=== PATIENT | female | born 1945 | race Caucasian/White ===

== ENCOUNTER 2017-08-27 13:59 | Emergency (ER) | payer MEDICARE, BC, SELFPAY ==
[2017-08-27 14:00] VITALS: BP 142/85; PULSE 9; RESP 16; TEMP 36.7; O2SAT 95; BMI 26.5
--- NOTE | 2017-08-27 15:29 | CT_ITS ---
STUDY: CT ABDOMEN AND PELVIS WITHOUT CONTRAST REASON FOR EXAM: Female, 71 years old. Abdominal pain. Blood in the stool x3 days RADIATION DOSAGE (If Supplied By Facility): CTDIvol = ( 8.9 ) mGy, DLP = ( 417.88 ) mGycm TECHNIQUE: Transaxial images were obtained from the dome of the diaphragm to the symphysis pubis without oral contrast, and without intravenous contrast. Sagittal and coronal images were reconstructed. Individualized dose optimization techniques were used for this CT. COMPARISON: 03/02/2016 FINDINGS: The visualized lung bases are unremarkable. The visualized portions of the heart are within normal limits. There is decreased attenuation of the liver consistent with steatosis. There is a solitary gallstone. Normal spleen. Normal pancreas. Normal bilateral adrenal glands. Punctate nonobstructing mid pole stone measuring 3 mm. Otherwise, unremarkable right kidney. Normal left kidney. There is a small hiatal hernia. Adjacent to the first and second portions of the duodenum, there are stable duodenal diverticula versus 1 measures 4.9 x 4 cm and the second measures 5.3 x 4.5 cm. Otherwise, remaining small bowel is within normal limits. There are multiple colonic diverticula consistent with diverticulosis. The appendix is visualized and appears normal. There is diffuse atherosclerotic calcification of the abdominal aorta, without a demonstrated aneurysm. Normal inferior vena cava. Normal retroperitoneum. Normal urinary bladder. There is atrophy of the uterus. Normal abdominal wall. There are diffuse degenerative changes of the visualized lumbar spine. CT/Abdomen/Pelvis without Cont IMPRESSION: 1. No acute findings. Chronic diverticulosis without acute diverticulitis. 2. Grossly stable duodenal diverticula. 3. Stable small gallstone without evidence of acute cholecystitis. Electronically Signed: Garrett Teresa DO at 16:17 EDT Tel , Service support ,
[2017-08-27 15:38] VITALS: BP 151/81; PULSE 77; RESP 16; O2SAT 97
--- NOTE | 2017-08-27 15:53 | ED.DCSUM_ITS ---
- ER Visit Summary Date of Service: 08/27/17 Chief Complaint: GI bleed History of Present Illness: The patient is a 71 F who states that for the past 3 days she wakes up she has a bowel movement that is formed and light brown and has bright red blood on the paper. There is no pain in the rectum. Her bowel movements throughout the day are normal without bleeding. Is any straining. She notes an intermittent pain in the left lower quadrant of her abdomen which she states is from her diverticulosis. Is not on any blood thinners. She has had no fevers. Physical Examination: Febrile vital signs are stable Gen: Well-nourished well-developed Head: Normocephalic atraumatic Eyes: Perrl EOMI ENT: TMs clear no rhinorrhea moist mucous membranes Neck: Supple no lymphadenopathy no JVD nontender CVS: Regular rate rhythm no murmurs normal S1-S2 Respiratory: No distress clear to auscultation bilaterally chest nontender Abdomen: Soft nontender nondistended normal bowel sounds no masses RECTAL: External hemorrhoid. Stool is light brown and heme-negative. There is no gross blood on digital exam. Back: Nontender Extremity: Nontender no edema Skin: Normal color no rash Neuro: alert orientated ?3 CN II-XII intact normal strength sensation reflexes gait cerebellar Psych: Normal affect normal mood Test Results: The globin 11.7 which is at about baseline for her. CT demonstrated no active diverticulitis. Noted duodenal diverticulum. Emergency Department Course and Treatment: Has a stable lower GI bleed most likely due to internal hemorrhoids. She will follow-up with her family doctor. He was given return instructions and noted understanding. Impression: 1. Stable lower GI bleed (most likely internal hemorrhoidal) This note was generated with [employer] dictation software. It may contain incorrect words, spelling, and punctuation that were not noted in review of the chart prior to signing ED Disposition - Plan for ED Patient: Disposition: Home or Assisted Living Chief Complaint: GI Bleed Instructions: ED Hemorrhoids Referrals: Woody Monzon MD [Primary Care Provider] - 3-5 Days if not improving
[2017-08-27 15:57] LABS: Anion Gap 9 (5-15); BUN 12 mg/dL (7-18); BUN/Creat Ratio 16.7 RATIO (10-20); Calcium,Total 9.3 mg/dL (8.5-10.1); Chloride 105 mmol/L (98-107); Creatinine, Serum 0.72 mg/dL (0.55-1.02); EST Glomerular Filtration Rate 85 mL/min (>60); Est Glom Filt Rate - Afr Amer 103 mL/min (>60); Glucose 121 mg/dL (74-106); Potassium 3.9 mmol/L (3.5-5.1); Sodium Level 139 mmol/L (136-145)
[2017-08-27 16:03] LABS: Absolute Lymphocyte Count 1.76 X10^3/ul (0.83-4.51); Absolute Neutrophil Count 3.6 X10^3/uL (2.0-7.7); Basophil# 0.02 X10^3/uL; Basophil% 0.3 % (0-1); Eosinophil# 0.17 X10^3/uL; Eosinophils% 2.7 % (0-5); Hematocrit 36.3 % (37-47); Hemoglobin 11.7 g/dl (12.0-15.0); Lymphocyte # 1.76 X10^3/ul (4.0); Lymphocyte % 28.1 % (19-41); Mean Corp Hgb Conc 32.2 g/gl (32-36); Mean Corpuscular Hgb 31.2 pg (27.0-32.0); Mean Corpuscular Volume 96.8 fL (81-99); Mean Platelet Vol. 9.5 fl (6.2-12.0); Monocyte# 0.74 X10^3/uL; Monocyte% 11.8 % (0-10); Neutrophil # 3.56 X10^3/uL (2.7-7.7); Neutrophil % 56.8 % (47-70); Platelet Count 264 K/mm3 (150-450); RBC Distribution Width CV 13.5 % (11.6-14.6); RBC Distribution Width SD 47.8 fl (35.1-43.9); Red Blood Count 3.75 M/mm3 (4.2-5.4); White Blood Count 6.3 K/mm3 (4.4-11.0)
[2017-08-27 16:06] LABS: POSITIVE COUNT NO; POSITIVE DIFFERENTIAL NO; POSITIVE MORPHOLOGY NO
[2017-08-27 17:12] VITALS: BP 172/86; PULSE 84; RESP 18; O2SAT 98
== END 2017-08-27 17:13 | disposition home or self-care (01) ==
PROVIDERS: Emergency Provider Emergency Medicine; Family Provider Family Medicine; PCP Family Medicine
DX: K92.2 Gastrointestinal hemorrhage, unspecified (principal); K64.4 Residual hemorrhoidal skin tags; I10 Essential (primary) hypertension; E78.00 Pure hypercholesterolemia, unspecified
CPT/HCPCS: 74176; 80048; 85025; 99283

== ENCOUNTER 2018-02-11 13:00 | Inpatient (IN) | payer MEDICARE, BC, SELFPAY ==
[2018-02-11] VITALS (13 sets, daily range): BP systolic 96–176; BP diastolic 54–95; PULSE 57–118; RESP 16–22; TEMP 36.2–36.7; O2SAT 92–100; BMI 24.0; BMI 29.7; BMI 29.8
[2018-02-11 13:19] LABS: Absolute Lymphocyte Count 1.95 X10^3/ul (0.83-4.51); Absolute Neutrophil Count 6.6 X10^3/uL (2.0-7.7); Basophil# 0.02 X10^3/uL; Basophil% 0.2 % (0-1); Eosinophil# 0.11 X10^3/uL; Eosinophils% 1.2 % (0-5); Hematocrit 39.9 % (37-47); Hemoglobin 12.8 g/dl (12.0-15.0); Lymphocyte # 1.95 X10^3/ul (4.0); Lymphocyte % 21.6 % (19-41); Mean Corp Hgb Conc 32.1 g/gl (32-36); Mean Corpuscular Hgb 31.1 pg (27.0-32.0); Mean Corpuscular Volume 96.8 fL (81-99); Mean Platelet Vol. 9.5 fl (6.2-12.0); Monocyte# 0.32 X10^3/uL; Monocyte% 3.5 % (0-10); Neutrophil # 6.61 X10^3/uL (2.7-7.7); Neutrophil % 73.4 % (47-70); Platelet Count 278 K/mm3 (150-450); RBC Distribution Width CV 13.8 % (11.6-14.6); Red Blood Count 4.12 M/mm3 (4.2-5.4)
[2018-02-11 13:21] LABS: POSITIVE COUNT NO; POSITIVE DIFFERENTIAL NO; POSITIVE MORPHOLOGY NO
[2018-02-11 13:34] LABS: ALB/GLOB Ratio 0.9 RATIO (0.9-2.4); AST(SGOT) 29 U/L (15-37); Alanine Aminotransfer ALT/SGPT 39 U/L (13-56); Albumin, Serum 3.6 g/dL (3.2-5.0); Alkaline Phosphatase 78 U/L (45-117); Anion Gap 14 (5-15); BUN 13 mg/dL (7-18); BUN/Creat Ratio 14.3 RATIO (10-20); Calcium,Total 9.5 mg/dL (8.5-10.1); Chloride 103 mmol/L (98-107); Creatinine, Serum 0.91 mg/dL (0.55-1.02); EST Glomerular Filtration Rate 65 mL/min (>60); Est Glom Filt Rate - Afr Amer 79 mL/min (>60); Estimated Creatinine Clearance 48.96 ml/min; Globulin 3.8 g/dL (2.2-4.2); Glucose 229 mg/dL (74-106); Lipase 150 U/L (73-393); Potassium 3.9 mmol/L (3.5-5.1); Protein, Total 7.4 g/dL (6.4-8.2); Sodium Level 139 mmol/L (136-145)
[2018-02-11] MEDS: Ondansetron 4 MG/2 ML Vial IV ×3 (13:41→19:16)
[2018-02-11] MEDS: Morphine 4 MG/ML Syringe IV ×2 (13:41→19:15)
--- NOTE | 2018-02-11 13:42 | EKG12_ITS ---
Test Reason : ABD PAIN Blood Pressure : / mmHG Vent. Rate : 048 BPM Atrial Rate : 048 BPM P-R Int : 170 ms QRS Dur : 070 ms QT Int : 508 ms P-R-T Axes : 014 010 075 degrees QTc Int : 453 ms Sinus bradycardia Otherwise normal ECG Confirmed by CHRISTINE JUAN ([id number]), book or script editor BONNIE SHARPE ([id number]) on 02/18/2018 2:10:50 PM Referred By: UNGUR/PALPS Confirmed By:CHRISTINE JUAN
--- NOTE | 2018-02-11 15:49 | ED.DCSUM_ITS ---
- ER Visit Summary Date of Service: 02/11/18 Chief Complaint: Head injury History of Present Illness: The patient is a 72 F who woke up with abdominal pain nausea vomiting she was walking and had a syncopal episode and hit her head. She arrives via EMS, I am told to head to the room right away since the patient was somewhat bradycardic and minimally responsive. By the time I got to the room she was responding more and her heart rate was in the upper 40s. She had a normal blood pressure and she is able to tell me that she had abdominal pain, and she was more responsive of and the nurses initially told me. Her main complaint is nausea vomiting and abdominal pain. She has no diarrhea. Physical Examination: Patient appears in some distress, she is lucid and coherent now, she is able to tell me that she has a headache, she has a scalp laceration which is 1 cm over the left frontal region. Heart is regular lungs are clear abdomen is soft, there is quite a bit of abdominal tenderness, it slightly distended there is guarding I cannot assess for rebound due to her tenderness. She does have bowel sounds. She has no edema. She moves her extremities. Emergency Department Course and Treatment: Patient received morphine and Zofran she has quite a bit of abdominal pain still , I sent her for a CT of the head and C-spine due to her syncope and head injury , these were unremarkable at the same time I did a flank CT which was grossly unremarkable patient has a normal white count, no anion gap and normal bicarb. Her pain is quite intense, I am worried about a surgical abdomen, I discussed this with surgery, they want a with p.o. and IV contrast. Initially talk to Dr. Martinez, he deferred to another hospital because of the duodenal diverticulum. I did discuss with Dr. Ibrahim who once a p.o. and IV contrast before she would accept the patient regardless the patient will need a medical admission. He is getting a p.o. and IV contrast, this will be checked prior to admission, the oncoming ED physician will check for this. Disposition: Per oncoming ED physician Impression: Concussion with loss of consciousness Scalp laceration Abdominal pain This note was generated with [employer] dictation software. It may contain incorrect words, spelling, and punctuation that were not noted in review of the chart prior to signing ED Disposition - Plan for ED Patient: Chief Complaint: Abd Pain Referrals: Woody Monzon MD [Primary Care Provider] -
[2018-02-11] MEDS: HYDROmorphone 1 MG/ML Syringe IV (15:51)
--- NOTE | 2018-02-11 17:14 | ED.RN ---
lactic acid 4.[address] sandhu aware
[2018-02-11 17:15] LABS: Lactic Acid 4.6 mmol/L (0.4-2.0)
[2018-02-11] MEDS: 0.9% Normal Saline 1,000 ML 999 ML IV ×2 (17:41→20:16)
[2018-02-11 17:42] LABS: Bacteria 0 SEEN /hpf (None Seen); Mucous, Urine 0 SEEN /hpf (<or=2+)
[2018-02-11 17:57] LABS: Color, Urine Yellow (Yellow); Glucose, Dipstick Normal (Normal); Ketone-Dipstick 50 mg/dl (Negative); Leukocyte Esterase-Dipstick 25 /ul (Negative); Nitrite-Dipstick Negative (Negative); Occult Blood-Urine Negative /ul (Negative); Protein-Dipstick 100 mg/dl (Negative); Specific Gravity, Urine 1.025 (1.002-1.030); Urine Bilirubin Dipstick Negative (Negative); Urine Clarity Clear (Clear); Urine Urobilinogen Normal (Normal)
[2018-02-11 18:04] LABS: Red Blood Cells-Urine 0 SEEN /hpf (0-5); Squamous Epithelial Cells - UA 0-5 SEEN /hpf (5-10); Transitional Epithelial - Ur 0 SEEN /hpf (0-5); White Blood Cells 0-5 SEEN /hpf (0-5)
--- NOTE | 2018-02-11 19:27 | PCM.CONS.GEN ---
Reason for Consult Date of Consultation: 02/11/18 History of Present Illness: The patient is a 72 year old F resent to the ER after a syncopal episode this morning. Patient states that about 9 AM when she woke up she had abdominal pain and she was walking to the restroom and she fell from standing and blacked out in the shower but did wake up on her own. She is also able to walk downstairs and then she did start to become really weak in front of her who had a help her into the car to come to ER. When patient was brought to the ER she was bradycardic however that did resolve and patient did regain normal mental status per ER physician as well as patient's . Patient did have a CT head, spine and chest x-ray which were all normal. Patient also initially had a CT of the abdomen without contrast which did not show any acute findings except for small amount of fluid in the cul-de-sac. Patient still complained of abdominal pain and complained of some nausea and vomiting since noon. Patient have a repeat CT abdomen pelvis with contrast which showed some mildly dilated small bowel as well as although mesenteric stranding. Patient's lactate was initially 4.6 however did improve to 2.8 after getting fluids. Patient's white blood cell count was within normal limits. Patient's urine was not remarkable. She denies having any previous abdominal pain until this morning denies any history of pain after eating. States she has had a good appetite was able to eat normally yesterday. Denies any abdominal surgeries. She did have a colonoscopy at 304 years ago which she states was negative. Patient denies ever having pain like this previously. Currently she rates the pain 5/10 after getting morphine as well as Dilaudid in the ER. Prior she states her pain was at 10/10. She states she does not remember last time she passed gas; however she did have a bowel movement this morning denies any blood. Past Medical History Past Medical History (Chronic Problems): Chronic Problems Alcohol dependence (Chronic) Diabetes (Chronic) Allergies aspirin [From Percodan] Allergy (Verified 03/02/16 10:17) Unknown oxycodone HCl [From Percodan] Allergy (Verified 03/02/16 10:17) Unknown oxycodone terephthalate [From Percodan] Allergy (Verified 03/02/16 10:17) Unknown Home Medications: Ambulatory Orders Medication Instructions Recorded Lisinopril [Zestril] 20 mg PO DAILY 03/02/16 Pravastatin [Pravachol] 40 mg PO QHS 03/02/16 Surgical History: - - Right ear surgery and right wrist surgery, liposuction to abdomen Psychiatric History: No pertinent psych hx Lives: Spouse/ Significant Other Smoking Status: Former smoker Alcohol: Heavy - Patient has about 3 glasses of orange juice and vodka a night and about half the cup of a 16 ounce glass is vodka, patient states she is unsure how much it is but she counts to 5 - *Family History Maternal History Items: No pertinent history Review of Systems Constitutional: Reports: Anorexia. Denies: Fever HEENT: Denies: Difficulty Swallowing Respiratory: Denies: Shortness of breath at rest Gastrointestinal: Reports: Abdominal Pain, Nausea, Vomiting Genitourinary: Denies: Dysuria Skin: Denies: Rash Hematologic/ Lymphatic: Denies: Easy Bruising, Easy Bleeding Patient Problems: Active and Suspected Problems Syncope and collapse (Acute) Abdominal pain (Acute) - Physical Exam General: Alert, Oriented x3, Cooperative HEENT: - - staple to right scalp lac Neck: - - no cspine ttp Lungs: Normal air movement Cardiovascular: Regular rate Abdomen: Distended, Tender - diffusely, unable to adequately assess rebound due to tenderness, patient is very hesitant to relax her abdomen Extremities: No clubbing, No cyanosis, No edema Neurological: Cranial nerves II-XII grossly intact, Neuro grossly intact Psych/Mental Status: Normal Affect Vital Signs Temp Pulse Resp BP Pulse Ox 97.2 F L 90 22 H 176/81 H 94 02/11/18 13:01 02/11/18 18:30 02/11/18 18:30 02/11/18 18:30 02/11/18 18:30 Oxygen Flow Rate (L/min) 2 Oxygen Delivery Method Nasal Cannula Weight: 140 lb Body Mass Index (BMI) 24.0 Laboratory Tests Past 24 Hrs 02/11/18 02/11/18 02/11/18 13:00 13:00 13:00 WBC 9.0 RBC 4.12 L Hgb 12.8 Hct 39.9 MCV 96.8 MCH 31.1 MCHC 32.1 RDW 13.8 RDW Differential 49.0 H Plt Count 278 MPV 9.5 Immature Gran % (Auto) 0.100 Neut % (Auto) 73.4 H Lymph % (Auto) 21.6 [place] % (Auto) 3.5 Eos % (Auto) 1.2 Baso % (Auto) 0.2 Absolute Neuts (auto) 6.6 Absolute Lymphs (auto) 1.95 Total Counted Not Reportable Sodium 139 Potassium 3.9 Chloride 103 Carbon Dioxide 22.0 Anion Gap 14 BUN 13 Creatinine 0.91 Estim Creat Clear Calc 48.96 Est GFR (MDRD) Af Amer 79 Est GFR (MDRD) Non-Af 65 BUN/Creatinine Ratio 14.3 Glucose 229 H Lactic Acid 4.6 H* Calcium 9.5 Total Bilirubin 0.50 AST 29 ALT 39 Alkaline Phosphatase 78 Troponin I < 0.015 Total Protein 7.4 Albumin 3.6 Globulin 3.8 Albumin/Globulin Ratio 0.9 Lipase 150 Urine Color Urine Clarity Urine pH Ur Specific [place] Urine Protein Urine Glucose (UA) Urine Ketones Urine Occult Blood Urine Nitrite Urine Bilirubin Urine Urobilinogen Ur Leukocyte Esterase Urine RBC Urine WBC Ur Squamous Epith Cells Ur Transition Epith Cell Urine Bacteria Urine Mucus 02/11/18 02/11/18 17:35 17:35 WBC RBC Hgb Hct MCV MCH MCHC RDW RDW Differential Plt Count MPV Immature Gran % (Auto) Neut % (Auto) Lymph % (Auto) [place] % (Auto) Eos % (Auto) Baso % (Auto) Absolute Neuts (auto) Absolute Lymphs (auto) Total Counted Sodium Potassium Chloride Carbon Dioxide Anion Gap BUN Creatinine Estim Creat Clear Calc Est GFR (MDRD) Af Amer Est GFR (MDRD) Non-Af BUN/Creatinine Ratio Glucose Lactic Acid Pending Calcium Total Bilirubin AST ALT Alkaline Phosphatase Troponin I Total Protein Albumin Globulin Albumin/Globulin Ratio Lipase Urine Color Yellow Urine Clarity Clear Urine pH 5.0 Ur Specific [place] 1.025 Urine Protein 100 H Urine Glucose (UA) Normal Urine Ketones 50 H Urine Occult Blood Negative Urine Nitrite Negative Urine Bilirubin Negative Urine Urobilinogen Normal Ur Leukocyte Esterase 25 H Urine RBC 0 SEEN Urine WBC 0-5 SEEN Ur Squamous Epith Cells 0-5 SEEN Ur Transition Epith Cell 0 SEEN Urine Bacteria 0 SEEN Urine Mucus 0 SEEN Assessment/Plan All Active Problems Syncope and collapse (Acute) Abdominal pain (Acute) 72 y/o F s/p fall from standing (CT head/spine neg), abd pain (CT shows some ?mesenteric stranding and mildly dilated SB loops), elevated lactic acid 1. Mildly dilated small bowel loops questionable mesenteric stranding. Will continue to follow the lactic acid has improved from 4.6-2.8 with fluids. Will continue IV fluids n.p.o. Patient's abdomen is softer after NG has been placed and patient put out [address] a [place] for strict I's and O's. Check an acute abdominal series in the morning. As well as repeat labs in the morning. Unsure the exact cause of patient's abdominal pain as it did start prior to her syncopal episode but patient also never had any abdominal surgeries. Patient be admitted to medicine with telemetry. We will do serial abdominal exams and monitor labs. The patient does have increased pain, increased white blood cell count, nonresolution of her lactic acid she may need diagnostic laparoscopy, possible laparotomy. Ginette Domingo M.D. Pager: [phone] [facility] [address] [place] [address], [facility], [address] [place] [address] Office: [phone]
[2018-02-11 19:30] LABS: Lactic Acid 2.8 mmol/L (0.4-2.0)
--- NOTE | 2018-02-11 19:32 | ED.RN ---
lab called with critical lab results. lactic acid 2.8. dr. schwartz made aware. Dr. Domingo made to be paged
--- NOTE | 2018-02-11 19:57 | ED.RN ---
Dr. Domingo at the bedside and made aware of lactic results. Verbal orders given at this time
--- NOTE | 2018-02-11 20:21 | PCM.HP.STD ---
Problem List (1) Syncope and collapse Status: Acute (2) Abdominal pain Status: Acute (3) Alcohol dependence Status: Chronic (4) Diabetes Status: Chronic Qualifiers: Diabetes mellitus type: type 2 History of Present Illness Date of Admission: 02/11/18 Chief Complaint: Syncope and abdominal pain ?1 day. The patient is a 72 year old F with a significant history of hypertension, type 2 diabetes, alcoholism, and a history of liposuction who presents with 1 day history of persistent severe sharp abdominal pain. Associated with her symptoms is nausea and vomiting She reports weakness; syncope and fall in her bathroom on the same day of admission. She sustained an injury on her left frontoparietal scalp area. After her fall in the bathroom she got up, walked to her and passed out again. However for the second time she passed out her broke her fall. At emergency department; EKG showed sinus bradycardia. However on telemonitor, she was sinus rhythm with heart rate of about 100 on the monitor. Her lactic acid initially was 4.6 but it went down to 2.8. Brain CT done at emergency department did not show any acute changes. Abdominal CT without contrast showed stable large duodenal diverticula Abdominal CT with contrast showed mild mesenteric stranding with the possibility of mild enteritis. Past Medical History Past Medical History (Chronic Problems): Chronic Problems Alcohol dependence (Chronic) Diabetes (Chronic) Allergies aspirin [From Percodan] Allergy (Verified 03/02/16 10:17) Unknown oxycodone HCl [From Percodan] Allergy (Verified 03/02/16 10:17) Unknown oxycodone terephthalate [From Percodan] Allergy (Verified 03/02/16 10:17) Unknown Home Medications: Ambulatory Orders Medication Instructions Recorded Lisinopril [Zestril] 20 mg PO DAILY 03/02/16 Pravastatin [Pravachol] 40 mg PO QHS 03/02/16 Surgical History: - - Right ear surgery and right wrist surgery. Liposuction Psychiatric History: No pertinent psych hx Lives: Spouse/ Significant Other Smoking Status: Former smoker Tobacco Use: Cigarettes Alcohol: Heavy - Patient has about 3 glasses of orange juice and vodka a night and about half the cup of a 16 ounce glass is vodka, patient states she is unsure how much it is but she counts to 5 - *Family History Maternal History Items: No pertinent history Review of Systems Constitutional: Reports: Weakness. Denies: Chills, Fever, Weight Change Eyes: Denies: Blurred vision, Pain HEENT: Denies: Head Aches, Sinus Congestion, Sinus Drainage Cardiovascular: Reports: Syncope. Denies: Chest Pain Respiratory: Denies: Cough, Shortness of breath at rest, Sputum production Gastrointestinal: Reports: Abdominal Pain, Nausea, Vomiting Genitourinary: Denies: Dysuria Musculoskeletal: Denies: Joint Pain, Joint Tenderness Skin: Denies: Rash, Wounds Neurological: Denies: Numbness, Tingling, Focal weakness Psychiatric: Denies: Anxiety, Depression, Homicidal Ideations, Suicidal Ideations Hematologic/ Lymphatic: Denies: Easy Bruising, Easy Bleeding VTE Information - Inpt Only VTE Present on Admission: No VTE Mechan Device Prophylaxis: None VTE Pharm Prophylaxis ordered?: Yes Patient Problems: Active and Suspected Problems Syncope and collapse (Acute) Abdominal pain (Acute) - Physical Exam General: Alert, Oriented x3, Cooperative HEENT: Atraumatic, PERRLA, EOMI, Normocephalic Neck: Supple, No JVD, Negative Carotid Bruits Lungs: Clear to auscultation, Normal air movement Cardiovascular: Regular rate, Normal S1, Normal S2 Abdomen: Bowel Sounds Not Present, Rigid - mildly rigid, Tender, - Extremities: No edema, Capillary Refill Less than 3 Seconds Skin: No rashes, No breakdown Musculoskeletal: No Tenderness to Palpation of Joints or Extremities Lymphatic: No Cervical, Supraclavicular, or Inguinal Adenopathy Neurological: Cranial nerves II-XII grossly intact Psych/Mental Status: Normal Affect Vital Signs Temp Pulse Resp BP Pulse Ox 97.2 F L 95 20 H 151/85 H 92 02/11/18 13:01 02/11/18 20:08 02/11/18 20:08 02/11/18 20:08 02/11/18 20:08 Oxygen Flow Rate (L/min) 2 Oxygen Delivery Method Room Air Weight: 63.503 kg Body Mass Index (BMI) 24.0 Laboratory Tests Past 24 Hrs 02/11/18 02/11/18 02/11/18 13:00 13:00 13:00 WBC 9.0 RBC 4.12 L Hgb 12.8 Hct 39.9 MCV 96.8 MCH 31.1 MCHC 32.1 RDW 13.8 RDW Differential 49.0 H Plt Count 278 MPV 9.5 Immature Gran % (Auto) 0.100 Neut % (Auto) 73.4 H Lymph % (Auto) 21.6 [place] % (Auto) 3.5 Eos % (Auto) 1.2 Baso % (Auto) 0.2 Absolute Neuts (auto) 6.6 Absolute Lymphs (auto) 1.95 Total Counted Not Reportable Sodium 139 Potassium 3.9 Chloride 103 Carbon Dioxide 22.0 Anion Gap 14 BUN 13 Creatinine 0.91 Estim Creat Clear Calc 48.96 Est GFR (MDRD) Af Amer 79 Est GFR (MDRD) Non-Af 65 BUN/Creatinine Ratio 14.3 Glucose 229 H Lactic Acid 4.6 H* Calcium 9.5 Total Bilirubin 0.50 AST 29 ALT 39 Alkaline Phosphatase 78 Troponin I < 0.015 Total Protein 7.4 Albumin 3.6 Globulin 3.8 Albumin/Globulin Ratio 0.9 Lipase 150 Urine Color Urine Clarity Urine pH Ur Specific [place] Urine Protein Urine Glucose (UA) Urine Ketones Urine Occult Blood Urine Nitrite Urine Bilirubin Urine Urobilinogen Ur Leukocyte Esterase Urine RBC Urine WBC Ur Squamous Epith Cells Ur Transition Epith Cell Urine Bacteria Urine Mucus 02/11/18 02/11/18 17:35 17:35 WBC RBC Hgb Hct MCV MCH MCHC RDW RDW Differential Plt Count MPV Immature Gran % (Auto) Neut % (Auto) Lymph % (Auto) [place] % (Auto) Eos % (Auto) Baso % (Auto) Absolute Neuts (auto) Absolute Lymphs (auto) Total Counted Sodium Potassium Chloride Carbon Dioxide Anion Gap BUN Creatinine Estim Creat Clear Calc Est GFR (MDRD) Af Amer Est GFR (MDRD) Non-Af BUN/Creatinine Ratio Glucose Lactic Acid 2.8 H Calcium Total Bilirubin AST ALT Alkaline Phosphatase Troponin I Total Protein Albumin Globulin Albumin/Globulin Ratio Lipase Urine Color Yellow Urine Clarity Clear Urine pH 5.0 Ur Specific [place] 1.025 Urine Protein 100 H Urine Glucose (UA) Normal Urine Ketones 50 H Urine Occult Blood Negative Urine Nitrite Negative Urine Bilirubin Negative Urine Urobilinogen Normal Ur Leukocyte Esterase 25 H Urine RBC 0 SEEN Urine WBC 0-5 SEEN Ur Squamous Epith Cells 0-5 SEEN Ur Transition Epith Cell 0 SEEN Urine Bacteria 0 SEEN Urine Mucus 0 SEEN Assessment/Plan All Active Problems Syncope and collapse (Acute) Abdominal pain (Acute) The patient is a 72 year old F with a significant history of hypertension, type 2 diabetes, alcoholism, and a history of liposuction who presents with 1 day history of persistent severe sharp abdominal pain; and syncope with collapse. Syncope and collapse Likely due to depressed parasympathetic tone from severe pain However we will will rule out cardiac cause. Placed on telemetry monitoring Echocardiogram ordered. Brain CT independently reviewed - Showed no acute process. Laceration on scalp which was stapled- Wound care consult. Mildly dilated small bowel loops questionable mesenteric stranding Abdominal CT without contrast showed stable large duodenal diverticula Abdominal CT with contrast showed mild mesenteric stranding with the possibility of mild enteritis. Etiology of abdominal pain is unclear at this time. Elevated lactic acid; trending down IV hydration (lactated Ringer's) Trend lactic acid General surgeon Dr. Domingo from is following patient; appreciate her assistance. NG tube to wall suction and urinary catheter per general surgeon orders. Morphine and Zofran as needed. Chronic hypertension Blood pressure above goal at admission Lisinopril continued Diabetes mellitus Blood glucose not at goal at time of admission Patient n.p.o. at this time. Fingerstick blood glucose every 6 hours with correction scale protocol. Hyperlipidemia pravastatin continued. Alcohol dependence Patient drinks about 1/2 glass of vodka every day. Ethanol level at admission was 10. CIWA protocol with lorazepam, thiamine and folic acid. DVT prophylaxis Lovenox. Code Visit Inpatient E&M: 24733 Init Hosp L3
[2018-02-11 20:54] LABS: Reflex Lactate? Y
--- NOTE | 2018-02-11 20:58 | NURSING ---
Called ED credit negotiator phone at this time. Confirmed with Roseanne that Pt is okay to come to PCU.
[2018-02-11 21:56] LABS: Lactic Acid 2.7 mmol/L (0.4-2.0)
[2018-02-11] MEDS: Lactated Ringers 1,000 ML 125 ML IV (21:59)
[2018-02-11 22:39] LABS: Reflex Lactate? Y
[2018-02-11 23:20] LABS: Bedside Glucose 160 mg/dL (70-110)
[2018-02-12] VITALS (19 sets, daily range): BP systolic 131–187; BP diastolic 76–105; PULSE 85–118; RESP 16–18; TEMP 36.6–37.5; O2SAT 75–99; BMI 29.7
[2018-02-12] MEDS: 0.9% Normal Saline 1,000 ML 500 ML IV (02:00)
[2018-02-12] MEDS: Morphine 2 MG/ML Syringe IV (02:57)
[2018-02-12 03:54] LABS: Absolute Lymphocyte Count 0.58 X10^3/ul (0.83-4.51); Absolute Neutrophil Count 10.5 X10^3/uL (2.0-7.7); Basophil# 0.01 X10^3/uL; Basophil% 0.1 % (0-1); Hematocrit 34.2 % (37-47); Lymphocyte # 0.58 X10^3/ul (4.0); Lymphocyte % 4.9 % (19-41); Mean Corp Hgb Conc 32.2 g/gl (32-36); Mean Corpuscular Hgb 31.7 pg (27.0-32.0); Mean Corpuscular Volume 98.6 fL (81-99); Mean Platelet Vol. 9.1 fl (6.2-12.0); Monocyte# 0.66 X10^3/uL; Monocyte% 5.6 % (0-10); Neutrophil # 10.49 X10^3/uL (2.7-7.7); Neutrophil % 89.2 % (47-70); Platelet Count 229 K/mm3 (150-450); RBC Distribution Width SD 48.6 fl (35.1-43.9); Red Blood Count 3.47 M/mm3 (4.2-5.4); White Blood Count 11.8 K/mm3 (4.4-11.0)
[2018-02-12 03:55] LABS: Differential Indicated SCAN CRITERIA MET; POSITIVE COUNT NO; POSITIVE DIFFERENTIAL YES; POSITIVE MORPHOLOGY YES
[2018-02-12 03:58] LABS: Prothrombin Time (Protime)PT. 13.6 SECONDS (11.7-14.9)
[2018-02-12 04:22] LABS: Anion Gap 11 (5-15); BUN 11 mg/dL (7-18); Chloride 109 mmol/L (98-107); Creatinine, Serum 0.69 mg/dL (0.55-1.02); EST Glomerular Filtration Rate 89 mL/min (>60); Est Glom Filt Rate - Afr Amer 108 mL/min (>60); Estimated Creatinine Clearance 40.81 ml/min; Glucose 156 mg/dL (74-106); Lactic Acid 2.3 mmol/L (0.4-2.0); Potassium 3.9 mmol/L (3.5-5.1); Sodium Level 143 mmol/L (136-145)
[2018-02-12 04:39] LABS: Differential Comment SCANNED
[2018-02-12] MEDS: Lactated Ringers 1,000 ML 150 ML IV ×2 (05:09→21:37)
--- NOTE | 2018-02-12 05:09 | PCM.PN.SRG ---
Patient Problems: Active and Suspected Problems Syncope and collapse (Acute) Abdominal pain (Acute) Subjective: Patient's lactic acid did slowly come down from 2.8-2.7-2.3 after some IV fluids however this morning's lab did show white blood count of 11.8 with shift, patient denies any flatus or bowel movements, NG put out additional 400 cc on the floor - Physical Exam General: Alert, Oriented x3, Cooperative HEENT: - - Staple in the left side of her head due to scalp lack, NG in place Lungs: Normal air movement Cardiovascular: Regular rate Abdomen: Distended, Tender - Diffusely tender with voluntary guarding, mild rebound Extremities: No clubbing, No cyanosis, No edema Psych/Mental Status: Normal Affect Vital Signs Temp Pulse Resp BP Pulse Ox 97.9 F 98 18 147/77 H 94 02/12/18 02:50 02/12/18 03:51 02/12/18 02:50 02/12/18 02:50 02/12/18 02:50 Oxygen Flow Rate (L/min) 2 Oxygen Delivery Method Nasal Cannula Weight: 162 lb 14.746 oz Body Mass Index (BMI) 29.7 Orthostatic Vital Signs Start: 02/11/18 21:46 Freq: q24h Status: Active Protocol: Activity Type Activity Date Activity User E-Sign Co-Sign Detail Recorded Client Recorded Date Recorded By Document 02/11/18 21:46 [facility] [id number] 02/11/18 21:53 [facility] 02/11/18 21:46 Orthostatic Vitals Standing -Blood Pressure (90/60-120/80) 157/87 H -Extremity Use Left Arm -Pulse Rate (60-100) 110 H Sitting -Blood Pressure (90/60-120/80) 162/95 H -Extremity Use Left Arm -Pulse Rate (60-100) 99 Lying -Blood Pressure (90/60-120/80) 149/80 H -Extremity Use Left Arm -Pulse Rate (60-100) 90 Intake and Output for Last 24 Hours 02/10/18 02/11/18 02/12/18 23:59 23:59 23:59 Intake Total 247 / 247 1945 / 1945 Output Total 350 / 350 625 / 625 Balance -103 / -103 1320 / 1320 Laboratory Tests Past 24 Hrs 02/11/18 02/11/18 02/11/18 21:02 22:00 22:00 WBC RBC Hgb Hct MCV MCH MCHC RDW RDW Differential Plt Count MPV Immature Gran % (Auto) Neut % (Auto) Lymph % (Auto) Charlotte % (Auto) Eos % (Auto) Baso % (Auto) Absolute Neuts (auto) Absolute Lymphs (auto) Total Counted Differential Comment PT INR Sodium Potassium Chloride Carbon Dioxide Anion Gap BUN Creatinine Estim Creat Clear Calc Est GFR (MDRD) Af Amer Est GFR (MDRD) Non-Af BUN/Creatinine Ratio Glucose Lactic Acid 2.7 H Calcium Troponin I < 0.015 Ethyl Alcohol 10.0 02/12/18 02/12/18 02/12/18 00:40 03:36 03:36 WBC 11.8 H RBC 3.47 L Hgb 11.0 L Hct 34.2 L MCV 98.6 MCH 31.7 MCHC 32.2 RDW 14.0 RDW Differential 48.6 H Plt Count 229 MPV 9.1 Immature Gran % (Auto) 0.200 Neut % (Auto) 89.2 H Lymph % (Auto) 4.9 L Charlotte % (Auto) 5.6 Eos % (Auto) 0.0 Baso % (Auto) 0.1 Absolute Neuts (auto) 10.5 H Absolute Lymphs (auto) 0.58 L Total Counted Not Reportable Differential Comment SCANNED PT INR Sodium 143 Potassium 3.9 Chloride 109 H Carbon Dioxide 23.0 Anion Gap 11 BUN 11 Creatinine 0.69 Estim Creat Clear Calc 40.81 Est GFR (MDRD) Af Amer 108 Est GFR (MDRD) Non-Af 89 BUN/Creatinine Ratio 16.0 Glucose 156 H Lactic Acid Calcium 8.0 L Troponin I < 0.015 Ethyl Alcohol 02/12/18 02/12/18 02/12/18 03:36 03:36 03:36 WBC RBC Hgb Hct MCV MCH MCHC RDW RDW Differential Plt Count MPV Immature Gran % (Auto) Neut % (Auto) Lymph % (Auto) Charlotte % (Auto) Eos % (Auto) Baso % (Auto) Absolute Neuts (auto) Absolute Lymphs (auto) Total Counted Differential Comment PT 13.6 INR 1.0 Sodium Potassium Chloride Carbon Dioxide Anion Gap BUN Creatinine Estim Creat Clear Calc Est GFR (MDRD) Af Amer Est GFR (MDRD) Non-Af BUN/Creatinine Ratio Glucose Lactic Acid 2.3 H Calcium Troponin I < 0.015 Ethyl Alcohol POC Glucose 02/11/18 22:32 POC Glucose 160 H Medical Necessity - Tobacco Use Smoking Status: Former smoker Tobacco Use: Cigarettes Assessment/Plan All Active Problems Syncope and collapse (Acute) Abdominal pain (Acute) 72 y/o F s/p fall from standing (CT head/spine neg), abd pain (CT shows some ?mesenteric stranding and mildly dilated SB loops), elevated lactic acid-improved to 2.3 1. Discussed with patient due to the still elevated lactate after fluids as well as then elevated white blood count with shift and her exam she is still pretty tender diffusely. Discussed with patient (and her via phone) I think should benefit from a diagnostic laparoscopy, possible laparotomy, possible bowel resection. Did discuss risks including but not limited to bleeding, infection, injury to another organ (small bowel, colon, etc.), and anesthesia. Patient and her had no further questions at this time. Ginette Domingo M.D. Pager: [phone] [facility] [address] [place] [address], [address] [place] [address] Office: [phone]
[2018-02-12 05:31] LABS: Bedside Glucose 155 mg/dL (70-110)
--- NOTE | 2018-02-12 05:55 | NURSING ---
Report given to surgery at this time. aware that antibiotic cefotetan was ordered by dr barrera and was dc'd by her as well, cefotetan antibiotic was sent with pt to surgery. prosecuting attorney to transport pt to ac.
[2018-02-12] MEDS: Bupiv/Epi 0.5% Mpf 30 ML Vial (08:40)
--- NOTE | 2018-02-12 09:02 | PCM.OPRPT ---
Report of Operation Date of Procedure: 02/12/18 Pre-Operative Diagnosis: Mildly dilated small bowel, leukocytosis, lactic acidosis Post-Operative Diagnosis: Purulent peritonitis Surgery/Procedure Performed:: Exploratory laparoscopy converted to exploratory laparotomy, abdominal washout monitoring coordinator: Florian Booth Type of Anesthesia:: General/Supplemental Anesthesiologist: James Webb Special Medications: Cefotetan 2 g IV ?1 Drains: UOP -100cc Estimated Blood Loss (mL): <20 cc Fluids Replaced: 2400cc Description of Procedure: Indications this is a 72 year-old female who developed abdominal pain/nausea/vomiting and had some mildly dilated small bowel on CT as well as elevated lactic acid. Diagnostic laparoscopy, possible laparotomy, possible bowel resection was discussed with patient and she and her agreed to proceed. Description procedure: The patient was placed on operating table in supine position. General Anesthesia was induced. A timeout was completed verifying correct patient, procedure, site, position, and special equipment prior to beginning procedure. A nasogastric tube was already in placed, as well as a Camejo. The abdomen was prepped and draped in usual sterile fashion. An incision was made in the natural skin line above the umbilicus. The fascia was elevated and incised. The peritoneum was elevated and incised. Entry into the peritoneum was confirmed visually and no bowel was noted in the vicinity of the incision. Helms trocar was placed. The abdomen was insufflated with carbon dioxide to a pressure of 12-15 mmHg. Patient tolerated insufflation well. The laparoscope was then inserted and abdomen inspected. No injuries from initial trocar placement were noted. Additional trochars were then inserted in the following locations 5 mm trochars in the left lateral abdomen, right lateral abdomen and suprapubic. The abdomen was inspected there is noted to be dilated small bowel which all appeared viable and there is noted to be herrera purulent fluid in the pelvis. The fluid was suctioned and sent for culture. The table is placed in Trendelenburg position. There is noted to be some inflammation on the small bowel there was an area that appeared to have possible mass which could be causing partial obstruction. Converted to laparotomy with the 10 blade scalpel midline incision was made and deepened with electrocautery. The wound protector was placed. The entirety of the small bowel was run from ligament of Treitz to the cecum. The area that was a possible mass noted to just be stool was able to be broken up and moved along small bowel the other areas did have some thickening and inflammation associated in a couple of area middle small bowel; however the bowel was all viable and there is no evidence of any obvious perforation within those areas of small bowel with manipulation, the contents moved freely through and no obvious diverticuli in inflammed areas. The inflammation was mostly in the left lower quadrant so that sigmoid is also explored and no obvious thickening or perforation was seen. For better visualization the Gel handPort was placed and the abdomen was insufflated with air. Entirety of the colon was also ran with no findings of inflammation or perforation. The stomach appeared to be normal with no areas of thickening or perforation as well. The 2 large duodenal diverticuli and a couple of proximal smaller jejunal diverticuli were seen and no obvious inflammation or perforation in those areas as well. No obvious perforation was seen the midline incision was enlarged and a large protector was placed, as the abdomen was reinspected. The abdomen was washed out with 3 L of warm saline. Continue to look for possible perforated viscus; however again with running the small bowel there is no noted area of perforation and again a additional look at the sigmoid did not reveal any areas perforation as well. After the irrigation of abdomen, there was no more purulent fluid seen. It was all clear/serosanguineous fluid. 15 Romanian ROSE round was left in the pelvis from the lateral left trocar site-secured with 3-0 nylon to the skin. The midline incision was closed with running suture of 0 Prolene. The wound was irrigated. The skin was loosely closed with 4-0 Monocryl interrupted sutures. The trochars were also closed with 4-0 Monocryl interrupted sutures. Steri-Strips were placed over the wound. The patient was extubated and tolerated procedure well and was taken to the postanesthesia care unit in stable condition. - Complications none
--- NOTE | 2018-02-12 10:20 | PCM.PN.HOSP ---
Patient Problems: Active and Suspected Problems Syncope and collapse (Acute) Abdominal pain (Acute) Subjective: Patient returned from surgery after she had exploratory laparoscopic converted laparotomy. Lactic acid was elevated. Patient has ROSE drain and NG tube. NG tube aspirate bilious fluid. Abdominal discomfort as expected after surgery. Discussed with Dr. Domingo. Vitals/I&O's: Vital Signs Temp Pulse Resp BP Pulse Ox 99.0 F 91 18 144/82 H 97 02/12/18 10:19 02/12/18 10:19 02/12/18 10:19 02/12/18 10:19 02/12/18 10:19 Oxygen Flow Rate (L/min) 3 Oxygen Delivery Method Nasal Cannula Weight: 162 lb 14.746 oz Body Mass Index (BMI) 29.7 Orthostatic Vital Signs Start: 02/11/18 21:46 Freq: q24h Status: Active Protocol: Activity Type Activity Date Activity User E-Sign Co-Sign Detail Recorded Client Recorded Date Recorded By Document 02/11/18 21:46 [facility] [id number] 02/11/18 21:53 [facility] 02/11/18 21:46 Orthostatic Vitals Standing -Blood Pressure (90/60-120/80) 157/87 H -Extremity Use Left Arm -Pulse Rate (60-100) 110 H Sitting -Blood Pressure (90/60-120/80) 162/95 H -Extremity Use Left Arm -Pulse Rate (60-100) 99 Lying -Blood Pressure (90/60-120/80) 149/80 H -Extremity Use Left Arm -Pulse Rate (60-100) 90 Intake and Output for Last 24 Hours 02/10/18 02/11/18 02/12/18 23:59 23:59 23:59 Intake Total 247 / 247 4945 / 4945 Output Total 350 / 350 995 / 995 Balance -103 / -103 3950 / 3950 General: Alert, Oriented x3, Cooperative HEENT: Atraumatic, PERRLA, EOMI, Normocephalic Oral: - - NG tube Neck: Supple, No JVD, Negative Carotid Bruits Lungs: Clear to auscultation, No rhonchi, No wheeze, Diminished Cardiovascular: Regular rate, Normal S1, Normal S2, No murmurs Abdomen: Soft, Distended, Tender, - - ROSE drain in pelvis with abdominal binder Extremities: No edema, Capillary Refill Less than 3 Seconds Skin: No rashes, No breakdown Musculoskeletal: No Tenderness to Palpation of Joints or Extremities, Arthritic Changes Neurological: Cranial nerves II-XII grossly intact Psych/Mental Status: Normal Affect, Appropriate Laboratory Results 02/11/18 21:02: Lactic Acid 2.7 H 02/11/18 22:00: Ethyl Alcohol 10.0 02/11/18 22:00: Troponin I < 0.015 02/11/18 22:32: POC Glucose 160 H 02/12/18 00:40: Troponin I < 0.015 02/12/18 03:36: Sodium 143, Potassium 3.9, Chloride 109 H, Carbon Dioxide 23.0, Anion Gap 11, BUN 11, Creatinine 0.69, Estim Creat Clear Calc 40.81, Est GFR (MDRD) Af Amer 108, Est GFR (MDRD) Non-Af 89, BUN/Creatinine Ratio 16.0, Glucose 156 H, Calcium 8.0 L 02/12/18 03:36: WBC 11.8 H, RBC 3.47 L, Hgb 11.0 L, Hct 34.2 L, MCV 98.6, MCH 31.7, MCHC 32.2, RDW 14.0, RDW Differential 48.6 H, Plt Count 229, MPV 9.1, Immature Gran % (Auto) 0.200, Neut % (Auto) 89.2 H, Lymph % (Auto) 4.9 L, Clay % (Auto) 5.6, Eos % (Auto) 0.0, Baso % (Auto) 0.1, Absolute Neuts (auto) 10.5 H, Absolute Lymphs (auto) 0.58 L, Total Counted Not Reportable, Differential Comment SCANNED 02/12/18 03:36: PT 13.6, INR 1.0 02/12/18 03:36: Troponin I < 0.015 02/12/18 03:36: Lactic Acid 2.3 H 02/12/18 05:27: POC Glucose 155 H Current Medications Dextrose (D50w Syringe) 0 gm IV X1 PRN; Protocol PRN Reason: Hypoglycemia Enoxaparin Sodium (Lovenox) 40 mg SC DAILY@1000 CHRISTAL Folic Acid (Folic Acid) 1 mg PO DAILY@0800 CHRISTAL Stop: 02/14/18 08:01 Glucagon () 1 mg IM .X1 PRN PRN Reason: Hypoglycemia Pantoprazole Sodium 40 mg/ (Sodium Chloride) 110 mls @ 330 mls/hr IV Q24 [facility] Last Admin: 02/11/18 23:28 Dose: 330 mls/hr Lactated Ringer's () 1,000 mls @ 150 mls/hr IV .Q6H40M [facility] Last Admin: 02/12/18 05:09 Dose: 150 mls/hr Fluconazole (Diflucan) 400 mg in 200 mls @ 100 mls/hr IV Q24 [facility] Piperacillin Sod/Tazobactam Sod (Zosyn) 3.375 gm in 50 mls @ 12.5 mls/hr IV Q8 [facility] Insulin Human Lispro (Humalog Kwikpen (Bkc)) 0 unit SQ Q6 [facility] PRN Reason: Protocol Lisinopril (Zestril) 20 mg PO DAILY CHRISTAL Lorazepam (Ativan) 2 mg PO Q2H PRN PRN; Protocol PRN Reason: CIWA score > 8 but <15 Lorazepam (Ativan) 2 mg PO UD PRN; Protocol PRN Reason: CIWA score >/=15. Lorazepam (Ativan) 2 mg IV Q2H PRN PRN; Protocol PRN Reason: CIWA score > 8 but <15 Lorazepam (Ativan) 2 mg IV UD PRN; Protocol PRN Reason: CIWA score >/=15. Magnesium Hydroxide (Milk Of Magnesia) 30 ml PO DAILY PRN PRN Reason: Constipation Morphine Sulfate () 2 - 4 mg IV Q3H PRN PRN PRN Reason: Severe Pain (pain scale 6-10) Last Admin: 02/12/18 02:57 Dose: 2 mg Morphine Sulfate () 2 - 4 mg IV Q3H PRN PRN PRN Reason: Severe Pain (pain scale 6-10) Ondansetron HCl (Zofran) 4 mg IV Q8H PRN PRN PRN Reason: Nausea Pravastatin Sodium (Pravachol) 40 mg PO QHS [facility] Last Admin: 02/11/18 22:47 Dose: Not Given Thiamine HCl (Vitamin B1) 100 mg PO BIDCM [facility] Stop: 02/14/18 17:01 Medical Necessity - Tobacco Use Smoking Status: Former smoker Tobacco Use: Cigarettes Assessment/Plan All Active Problems Syncope and collapse (Acute) Abdominal pain (Acute) he patient is a 72 year old F with a significant history of hypertension, type 2 diabetes, alcoholism, and a history of liposuction who presents with 1 day history of persistent severe sharp abdominal pain ; and syncope with collapse. She had 2 times syncope secondary to weakness most probably vasovagal from pain as patient was bradycardic probably hypotensive at that time too. In ED, blood pressure was 103/58, heart rate 62/min. Orthostatic vitals were negative. She had liposuction about 8 years ago. Associated with nausea and vomiting Syncope and collapse; most probably vasovagal syncope Likely due to depressed parasympathetic tone from severe pain Troponins are negative. Placed on telemetry monitoring Echocardiogram ordered. Brain CT independently reviewed - Showed no acute process. Laceration on scalp which was stapled- Wound care consult. Abdominal pain, most probably secondary to inflammation of small bowel loops questionable mesenteric stranding Abdominal CT without contrast showed stable large duodenal diverticula and mild mesenteric stranding with the possibility of mild enteritis. Patient had exploratory laparoscopic converted laparotomy. Discussed with Dr. Domingo. Operative note reviewed. Small bowel and colon was viable but noted to be inflamed in some segments. There is also thickened small bowel found due to stool which was broken and moved along small bowel. Abdomen was washed and ROSE drain was placed. Elevated lactic acid. IV hydration (lactated Ringer's) Continue NG tube suction. Morphine and Zofran as needed. hypertension Blood pressure above goal at admission Lisinopril continued Diabetes mellitus type II Blood glucose not at goal at time of admission Patient n.p.o. at this time. Fingerstick blood glucose every 6 hours with correction scale protocol. Hyperlipidemia pravastatin continued. Alcohol dependence Patient drinks about 1/2 glass of vodka every day. Ethanol level at admission was 10. CIWA protocol with lorazepam, thiamine and folic acid. DVT prophylaxis Lovenox. Laboratory Results 02/12/18 03:36: Sodium 143, Potassium 3.9, Chloride 109 H, Carbon Dioxide 23.0, Anion Gap 11, BUN 11, Creatinine 0.69, Estim Creat Clear Calc 40.81, Est GFR (MDRD) Af Amer 108, Est GFR (MDRD) Non-Af 89, BUN/Creatinine Ratio 16.0, Glucose 156 H, Calcium 8.0 L 02/12/18 03:36: WBC 11.8 H, RBC 3.47 L, Hgb 11.0 L, Hct 34.2 L, MCV 98.6, MCH 31.7, MCHC 32.2, RDW 14.0, RDW Differential 48.6 H, Plt Count 229, MPV 9.1, Immature Gran % (Auto) 0.200, Neut % (Auto) 89.2 H, Lymph % (Auto) 4.9 L, Clay % (Auto) 5.6, Eos % (Auto) 0.0, Baso % (Auto) 0.1, Absolute Neuts (auto) 10.5 H, Absolute Lymphs (auto) 0.58 L, Total Counted Not Reportable, Differential Comment SCANNED 02/12/18 03:36: PT 13.6, INR 1.0 02/12/18 03:36: Troponin I < 0.015 02/12/18 03:36: Lactic Acid 2.3 H 02/12/18 05:27: POC Glucose 155 H Clinical Impression(s) from Imaging Studies Brain CT 02/11/18 13:08 IMPRESSION: Chronic involutional changes of the brain. Electronically Signed: Mike Matta MD at 13:44 EDT Tel [phone], Service support , Abdomen/Pelvis CT 02/11/18 13:09 IMPRESSION: Findings suggest mild degree of bibasilar atelectasis. Small amount of free fluid is seen in the cul-de-sac. Stable large duodenal diverticula as described. Electronically Signed: Mike Matta MD at 13:43 EDT Tel [phone], Service support , Cervical Spine CT 02/11/18 13:10 IMPRESSION: Multilevel degenerative changes, as described above. Electronically Signed: Mike Matta MD at 13:47 EDT Tel [phone], Service support , Chest X-Ray 02/11/18 13:55 IMPRESSION: Mild degree of increased markings at the lung bases suggesting bibasilar atelectasis. Electronically Signed: Mike Matta MD at 14:17 EDT Tel [phone], Service support , Abdomen/Pelvis CT 02/11/18 16:35 IMPRESSION: 1. Mildly distended fluid-filled loops of small bowel without wall thickening. There is mild mesenteric stranding the possibility of mild enteritis is suggested. 2. Large duodenal diverticulum. 3. Fatty infiltration of the liver. 4. Colonic diverticulosis without acute inflammatory change. 5. Mild ascites. 6. Bibasilar atelectasis. Electronically Signed: Sean Fung DO at 18:34 EDT Tel [phone], Service support , KUB X-Ray 02/11/18 19:40 IMPRESSION: NG tube as described Electronically Signed: Sean Fung DO at 20:21 EDT Tel [phone], Service support , Code Visit Inpatient E&M: 75232 Subs Hosp L3
[2018-02-12] MEDS: Lactated Ringers 1,000 ML 200 ML IV ×2 (10:40→16:28)
[2018-02-12 10:41] LABS: Bedside Glucose 164 mg/dL (70-110)
[2018-02-12 11:37] LABS: Lactic Acid 4.2 mmol/L (0.4-2.0)
[2018-02-12] MEDS: Piperacil/Tazobactam 3.375 GM/50 ML ML IV ×2 (12:04→21:37)
--- NOTE | 2018-02-12 12:04 | CASEMGMT ---
This RN CM to room to complete CM assessment and per Katie HURLEY, pt just returned from OR about 30minutes ago. Pt is sleeping without distress at this time and there is no family at bedside. This RN CM will attempt again later. SStrowena RN CM
[2018-02-12] MEDS: 0.9% Normal Saline 1,000 ML 999 ML IV ×2 (12:06→13:11)
[2018-02-12 13:11] LABS: Bedside Glucose 149 mg/dL (70-110)
[2018-02-12] MEDS: Enoxaparin 40 MG/0.4 ML Syringe SC (13:54)
--- NOTE | 2018-02-12 14:46 | PCM.PN.SRG ---
Patient Problems: Active and Suspected Problems Syncope and collapse (Acute) Abdominal pain (Acute) Subjective: Patient still sleepy from surgery but does arouse easily, does complain of abdominal pain with movement but does state that is different from before surgery denies any nausea, and she put out about 50cc from NG since surgery, she did have an elevated lactate at 4.2 is given 2 L bolus awaiting recheck, urine output has been adequate - Physical Exam General: Alert, Oriented x3, Cooperative HEENT: - - Staple to right scalp, +NG Lungs: Normal air movement Cardiovascular: Regular rate Abdomen: Soft, Distended - mod, Tender - diffused incisions dressed, +ROSE ss Vital Signs Temp Pulse Resp BP Pulse Ox 98.4 F 94 16 158/76 H 93 02/12/18 12:50 02/12/18 12:50 02/12/18 12:50 02/12/18 12:50 02/12/18 12:50 Oxygen Flow Rate (L/min) 2 Oxygen Delivery Method Nasal Cannula Weight: 162 lb 14.746 oz Body Mass Index (BMI) 29.7 Finger Stick Blood Glucose 164 Orthostatic Vital Signs Start: 02/11/18 21:46 Freq: q24h Status: Active Protocol: Activity Type Activity Date Activity User E-Sign Co-Sign Detail Recorded Client Recorded Date Recorded By Document 02/11/18 21:46 [facility] [id number] 02/11/18 21:53 [facility] 02/11/18 21:46 Orthostatic Vitals Standing -Blood Pressure (90/60-120/80) 157/87 H -Extremity Use Left Arm -Pulse Rate (60-100) 110 H Sitting -Blood Pressure (90/60-120/80) 162/95 H -Extremity Use Left Arm -Pulse Rate (60-100) 99 Lying -Blood Pressure (90/60-120/80) 149/80 H -Extremity Use Left Arm -Pulse Rate (60-100) 90 Intake and Output for Last 24 Hours 02/10/18 02/11/18 02/12/18 23:59 23:59 23:59 Intake Total 247 / 247 5745 / 5745 Output Total 350 / 350 1320 / 1320 Balance -103 / -103 4425 / 4425 Microbiology Past 72 Hours 02/12/18 08:00 Gram Stain - Final Incision/Surgical Site Laboratory Tests Past 24 Hrs 02/11/18 02/11/18 02/11/18 21:02 22:00 22:00 WBC RBC Hgb Hct MCV MCH MCHC RDW RDW Differential Plt Count MPV Immature Gran % (Auto) Neut % (Auto) Lymph % (Auto) [place] % (Auto) Eos % (Auto) Baso % (Auto) Absolute Neuts (auto) Absolute Lymphs (auto) Total Counted Differential Comment PT INR Sodium Potassium Chloride Carbon Dioxide Anion Gap BUN Creatinine Estim Creat Clear Calc Est GFR (MDRD) Af Amer Est GFR (MDRD) Non-Af BUN/Creatinine Ratio Glucose Lactic Acid 2.7 H Calcium Troponin I < 0.015 Ethyl Alcohol 10.0 02/12/18 02/12/18 02/12/18 00:40 03:36 03:36 WBC 11.8 H RBC 3.47 L Hgb 11.0 L Hct 34.2 L MCV 98.6 MCH 31.7 MCHC 32.2 RDW 14.0 RDW Differential 48.6 H Plt Count 229 MPV 9.1 Immature Gran % (Auto) 0.200 Neut % (Auto) 89.2 H Lymph % (Auto) 4.9 L [place] % (Auto) 5.6 Eos % (Auto) 0.0 Baso % (Auto) 0.1 Absolute Neuts (auto) 10.5 H Absolute Lymphs (auto) 0.58 L Total Counted Not Reportable Differential Comment SCANNED PT INR Sodium 143 Potassium 3.9 Chloride 109 H Carbon Dioxide 23.0 Anion Gap 11 BUN 11 Creatinine 0.69 Estim Creat Clear Calc 40.81 Est GFR (MDRD) Af Amer 108 Est GFR (MDRD) Non-Af 89 BUN/Creatinine Ratio 16.0 Glucose 156 H Lactic Acid Calcium 8.0 L Troponin I < 0.015 Ethyl Alcohol 02/12/18 02/12/18 02/12/18 03:36 03:36 03:36 WBC RBC Hgb Hct MCV MCH MCHC RDW RDW Differential Plt Count MPV Immature Gran % (Auto) Neut % (Auto) Lymph % (Auto) [place] % (Auto) Eos % (Auto) Baso % (Auto) Absolute Neuts (auto) Absolute Lymphs (auto) Total Counted Differential Comment PT 13.6 INR 1.0 Sodium Potassium Chloride Carbon Dioxide Anion Gap BUN Creatinine Estim Creat Clear Calc Est GFR (MDRD) Af Amer Est GFR (MDRD) Non-Af BUN/Creatinine Ratio Glucose Lactic Acid 2.3 H Calcium Troponin I < 0.015 Ethyl Alcohol 02/12/18 11:05 WBC RBC Hgb Hct MCV MCH MCHC RDW RDW Differential Plt Count MPV Immature Gran % (Auto) Neut % (Auto) Lymph % (Auto) [place] % (Auto) Eos % (Auto) Baso % (Auto) Absolute Neuts (auto) Absolute Lymphs (auto) Total Counted Differential Comment PT INR Sodium Potassium Chloride Carbon Dioxide Anion Gap BUN Creatinine Estim Creat Clear Calc Est GFR (MDRD) Af Amer Est GFR (MDRD) Non-Af BUN/Creatinine Ratio Glucose Lactic Acid 4.2 H* Calcium Troponin I Ethyl Alcohol POC Glucose 02/12/18 02/12/18 02/12/18 13:07 10:31 05:27 POC Glucose 149 H 164 H 155 H 02/11/18 22:32 POC Glucose 160 H Medical Necessity - Tobacco Use Smoking Status: Former smoker Tobacco Use: Cigarettes Assessment/Plan All Active Problems Syncope and collapse (Acute) Abdominal pain (Acute) 72 y/o F s/p fall from standing (CT head/spine neg), abd pain (CT shows some ?mesenteric stranding and mildly dilated SB loops), s/p ex lap and abd washout POD #0, elevated lactic acid 1. Unable to find an obvious leak at the time of surgery, this may have sealed off. ROSE continues to be serosanguineous, continue Zosyn IV and Diflucan IV. There is any change in the drain will plan to get a contrast study prior to going back to the OR see if were able to identify the location of the leak. Continue NG/n.p.o./IV fluids 2. Elevated lactic-patient received 2 L normal saline after the OR await recheck of lactic acid, patient's urine output has been adequate. Ginette Domingo M.D. Pager: [phone] [facility] [address] [place] [address], [facility], [address] [place] [address] Office: [phone]
--- NOTE | 2018-02-12 14:51 | PN.SURG_ITS ---
Patient Problems: Active and Suspected Problems Syncope and collapse (Acute) Abdominal pain (Acute) Subjective: Patient still sleepy from surgery but does arouse easily, does complain of abdominal pain with movement but does state that is different from before surgery denies any nausea, and she put out about 50cc from NG since surgery, she did have an elevated lactate at 4.2 is given 2 L bolus awaiting recheck, urine output has been adequate - Physical Exam General: Alert, Oriented x3, Cooperative HEENT: - - Staple to right scalp, +NG Lungs: Normal air movement Cardiovascular: Regular rate Abdomen: Soft, Distended - mod, Tender - diffused incisions dressed, +ROSE ss Vital Signs Temp Pulse Resp BP Pulse Ox 98.4 F 94 16 158/76 H 93 02/12/18 12:50 02/12/18 12:50 02/12/18 12:50 02/12/18 12:50 02/12/18 12:50 Oxygen Flow Rate (L/min) 2 Oxygen Delivery Method Nasal Cannula Weight: 162 lb 14.746 oz Body Mass Index (BMI) 29.7 Finger Stick Blood Glucose 164 Orthostatic Vital Signs Start: 02/11/18 21:46 Freq: q24h Status: Active Protocol: Activity Type Activity Date Activity User E-Sign Co-Sign Detail Recorded Client Recorded Date Recorded By Document 02/11/18 21:46 [facility] [id number] 02/11/18 21:53 [facility] 02/11/18 21:46 Orthostatic Vitals Standing -Blood Pressure (90/60-120/80) 157/87 H -Extremity Use Left Arm -Pulse Rate (60-100) 110 H Sitting -Blood Pressure (90/60-120/80) 162/95 H -Extremity Use Left Arm -Pulse Rate (60-100) 99 Lying -Blood Pressure (90/60-120/80) 149/80 H -Extremity Use Left Arm -Pulse Rate (60-100) 90 Intake and Output for Last 24 Hours 02/10/18 02/11/18 02/12/18 23:59 23:59 23:59 Intake Total 247 / 247 5745 / 5745 Output Total 350 / 350 1320 / 1320 Balance -103 / -103 4425 / 4425 Microbiology Past 72 Hours 02/12/18 08:00 Gram Stain - Final Incision/Surgical Site Laboratory Tests Past 24 Hrs 02/11/18 02/11/18 02/11/18 21:02 22:00 22:00 WBC RBC Hgb Hct MCV MCH MCHC RDW RDW Differential Plt Count MPV Immature Gran % (Auto) Neut % (Auto) Lymph % (Auto) [place] % (Auto) Eos % (Auto) Baso % (Auto) Absolute Neuts (auto) Absolute Lymphs (auto) Total Counted Differential Comment PT INR Sodium Potassium Chloride Carbon Dioxide Anion Gap BUN Creatinine Estim Creat Clear Calc Est GFR (MDRD) Af Amer Est GFR (MDRD) Non-Af BUN/Creatinine Ratio Glucose Lactic Acid 2.7 H Calcium Troponin I < 0.015 Ethyl Alcohol 10.0 02/12/18 02/12/18 02/12/18 00:40 03:36 03:36 WBC 11.8 H RBC 3.47 L Hgb 11.0 L Hct 34.2 L MCV 98.6 MCH 31.7 MCHC 32.2 RDW 14.0 RDW Differential 48.6 H Plt Count 229 MPV 9.1 Immature Gran % (Auto) 0.200 Neut % (Auto) 89.2 H Lymph % (Auto) 4.9 L [place] % (Auto) 5.6 Eos % (Auto) 0.0 Baso % (Auto) 0.1 Absolute Neuts (auto) 10.5 H Absolute Lymphs (auto) 0.58 L Total Counted Not Reportable Differential Comment SCANNED PT INR Sodium 143 Potassium 3.9 Chloride 109 H Carbon Dioxide 23.0 Anion Gap 11 BUN 11 Creatinine 0.69 Estim Creat Clear Calc 40.81 Est GFR (MDRD) Af Amer 108 Est GFR (MDRD) Non-Af 89 BUN/Creatinine Ratio 16.0 Glucose 156 H Lactic Acid Calcium 8.0 L Troponin I < 0.015 Ethyl Alcohol 02/12/18 02/12/18 02/12/18 03:36 03:36 03:36 WBC RBC Hgb Hct MCV MCH MCHC RDW RDW Differential Plt Count MPV Immature Gran % (Auto) Neut % (Auto) Lymph % (Auto) [place] % (Auto) Eos % (Auto) Baso % (Auto) Absolute Neuts (auto) Absolute Lymphs (auto) Total Counted Differential Comment PT 13.6 INR 1.0 Sodium Potassium Chloride Carbon Dioxide Anion Gap BUN Creatinine Estim Creat Clear Calc Est GFR (MDRD) Af Amer Est GFR (MDRD) Non-Af BUN/Creatinine Ratio Glucose Lactic Acid 2.3 H Calcium Troponin I < 0.015 Ethyl Alcohol 02/12/18 11:05 WBC RBC Hgb Hct MCV MCH MCHC RDW RDW Differential Plt Count MPV Immature Gran % (Auto) Neut % (Auto) Lymph % (Auto) [place] % (Auto) Eos % (Auto) Baso % (Auto) Absolute Neuts (auto) Absolute Lymphs (auto) Total Counted Differential Comment PT INR Sodium Potassium Chloride Carbon Dioxide Anion Gap BUN Creatinine Estim Creat Clear Calc Est GFR (MDRD) Af Amer Est GFR (MDRD) Non-Af BUN/Creatinine Ratio Glucose Lactic Acid 4.2 H* Calcium Troponin I Ethyl Alcohol POC Glucose 02/12/18 02/12/18 02/12/18 13:07 10:31 05:27 POC Glucose 149 H 164 H 155 H 02/11/18 22:32 POC Glucose 160 H Medical Necessity - Tobacco Use Smoking Status: Former smoker Tobacco Use: Cigarettes Assessment/Plan All Active Problems Syncope and collapse (Acute) Abdominal pain (Acute) 72 y/o F s/p fall from standing (CT head/spine neg), abd pain (CT shows some ? mesenteric stranding and mildly dilated SB loops), s/p ex lap and abd washout POD #0, elevated lactic acid 1. Unable to find an obvious leak at the time of surgery, this may have sealed off. ROSE continues to be serosanguineous, continue Zosyn IV and Diflucan IV. There is any change in the drain will plan to get a contrast study prior to going back to the OR see if were able to identify the location of the leak. Continue NG/n.p.o./IV fluids 2. Elevated lactic-patient received 2 L normal saline after the OR await recheck of lactic acid, patient's urine output has been adequate. Ginette Domingo M.D. Pager: [phone] [facility] [address] [place] [address], [facility], [address] [place] [address] Office: [phone]
[2018-02-12] MEDS: Thiamine Hydrochloride 100 MG Tablet PO (15:00)
[2018-02-12] MEDS: Folic Acid 1 MG Tablet PO (15:02)
[2018-02-12 15:09] LABS: Reflex Lactate? Y
[2018-02-12 19:01] LABS: Bedside Glucose 148 mg/dL (70-110)
[2018-02-12] MEDS: 0.9% NaCl Peripheral Flush Adult/Peds IV (21:38)
[2018-02-12 22:20] LABS: Bedside Glucose 133 mg/dL (70-110)
[2018-02-13] VITALS (14 sets, daily range): BP systolic 145–220; BP diastolic 60–121; PULSE 72–133; RESP 16–20; TEMP 36.8–37.4; O2SAT 91–96
[2018-02-13] MEDS: 0.9% NaCl Peripheral Flush Adult/Peds IV ×5 (00:12→21:56)
[2018-02-13] MEDS: Morphine 2 MG/ML Syringe IV ×5 (00:13→21:46)
[2018-02-13 02:16] LABS: Bedside Glucose 125 mg/dL (70-110)
[2018-02-13] MEDS: HYDROmorphone 1 MG/ML Syringe IV (03:03)
[2018-02-13] MEDS: Lactated Ringers 1,000 ML 150 ML IV (03:49)
[2018-02-13] MEDS: Piperacil/Tazobactam 3.375 GM/50 ML ML IV ×3 (05:18→21:57)
[2018-02-13 05:26] LABS: Bedside Glucose 128 mg/dL (70-110)
[2018-02-13 06:21] LABS: Absolute Lymphocyte Count 0.98 X10^3/ul (0.83-4.51); Absolute Neutrophil Count 4.3 X10^3/uL (2.0-7.7); Basophil# 0.01 X10^3/uL; Basophil% 0.2 % (0-1); Eosinophil# 0.06 X10^3/uL; Hematocrit 30.3 % (37-47); Hemoglobin 9.6 g/dl (12.0-15.0); Lymphocyte # 0.98 X10^3/ul (4.0); Lymphocyte % 16.8 % (19-41); Mean Corp Hgb Conc 31.7 g/gl (32-36); Mean Corpuscular Hgb 31.2 pg (27.0-32.0); Mean Corpuscular Volume 98.4 fL (81-99); Mean Platelet Vol. 9.5 fl (6.2-12.0); Monocyte# 0.47 X10^3/uL; Neutrophil # 4.32 X10^3/uL (2.7-7.7); Platelet Count 177 K/mm3 (150-450); RBC Distribution Width CV 14.5 % (11.6-14.6); RBC Distribution Width SD 52.1 fl (35.1-43.9); Red Blood Count 3.08 M/mm3 (4.2-5.4); White Blood Count 5.8 K/mm3 (4.4-11.0)
[2018-02-13 06:29] LABS: POSITIVE COUNT NO; POSITIVE DIFFERENTIAL NO; POSITIVE MORPHOLOGY NO
[2018-02-13 06:38] LABS: Anion Gap 10 (5-15); BUN 9 mg/dL (7-18); BUN/Creat Ratio 14.7 RATIO (10-20); Calcium,Total 7.6 mg/dL (8.5-10.1); Chloride 108 mmol/L (98-107); Creatinine, Serum 0.61 mg/dL (0.55-1.02); EST Glomerular Filtration Rate 102 mL/min (>60); Est Glom Filt Rate - Afr Amer 123 mL/min (>60); Estimated Creatinine Clearance 40.81 ml/min; Glucose 113 mg/dL (74-106); Potassium 3.7 mmol/L (3.5-5.1); Sodium Level 142 mmol/L (136-145)
[2018-02-13] MEDS: Folic Acid 1 MG Tablet PO (08:06)
[2018-02-13] MEDS: Thiamine Hydrochloride 100 MG Tablet PO ×2 (08:06→18:32)
--- NOTE | 2018-02-13 08:09 | PCM.PN.SRG ---
Patient Problems: Active and Suspected Problems Syncope and collapse (Acute) Abdominal pain (Acute) Subjective: Good UOP yesterday & overnight, decreased IVF, lactic acid in normal range, denies BF, c/o abd pain - Physical Exam General: Alert, Oriented x3, Cooperative, No apparent distress Neck: - - right scalp staple, +NG Lungs: Normal air movement Abdomen: Soft, Distended - moderate, Tender - diffusely mainly near incision, dressed d/i, ROSE serous Extremities: No clubbing, No cyanosis, No edema Neurological: Cranial nerves II-XII grossly intact Vital Signs Temp Pulse Resp BP Pulse Ox 99.2 F H 98 18 145/60 H 91 02/13/18 03:05 02/13/18 07:08 02/13/18 03:05 02/13/18 03:05 02/13/18 07:27 Oxygen Flow Rate (L/min) 2 Oxygen Delivery Method Nasal Cannula Weight: 162 lb 14.746 oz Body Mass Index (BMI) 29.7 Finger Stick Blood Glucose 164 Orthostatic Vital Signs Start: 02/11/18 21:46 Freq: q24h Status: Active Protocol: Activity Type Activity Date Activity User E-Sign Co-Sign Detail Recorded Client Recorded Date Recorded By Document 02/11/18 21:46 [facility] [id number] 02/11/18 21:53 [facility] 02/11/18 21:46 Orthostatic Vitals Standing -Blood Pressure (90/60-120/80) 157/87 H -Extremity Use Left Arm -Pulse Rate (60-100) 110 H Sitting -Blood Pressure (90/60-120/80) 162/95 H -Extremity Use Left Arm -Pulse Rate (60-100) 99 Lying -Blood Pressure (90/60-120/80) 149/80 H -Extremity Use Left Arm -Pulse Rate (60-100) 90 Intake and Output for Last 24 Hours 02/11/18 02/12/18 02/13/18 23:59 23:59 23:59 Intake Total 247 / 247 7395 / 7395 1652.9 / 1652.9 Output Total 350 / 350 1870 / 1870 590 / 590 Balance -103 / -103 5525 / 5525 1062.9 / 1062.9 Microbiology Past 72 Hours 02/12/18 08:00 Gram Stain - Final Incision/Surgical Site Laboratory Tests Past 24 Hrs 02/12/18 02/12/18 02/13/18 11:05 15:05 05:48 WBC 5.8 RBC 3.08 L Hgb 9.6 L Hct 30.3 L MCV 98.4 MCH 31.2 MCHC 31.7 L RDW 14.5 RDW Differential 52.1 H Plt Count 177 MPV 9.5 Immature Gran % (Auto) 0.000 Neut % (Auto) 74.0 H Lymph % (Auto) 16.8 L [place] % (Auto) 8.0 Eos % (Auto) 1.0 Baso % (Auto) 0.2 Absolute Neuts (auto) 4.3 Absolute Lymphs (auto) 0.98 Total Counted Not Reportable Sodium Potassium Chloride Carbon Dioxide Anion Gap BUN Creatinine Estim Creat Clear Calc Est GFR (MDRD) Af Amer Est GFR (MDRD) Non-Af BUN/Creatinine Ratio Glucose Lactic Acid 4.2 H* 2.0 Calcium 02/13/18 05:48 WBC RBC Hgb Hct MCV MCH MCHC RDW RDW Differential Plt Count MPV Immature Gran % (Auto) Neut % (Auto) Lymph % (Auto) [place] % (Auto) Eos % (Auto) Baso % (Auto) Absolute Neuts (auto) Absolute Lymphs (auto) Total Counted Sodium 142 Potassium 3.7 Chloride 108 H Carbon Dioxide 24.0 Anion Gap 10 BUN 9 Creatinine 0.61 Estim Creat Clear Calc 40.81 Est GFR (MDRD) Af Amer 123 Est GFR (MDRD) Non-Af 102 BUN/Creatinine Ratio 14.7 Glucose 113 H Lactic Acid Calcium 7.6 L POC Glucose 02/13/18 02/13/18 02/12/18 05:20 00:08 21:58 POC Glucose 128 H 125 H 133 H 02/12/18 02/12/18 02/12/18 18:51 13:07 10:31 POC Glucose 148 H 149 H 164 H Medical Necessity - Tobacco Use Smoking Status: Former smoker Tobacco Use: Cigarettes Assessment/Plan All Active Problems Syncope and collapse (Acute) Abdominal pain (Acute) 72 y/o F s/p fall from standing (CT head/spine neg), abd pain (CT shows some ?mesenteric stranding and mildly dilated SB loops), s/p ex lap and abd washout POD #1, elevated lactic acid 1. Continue NPO/NG/IVF/abd binder, Continue ROSE-serous. WBC improved-continue Zosyn/Diflucan, cx pending of abd fluid, decreased Hb-likely secondary to the increased fluids/boluses. 2. Elevated lactic-in normal range yesterday 3. good UOP- keep matthews for strict I/Os 4. increase activity- OOB to chair today. PT/OT ordered 5. continue pain control- morphine IV PRN Ginette Domingo M.D. Pager: [phone] [facility] [address] [place] [address], [facility], [address] [place] [address] Office: [phone]
[2018-02-13] MEDS: Lisinopril 20 MG Tablet PO (08:21)
--- NOTE | 2018-02-13 08:37 | NURSING ---
Advanced NG tube 5cm per Dr. Olivarez's order. Pt tolerated procedure well.
[2018-02-13] MEDS: Lactated Ringers 1,000 ML 125 ML IV (10:17)
[2018-02-13] MEDS: Enoxaparin 40 MG/0.4 ML Syringe SC (10:17)
--- NOTE | 2018-02-13 11:52 | CASEMGMT ---
Addendum entered by Abdon Avelar 02/13/18 12:57: Wheeled walker script faxed to [facility] for delivery to hospital. Jono IZAGUIRRE Original Note: RN JD Assessment completed. See Link -Pt still painful, limited mobiltiy due to post-op pain. Pt states she plans to return home and her will assist with any care needs/transportation. -Pt requested walker for home. No preference for DME company. Jono BIRD RN ACM
[2018-02-13 16:20] LABS: Bedside Glucose 116 mg/dL (70-110)
--- NOTE | 2018-02-13 17:44 | PCM.PN.HOSP ---
Patient Problems: Active and Suspected Problems Syncope and collapse (Acute) Abdominal pain (Acute) Subjective: The patient is sitting upright in the chair. She looks better than before. Still has abdominal pain and tightness but better. No bowel movement. No fever Vitals/I&O's: Vital Signs Temp Pulse Resp BP Pulse Ox 98.5 F 77 16 171/95 H 96 02/13/18 11:54 02/13/18 15:40 02/13/18 11:54 02/13/18 11:54 02/13/18 11:54 Oxygen Flow Rate (L/min) 2 Oxygen Delivery Method Room Air Weight: 162 lb 14.746 oz Body Mass Index (BMI) 29.7 Finger Stick Blood Glucose 164 Orthostatic Vital Signs Start: 02/11/18 21:46 Freq: q24h Status: Active Protocol: Activity Type Activity Date Activity User E-Sign Co-Sign Detail Recorded Client Recorded Date Recorded By Document 02/13/18 08:38 JIMMY [id number] 02/13/18 08:45 JIMMY 02/13/18 08:38 Orthostatic Vitals Standing -Blood Pressure (90/60-120/80) 220/115 H -Extremity Use Left Arm -Pulse Rate (60-100) 133 H Sitting -Blood Pressure (90/60-120/80) 219/121 H -Extremity Use Left Arm -Pulse Rate (60-100) 129 H Lying -Blood Pressure (90/60-120/80) 189/95 H -Extremity Use Left Arm -Pulse Rate (60-100) 107 H Intake and Output for Last 24 Hours 02/11/18 02/12/18 02/13/18 23:59 23:59 23:59 Intake Total 247 / 247 7395 / 7395 2612.9 / 2612.9 Output Total 350 / 350 1870 / 1870 1550 / 1550 Balance -103 / -103 5525 / 5525 1062.9 / 1062.9 General: Alert, Oriented x3, Cooperative HEENT: Atraumatic, PERRLA, EOMI, Normocephalic Neck: Supple, No JVD, Negative Carotid Bruits Lungs: Clear to auscultation, Normal air movement Cardiovascular: Regular rate, Normal S1, Normal S2, No murmurs Abdomen: Soft, Hypoactive Bowel Sounds, Tender Extremities: No edema, Capillary Refill Less than 3 Seconds Skin: No rashes, No breakdown Musculoskeletal: No Tenderness to Palpation of Joints or Extremities Neurological: Cranial nerves II-XII grossly intact Psych/Mental Status: Normal Affect, Appropriate Microbiology Past 72 Hours 02/12/18 08:00 Incision/Surgical Site Gram Stain - Final 02/12/18 08:00 Incision/Surgical Site Wound Culture - Preliminary Gram negative hortencia Laboratory Results 02/12/18 18:51: POC Glucose 148 H 02/12/18 21:58: POC Glucose 133 H 02/13/18 00:08: POC Glucose 125 H 02/13/18 05:20: POC Glucose 128 H 02/13/18 05:48: WBC 5.8, RBC 3.08 L, Hgb 9.6 L, Hct 30.3 L, MCV 98.4, MCH 31.2, MCHC 31.7 L, RDW 14.5, RDW Differential 52.1 H, Plt Count 177, MPV 9.5, Immature Gran % (Auto) 0.000, Neut % (Auto) 74.0 H, Lymph % (Auto) 16.8 L, [place] % (Auto) 8.0, Eos % (Auto) 1.0, Baso % (Auto) 0.2, Absolute Neuts (auto) 4.3, Absolute Lymphs (auto) 0.98, Total Counted Not Reportable 02/13/18 05:48: Sodium 142, Potassium 3.7, Chloride 108 H, Carbon Dioxide 24.0, Anion Gap 10, BUN 9, Creatinine 0.61, Estim Creat Clear Calc 40.81, Est GFR (MDRD) Af Amer 123, Est GFR (MDRD) Non-Af 102, BUN/Creatinine Ratio 14.7, Glucose 113 H, Calcium 7.6 L 02/13/18 12:04: POC Glucose 116 H Current Medications Dextrose (D50w Syringe) 0 gm IV X1 PRN; Protocol PRN Reason: Hypoglycemia Enoxaparin Sodium (Lovenox) 40 mg SC DAILY@1000 CHRISTAL Last Admin: 02/13/18 10:17 Dose: 40 mg Folic Acid (Folic Acid) 1 mg PO DAILY@0800 CHRISTAL Stop: 02/14/18 08:01 Last Admin: 02/13/18 08:06 Dose: 1 mg Glucagon () 1 mg IM .X1 PRN PRN Reason: Hypoglycemia Pantoprazole Sodium 40 mg/ (Sodium Chloride) 110 mls @ 330 mls/hr IV Q24 [facility] Last Admin: 02/13/18 11:41 Dose: 330 mls/hr Fluconazole (Diflucan) 400 mg in 200 mls @ 100 mls/hr IV Q24 [facility] Last Admin: 02/13/18 10:16 Dose: 100 mls/hr Piperacillin Sod/Tazobactam Sod (Zosyn) 3.375 gm in 50 mls @ 12.5 mls/hr IV Q8 [facility] Last Admin: 02/13/18 14:33 Dose: 12.5 mls/hr Lactated Ringer's () 1,000 mls @ 100 mls/hr IV .Q10H [facility] Insulin Human Lispro (Humalog Kwikpen (Bkc)) 0 unit SQ Q6 [facility] PRN Reason: Protocol Last Admin: 02/13/18 12:05 Dose: Not Given Lisinopril (Zestril) 20 mg PO DAILY [facility] Last Admin: 02/13/18 08:21 Dose: 20 mg Lorazepam (Ativan) 2 mg PO Q2H PRN PRN; Protocol PRN Reason: CIWA score > 8 but <15 Lorazepam (Ativan) 2 mg PO UD PRN; Protocol PRN Reason: CIWA score >/=15. Lorazepam (Ativan) 2 mg IV Q2H PRN PRN; Protocol PRN Reason: CIWA score > 8 but <15 Lorazepam (Ativan) 2 mg IV UD PRN; Protocol PRN Reason: CIWA score >/=15. Magnesium Hydroxide (Milk Of Magnesia) 30 ml PO DAILY PRN PRN Reason: Constipation Morphine Sulfate () 2 - 4 mg IV Q3H PRN PRN PRN Reason: Severe Pain (pain scale 6-10) Last Admin: 02/13/18 12:56 Dose: 2 mg Morphine Sulfate () 2 - 4 mg IV Q3H PRN PRN PRN Reason: Severe Pain (pain scale 6-10) Ondansetron HCl (Zofran) 4 mg IV Q8H PRN PRN PRN Reason: Nausea Pravastatin Sodium (Pravachol) 40 mg PO QHS [facility] Last Admin: 02/12/18 21:44 Dose: Not Given Sodium Chloride () 5 - 30 ml IV UD PRN PRN Reason: SALINE FLUSH Last Admin: 02/13/18 12:57 Dose: 10 ml [facility] Stop: 02/14/18 17:01 Last Admin: 02/13/18 08:06 Dose: 100 mg Medical Necessity - Tobacco Use Smoking Status: Former smoker Tobacco Use: Cigarettes Assessment/Plan All Active Problems Syncope and collapse (Acute) Abdominal pain (Acute) The patient is a 72 year old F with a significant history of hypertension, type 2 diabetes, alcoholism, and a history of liposuction about 8 years ago who presents with 1 day history of persistent severe sharp abdominal pain, associated with nausea and vomiting; and syncope with collapse. She had 2 times syncope secondary to weakness most probably vasovagal from pain as patient was bradycardic probably hypotensive at that time too. In ED, blood pressure was 103/58, heart rate 62/min. Orthostatic vitals were negative. Syncope and collapse; most probably vasovagal syncope Likely due to depressed parasympathetic tone from severe pain Troponins are negative. Placed on telemetry monitoring Echocardiogram reported as EF 65% with a stage I diastolic dysfunction. No regional wall motion abnormality. No significant valvular disorder. Trivial TR. Unable to estimate RVSP technically difficult study Brain CT independently reviewed - Showed no acute process. Laceration on scalp which was stapled- Wound care consult. Abdominal pain, most probably secondary to inflammation of small bowel loops questionable mesenteric stranding Abdominal CT without contrast showed stable large duodenal diverticula and mild mesenteric stranding with the possibility of mild enteritis. Patient had exploratory laparoscopic converted laparotomy. Discussed with Dr. Domingo. Operative note reviewed. Small bowel and colon was viable but noted to be inflamed in some segments. There is also thickened small bowel found due to stool which was broken and moved along small bowel. Abdomen was washed and ROSE drain was placed. Surgical site Gram stain showing gram negative rods. Full culture pending. On IV Zosyn Elevated lactic acid. IV hydration (lactated Ringer's) Continue NG tube suction. Morphine and Zofran as needed. hypertension Blood pressure above goal at admission Lisinopril continued Diabetes mellitus type II Blood glucose not at goal at time of admission Patient n.p.o. at this time. Fingerstick blood glucose every 6 hours with correction scale protocol. Blood sugars controlled Hyperlipidemia pravastatin continued. Alcohol dependence Patient drinks about 1/2 glass of vodka every day. Ethanol level at admission was 10. [facility] protocol with lorazepam, thiamine and folic acid. DVT prophylaxis Lovenox. Microbiology Past 72 Hours 02/12/18 08:00 Incision/Surgical Site Gram Stain - Final 02/12/18 08:00 Incision/Surgical Site Wound Culture - Preliminary Gram negative hortencia Laboratory Results 02/12/18 18:51: POC Glucose 148 H 02/12/18 21:58: POC Glucose 133 H 02/13/18 00:08: POC Glucose 125 H 02/13/18 05:20: POC Glucose 128 H 02/13/18 05:48: WBC 5.8, RBC 3.08 L, Hgb 9.6 L, Hct 30.3 L, MCV 98.4, MCH 31.2, MCHC 31.7 L, RDW 14.5, RDW Differential 52.1 H, Plt Count 177, MPV 9.5, Immature Gran % (Auto) 0.000, Neut % (Auto) 74.0 H, Lymph % (Auto) 16.8 L, [place] % (Auto) 8.0, Eos % (Auto) 1.0, Baso % (Auto) 0.2, Absolute Neuts (auto) 4.3, Absolute Lymphs (auto) 0.98, Total Counted Not Reportable 02/13/18 05:48: Sodium 142, Potassium 3.7, Chloride 108 H, Carbon Dioxide 24.0, Anion Gap 10, BUN 9, Creatinine 0.61, Estim Creat Clear Calc 40.81, Est GFR (MDRD) Af Amer 123, Est GFR (MDRD) Non-Af 102, BUN/Creatinine Ratio 14.7, Glucose 113 H, Calcium 7.6 L 02/13/18 12:04: POC Glucose 116 H Clinical Impression(s) from Imaging Studies Brain CT 02/11/18 13:08 IMPRESSION: Chronic involutional changes of the brain. Electronically Signed: Mike Matta MD at 13:44 EDT Tel [phone], Service support , Abdomen/Pelvis CT 02/11/18 13:09 IMPRESSION: Findings suggest mild degree of bibasilar atelectasis. Small amount of free fluid is seen in the cul-de-sac. Stable large duodenal diverticula as described. Electronically Signed: Mike Matta MD at 13:43 EDT Tel [phone], Service support , Cervical Spine CT 02/11/18 13:10 IMPRESSION: Multilevel degenerative changes, as described above. Electronically Signed: Mike Matta MD at 13:47 EDT Tel [phone], Service support , Chest X-Ray 02/11/18 13:55 IMPRESSION: Mild degree of increased markings at the lung bases suggesting bibasilar atelectasis. Electronically Signed: Mike Matta MD at 14:17 EDT Tel [phone], Service support , Abdomen/Pelvis CT 02/11/18 16:35 IMPRESSION: 1. Mildly distended fluid-filled loops of small bowel without wall thickening. There is mild mesenteric stranding the possibility of mild enteritis is suggested. 2. Large duodenal diverticulum. 3. Fatty infiltration of the liver. 4. Colonic diverticulosis without acute inflammatory change. 5. Mild ascites. 6. Bibasilar atelectasis. Electronically Signed: Sean Fung DO at 18:34 EDT Tel [phone], Service support , KUB X-Ray 02/11/18 19:40 IMPRESSION: NG tube as described Electronically Signed: Sean Fung DO at 20:21 EDT Tel [phone], Service support , Code Visit Inpatient E&M: 59247 Subs Hosp L3
[2018-02-13] MEDS: Lactated Ringers 1,000 ML 100 ML IV (18:32)
[2018-02-13 19:06] LABS: Bedside Glucose 99 mg/dL (70-110)
[2018-02-13] MEDS: Lactated Ringers 1,000 ML 80 ML IV (19:15)
[2018-02-13] MEDS: Enalaprilat 1.25 MG/ML Vial 2.5 MG IV (19:28)
[2018-02-13] MEDS: Pravastatin 40 MG Tablet PO (21:58)
[2018-02-14] VITALS (16 sets, daily range): BP systolic 149–207; BP diastolic 72–119; PULSE 65–127; RESP 16–18; TEMP 36.8–37.6; O2SAT 92–95
[2018-02-14 00:41] LABS: Bedside Glucose 112 mg/dL (70-110)
[2018-02-14] MEDS: 0.9% NaCl Peripheral Flush Adult/Peds IV ×7 (04:23→22:18)
[2018-02-14] MEDS: Morphine 2 MG/ML Syringe IV ×5 (04:23→22:18)
[2018-02-14] MEDS: Enalaprilat 1.25 MG/ML Vial IV (04:24)
[2018-02-14] MEDS: Piperacil/Tazobactam 3.375 GM/50 ML ML IV ×3 (05:27→22:39)
--- NOTE | 2018-02-14 05:29 | NURSING ---
Per Rick in pharmacy, premixed zosyn is okay to run with lactated ringers.
[2018-02-14 05:36] LABS: Bedside Glucose 107 mg/dL (70-110)
[2018-02-14 06:10] LABS: Absolute Lymphocyte Count 0.67 X10^3/ul (0.83-4.51); Absolute Neutrophil Count 3.8 X10^3/uL (2.0-7.7); Basophil# 0.01 X10^3/uL; Basophil% 0.2 % (0-1); Eosinophil# 0.17 X10^3/uL; Eosinophils% 3.4 % (0-5); Hemoglobin 9.9 g/dl (12.0-15.0); Lymphocyte # 0.67 X10^3/ul (4.0); Lymphocyte % 13.3 % (19-41); Mean Corp Hgb Conc 31.9 g/gl (32-36); Mean Corpuscular Volume 97.2 fL (81-99); Mean Platelet Vol. 9.1 fl (6.2-12.0); Monocyte# 0.39 X10^3/uL; Monocyte% 7.8 % (0-10); Neutrophil # 3.78 X10^3/uL (2.7-7.7); Neutrophil % 75.1 % (47-70); Platelet Count 176 K/mm3 (150-450); RBC Distribution Width CV 13.8 % (11.6-14.6); RBC Distribution Width SD 49.4 fl (35.1-43.9); Red Blood Count 3.19 M/mm3 (4.2-5.4)
[2018-02-14 06:19] LABS: POSITIVE COUNT NO; POSITIVE DIFFERENTIAL NO; POSITIVE MORPHOLOGY NO
[2018-02-14] MEDS: Lactated Ringers 1,000 ML 80 ML IV (06:36)
[2018-02-14 06:48] LABS: Anion Gap 10 (5-15); BUN 6 mg/dL (7-18); BUN/Creat Ratio 13.2 RATIO (10-20); Calcium,Total 8.3 mg/dL (8.5-10.1); Chloride 103 mmol/L (98-107); Creatinine, Serum 0.46 mg/dL (0.55-1.02); EST Glomerular Filtration Rate 144 mL/min (>60); Est Glom Filt Rate - Afr Amer 174 mL/min (>60); Estimated Creatinine Clearance 40.81 ml/min; Glucose 105 mg/dL (74-106); Magnesium 1.8 mg/dL (1.6-2.6); Phosphorus 2.5 mg/dL (2.5-4.9); Potassium 3.2 mmol/L (3.5-5.1); Sodium Level 139 mmol/L (136-145)
[2018-02-14] MEDS: Folic Acid 1 MG Tablet PO (09:00)
[2018-02-14] MEDS: Thiamine Hydrochloride 100 MG Tablet PO ×2 (09:01→16:56)
[2018-02-14] MEDS: Lisinopril 20 MG Tablet PO (09:07)
[2018-02-14] MEDS: Enoxaparin 40 MG/0.4 ML Syringe SC (09:07)
--- NOTE | 2018-02-14 09:22 | PCM.PN.SRG ---
Patient Problems: Active and Suspected Problems Syncope and collapse (Acute) Abdominal pain (Acute) Subjective: Patient denies flatus or bowel function, denies nausea, pain controlled with pain meds, up to the chair and short ambulation in the room yesterday - Physical Exam General: Alert, Oriented x3, Cooperative, No apparent distress Lungs: Normal air movement Abdomen: Soft, Distended - Moderate, Tender - Diffuse mainly at incision, incision clean dry and intact with Steri's, ROSE serous, no rebound, positive guarding with palpation near incision Vital Signs Temp Pulse Resp BP Pulse Ox 98.6 F 93 18 186/94 H 95 02/14/18 04:15 02/14/18 08:30 02/14/18 04:15 02/14/18 08:30 02/14/18 04:15 Oxygen Flow Rate (L/min) 2 Oxygen Delivery Method Nasal Cannula Weight: 162 lb 14.746 oz Body Mass Index (BMI) 29.7 Finger Stick Blood Glucose 164 Orthostatic Vital Signs Start: 02/11/18 21:46 Freq: q24h Status: Active Protocol: Activity Type Activity Date Activity User E-Sign Co-Sign Detail Recorded Client Recorded Date Recorded By Document 02/14/18 08:30 REFINISHER [id number] 02/14/18 08:52 REFINISHER 02/14/18 08:30 Orthostatic Vitals Standing -Blood Pressure (90/60-120/80) 207/119 H -Extremity Use Left Arm -Pulse Rate (60-100) 125 H Sitting -Blood Pressure (90/60-120/80) 188/113 H -Extremity Use Left Arm -Pulse Rate (60-100) 127 H Lying -Blood Pressure (90/60-120/80) 186/94 H -Extremity Use Left Arm -Pulse Rate (60-100) 93 Intake and Output for Last 24 Hours 02/12/18 02/13/18 02/14/18 23:59 23:59 23:59 Intake Total 7395 / 7395 3557.9 / 3557.9 1278 / 1278 Output Total 1870 / 1870 2650 / 2650 1915 / 1915 Balance 5525 / 5525 907.9 / 907.9 -637 / -637 Microbiology Past 72 Hours 02/12/18 08:00 Gram Stain - Final Incision/Surgical Site Wound Culture - Preliminary Gram negative hortencia Anaerobic Culture - Preliminary No growth in 48 hours. Laboratory Tests Past 24 Hrs 02/14/18 02/14/18 05:44 05:44 WBC 5.0 RBC 3.19 L Hgb 9.9 L Hct 31.0 L MCV 97.2 MCH 31.0 MCHC 31.9 L RDW 13.8 RDW Differential 49.4 H Plt Count 176 MPV 9.1 Immature Gran % (Auto) 0.200 Neut % (Auto) 75.1 H Lymph % (Auto) 13.3 L [place] % (Auto) 7.8 Eos % (Auto) 3.4 Baso % (Auto) 0.2 Absolute Neuts (auto) 3.8 Absolute Lymphs (auto) 0.67 L Total Counted Not Reportable Sodium 139 Potassium 3.2 L Chloride 103 Carbon Dioxide 26.0 Anion Gap 10 BUN 6 L Creatinine 0.46 L Estim Creat Clear Calc 40.81 Est GFR (MDRD) Af Amer 174 Est GFR (MDRD) Non-Af 144 BUN/Creatinine Ratio 13.2 Glucose 105 Calcium 8.3 L Phosphorus 2.5 Magnesium 1.8 POC Glucose 02/14/18 02/14/18 02/13/18 05:27 00:27 18:53 POC Glucose 107 112 H 99 02/13/18 12:04 POC Glucose 116 H Medical Necessity - Tobacco Use Smoking Status: Former smoker Tobacco Use: Cigarettes Assessment/Plan All Active Problems Syncope and collapse (Acute) Abdominal pain (Acute) 72 y/o F s/p fall from standing (CT head/spine neg), abd pain (CT shows some ?mesenteric stranding and mildly dilated SB loops), s/p ex lap and abd washout POD #2, elevated lactic acid-resolved 1. Continue NPO/NG/IVF/abd binder, Continue ROSE-serous. WBC improved-continue Zosyn/Diflucan, cx pending of abd fluid-very rare GNR, Await BF, will likely get SBFT once she has BF before starting a diet to make sure there is no leak, not doing SBFT now bc of ileus from surgery, which is expected with the bowel manipulation. 2. good UOP- keep matthews for strict I/Os, decrease IVF to 60 cc/hr 3. increase activity- OOB to chair & amb today. PT/OT ordered 4. continue pain control- morphine IV PRN 5. continue lovenox 6. HTN- appreciate hospitalists help with this- has IV PRN Ginette Domingo M.D. Pager: [phone] [facility] [address] [place] [address], [address] [place] [address] Office: [phone]
[2018-02-14] MEDS: Enalaprilat 1.25 MG/ML Vial 2.5 MG IV ×2 (10:50→16:55)
[2018-02-14 12:51] LABS: Bedside Glucose 95 mg/dL (70-110)
[2018-02-14 17:21] LABS: Bedside Glucose 118 mg/dL (70-110)
--- NOTE | 2018-02-14 17:50 | PCM.PN.HOSP ---
Patient Problems: Active and Suspected Problems Syncope and collapse (Acute) Abdominal pain (Acute) Subjective: Patient is still has not passed flatus or bowel movement. Abdominal pain is better. Sitting up in the chair. Blood pressure is high. It was 176/81 yesterday and started on Enalapril IV 2.500 every 6 hourly. Still high today 200/100 and, started on labetalol 200 mg every 6 hours as needed Vitals/I&O's: Vital Signs Temp Pulse Resp BP Pulse Ox 98.3 F 79 16 183/88 H 93 02/14/18 16:50 02/14/18 16:50 02/14/18 16:50 02/14/18 16:50 02/14/18 16:50 Oxygen Flow Rate (L/min) 2 Oxygen Delivery Method Room Air Weight: 162 lb 14.746 oz Body Mass Index (BMI) 29.7 Finger Stick Blood Glucose 164 Orthostatic Vital Signs Start: 02/11/18 21:46 Freq: q24h Status: Active Protocol: Activity Type Activity Date Activity User E-Sign Co-Sign Detail Recorded Client Recorded Date Recorded By Document 02/14/18 08:30 RECEPTION AGENT [id number] 02/14/18 08:52 RECEPTION AGENT 02/14/18 08:30 Orthostatic Vitals Standing -Blood Pressure (90/60-120/80) 207/119 H -Extremity Use Left Arm -Pulse Rate (60-100) 125 H Sitting -Blood Pressure (90/60-120/80) 188/113 H -Extremity Use Left Arm -Pulse Rate (60-100) 127 H Lying -Blood Pressure (90/60-120/80) 186/94 H -Extremity Use Left Arm -Pulse Rate (60-100) 93 Intake and Output for Last 24 Hours 02/12/18 02/13/18 02/14/18 23:59 23:59 23:59 Intake Total 7395 / 7395 3557.9 / 3557.9 2161 / 2161 Output Total 1870 / 1870 2650 / 2650 2997 / 2997 Balance 5525 / 5525 907.9 / 907.9 -836 / -836 General: Alert, Oriented x3, Cooperative HEENT: Atraumatic, PERRLA, EOMI, Normocephalic Neck: Supple, No JVD, Negative Carotid Bruits Lungs: Clear to auscultation, Diminished Cardiovascular: Regular rate, Normal S1, Normal S2, No murmurs Abdomen: Bowel Sounds Present, Soft, Hypoactive Bowel Sounds, Tender - Mild expected postoperative tenderness and distention present Extremities: Capillary Refill Less than 3 Seconds, Edema Skin: No rashes, No breakdown Musculoskeletal: No Tenderness to Palpation of Joints or Extremities Neurological: Cranial nerves II-XII grossly intact Psych/Mental Status: Normal Affect, Appropriate Microbiology Past 72 Hours 02/12/18 08:00 Incision/Surgical Site Gram Stain - Final 02/12/18 08:00 Incision/Surgical Site Wound Culture - Preliminary Gram negative hortencia 02/12/18 08:00 Incision/Surgical Site Anaerobic Culture - Preliminary No growth in 48 hours. Laboratory Results 02/13/18 18:53: POC Glucose 99 02/14/18 00:27: POC Glucose 112 H 02/14/18 05:27: POC Glucose 107 02/14/18 05:44: WBC 5.0, RBC 3.19 L, Hgb 9.9 L, Hct 31.0 L, MCV 97.2, MCH 31.0, MCHC 31.9 L, RDW 13.8, RDW Differential 49.4 H, Plt Count 176, MPV 9.1, Immature Gran % (Auto) 0.200, Neut % (Auto) 75.1 H, Lymph % (Auto) 13.3 L, Faulk % (Auto) 7.8, Eos % (Auto) 3.4, Baso % (Auto) 0.2, Absolute Neuts (auto) 3.8, Absolute Lymphs (auto) 0.67 L, Total Counted Not Reportable 02/14/18 05:44: Sodium 139, Potassium 3.2 L, Chloride 103, Carbon Dioxide 26.0, Anion Gap 10, BUN 6 L, Creatinine 0.46 L, Estim Creat Clear Calc 40.81, Est GFR (MDRD) Af Amer 174, Est GFR (MDRD) Non-Af 144, BUN/Creatinine Ratio 13.2, Glucose 105, Calcium 8.3 L, Phosphorus 2.5, Magnesium 1.8 02/14/18 12:35: POC Glucose 95 02/14/18 17:08: POC Glucose 118 H Current Medications Dextrose (D50w Syringe) 0 gm IV X1 PRN; Protocol PRN Reason: Hypoglycemia Enalaprilat (Vasotec) 2.5 mg IV Q6H PRN PRN Reason: SBP GREATER THAN 170 Last Admin: 02/14/18 16:55 Dose: 2.5 mg Enoxaparin Sodium (Lovenox) 40 mg SC DAILY@1000 [facility] Last Admin: 02/14/18 09:07 Dose: 40 mg Glucagon () 1 mg IM .X1 PRN PRN Reason: Hypoglycemia Pantoprazole Sodium 40 mg/ (Sodium Chloride) 110 mls @ 330 mls/hr IV Q24 [facility] Last Admin: 02/14/18 09:50 Dose: 330 mls/hr Fluconazole (Diflucan) 400 mg in 200 mls @ 100 mls/hr IV Q24 [facility] Last Admin: 02/14/18 11:00 Dose: 100 mls/hr Piperacillin Sod/Tazobactam Sod (Zosyn) 3.375 gm in 50 mls @ 12.5 mls/hr IV Q8 [facility] Last Admin: 02/14/18 13:18 Dose: 12.5 mls/hr Lactated Ringer's () 1,000 mls @ 60 mls/hr IV .[id number] [facility] Insulin Human Lispro (Humalog Kwikpen (Bkc)) 0 unit SQ Q6 [facility] PRN Reason: Protocol Last Admin: 02/14/18 17:25 Dose: Not Given Labetalol HCl (Trandate) 20 mg IV Q4H PRN PRN PRN Reason: SBP>170 mmhg Last Admin: 02/14/18 14:14 Dose: 20 mg Lisinopril (Zestril) 20 mg PO DAILY [facility] Last Admin: 02/14/18 09:07 Dose: 20 mg Lorazepam (Ativan) 2 mg PO Q2H PRN PRN; Protocol PRN Reason: CIWA score > 8 but <15 Lorazepam (Ativan) 2 mg PO UD PRN; Protocol PRN Reason: CIWA score >/=15. Lorazepam (Ativan) 2 mg IV Q2H PRN PRN; Protocol PRN Reason: CIWA score > 8 but <15 Lorazepam (Ativan) 2 mg IV UD PRN; Protocol PRN Reason: CIWA score >/=15. Magnesium Hydroxide (Milk Of Magnesia) 30 ml PO DAILY PRN PRN Reason: Constipation Morphine Sulfate () 2 - 4 mg IV Q3H PRN PRN PRN Reason: Severe Pain (pain scale 6-10) Last Admin: 02/14/18 13:19 Dose: 2 mg Morphine Sulfate () 2 - 4 mg IV Q3H PRN PRN PRN Reason: Severe Pain (pain scale 6-10) Ondansetron HCl (Zofran) 4 mg IV Q8H PRN PRN PRN Reason: Nausea Pravastatin Sodium (Pravachol) 40 mg PO QHS [facility] Last Admin: 02/13/18 21:58 Dose: 40 mg Sodium Chloride () 5 - 30 ml IV UD PRN PRN Reason: SALINE FLUSH Last Admin: 02/14/18 16:57 Dose: 10 ml Medical Necessity - Tobacco Use Smoking Status: Former smoker Tobacco Use: Cigarettes Assessment/Plan All Active Problems Syncope and collapse (Acute) Abdominal pain (Acute) The patient is a 72 year old F with a significant history of hypertension, type 2 diabetes, alcoholism, and a history of liposuction about 8 years ago who presents with 1 day history of persistent severe sharp abdominal pain, associated with nausea and vomiting; and syncope with collapse. She had 2 times syncope secondary to weakness most probably vasovagal from pain as patient was bradycardic probably hypotensive at that time too. In ED, blood pressure was 103/58, heart rate 62/min. Orthostatic vitals were negative. Syncope and collapse; most probably vasovagal syncope Likely due to depressed parasympathetic tone from severe pain Troponins are negative. Placed on telemetry monitoring Echocardiogram reported as EF 65% with a stage I diastolic dysfunction. No regional wall motion abnormality. No significant valvular disorder. Trivial TR. Unable to estimate RVSP technically difficult study Brain CT independently reviewed - Showed no acute process. Laceration on scalp which was stapled- Wound care consult. Abdominal pain, most probably secondary to inflammation of small bowel loops questionable mesenteric stranding Abdominal CT without contrast showed stable large duodenal diverticula and mild mesenteric stranding with the possibility of mild enteritis. Patient had exploratory laparoscopic converted laparotomy. Discussed with Dr. Domingo. Operative note reviewed. Small bowel and colon was viable but noted to be inflamed in some segments. There is also thickened small bowel found due to stool which was broken and moved along small bowel. Abdomen was washed and ROSE drain was placed. Surgical site Gram stain showing gram negative rods. Full culture pending. On IV Zosyn Hypokalemia: Potassium monitor and replace Elevated lactic acid. IV hydration (lactated Ringer's) Continue NG tube suction. Morphine and Zofran as needed. hypertension On IV labetalol and Enalapril as needed for systolic blood pressure more than 170. On lisinopril. Lisinopril dose increased to 40 mg daily and added amlodipine 10 mg daily. Diabetes mellitus type II Blood glucose not at goal at time of admission Patient n.p.o. at this time. Fingerstick blood glucose every 6 hours with correction scale protocol. Blood sugars controlled Hyperlipidemia pravastatin continued. Alcohol dependence Patient drinks about 1/2 glass of vodka every day. Ethanol level at admission was 10. CIWA protocol with lorazepam, thiamine and folic acid. DVT prophylaxis Lovenox. Microbiology Past 72 Hours 02/12/18 08:00 Incision/Surgical Site Gram Stain - Final 02/12/18 08:00 Incision/Surgical Site Wound Culture - Preliminary Gram negative hortencia Laboratory Results 02/12/18 18:51: POC Glucose 148 H 02/12/18 21:58: POC Glucose 133 H 02/13/18 00:08: POC Glucose 125 H 02/13/18 05:20: POC Glucose 128 H 02/13/18 05:48: WBC 5.8, RBC 3.08 L, Hgb 9.6 L, Hct 30.3 L, MCV 98.4, MCH 31.2, MCHC 31.7 L, RDW 14.5, RDW Differential 52.1 H, Plt Count 177, MPV 9.5, Immature Gran % (Auto) 0.000, Neut % (Auto) 74.0 H, Lymph % (Auto) 16.8 L, Faulk % (Auto) 8.0, Eos % (Auto) 1.0, Baso % (Auto) 0.2, Absolute Neuts (auto) 4.3, Absolute Lymphs (auto) 0.98, Total Counted Not Reportable 02/13/18 05:48: Sodium 142, Potassium 3.7, Chloride 108 H, Carbon Dioxide 24.0, Anion Gap 10, BUN 9, Creatinine 0.61, Estim Creat Clear Calc 40.81, Est GFR (MDRD) Af Amer 123, Est GFR (MDRD) Non-Af 102, BUN/Creatinine Ratio 14.7, Glucose 113 H, Calcium 7.6 L 02/13/18 12:04: POC Glucose 116 H Clinical Impression(s) from Imaging Studies Brain CT 02/11/18 13:08 IMPRESSION: Chronic involutional changes of the brain. Electronically Signed: Mike Matta MD at 13:44 EDT Tel [phone], Service support , Abdomen/Pelvis CT 02/11/18 13:09 IMPRESSION: Findings suggest mild degree of bibasilar atelectasis. Small amount of free fluid is seen in the cul-de-sac. Stable large duodenal diverticula as described. Electronically Signed: Mike Matta MD at 13:43 EDT Tel [phone], Service support , Cervical Spine CT 02/11/18 13:10 IMPRESSION: Multilevel degenerative changes, as described above. Electronically Signed: Mike Matta MD at 13:47 EDT Tel [phone], Service support , Chest X-Ray 02/11/18 13:55 IMPRESSION: Mild degree of increased markings at the lung bases suggesting bibasilar atelectasis. Electronically Signed: Mike Matta MD at 14:17 EDT Tel [phone], Service support , Abdomen/Pelvis CT 02/11/18 16:35 IMPRESSION: 1. Mildly distended fluid-filled loops of small bowel without wall thickening. There is mild mesenteric stranding the possibility of mild enteritis is suggested. 2. Large duodenal diverticulum. 3. Fatty infiltration of the liver. 4. Colonic diverticulosis without acute inflammatory change. 5. Mild ascites. 6. Bibasilar atelectasis. Electronically Signed: Sean Fung DO at 18:34 EDT Tel [phone], Service support , KUB X-Ray 02/11/18 19:40 IMPRESSION: NG tube as described Electronically Signed: Sean Fung DO at 20:21 EDT Tel [phone], Service support , Code Visit Inpatient E&M: 72634 Subs Hosp L3
[2018-02-14] MEDS: Lisinopril 40 MG Tablet PO (20:12)
[2018-02-14] MEDS: amLODIPine 10 MG Tablet PO (20:12)
[2018-02-14] MEDS: Pravastatin 40 MG Tablet PO (22:18)
[2018-02-14] MEDS: LORazepam 2 MG/ML Syringe IV (22:18)
[2018-02-15] VITALS (14 sets, daily range): BP systolic 157–193; BP diastolic 73–92; PULSE 71–89; RESP 16–18; TEMP 36.4–37.2; O2SAT 91–95
[2018-02-15 00:01] LABS: Bedside Glucose 98 mg/dL (70-110)
[2018-02-15] MEDS: 0.9% NaCl Peripheral Flush Adult/Peds IV ×2 (04:03→21:13)
[2018-02-15] MEDS: Piperacil/Tazobactam 3.375 GM/50 ML ML IV ×3 (05:06→21:13)
[2018-02-15 05:20] LABS: Bedside Glucose 90 mg/dL (70-110)
[2018-02-15 07:23] LABS: Absolute Neutrophil Count 3.5 X10^3/uL (2.0-7.7); Basophil# 0.01 X10^3/uL; Basophil% 0.2 % (0-1); Eosinophil# 0.14 X10^3/uL; Eosinophils% 2.8 % (0-5); Hematocrit 31.8 % (37-47); Hemoglobin 10.5 g/dl (12.0-15.0); Mean Corpuscular Hgb 31.5 pg (27.0-32.0); Mean Corpuscular Volume 95.5 fL (81-99); Neutrophil # 3.45 X10^3/uL (2.7-7.7); Neutrophil % 68.8 % (47-70); Platelet Count 204 K/mm3 (150-450); RBC Distribution Width CV 13.6 % (11.6-14.6); RBC Distribution Width SD 47.9 fl (35.1-43.9); Red Blood Count 3.33 M/mm3 (4.2-5.4)
[2018-02-15 07:24] LABS: POSITIVE COUNT NO; POSITIVE DIFFERENTIAL NO; POSITIVE MORPHOLOGY NO
[2018-02-15 07:43] LABS: Anion Gap 11 (5-15); BUN 7 mg/dL (7-18); BUN/Creat Ratio 15.7 RATIO (10-20); Calcium,Total 8.5 mg/dL (8.5-10.1); Chloride 102 mmol/L (98-107); Creatinine, Serum 0.44 mg/dL (0.55-1.02); EST Glomerular Filtration Rate 148 mL/min (>60); Est Glom Filt Rate - Afr Amer 179 mL/min (>60); Estimated Creatinine Clearance 40.81 ml/min; Glucose 88 mg/dL (74-106); Potassium 3.1 mmol/L (3.5-5.1); Sodium Level 138 mmol/L (136-145)
--- NOTE | 2018-02-15 07:59 | PCM.PN.HOSP ---
Patient Problems: Active and Suspected Problems Syncope and collapse (Acute) Abdominal pain (Acute) Subjective: Patient feels very tired and could not sleep last night. She has not passed flatus or bowel movement. Discussed with surgeon Dr. Domingo. 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 02/14/18 08:30 Orthostatic Vitals Standing -Blood Pressure (90/60-120/80 mm Hg) 207/119 H -Extremity Use Left Arm -Pulse Rate (60-100 beats/min) 125 H Sitting -Blood Pressure (90/60-120/80 mm Hg) 188/113 H -Extremity Use Left Arm -Pulse Rate (60-100 beats/min) 127 H Lying -Blood Pressure (90/60-120/80 mm Hg) 186/94 H -Extremity Use Left Arm -Pulse Rate (60-100 beats/min) 93 Intake and Output for Last 24 Hours 02/13/18 02/14/18 02/15/18 23:59 23:59 23:59 Intake Total 3557.9 / 3557.9 3150 / 3150 490 / 490 Output Total 2650 / 2650 3705 / 3705 2755 / 2755 Balance 907.9 / 907.9 -555 / -555 -2265 / -2265 General: Alert, Oriented x3, Cooperative HEENT: Atraumatic, PERRLA, EOMI, Normocephalic Neck: Supple, No JVD, Negative Carotid Bruits Lungs: Clear to auscultation, No rhonchi, No wheeze, Diminished Cardiovascular: Regular rate, Regular Rhythm, Normal S1, Normal S2, No murmurs Abdomen: Bowel Sounds Present, Soft, Non Tender, Hypoactive Bowel Sounds, Tender - Mild distention and tenderness. 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 Laboratory Results 02/14/18 12:35: POC Glucose 95 02/14/18 17:08: POC Glucose 118 H 02/14/18 23:55: POC Glucose 98 02/15/18 05:13: POC Glucose 90 02/15/18 06:45: WBC 5.0, RBC 3.33 L, Hgb 10.5 L, Hct 31.8 L, MCV 95.5, MCH 31.5, MCHC 33.0, RDW 13.6, RDW Differential 47.9 H, Plt Count 204, MPV 9.0, Immature Gran % (Auto) 0.200, Neut % (Auto) 68.8, Lymph % (Auto) 16.0 L, Hickory % (Auto) 12.0 H, Eos % (Auto) 2.8, Baso % (Auto) 0.2, Absolute Neuts (auto) 3.5, Absolute Lymphs (auto) 0.80 L, Total Counted Not Reportable 02/15/18 06:45: Sodium 138, Potassium 3.1 L, Chloride 102, Carbon Dioxide 25.0, Anion Gap 11, BUN 7, Creatinine 0.44 L, Estim Creat Clear Calc 40.81, Est GFR (MDRD) Af Amer 179, Est GFR (MDRD) Non-Af 148, BUN/Creatinine Ratio 15.7, Glucose 88, Calcium 8.5 Current Medications Amlodipine Besylate (Norvasc) 10 mg PO DAILY [facility] Last Admin: 02/14/18 20:12 Dose: 10 mg Dextrose (D50w Syringe) 0 gm IV X1 PRN; Protocol PRN Reason: Hypoglycemia Enalaprilat (Vasotec) 2.5 mg IV Q6H PRN PRN Reason: SBP>170 Enoxaparin Sodium (Lovenox) 40 mg SC DAILY@1000 [facility] Last Admin: 02/14/18 09:07 Dose: 40 mg Glucagon () 1 mg IM .X1 PRN PRN Reason: Hypoglycemia Pantoprazole Sodium 40 mg/ (Sodium Chloride) 110 mls @ 330 mls/hr IV Q24 [facility] Last Admin: 02/14/18 09:50 Dose: 330 mls/hr Fluconazole (Diflucan) 400 mg in 200 mls @ 100 mls/hr IV Q24 [facility] Last Admin: 02/14/18 11:00 Dose: 100 mls/hr Piperacillin Sod/Tazobactam Sod (Zosyn) 3.375 gm in 50 mls @ 12.5 mls/hr IV Q8 [facility] Last Admin: 02/15/18 05:06 Dose: 12.5 mls/hr Lactated Ringer's () 1,000 mls @ 60 mls/hr IV .[id number] [facility] Last Admin: 02/15/18 00:17 Dose: Not Given Potassium Chloride (Kcl 10meq/100ml) 10 meq in 100 mls @ 100 mls/hr IV BOLUS Q1H [facility] Stop: 02/15/18 11:59 Insulin Human Lispro (Humalog Kwikpen (Bkc)) 0 unit SQ Q6 [facility] PRN Reason: Protocol Last Admin: 02/15/18 05:14 Dose: Not Given Labetalol HCl (Trandate) 20 mg IV Q4H PRN PRN PRN Reason: SBP>170 mmhg Last Admin: 02/15/18 04:03 Dose: 20 mg Lisinopril (Zestril) 40 mg PO DAILY [facility] Last Admin: 02/14/18 20:12 Dose: 40 mg Lorazepam (Ativan) 2 mg PO Q2H PRN PRN; Protocol PRN Reason: CIWA score > 8 but <15 Lorazepam (Ativan) 2 mg PO UD PRN; Protocol PRN Reason: CIWA score >/=15. Lorazepam (Ativan) 2 mg IV Q2H PRN PRN; Protocol PRN Reason: CIWA score > 8 but <15 Last Admin: 02/14/18 22:18 Dose: 2 mg Lorazepam (Ativan) 2 mg IV UD PRN; Protocol PRN Reason: CIWA score >/=15. Magnesium Hydroxide (Milk Of Magnesia) 30 ml PO DAILY PRN PRN Reason: Constipation Morphine Sulfate () 2 - 4 mg IV Q3H PRN PRN PRN Reason: Severe Pain (pain scale 6-10) Last Admin: 02/14/18 22:18 Dose: 2 mg Morphine Sulfate () 2 - 4 mg IV Q3H PRN PRN PRN Reason: Severe Pain (pain scale 6-10) Ondansetron HCl (Zofran) 4 mg IV Q8H PRN PRN PRN Reason: Nausea Pravastatin Sodium (Pravachol) 40 mg PO QHS [facility] Last Admin: 02/14/18 22:18 Dose: 40 mg Sodium Chloride () 5 - 30 ml IV UD PRN PRN Reason: SALINE FLUSH Last Admin: 02/15/18 04:03 Dose: 10 ml Medical Necessity - Tobacco Use Smoking Status: Former smoker Tobacco Use: Cigarettes Assessment/Plan All Active Problems Syncope and collapse (Acute) Abdominal pain (Acute) The patient is a 72 year old F with a significant history of hypertension, type 2 diabetes, alcoholism, and a history of liposuction about 8 years ago who presents with 1 day history of persistent severe sharp abdominal pain, associated with nausea and vomiting; and syncope with collapse. She had 2 times syncope secondary to weakness most probably vasovagal from pain as patient was bradycardic probably hypotensive at that time too. In ED, blood pressure was 103/58, heart rate 62/min. Orthostatic vitals were negative. Syncope and collapse; most probably vasovagal syncope Likely due to depressed parasympathetic tone from severe pain Troponins are negative. Placed on telemetry monitoring Echocardiogram reported as EF 65% with a stage I diastolic dysfunction. No regional wall motion abnormality. No significant valvular disorder. Trivial TR. Unable to estimate RVSP technically difficult study Brain CT independently reviewed - Showed no acute process. Laceration on scalp which was stapled- Wound care consult. Abdominal pain, most probably secondary to inflammation of small bowel loops questionable mesenteric stranding Abdominal CT without contrast showed stable large duodenal diverticula and mild mesenteric stranding with the possibility of mild enteritis. Patient had exploratory laparoscopic converted laparotomy. Discussed with Dr. Domingo. Operative note reviewed. Small bowel and colon was viable but noted to be inflamed in some segments. There is also thickened small bowel found due to stool which was broken and moved along small bowel. Abdomen was washed and ROSE drain was placed. Surgical site Gram stain showing gram negative rods. Full culture pending. On IV Zosyn Hypokalemia: Potassium monitor and replace Elevated lactic acid. IV hydration (lactated Ringer's) Continue NG tube suction. Morphine and Zofran as needed. hypertension On IV labetalol and Enalapril as needed for systolic blood pressure more than 170. On lisinopril. Lisinopril dose increased to 40 mg daily and added amlodipine 10 mg daily. Blood pressure intermittently gets high 193/89. Diabetes mellitus type II Blood glucose not at goal at time of admission Patient n.p.o. at this time. Fingerstick blood glucose every 6 hours with correction scale protocol. Blood sugars controlled Hyperlipidemia pravastatin continued. Alcohol dependence Patient drinks about 1/2 glass of vodka every day. Ethanol level at admission was 10. CIWA protocol with lorazepam, thiamine and folic acid. Anxiety and possible alcohol withdrawal: Patient has anxiety. Ativan CIWA protocol. DVT prophylaxis Lovenox. 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 Laboratory Results 02/14/18 17:08: POC Glucose 118 H 02/14/18 23:55: POC Glucose 98 02/15/18 05:13: POC Glucose 90 02/15/18 06:45: WBC 5.0, RBC 3.33 L, Hgb 10.5 L, Hct 31.8 L, MCV 95.5, MCH 31.5, MCHC 33.0, RDW 13.6, RDW Differential 47.9 H, Plt Count 204, MPV 9.0, Immature Gran % (Auto) 0.200, Neut % (Auto) 68.8, Lymph % (Auto) 16.0 L, Hickory % (Auto) 12.0 H, Eos % (Auto) 2.8, Baso % (Auto) 0.2, Absolute Neuts (auto) 3.5, Absolute Lymphs (auto) 0.80 L, Total Counted Not Reportable 02/15/18 06:45: Sodium 138, Potassium 3.1 L, Chloride 102, Carbon Dioxide 25.0, Anion Gap 11, BUN 7, Creatinine 0.44 L, Estim Creat Clear Calc 40.81, Est GFR (MDRD) Af Amer 179, Est GFR (MDRD) Non-Af 148, BUN/Creatinine Ratio 15.7, Glucose 88, Calcium 8.5 02/15/18 11:52: POC Glucose 105 02/15/18 13:10: Potassium 3.8 Clinical Impression(s) from Imaging Studies Brain CT 02/11/18 13:08 IMPRESSION: Chronic involutional changes of the brain. Electronically Signed: Mike Matta MD at 13:44 EDT Tel [phone], Service support , Abdomen/Pelvis CT 02/11/18 13:09 IMPRESSION: Findings suggest mild degree of bibasilar atelectasis. Small amount of free fluid is seen in the cul-de-sac. Stable large duodenal diverticula as described. Electronically Signed: Mike Matta MD at 13:43 EDT Tel [phone], Service support , Cervical Spine CT 02/11/18 13:10 IMPRESSION: Multilevel degenerative changes, as described above. Electronically Signed: Mike Matta MD at 13:47 EDT Tel [phone], Service support , Chest X-Ray 02/11/18 13:55 IMPRESSION: Mild degree of increased markings at the lung bases suggesting bibasilar atelectasis. Electronically Signed: Mike Matta MD at 14:17 EDT Tel [phone], Service support , Abdomen/Pelvis CT 02/11/18 16:35 IMPRESSION: 1. Mildly distended fluid-filled loops of small bowel without wall thickening. There is mild mesenteric stranding the possibility of mild enteritis is suggested. 2. Large duodenal diverticulum. 3. Fatty infiltration of the liver. 4. Colonic diverticulosis without acute inflammatory change. 5. Mild ascites. 6. Bibasilar atelectasis. Electronically Signed: Sean Fung DO at 18:34 EDT Tel [phone], Service support , KUB X-Ray 02/11/18 19:40 IMPRESSION: NG tube as described Electronically Signed: Sean Fung DO at 20:21 EDT Tel [phone], Service support , Code Visit Inpatient E&M: 83720 Subs Hosp L3
--- NOTE | 2018-02-15 08:46 | PCM.PN.SRG ---
Patient Problems: Active and Suspected Problems Syncope and collapse (Acute) Abdominal pain (Acute) Subjective: Patient denies any bowel function, occasional burping, denies nausea, got some Ativan last night and was quite sleepy and did not receive any pain meds and this morning she is complaining of abdominal pain. - Physical Exam General: Alert, Oriented x3, Cooperative, No apparent distress Abdomen: Soft, Distended - Mild, Tender - Diffusely mainly by incision, no guarding or rebound, - - Incision clean dry and intact Extremities: No clubbing, No cyanosis, No edema Neurological: Cranial nerves II-XII grossly intact Vital Signs Temp Pulse Resp BP Pulse Ox 97.5 F L 77 16 157/78 H 91 02/15/18 04:00 02/15/18 07:00 02/15/18 04:00 02/15/18 05:06 02/15/18 07:40 Oxygen Flow Rate (L/min) 2 Oxygen Delivery Method Room Air Weight: 162 lb 14.746 oz Body Mass Index (BMI) 29.7 Finger Stick Blood Glucose 164 Orthostatic Vital Signs Start: 02/11/18 21:46 Freq: q24h Status: Active Protocol: Activity Type Activity Date Activity User E-Sign Co-Sign Detail Recorded Client Recorded Date Recorded By Document 02/14/18 08:30 ASSURANCE SENIOR MANAGER INSURANCE [id number] 02/14/18 08:52 ASSURANCE SENIOR MANAGER INSURANCE 02/14/18 08:30 Orthostatic Vitals Standing -Blood Pressure (90/60-120/80) 207/119 H -Extremity Use Left Arm -Pulse Rate (60-100) 125 H Sitting -Blood Pressure (90/60-120/80) 188/113 H -Extremity Use Left Arm -Pulse Rate (60-100) 127 H Lying -Blood Pressure (90/60-120/80) 186/94 H -Extremity Use Left Arm -Pulse Rate (60-100) 93 Intake and Output for Last 24 Hours 02/13/18 02/14/18 02/15/18 23:59 23:59 23:59 Intake Total 3557.9 / 3557.9 3150 / 3150 490 / 490 Output Total 2650 / 2650 3705 / 3705 2755 / 2755 Balance 907.9 / 907.9 -555 / -555 -2265 / -2265 Microbiology Past 72 Hours 02/12/18 08:00 Gram Stain - Final Incision/Surgical Site Wound Culture - Preliminary Citrobacter youngae 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 Laboratory Tests Past 24 Hrs 02/15/18 02/15/18 06:45 06:45 WBC 5.0 RBC 3.33 L Hgb 10.5 L Hct 31.8 L MCV 95.5 MCH 31.5 MCHC 33.0 RDW 13.6 RDW Differential 47.9 H Plt Count 204 MPV 9.0 Immature Gran % (Auto) 0.200 Neut % (Auto) 68.8 Lymph % (Auto) 16.0 L [place] % (Auto) 12.0 H Eos % (Auto) 2.8 Baso % (Auto) 0.2 Absolute Neuts (auto) 3.5 Absolute Lymphs (auto) 0.80 L Total Counted Not Reportable Sodium 138 Potassium 3.1 L Chloride 102 Carbon Dioxide 25.0 Anion Gap 11 BUN 7 Creatinine 0.44 L Estim Creat Clear Calc 40.81 Est GFR (MDRD) Af Amer 179 Est GFR (MDRD) Non-Af 148 BUN/Creatinine Ratio 15.7 Glucose 88 Calcium 8.5 POC Glucose 02/15/18 02/14/18 02/14/18 05:13 23:55 17:08 POC Glucose 90 98 118 H 02/14/18 12:35 POC Glucose 95 Medical Necessity - Tobacco Use Smoking Status: Former smoker Tobacco Use: Cigarettes Assessment/Plan All Active Problems Syncope and collapse (Acute) Abdominal pain (Acute) 72 y/o F s/p fall from standing (CT head/spine neg), abd pain (CT shows some ?mesenteric stranding and mildly dilated SB loops), s/p ex lap and abd washout POD #3, elevated lactic acid-resolved 1. Continue NPO/NG/IVF/abd binder, Continue ROSE-serous. WBC improved-continue Zosyn/Diflucan, cx pending of abd fluid-very rare GNR-and Citrobacter, Await BF, will likely get SBFT once she has BF before starting a diet to make sure there is no leak, not doing SBFT now bc of ileus from surgery, which is expected with the bowel manipulation. 2. good UOP- keep matthews for strict I/Os, decrease IVF to 60 cc/hr 3. increase activity-continue OOB to chair & amb. PT/OT ordered 4. continue pain control- morphine IV PRN, and will get throat lozenges for the patient's sore throat due to NG 5. continue lovenox 6. HTN- appreciate hospitalists help with this- has IV PRN 7. Hypokalemia-replace Ginette Domingo M.D. Pager: [phone] [facility] [address] [place] [address], [facility], [address] [place] [address] Office: [phone]
[2018-02-15] MEDS: Morphine 2 MG/ML Syringe IV (08:49)
[2018-02-15] MEDS: Enalaprilat 1.25 MG/ML Vial 2.5 MG IV (09:52)
[2018-02-15] MEDS: Enoxaparin 40 MG/0.4 ML Syringe SC (10:36)
[2018-02-15] MEDS: Lisinopril 40 MG Tablet PO (10:36)
[2018-02-15] MEDS: amLODIPine 10 MG Tablet PO (10:37)
[2018-02-15 12:25] LABS: Bedside Glucose 105 mg/dL (70-110)
[2018-02-15 13:39] LABS: Potassium 3.8 mmol/L (3.5-5.1)
[2018-02-15] MEDS: Morphine 4 MG/ML Syringe IV ×2 (14:27→21:13)
[2018-02-15] MEDS: BENZOCAINE/MENTHOL 1 LOZENGE MUCOUS MEM (14:27)
[2018-02-15] MEDS: Lactated Ringers 1,000 ML 60 ML IV (14:28)
[2018-02-15 18:01] LABS: Bedside Glucose 92 mg/dL (70-110)
[2018-02-15] MEDS: Pravastatin 40 MG Tablet PO (21:13)
[2018-02-15] MEDS: Zolpidem Tartrate 5 MG Tablet PO (21:13)
[2018-02-15 21:31] LABS: Bedside Glucose 103 mg/dL (70-110)
[2018-02-16] VITALS (14 sets, daily range): BP systolic 143–190; BP diastolic 77–94; PULSE 74–106; RESP 16–20; TEMP 36.7–37; O2SAT 92–95
[2018-02-16] MEDS: Lactated Ringers 1,000 ML 60 ML IV (03:24)
[2018-02-16] MEDS: 0.9% NaCl Peripheral Flush Adult/Peds IV ×3 (03:24→21:43)
[2018-02-16] MEDS: Piperacil/Tazobactam 3.375 GM/50 ML ML IV (05:43)
[2018-02-16 05:51] LABS: Bedside Glucose 94 mg/dL (70-110)
[2018-02-16 07:13] LABS: Absolute Lymphocyte Count 1.09 X10^3/ul (0.83-4.51); Absolute Neutrophil Count 3.4 X10^3/uL (2.0-7.7); Basophil# 0.02 X10^3/uL; Basophil% 0.4 % (0-1); Eosinophil# 0.18 X10^3/uL; Eosinophils% 3.4 % (0-5); Hemoglobin 10.8 g/dl (12.0-15.0); Lymphocyte # 1.09 X10^3/ul (4.0); Lymphocyte % 20.5 % (19-41); Mean Corp Hgb Conc 32.7 g/gl (32-36); Mean Corpuscular Hgb 31.4 pg (27.0-32.0); Mean Corpuscular Volume 95.9 fL (81-99); Monocyte# 0.59 X10^3/uL; Monocyte% 11.1 % (0-10); Neutrophil # 3.38 X10^3/uL (2.7-7.7); Neutrophil % 63.7 % (47-70); Platelet Count 240 K/mm3 (150-450); RBC Distribution Width CV 13.2 % (11.6-14.6); RBC Distribution Width SD 44.1 fl (35.1-43.9); Red Blood Count 3.44 M/mm3 (4.2-5.4); White Blood Count 5.3 K/mm3 (4.4-11.0)
[2018-02-16 07:15] LABS: POSITIVE COUNT NO; POSITIVE DIFFERENTIAL NO; POSITIVE MORPHOLOGY NO
--- NOTE | 2018-02-16 08:25 | PCM.PN.HOSP ---
Patient Problems: Active and Suspected Problems Syncope and collapse (Acute) Abdominal pain (Acute) Subjective: Patient moved flatness. Has not moved bowel movement. Patient is still has high blood pressure. Vitals/I&O's: Vital Signs Temp Pulse Resp BP Pulse Ox 98.2 F 74 18 171/82 H 92 02/16/18 05:40 02/16/18 05:40 02/16/18 05:40 02/16/18 05:40 02/16/18 07:50 Oxygen Flow Rate (L/min) 2 Oxygen Delivery Method Room Air Weight: 162 lb 14.746 oz Body Mass Index (BMI) 29.7 Finger Stick Blood Glucose 164 Intake and Output for Last 24 Hours 02/14/18 02/15/18 02/16/18 23:59 23:59 23:59 Intake Total 3150 / 3150 1897.7 / 1897.7 428.2 / 428.2 Output Total 3705 / 3705 7380 / 7380 840 / 840 Balance -555 / -555 -5482.3 / -5482.3 -411.8 / -411.8 General: Alert, Oriented x3, Cooperative HEENT: Atraumatic, PERRLA, EOMI, Normocephalic Neck: Supple, No JVD, Negative Carotid Bruits Lungs: Clear to auscultation, Normal air movement, No rhonchi, No wheeze Cardiovascular: Regular rate, Normal S1, Normal S2, No murmurs Abdomen: Bowel Sounds Present, Soft, Tender - Mild tenderness present improved. Bowel sound is good. Minimal serosanguineous fluid in ROSE drain. NG shows bilious aspirate. Extremities: No edema, Capillary Refill Less than 3 Seconds Skin: No rashes, No breakdown Musculoskeletal: No Tenderness to Palpation of Joints or Extremities, Arthritic Changes Neurological: Cranial nerves II-XII grossly intact Psych/Mental Status: Normal Affect, Appropriate Microbiology Past 72 Hours 02/12/18 08:00 Incision/Surgical Site Gram Stain - Final 02/12/18 08:00 Incision/Surgical Site Wound Culture - Final Citrobacter youngae Enterobacter cloacae complex 02/12/18 08:00 Incision/Surgical Site Anaerobic Culture - Preliminary No growth in 48 hours. Laboratory Results 02/15/18 11:52: POC Glucose 105 02/15/18 13:10: Potassium 3.8 02/15/18 17:41: POC Glucose 92 02/15/18 21:22: POC Glucose 103 02/16/18 05:43: POC Glucose 94 02/16/18 06:31: Sodium Pending, Potassium Pending, Chloride Pending, Carbon Dioxide Pending, Anion Gap Pending, BUN Pending, Creatinine Pending, Est GFR (MDRD) Af Amer Pending, Est GFR (MDRD) Non-Af Pending, BUN/Creatinine Ratio Pending, Glucose Pending, Calcium Pending, Phosphorus Pending, Magnesium Pending, Total Bilirubin Pending, AST Pending, ALT Pending, Alkaline Phosphatase Pending, Total Protein Pending, Albumin Pending, Folate Pending 02/16/18 06:31: WBC 5.3, RBC 3.44 L, Hgb 10.8 L, Hct 33.0 L, MCV 95.9, MCH 31.4, MCHC 32.7, RDW 13.2, RDW Differential 44.1 H, Plt Count 240, MPV 9.0, Immature Gran % (Auto) 0.900, Neut % (Auto) 63.7, Lymph % (Auto) 20.5, [place] % (Auto) 11.1 H, Eos % (Auto) 3.4, Baso % (Auto) 0.4, Absolute Neuts (auto) 3.4, Absolute Lymphs (auto) 1.09, Total Counted Not Reportable 02/16/18 06:31: Phosphorus Cancelled 02/16/18 06:31: Vitamin B12 Pending Current Medications Amlodipine Besylate (Norvasc) 10 mg PO DAILY [facility] Last Admin: 02/15/18 10:37 Dose: 10 mg Dextrose (D50w Syringe) 0 gm IV X1 PRN; Protocol PRN Reason: Hypoglycemia Enalaprilat (Vasotec) 2.5 mg IV Q6H PRN PRN Reason: SBP>170 Last Admin: 02/15/18 09:52 Dose: 2.5 mg Enoxaparin Sodium (Lovenox) 40 mg SC DAILY@1000 [facility] Last Admin: 02/15/18 10:36 Dose: 40 mg Glucagon () 1 mg IM .X1 PRN PRN Reason: Hypoglycemia Pantoprazole Sodium 40 mg/ (Sodium Chloride) 110 mls @ 330 mls/hr IV Q24 [facility] Last Admin: 02/15/18 09:50 Dose: 330 mls/hr Fluconazole (Diflucan) 400 mg in 200 mls @ 100 mls/hr IV Q24 [facility] Last Admin: 02/15/18 09:50 Dose: 100 mls/hr Piperacillin Sod/Tazobactam Sod (Zosyn) 3.375 gm in 50 mls @ 12.5 mls/hr IV Q8 [facility] Last Admin: 02/16/18 05:43 Dose: 12.5 mls/hr Lactated Ringer's () 1,000 mls @ 60 mls/hr IV .[id number] [facility] Last Admin: 02/16/18 03:24 Dose: 60 mls/hr Insulin Human Lispro (Humalog Kwikpen (Bkc)) 0 unit SQ Q6 [facility] PRN Reason: Protocol Last Admin: 02/16/18 05:44 Dose: Not Given Labetalol HCl (Trandate) 20 mg IV Q4H PRN PRN PRN Reason: SBP>170 mmhg Last Admin: 02/16/18 03:26 Dose: 20 mg Lisinopril (Zestril) 40 mg PO DAILY [facility] Last Admin: 02/15/18 10:36 Dose: 40 mg Magnesium Hydroxide (Milk Of Magnesia) 30 ml PO DAILY PRN PRN Reason: Constipation Morphine Sulfate () 2 - 4 mg IV Q3H PRN PRN PRN Reason: Severe Pain (pain scale 6-10) Last Admin: 02/15/18 08:49 Dose: 2 mg Morphine Sulfate () 2 - 4 mg IV Q3H PRN PRN PRN Reason: Severe Pain (pain scale 6-10) Last Admin: 02/15/18 21:13 Dose: 4 mg Ondansetron HCl (Zofran) 4 mg IV Q8H PRN PRN PRN Reason: Nausea Pravastatin Sodium (Pravachol) 40 mg PO QHS [facility] Last Admin: 02/15/18 21:13 Dose: 40 mg Sodium Chloride () 5 - 30 ml IV UD PRN PRN Reason: SALINE FLUSH Last Admin: 02/16/18 03:24 Dose: 10 ml Throat Lozenges (Cepacol Sore Throat Lozenge) 1 lozenge MUCOUS MEM Q2H PRN PRN PRN Reason: SORE THROAT Last Admin: 02/15/18 14:27 Dose: 1 lozenge Zolpidem Tartrate (Ambien (Generic)) 5 mg PO QHS PRN PRN PRN Reason: INSOMNIA Last Admin: 02/15/18 21:13 Dose: 5 mg Medical Necessity - Tobacco Use Smoking Status: Former smoker Tobacco Use: Cigarettes Assessment/Plan All Active Problems Syncope and collapse (Acute) Abdominal pain (Acute) The patient is a 72 year old F with a significant history of hypertension, type 2 diabetes, alcoholism, and a history of liposuction about 8 years ago who presents with 1 day history of persistent severe sharp abdominal pain, associated with nausea and vomiting; and syncope with collapse. She had 2 times syncope secondary to weakness most probably vasovagal from pain as patient was bradycardic probably hypotensive at that time too. In ED, blood pressure was 103/58, heart rate 62/min. Orthostatic vitals were negative. 1. Abdominal pain, due to purulent peritonitis (pus found in the pelvis) and inflammation of small bowel loops questionable mesenteric stranding; although perforation was not found as per operative note. Possible sealed perforation or primary peritonitis. Abdominal CT without contrast showed stable large duodenal diverticula and mild mesenteric stranding with the possibility of mild enteritis. Patient had exploratory laparoscopic converted laparotomy. Discussed with Dr. Domingo. Operative note reviewed. Small bowel and colon was viable but noted to be inflamed in some segments. There is also thickened small bowel found due to stool which was broken and moved along small bowel. Abdomen was washed and ROSE drain was placed. Surgical site Gram stain s shows gram-negative hortencia Citrobacter and enterococcus looking sensitive to Cipro. Antibiotic changed to Cipro from Zosyn. Hypokalemia: Potassium monitor and replace Syncope and collapse; most probably vasovagal syncope Likely due to depressed parasympathetic tone from severe pain Troponins are negative. Placed on telemetry monitoring Echocardiogram reported as EF 65% with a stage I diastolic dysfunction. No regional wall motion abnormality. No significant valvular disorder. Trivial TR. Unable to estimate RVSP technically difficult study Brain CT independently reviewed - Showed no acute process. Laceration on scalp which was stapled- Wound care consult. Elevated lactic acid. IV hydration (lactated Ringer's) Continue NG tube suction. Morphine and Zofran as needed. hypertension On IV labetalol and Enalapril as needed for systolic blood pressure more than 170. On lisinopril. Lisinopril dose increased to 40 mg daily and added amlodipine 10 mg daily. Blood pressure intermittently gets high 193/89. Diabetes mellitus type II Blood glucose not at goal at time of admission Patient n.p.o. at this time. Fingerstick blood glucose every 6 hours with correction scale protocol. Blood sugars controlled Hyperlipidemia pravastatin continued. Alcohol dependence Patient drinks about 1/2 glass of vodka every day. Ethanol level at admission was 10. CIWA protocol with lorazepam, thiamine and folic acid. Anxiety and possible alcohol withdrawal: Patient has anxiety. Ativan CIWA protocol. DVT prophylaxis Lovenox. Discussed with Dr. 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 Laboratory Results 02/14/18 17:08: POC Glucose 118 H 02/14/18 23:55: POC Glucose 98 02/15/18 05:13: POC Glucose 90 02/15/18 06:45: WBC 5.0, RBC 3.33 L, Hgb 10.5 L, Hct 31.8 L, MCV 95.5, MCH 31.5, MCHC 33.0, RDW 13.6, RDW Differential 47.9 H, Plt Count 204, MPV 9.0, Immature Gran % (Auto) 0.200, Neut % (Auto) 68.8, Lymph % (Auto) 16.0 L, [place] % (Auto) 12.0 H, Eos % (Auto) 2.8, Baso % (Auto) 0.2, Absolute Neuts (auto) 3.5, Absolute Lymphs (auto) 0.80 L, Total Counted Not Reportable 02/15/18 06:45: Sodium 138, Potassium 3.1 L, Chloride 102, Carbon Dioxide 25.0, Anion Gap 11, BUN 7, Creatinine 0.44 L, Estim Creat Clear Calc 40.81, Est GFR (MDRD) Af Amer 179, Est GFR (MDRD) Non-Af 148, BUN/Creatinine Ratio 15.7, Glucose 88, Calcium 8.5 02/15/18 11:52: POC Glucose 105 02/15/18 13:10: Potassium 3.8 KUB X-Ray 02/16/18 09:55 IMPRESSION: NG tube in the stomach. Continued gaseous distended loops of colon without evidence of small bowel obstruction. Surgical drain. Code Visit Inpatient E&M: 49032 Subs Hosp L3
[2018-02-16 08:28] LABS: ALB/GLOB Ratio 0.6 RATIO (0.9-2.4); AST(SGOT) 22 U/L (15-37); Alanine Aminotransfer ALT/SGPT 20 U/L (13-56); Albumin, Serum 2.3 g/dL (3.2-5.0); Alkaline Phosphatase 62 U/L (45-117); Anion Gap 14 (5-15); BUN 8 mg/dL (7-18); BUN/Creat Ratio 19.4 RATIO (10-20); Calcium,Total 8.7 mg/dL (8.5-10.1); Chloride 101 mmol/L (98-107); Creatinine, Serum 0.41 mg/dL (0.55-1.02); EST Glomerular Filtration Rate 162 mL/min (>60); Est Glom Filt Rate - Afr Amer 195 mL/min (>60); Estimated Creatinine Clearance 40.81 ml/min; Globulin 3.9 g/dL (2.2-4.2); Glucose 90 mg/dL (74-106); Magnesium 1.9 mg/dL (1.6-2.6); Phosphorus 3.5 mg/dL (2.5-4.9); Potassium 3.4 mmol/L (3.5-5.1); Protein, Total 6.2 g/dL (6.4-8.2); Sodium Level 139 mmol/L (136-145)
--- NOTE | 2018-02-16 08:43 | PCM.PN.SRG ---
Patient Problems: Active and Suspected Problems Syncope and collapse (Acute) Abdominal pain (Acute) Subjective: Patient admits to passing small amount of flatus, no bowel movement, patient was ambulated in childs yesterday and ambulating again this morning. ROSE still serous - Physical Exam General: Alert, Oriented x3, Cooperative, No apparent distress Abdomen: Soft, Non-Distended, Tender - Near incision appropriately, no guarding or rebound, - - ROSE serous Vital Signs Temp Pulse Resp BP Pulse Ox 98.2 F 74 18 171/82 H 92 02/16/18 05:40 02/16/18 05:40 02/16/18 05:40 02/16/18 05:40 02/16/18 07:50 Oxygen Flow Rate (L/min) 2 Oxygen Delivery Method Room Air Weight: 162 lb 14.746 oz Body Mass Index (BMI) 29.7 Finger Stick Blood Glucose 164 Intake and Output for Last 24 Hours 02/14/18 02/15/18 02/16/18 23:59 23:59 23:59 Intake Total 3150 / 3150 1897.7 / 1897.7 428.2 / 428.2 Output Total 3705 / 3705 7380 / 7380 840 / 840 Balance -555 / -555 -5482.3 / -5482.3 -411.8 / -411.8 Microbiology Past 72 Hours 02/12/18 08:00 Gram Stain - Final Incision/Surgical Site Wound Culture - Final Citrobacter youngae Enterobacter cloacae complex Anaerobic Culture - Preliminary No growth in 48 hours. Laboratory Tests Past 24 Hrs 02/15/18 02/16/18 02/16/18 13:10 06:31 06:31 WBC 5.3 RBC 3.44 L Hgb 10.8 L Hct 33.0 L MCV 95.9 MCH 31.4 MCHC 32.7 RDW 13.2 RDW Differential 44.1 H Plt Count 240 MPV 9.0 Immature Gran % (Auto) 0.900 Neut % (Auto) 63.7 Lymph % (Auto) 20.5 [place] % (Auto) 11.1 H Eos % (Auto) 3.4 Baso % (Auto) 0.4 Absolute Neuts (auto) 3.4 Absolute Lymphs (auto) 1.09 Total Counted Not Reportable Sodium 139 Potassium 3.8 3.4 L Chloride 101 Carbon Dioxide 24.0 Anion Gap 14 BUN 8 Creatinine 0.41 L Estim Creat Clear Calc 40.81 Est GFR (MDRD) Af Amer 195 Est GFR (MDRD) Non-Af 162 BUN/Creatinine Ratio 19.4 Glucose 90 Calcium 8.7 Phosphorus 3.5 Magnesium 1.9 Total Bilirubin 0.40 AST 22 ALT 20 Alkaline Phosphatase 62 Total Protein 6.2 L Albumin 2.3 L Globulin 3.9 Albumin/Globulin Ratio 0.6 L Vitamin B12 Folate 26.40 02/16/18 02/16/18 06:31 06:31 WBC RBC Hgb Hct MCV MCH MCHC RDW RDW Differential Plt Count MPV Immature Gran % (Auto) Neut % (Auto) Lymph % (Auto) [place] % (Auto) Eos % (Auto) Baso % (Auto) Absolute Neuts (auto) Absolute Lymphs (auto) Total Counted Sodium Potassium Chloride Carbon Dioxide Anion Gap BUN Creatinine Estim Creat Clear Calc Est GFR (MDRD) Af Amer Est GFR (MDRD) Non-Af BUN/Creatinine Ratio Glucose Calcium Phosphorus Cancelled Magnesium Total Bilirubin AST ALT Alkaline Phosphatase Total Protein Albumin Globulin Albumin/Globulin Ratio Vitamin B12 Pending Folate POC Glucose 02/16/18 02/15/18 02/15/18 05:43 21:22 17:41 POC Glucose 94 103 92 02/15/18 11:52 POC Glucose 105 Medical Necessity - Tobacco Use Smoking Status: Former smoker Tobacco Use: Cigarettes Assessment/Plan All Active Problems Syncope and collapse (Acute) Abdominal pain (Acute) 72 y/o F s/p fall from standing (CT head/spine neg), abd pain (CT shows some ?mesenteric stranding and mildly dilated SB loops), s/p ex lap and abd washout POD #4, elevated lactic acid-resolved 1. We will check KUB patient has had some flatus and also may try an NG clamp later today depending on how she does she may be I will have her NG removed. Still await further bowel function before starting a diet. We will change antibiotics to Cipro as the aerobic cultures are both sensitive and anaerobic has no growth for 48 hours. 2. good UOP- keep matthews for strict I/Os and until patient is more independent in mobility as she is still diuresing well from her previous boluses before and after surgery, decrease IVF to 60 cc/hr 3. increase activity-continue OOB to chair & amb. PT/OT ordered 4. continue pain control- morphine IV PRN, and will get throat lozenges for the patient's sore throat due to NG 5. continue lovenox 6. HTN- appreciate hospitalists help with this- has IV PRN 7. Hypokalemia-replace Ginette Domingo M.D. Pager: [phone] [facility] [address] [place] [address], [facility], [address] [place] [address] Office: [phone]
[2018-02-16] MEDS: Lisinopril 40 MG Tablet PO (09:20)
[2018-02-16] MEDS: amLODIPine 10 MG Tablet PO (09:20)
[2018-02-16] MEDS: Enoxaparin 40 MG/0.4 ML Syringe SC (09:20)
[2018-02-16] MEDS: hydrALAZINE 25 MG Tablet PO ×2 (09:26→21:40)
[2018-02-16] MEDS: Morphine 4 MG/ML Syringe IV ×2 (09:29→15:49)
[2018-02-16] MEDS: Ciprofloxacin 400 MG/200 ML BAG 200 MG IV ×2 (11:23→21:43)
[2018-02-16 11:46] LABS: Bedside Glucose 130 mg/dL (70-110)
[2018-02-16] MEDS: Lactated Ringers 1,000 ML 40 ML IV ×2 (17:01→20:30)
[2018-02-16 17:40] LABS: Bedside Glucose 119 mg/dL (70-110)
[2018-02-16] MEDS: HYDROcodone Bitartrate/Apap 5/325 Tablet PO (18:57)
[2018-02-16] MEDS: Morphine 2 MG/ML Syringe IV (21:43)
[2018-02-16] MEDS: Pravastatin 40 MG Tablet PO (21:43)
[2018-02-16] MEDS: Zolpidem Tartrate 5 MG Tablet PO (21:43)
[2018-02-16 21:55] LABS: Bedside Glucose 110 mg/dL (70-110)
[2018-02-17] VITALS (15 sets, daily range): BP systolic 131–156; BP diastolic 75–83; PULSE 72–88; RESP 14–20; TEMP 36.8–37.1; O2SAT 94–98
[2018-02-17] MEDS: 0.9% NaCl Peripheral Flush Adult/Peds IV (04:44)
[2018-02-17] MEDS: Morphine 2 MG/ML Syringe IV (04:44)
[2018-02-17] MEDS: hydrALAZINE 25 MG Tablet PO ×3 (05:56→21:11)
[2018-02-17 06:01] LABS: Bedside Glucose 119 mg/dL (70-110)
[2018-02-17 06:29] LABS: Absolute Lymphocyte Count 1.04 X10^3/ul (0.83-4.51); Absolute Neutrophil Count 3.7 X10^3/uL (2.0-7.7); Basophil# 0.02 X10^3/uL; Basophil% 0.4 % (0-1); Eosinophil# 0.18 X10^3/uL; Eosinophils% 3.2 % (0-5); Hematocrit 34.7 % (37-47); Hemoglobin 11.3 g/dl (12.0-15.0); Lymphocyte # 1.04 X10^3/ul (4.0); Lymphocyte % 18.4 % (19-41); Mean Corp Hgb Conc 32.6 g/gl (32-36); Mean Corpuscular Volume 95.1 fL (81-99); Mean Platelet Vol. 9.3 fl (6.2-12.0); Monocyte# 0.71 X10^3/uL; Monocyte% 12.6 % (0-10); Neutrophil # 3.66 X10^3/uL (2.7-7.7); Neutrophil % 64.7 % (47-70); Platelet Count 270 K/mm3 (150-450); RBC Distribution Width CV 13.6 % (11.6-14.6); RBC Distribution Width SD 47.7 fl (35.1-43.9); Red Blood Count 3.65 M/mm3 (4.2-5.4); White Blood Count 5.7 K/mm3 (4.4-11.0)
[2018-02-17 06:31] LABS: POSITIVE COUNT NO; POSITIVE DIFFERENTIAL NO; POSITIVE MORPHOLOGY NO
[2018-02-17 06:32] LABS: Anion Gap 12 (5-15); BUN 8 mg/dL (7-18); BUN/Creat Ratio 17.4 RATIO (10-20); Calcium,Total 8.7 mg/dL (8.5-10.1); Chloride 101 mmol/L (98-107); Creatinine, Serum 0.46 mg/dL (0.55-1.02); EST Glomerular Filtration Rate 142 mL/min (>60); Est Glom Filt Rate - Afr Amer 172 mL/min (>60); Estimated Creatinine Clearance 40.81 ml/min; Glucose 113 mg/dL (74-106); Potassium 3.6 mmol/L (3.5-5.1); Sodium Level 137 mmol/L (136-145)
--- NOTE | 2018-02-17 08:15 | PCM.PN.SRG ---
Patient Problems: Active and Suspected Problems Syncope and collapse (Acute) Abdominal pain (Acute) Subjective: Patient denies any nausea vomiting was able to have her NG removed yesterday, she only reports a couple times of flatus though, no bowel movement - Physical Exam General: Alert HEENT: Atraumatic, - - Staple in the right side of her scalp Lungs: Normal air movement Abdomen: Soft, Non-Distended, Tender - Tender near incision, dressed clean dry and intact, no guarding or rebound Extremities: No clubbing, No cyanosis, No edema Vital Signs Temp Pulse Resp BP Pulse Ox 98.3 F 74 18 156/75 H 94 02/17/18 04:42 02/17/18 07:34 02/17/18 04:42 02/17/18 05:56 02/17/18 07:20 Oxygen Flow Rate (L/min) 2 Oxygen Delivery Method Room Air Weight: 162 lb 14.746 oz Body Mass Index (BMI) 29.7 Finger Stick Blood Glucose 164 Intake and Output for Last 24 Hours 02/15/18 02/16/18 02/17/18 23:59 23:59 23:59 Intake Total 1897.7 / 1897.7 2130.2 / 2130.2 473 / 473 Output Total 7380 / 7380 2949 / 2949 0 / 0 Balance -5482.3 / -5482.3 -818.8 / -818.8 473 / 473 Microbiology Past 72 Hours 02/12/18 08:00 Gram Stain - Final Incision/Surgical Site Wound Culture - Final Citrobacter youngae Enterobacter cloacae complex Anaerobic Culture - Final No growth in 5 days. Laboratory Tests Past 24 Hrs 02/16/18 02/16/18 02/17/18 06:31 06:31 05:30 WBC 5.7 RBC 3.65 L Hgb 11.3 L Hct 34.7 L MCV 95.1 MCH 31.0 MCHC 32.6 RDW 13.6 RDW Differential 47.7 H Plt Count 270 MPV 9.3 Immature Gran % (Auto) 0.700 Neut % (Auto) 64.7 Lymph % (Auto) 18.4 L [place] % (Auto) 12.6 H Eos % (Auto) 3.2 Baso % (Auto) 0.4 Absolute Neuts (auto) 3.7 Absolute Lymphs (auto) 1.04 Total Counted Not Reportable Sodium 139 Potassium 3.4 L Chloride 101 Carbon Dioxide 24.0 Anion Gap 14 BUN 8 Creatinine 0.41 L Estim Creat Clear Calc 40.81 Est GFR (MDRD) Af Amer 195 Est GFR (MDRD) Non-Af 162 BUN/Creatinine Ratio 19.4 Glucose 90 Calcium 8.7 Phosphorus 3.5 Magnesium 1.9 2.0 Total Bilirubin 0.40 AST 22 ALT 20 Alkaline Phosphatase 62 Total Protein 6.2 L Albumin 2.3 L Globulin 3.9 Albumin/Globulin Ratio 0.6 L Folate 26.40 02/17/18 05:30 WBC RBC Hgb Hct MCV MCH MCHC RDW RDW Differential Plt Count MPV Immature Gran % (Auto) Neut % (Auto) Lymph % (Auto) [place] % (Auto) Eos % (Auto) Baso % (Auto) Absolute Neuts (auto) Absolute Lymphs (auto) Total Counted Sodium 137 Potassium 3.6 Chloride 101 Carbon Dioxide 24.0 Anion Gap 12 BUN 8 Creatinine 0.46 L Estim Creat Clear Calc 40.81 Est GFR (MDRD) Af Amer 172 Est GFR (MDRD) Non-Af 142 BUN/Creatinine Ratio 17.4 Glucose 113 H Calcium 8.7 Phosphorus Magnesium Total Bilirubin AST ALT Alkaline Phosphatase Total Protein Albumin Globulin Albumin/Globulin Ratio Folate POC Glucose 02/17/18 02/16/18 02/16/18 05:54 21:38 17:26 POC Glucose 119 H 110 119 H 02/16/18 11:41 POC Glucose 130 H Medical Necessity - Tobacco Use Smoking Status: Former smoker Tobacco Use: Cigarettes Assessment/Plan All Active Problems Syncope and collapse (Acute) Abdominal pain (Acute) 72 y/o F s/p fall from standing (CT head/spine neg), abd pain (CT shows some ?mesenteric stranding and mildly dilated SB loops), s/p ex lap and abd washout POD #5, elevated lactic acid-resolved 1. Patient is okay for sips until she starts having increased bowel function. Continue ROSE serous. continue Cipro will also add Flagyl IV. 2. Camejo was DC'd yesterday as patient was more mobile, IV fluids are at 40 cc an hour 3. increase activity-continue OOB to chair & amb. PT/OT ordered 4. continue pain control- morphine IV PRN 5. continue lovenox 6. HTN- appreciate hospitalists help with this Ginette Robotham, M.D. Pager: [phone] [facility] [address] [place] [address], [facility], [address] [place] [address] Office: [phone]
[2018-02-17] MEDS: Enoxaparin 40 MG/0.4 ML Syringe SC (08:51)
[2018-02-17] MEDS: amLODIPine 10 MG Tablet PO (08:53)
[2018-02-17] MEDS: Lisinopril 40 MG Tablet PO (08:54)
[2018-02-17] MEDS: HYDROcodone Bitartrate/Apap 5/325 Tablet PO ×3 (09:10→21:14)
[2018-02-17 10:57] LABS: Vitamin B12 343 pg/mL (211-911)
--- NOTE | 2018-02-17 11:20 | PCM.PN.HOSP ---
Patient Problems: Active and Suspected Problems Syncope and collapse (Acute) Abdominal pain (Acute) Subjective: Patient is a 72-year-old lady who presented with significant abdominal pain imaging studies demonstrated mild mesenteric stranding with the possibility of mild enteritis. In view of persistence of her pain general surgery was consulted patient underwent laparoscopic Exploratory laparoscopy converted to exploratory laparotomy, abdominal washout on 02/12/2018 findings included purulent peritonitis 02/17/18: Patient seen complains of pain in her pelvic region; did pass some gas the day prior. Yet to have a bowel movement. Objective: GENERAL: cooperative HEENT: Clear conjunctiva, NECK; supple, normal thyroid, CHEST: Diminished to auscultation bilaterally, HEART: Regular S1 S2, no audible murmurs ABDOMEN: Mildly distended with hypoactive bowel sounds RECTAL: deferred EXTREMITIES: No edema, no clubbing, no cyanosis. LITIGATION ASSOCIATE: Awake; no lateralizing signs. SKIN: No Rash Vitals/I&O's: Vital Signs Temp Pulse Resp BP Pulse Ox 98.7 F 86 16 142/79 H 98 02/17/18 10:40 02/17/18 10:40 02/17/18 10:40 02/17/18 10:40 02/17/18 10:40 Oxygen Flow Rate (L/min) 2 Oxygen Delivery Method Room Air Weight: 73.9 kg Body Mass Index (BMI) 29.7 Finger Stick Blood Glucose 164 Intake and Output for Last 24 Hours 02/15/18 02/16/18 02/17/18 23:59 23:59 23:59 Intake Total 1897.7 / 1897.7 2130.2 / 2130.2 473 / 473 Output Total 7380 / 7380 2949 / 2949 0 / 0 Balance -5482.3 / -5482.3 -818.8 / -818.8 473 / 473 Microbiology Past 72 Hours 02/12/18 08:00 Incision/Surgical Site Gram Stain - Final 02/12/18 08:00 Incision/Surgical Site Wound Culture - Final Citrobacter youngae Enterobacter cloacae complex 02/12/18 08:00 Incision/Surgical Site Anaerobic Culture - Final No growth in 5 days. Laboratory Results 02/16/18 06:31: Vitamin B12 343 02/16/18 11:41: POC Glucose 130 H 02/16/18 17:26: POC Glucose 119 H 02/16/18 21:38: POC Glucose 110 02/17/18 05:30: WBC 5.7, RBC 3.65 L, Hgb 11.3 L, Hct 34.7 L, MCV 95.1, MCH 31.0, MCHC 32.6, RDW 13.6, RDW Differential 47.7 H, Plt Count 270, MPV 9.3, Immature Gran % (Auto) 0.700, Neut % (Auto) 64.7, Lymph % (Auto) 18.4 L, [place] % (Auto) 12.6 H, Eos % (Auto) 3.2, Baso % (Auto) 0.4, Absolute Neuts (auto) 3.7, Absolute Lymphs (auto) 1.04, Total Counted Not Reportable 02/17/18 05:30: Sodium 137, Potassium 3.6, Chloride 101, Carbon Dioxide 24.0, Anion Gap 12, BUN 8, Creatinine 0.46 L, Estim Creat Clear Calc 40.81, Est GFR (MDRD) Af Amer 172, Est GFR (MDRD) Non-Af 142, BUN/Creatinine Ratio 17.4, Glucose 113 H, Calcium 8.7 02/17/18 05:54: POC Glucose 119 H Current Medications Hydrocodone Bitart/Acetaminophen ([place] 5mg-325mg) 1 - 2 tablet PO Q4H PRN PRN PRN Reason: SEVERE PAIN (-03/19) Last Admin: 02/17/18 09:10 Dose: 2 tablet Amlodipine Besylate (Norvasc) 10 mg PO DAILY [facility] Last Admin: 02/17/18 08:53 Dose: 10 mg Dextrose (D50w Syringe) 0 gm IV X1 PRN; Protocol PRN Reason: Hypoglycemia Enalaprilat (Vasotec) 2.5 mg IV Q6H PRN PRN Reason: SBP>170 Last Admin: 02/15/18 09:52 Dose: 2.5 mg Enoxaparin Sodium (Lovenox) 40 mg SC DAILY@1000 [facility] Last Admin: 02/17/18 08:51 Dose: 40 mg Glucagon () 1 mg IM .X1 PRN PRN Reason: Hypoglycemia Hydralazine HCl (Apresoline) 25 mg PO TID [facility] Last Admin: 02/17/18 05:56 Dose: 25 mg Pantoprazole Sodium 40 mg/ (Sodium Chloride) 110 mls @ 330 mls/hr IV Q24 [facility] Last Admin: 02/17/18 09:10 Dose: 330 mls/hr Ciprofloxacin (Cipro) 400 mg in 200 mls @ 200 mls/hr IV Q12 [facility] Last Admin: 02/16/18 21:43 Dose: 200 mls/hr Lactated Ringer's () 1,000 mls @ 40 mls/hr IV .Q25H [facility] Last Admin: 02/16/18 20:30 Dose: 40 mls/hr Metronidazole (Flagyl) 500 mg in 100 mls @ 100 mls/hr IV TID [facility] Last Admin: 02/17/18 10:16 Dose: 100 mls/hr Insulin Human Lispro (Humalog Kwikpen (Bkc)) 0 unit SQ Q6 [facility] PRN Reason: Protocol Last Admin: 02/17/18 05:57 Dose: Not Given Labetalol HCl (Trandate) 20 mg IV Q4H PRN PRN PRN Reason: SBP>170 mmhg Last Admin: 02/16/18 03:26 Dose: 20 mg Lisinopril (Zestril) 40 mg PO DAILY [facility] Last Admin: 02/17/18 08:54 Dose: 40 mg Magnesium Hydroxide (Milk Of Magnesia) 30 ml PO DAILY PRN PRN Reason: Constipation Morphine Sulfate () 2 - 4 mg IV Q3H PRN PRN PRN Reason: Severe Pain (pain scale 6-10) Last Admin: 02/17/18 04:44 Dose: 2 mg Morphine Sulfate () 2 - 4 mg IV Q3H PRN PRN PRN Reason: Severe Pain (pain scale 6-10) Last Admin: 02/16/18 15:49 Dose: 4 mg Ondansetron HCl (Zofran) 4 mg IV Q8H PRN PRN PRN Reason: Nausea Pravastatin Sodium (Pravachol) 40 mg PO QHS [facility] Last Admin: 02/16/18 21:43 Dose: 40 mg Sodium Chloride () 5 - 30 ml IV UD PRN PRN Reason: SALINE FLUSH Last Admin: 02/17/18 04:44 Dose: 10 ml Throat Lozenges (Cepacol Sore Throat Lozenge) 1 lozenge MUCOUS MEM Q2H PRN PRN PRN Reason: SORE THROAT Last Admin: 02/15/18 14:27 Dose: 1 lozenge Zolpidem Tartrate (Ambien (Generic)) 5 mg PO QHS PRN PRN PRN Reason: INSOMNIA Last Admin: 02/16/18 21:43 Dose: 5 mg Medical Necessity - Tobacco Use Smoking Status: Former smoker Tobacco Use: Cigarettes Assessment/Plan All Active Problems Syncope and collapse (Acute) Abdominal pain (Acute) Patient is a 72-year-old lady who presented with significant abdominal pain imaging studies demonstrated mild mesenteric stranding with the possibility of mild enteritis. In view of persistence of her pain general surgery was consulted patient underwent laparoscopic Exploratory laparoscopy converted to exploratory laparotomy, abdominal washout on 02/12/2018 findings included purulent peritonitis 1. Purulent peritonitis and inflammation involving the small bowel with questionable mesenteric stranding. patient underwent laparoscopic Exploratory laparoscopy converted to exploratory laparotomy, abdominal washout on 02/12/[address] Olivarez; etiology not clear cultures obtained came back positive for Citrobacter and enterococcus with sensitivities to Cipro. Patient was initially management Zosyn this was switched to Cipro 2. Syncopal episode thought to be vasovagal from his severe pain monitored continuously on telemetry. Echo demonstrated EF of 65% 3. Hypertension-blood pressure controlled, home medications continued with dose adjustment as needed 4. Lactic acidosis attributed to patient mesenteric ischemia 5. Diabetes mellitus type 2 with labile control currently on Accu-Cheks every 6 hours with sliding scale coverage 6. Dyslipidemia 7 alcohol dependence patient placed on DT precautions 8. Anxiety disorder 9. DVT prophylaxis Lovenox Active Medications Hydrocodone Bitart/Acetaminophen ([place] 5mg-325mg) 1 - 2 tablet PO Q4H PRN PRN PRN Reason: SEVERE PAIN (6-03/19) Last Admin: 02/17/18 09:10 Dose: 2 tablet Amlodipine Besylate (Norvasc) 10 mg PO DAILY [facility] Last Admin: 02/17/18 08:53 Dose: 10 mg Dextrose (D50w Syringe) 0 gm IV X1 PRN; Protocol PRN Reason: Hypoglycemia Enalaprilat (Vasotec) 2.5 mg IV Q6H PRN PRN Reason: SBP>170 Last Admin: 02/15/18 09:52 Dose: 2.5 mg Enoxaparin Sodium (Lovenox) 40 mg SC DAILY@1000 [facility] Last Admin: 02/17/18 08:51 Dose: 40 mg Glucagon () 1 mg IM .X1 PRN PRN Reason: Hypoglycemia Hydralazine HCl (Apresoline) 25 mg PO TID [facility] Last Admin: 02/17/18 05:56 Dose: 25 mg Pantoprazole Sodium 40 mg/ (Sodium Chloride) 110 mls @ 330 mls/hr IV Q24 [facility] Last Admin: 02/17/18 09:10 Dose: 330 mls/hr Ciprofloxacin (Cipro) 400 mg in 200 mls @ 200 mls/hr IV Q12 [facility] Last Admin: 02/17/18 11:28 Dose: 200 mls/hr Lactated Ringer's () 1,000 mls @ 40 mls/hr IV .Q25H [facility] Last Admin: 02/16/18 20:30 Dose: 40 mls/hr Metronidazole (Flagyl) 500 mg in 100 mls @ 100 mls/hr IV TID [facility] Last Admin: 02/17/18 10:16 Dose: 100 mls/hr Insulin Human Lispro (Humalog Kwikpen (Bkc)) 0 unit SQ Q6 [facility] PRN Reason: Protocol Last Admin: 02/17/18 11:22 Dose: Not Given Labetalol HCl (Trandate) 20 mg IV Q4H PRN PRN PRN Reason: SBP>170 mmhg Last Admin: 02/16/18 03:26 Dose: 20 mg Lisinopril (Zestril) 40 mg PO DAILY [facility] Last Admin: 02/17/18 08:54 Dose: 40 mg Magnesium Hydroxide (Milk Of Magnesia) 30 ml PO DAILY PRN PRN Reason: Constipation Morphine Sulfate () 2 - 4 mg IV Q3H PRN PRN PRN Reason: Severe Pain (pain scale 6-10) Last Admin: 02/17/18 04:44 Dose: 2 mg Morphine Sulfate () 2 - 4 mg IV Q3H PRN PRN PRN Reason: Severe Pain (pain scale 6-10) Last Admin: 02/16/18 15:49 Dose: 4 mg Ondansetron HCl (Zofran) 4 mg IV Q8H PRN PRN PRN Reason: Nausea Pravastatin Sodium (Pravachol) 40 mg PO QHS [facility] Last Admin: 02/16/18 21:43 Dose: 40 mg Sodium Chloride () 5 - 30 ml IV UD PRN PRN Reason: SALINE FLUSH Last Admin: 02/17/18 04:44 Dose: 10 ml Throat Lozenges (Cepacol Sore Throat Lozenge) 1 lozenge MUCOUS MEM Q2H PRN PRN PRN Reason: SORE THROAT Last Admin: 02/15/18 14:27 Dose: 1 lozenge Zolpidem Tartrate (Ambien (Generic)) 5 mg PO QHS PRN PRN PRN Reason: INSOMNIA Last Admin: 02/16/18 21:43 Dose: 5 mg Clinical Impression(s) from Imaging Studies Brain CT 02/11/18 13:08 IMPRESSION: Chronic involutional changes of the brain. Electronically Signed: Mike Matta MD at 13:44 EDT Tel [phone], Service support , Abdomen/Pelvis CT 02/11/18 13:09 IMPRESSION: Findings suggest mild degree of bibasilar atelectasis. Small amount of free fluid is seen in the cul-de-sac. Stable large duodenal diverticula as described. Electronically Signed: Mike Matta MD at 13:43 EDT Tel [phone], Service support , Cervical Spine CT 02/11/18 13:10 IMPRESSION: Multilevel degenerative changes, as described above. Electronically Signed: Mike Matta MD at 13:47 EDT Tel [phone], Service support , Chest X-Ray 02/11/18 13:55 IMPRESSION: Mild degree of increased markings at the lung bases suggesting bibasilar atelectasis. Electronically Signed: Mike Matta MD at 14:17 EDT Tel [phone], Service support , Abdomen/Pelvis CT 02/11/18 16:35 IMPRESSION: 1. Mildly distended fluid-filled loops of small bowel without wall thickening. There is mild mesenteric stranding the possibility of mild enteritis is suggested. 2. Large duodenal diverticulum. 3. Fatty infiltration of the liver. 4. Colonic diverticulosis without acute inflammatory change. 5. Mild ascites. 6. Bibasilar atelectasis. Electronically Signed: Sean Fung DO at 18:34 EDT Tel [phone], Service support , KUB X-Ray 02/11/18 19:40 IMPRESSION: NG tube as described Electronically Signed: Sean Fung DO at 20:21 EDT Tel [phone], Service support , KUB X-Ray 02/13/18 01:50 IMPRESSION: Nonspecific bowel gas pattern without evidence of obstruction. Nasogastric tube tip now overlies the gastric fundus. Electronically Signed: Subhash Echevarria MD at 4:01 EDT , Service support , KUB X-Ray 02/16/18 09:55 IMPRESSION: NG tube in the stomach. Continued gaseous distended loops of colon without evidence of small bowel obstruction. Surgical drain. Electronically Signed: Garrett Teresa DO at 10:31 EDT Tel , Service support , Code Visit Inpatient E&M: 45977 Subs Hosp L2
[2018-02-17 11:26] LABS: Bedside Glucose 108 mg/dL (70-110)
[2018-02-17] MEDS: Ciprofloxacin 400 MG/200 ML BAG 200 MG IV ×2 (11:28→21:06)
--- NOTE | 2018-02-17 14:31 | CASEMGMT ---
This RN CM to room to speak with pt regarding disposition. Pt states she is unsure of concerns with going home at time of discharge as she refused therapy this am. Pt does states some concern about going home with the drain and binder and states that just had some recent surgeries/medical concerns but that he insists that he will take care of her. Advised pt that CM will follow PT/OT to get their recommendation regarding pt disposition, voices understanding. Pt does state some concerns with the bed that she had been lying on here at the hospital and also concerns about pain medications. Pt's RNVicki Alex-concert or lecture hall manager, and Gail PCU director all aware of pt concerns at this time, voice understanding. CM to follow PT/OT and for any further discharge planning/needs. Rizwana HURLEY CM
[2018-02-17] MEDS: Ondansetron 4 MG/2 ML Vial IV (17:59)
[2018-02-17 18:10] LABS: Bedside Glucose 112 mg/dL (70-110)
[2018-02-17] MEDS: Pravastatin 40 MG Tablet PO (21:11)
[2018-02-17] MEDS: Zolpidem Tartrate 5 MG Tablet PO (22:08)
[2018-02-18] VITALS (12 sets, daily range): BP systolic 117–148; BP diastolic 67–87; PULSE 78–117; RESP 16–20; TEMP 36.3–37; O2SAT 94–98
[2018-02-18 00:21] LABS: Bedside Glucose 95 mg/dL (70-110)
[2018-02-18] MEDS: HYDROcodone Bitartrate/Apap 5/325 Tablet PO ×3 (03:19→16:25)
[2018-02-18] MEDS: Lactated Ringers 1,000 ML 40 ML IV (03:21)
[2018-02-18] MEDS: hydrALAZINE 25 MG Tablet PO ×3 (05:54→21:14)
[2018-02-18 06:01] LABS: Bedside Glucose 117 mg/dL (70-110)
--- NOTE | 2018-02-18 07:05 | RAD_ITS ---
STUDY: GASTROGRAFIN SMALL BOWEL FOLLOW-THROUGH EXAMINATION. REASON FOR EXAM: Female, 72 years old. Recent abdominal surgery. FLUOROSCOPY TIME (if supplied): (56 seconds) minutes/seconds TECHNIQUE: The patient ingested Gastrografin. A small bowel follow-through examination was then performed. COMPARISON: None. FINDINGS: A charge account identification clerk film was obtained. Gas pattern is unremarkable. Gas is seen within the colon down to the rectum. A surgical drainage catheter is seen in the lower abdomen and pelvis with the tip in the right hemipelvis. The patient ingested Gastrografin. There is evidence of a large duodenal diverticulum in the second portion of the duodenum as well as the fourth portion of the duodenum. There is no evidence of a bowel obstruction. No obvious leak is seen although due to the dilution of Gastrografin, there is a limitation. Contrast is seen within the colon. RAD/Small Bowel Series Only IMPRESSION: There is no evidence of obstruction or leak at this time. Large duodenal diverticula as described. Electronically Signed: Mike Matta MD at 13:11 EDT Tel [phone], Service support ,
--- NOTE | 2018-02-18 07:33 | NURSING ---
THE PATIENT SAID SHE PASSED A LITTLE BIT OF GAS THIS MORNING.
--- NOTE | 2018-02-18 08:23 | PCM.PN.SRG ---
Patient Problems: Active and Suspected Problems Syncope and collapse (Acute) Abdominal pain (Acute) Subjective: Patient did admit some flatus this morning, only walked with PT yesterday once, had nausea once yesterday no vomiting, denies any nausea or vomiting this morning and is a little bit hungry - Physical Exam General: Alert, Oriented x3, Cooperative, No apparent distress HEENT: - - Table in the left scalp (correction from previous notes that this is the left scalp not right) Lungs: Normal air movement Cardiovascular: Regular Rhythm Abdomen: Soft, Non-Distended, Passing Flatus, Tender - Mild near incision, incision clean dry and intact, no guarding or rebound, - - ROSE serous Extremities: No clubbing, No cyanosis, No edema Vital Signs Temp Pulse Resp BP Pulse Ox 97.9 F 78 16 148/87 H 98 02/18/18 03:10 02/18/18 06:59 02/18/18 03:10 02/18/18 03:10 02/18/18 03:10 Oxygen Flow Rate (L/min) 2 Oxygen Delivery Method Room Air Weight: 162 lb 14.746 oz Body Mass Index (BMI) 29.7 Finger Stick Blood Glucose 164 Intake and Output for Last 24 Hours 02/16/18 02/17/18 02/18/18 23:59 23:59 23:59 Intake Total 2130.2 / 2130.2 1195 / 1195 849 / 849 Output Total 2949 / 2949 20 / 20 20 / 20 Balance -818.8 / -818.8 1175 / 1175 829 / 829 Microbiology Past 72 Hours 02/12/18 08:00 Gram Stain - Final Incision/Surgical Site Wound Culture - Final Citrobacter youngae Enterobacter cloacae complex Anaerobic Culture - Final No growth in 5 days. Laboratory Tests Past 24 Hrs 02/16/18 06:31 Vitamin B12 343 POC Glucose 02/18/18 02/18/18 02/17/18 05:53 00:14 17:52 POC Glucose 117 H 95 112 H 02/17/18 11:19 POC Glucose 108 Medical Necessity - Tobacco Use Smoking Status: Former smoker Tobacco Use: Cigarettes Assessment/Plan All Active Problems Syncope and collapse (Acute) Abdominal pain (Acute) 72 y/o F s/p fall from standing (CT head/spine neg), abd pain (CT shows some ?mesenteric stranding and mildly dilated SB loops), s/p ex lap and abd washout POD #6, elevated lactic acid-resolved 1. Patient is okay for sips until she starts having increased bowel function. Continue ROSE serous. continue Cipro will also add Flagyl IV. Also check a small bowel follow-through with Gastrografin. patient did have a little more flatus this morning. 2. IV fluids are at 40 cc an hour 3. Encouraged walking the halls patient only walked once yesterday. PT OT ordered 4. continue pain control-[place] 5. continue lovenox 6. HTN- appreciate hospitalists help with this Ginette Domingo M.D. Pager: [phone] [facility] [address] [place] [address], Outpatient [place], [address] [place] [address] Office: [phone]
--- NOTE | 2018-02-18 08:26 | PN.SURG_ITS ---
Patient Problems: Active and Suspected Problems Syncope and collapse (Acute) Abdominal pain (Acute) Subjective: Patient did admit some flatus this morning, only walked with PT yesterday once, had nausea once yesterday no vomiting, denies any nausea or vomiting this morning and is a little bit hungry - Physical Exam General: Alert, Oriented x3, Cooperative, No apparent distress HEENT: - - Table in the left scalp (correction from previous notes that this is the left scalp not right) Lungs: Normal air movement Cardiovascular: Regular Rhythm Abdomen: Soft, Non-Distended, Passing Flatus, Tender - Mild near incision, incision clean dry and intact, no guarding or rebound, - - ROSE serous Extremities: No clubbing, No cyanosis, No edema Vital Signs Temp Pulse Resp BP Pulse Ox 97.9 F 78 16 148/87 H 98 02/18/18 03:10 02/18/18 06:59 02/18/18 03:10 02/18/18 03:10 02/18/18 03:10 Oxygen Flow Rate (L/min) 2 Oxygen Delivery Method Room Air Weight: 162 lb 14.746 oz Body Mass Index (BMI) 29.7 Finger Stick Blood Glucose 164 Intake and Output for Last 24 Hours 02/16/18 02/17/18 02/18/18 23:59 23:59 23:59 Intake Total 2130.2 / 2130.2 1195 / 1195 849 / 849 Output Total 2949 / 2949 20 / 20 20 / 20 Balance -818.8 / -818.8 1175 / 1175 829 / 829 Microbiology Past 72 Hours 02/12/18 08:00 Gram Stain - Final Incision/Surgical Site Wound Culture - Final Citrobacter youngae Enterobacter cloacae complex Anaerobic Culture - Final No growth in 5 days. Laboratory Tests Past 24 Hrs 02/16/18 06:31 Vitamin B12 343 POC Glucose 02/18/18 02/18/18 02/17/18 05:53 00:14 17:52 POC Glucose 117 H 95 112 H 02/17/18 11:19 POC Glucose 108 Medical Necessity - Tobacco Use Smoking Status: Former smoker Tobacco Use: Cigarettes Assessment/Plan All Active Problems Syncope and collapse (Acute) Abdominal pain (Acute) 72 y/o F s/p fall from standing (CT head/spine neg), abd pain (CT shows some ? mesenteric stranding and mildly dilated SB loops), s/p ex lap and abd washout POD #6, elevated lactic acid-resolved 1. Patient is okay for sips until she starts having increased bowel function. Continue ROSE serous. continue Cipro will also add Flagyl IV. Also check a small bowel follow-through with Gastrografin. patient did have a little more flatus this morning. 2. IV fluids are at 40 cc an hour 3. Encouraged walking the halls patient only walked once yesterday. PT OT ordered 4. continue pain control-[place] 5. continue lovenox 6. HTN- appreciate hospitalists help with this Ginette Domingo M.D. Pager: [phone] [facility] [address] [place] [address], Outpatient [place], [address] [place] [address] Office: [phone]
--- NOTE | 2018-02-18 10:05 | PCM.PN.HOSP ---
Patient Problems: Active and Suspected Problems Syncope and collapse (Acute) Abdominal pain (Acute) Subjective: Patient seen admitted to having had a bowel movement today; her pain control is however no optima according to patient was started on clear liquids by general surgery Objective: GENERAL: cooperative HEENT: Clear conjunctiva, NECK; supple, normal thyroid, CHEST: Diminished to auscultation bilaterally, HEART: Regular S1 S2, no audible murmurs ABDOMEN: Mildly distended with hypoactive bowel sounds RECTAL: deferred EXTREMITIES: No edema, no clubbing, no cyanosis. 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 SKIN: No Rash Vitals/I&O's: Vital Signs Temp Pulse Resp BP Pulse Ox 97.9 F 78 16 148/87 H 98 02/18/18 03:10 02/18/18 06:59 02/18/18 03:10 02/18/18 03:10 02/18/18 03:10 Oxygen Flow Rate (L/min) 2 Oxygen Delivery Method Room Air Weight: 73.9 kg Body Mass Index (BMI) 29.7 Finger Stick Blood Glucose 164 Intake and Output for Last 24 Hours 02/16/18 02/17/18 02/18/18 23:59 23:59 23:59 Intake Total 2130.2 / 2130.2 1195 / 1195 849 / 849 Output Total 2949 / 2949 20 / 20 20 / 20 Balance -818.8 / -818.8 1175 / 1175 829 / 829 Microbiology Past 72 Hours 02/12/18 08:00 Incision/Surgical Site Gram Stain - Final 02/12/18 08:00 Incision/Surgical Site Wound Culture - Final Citrobacter youngae Enterobacter cloacae complex 02/12/18 08:00 Incision/Surgical Site Anaerobic Culture - Final No growth in 5 days. Laboratory Results 02/16/18 06:31: Vitamin B12 343 02/17/18 11:19: POC Glucose 108 02/17/18 17:52: POC Glucose 112 H 02/18/18 00:14: POC Glucose 95 02/18/18 05:53: POC Glucose 117 H Current Medications Hydrocodone Bitart/Acetaminophen ([place] 5mg-325mg) 1 - 2 tablet PO Q4H PRN PRN PRN Reason: SEVERE PAIN (6-03/19) Last Admin: 02/18/18 03:19 Dose: 2 tablet Amlodipine Besylate (Norvasc) 10 mg PO DAILY [facility] Last Admin: 02/17/18 08:53 Dose: 10 mg Dextrose (D50w Syringe) 0 gm IV X1 PRN; Protocol PRN Reason: Hypoglycemia Enalaprilat (Vasotec) 2.5 mg IV Q6H PRN PRN Reason: SBP>170 Last Admin: 02/15/18 09:52 Dose: 2.5 mg Enoxaparin Sodium (Lovenox) 40 mg SC DAILY@1000 [facility] Last Admin: 02/17/18 08:51 Dose: 40 mg Glucagon () 1 mg IM .X1 PRN PRN Reason: Hypoglycemia Hydralazine HCl (Apresoline) 25 mg PO TID [facility] Last Admin: 02/18/18 05:54 Dose: 25 mg Pantoprazole Sodium 40 mg/ (Sodium Chloride) 110 mls @ 330 mls/hr IV Q24 [facility] Last Admin: 02/17/18 09:10 Dose: 330 mls/hr Ciprofloxacin (Cipro) 400 mg in 200 mls @ 200 mls/hr IV Q12 [facility] Last Admin: 02/17/18 21:06 Dose: 200 mls/hr Lactated Ringer's () 1,000 mls @ 40 mls/hr IV .Q25H [facility] Last Admin: 02/18/18 03:21 Dose: 40 mls/hr Metronidazole (Flagyl) 500 mg in 100 mls @ 100 mls/hr IV TID [facility] Last Admin: 02/18/18 05:54 Dose: 100 mls/hr Insulin Human Lispro (Humalog Kwikpen (Bkc)) 0 unit SQ Q6 [facility] PRN Reason: Protocol Last Admin: 02/18/18 05:55 Dose: Not Given Labetalol HCl (Trandate) 20 mg IV Q4H PRN PRN PRN Reason: SBP>170 mmhg Last Admin: 02/16/18 03:26 Dose: 20 mg Lisinopril (Zestril) 40 mg PO DAILY [facility] Last Admin: 02/17/18 08:54 Dose: 40 mg Magnesium Hydroxide (Milk Of Magnesia) 30 ml PO DAILY PRN PRN Reason: Constipation Morphine Sulfate () 2 - 4 mg IV Q3H PRN PRN PRN Reason: Severe Pain (pain scale 6-10) Last Admin: 02/17/18 04:44 Dose: 2 mg Morphine Sulfate () 2 - 4 mg IV Q3H PRN PRN PRN Reason: Severe Pain (pain scale 6-10) Last Admin: 02/16/18 15:49 Dose: 4 mg Ondansetron HCl (Zofran) 4 mg IV Q8H PRN PRN PRN Reason: Nausea Last Admin: 02/17/18 17:59 Dose: 4 mg Pravastatin Sodium (Pravachol) 40 mg PO QHS [facility] Last Admin: 02/17/18 21:11 Dose: 40 mg Sodium Chloride () 5 - 30 ml IV UD PRN PRN Reason: SALINE FLUSH Last Admin: 02/17/18 04:44 Dose: 10 ml Throat Lozenges (Cepacol Sore Throat Lozenge) 1 lozenge MUCOUS MEM Q2H PRN PRN PRN Reason: SORE THROAT Last Admin: 02/15/18 14:27 Dose: 1 lozenge Zolpidem Tartrate (Ambien (Generic)) 5 mg PO QHS PRN PRN PRN Reason: INSOMNIA Last Admin: 02/17/18 22:08 Dose: 5 mg Medical Necessity - Tobacco Use Smoking Status: Former smoker Tobacco Use: Cigarettes Assessment/Plan All Active Problems Syncope and collapse (Acute) Abdominal pain (Acute) Patient is a 72-year-old lady who presented with significant abdominal pain imaging studies demonstrated mild mesenteric stranding with the possibility of mild enteritis. In view of persistence of her pain general surgery was consulted patient underwent laparoscopic Exploratory laparoscopy converted to exploratory laparotomy, abdominal washout on 02/12/2018 findings included purulent peritonitis 1. Purulent peritonitis and inflammation involving the small bowel with questionable mesenteric stranding. patient underwent laparoscopic Exploratory laparoscopy converted to exploratory laparotomy, abdominal washout on 02/12/[address] Olivarez; etiology not clear cultures obtained came back positive for Citrobacter and enterococcus with sensitivities to Cipro. Patient was initially management Zosyn this was switched to Cipro 2. Syncopal episode thought to be vasovagal from his severe pain monitored continuously on telemetry. Echo demonstrated EF of 65% 3. Hypertension-blood pressure controlled, home medications continued with dose adjustment as needed 4. Lactic acidosis attributed to patient mesenteric ischemia 5. Diabetes mellitus type 2 with labile control currently on Accu-Cheks every 6 hours with sliding scale coverage 6. Dyslipidemia 7 alcohol dependence patient placed on DT precautions 8. Anxiety disorder 9. DVT prophylaxis Lovenox Active Medications Hydrocodone Bitart/Acetaminophen ([place] 5mg-325mg) 1 - 2 tablet PO Q4H PRN PRN PRN Reason: SEVERE PAIN () Last Admin: 02/17/18 09:10 Dose: 2 tablet Amlodipine Besylate (Norvasc) 10 mg PO DAILY [facility] Last Admin: 02/17/18 08:53 Dose: 10 mg Dextrose (D50w Syringe) 0 gm IV X1 PRN; Protocol PRN Reason: Hypoglycemia Enalaprilat (Vasotec) 2.5 mg IV Q6H PRN PRN Reason: SBP>170 Last Admin: 02/15/18 09:52 Dose: 2.5 mg Enoxaparin Sodium (Lovenox) 40 mg SC DAILY@1000 [facility] Last Admin: 02/17/18 08:51 Dose: 40 mg Glucagon () 1 mg IM .X1 PRN PRN Reason: Hypoglycemia Hydralazine HCl (Apresoline) 25 mg PO TID [facility] Last Admin: 02/17/18 05:56 Dose: 25 mg Pantoprazole Sodium 40 mg/ (Sodium Chloride) 110 mls @ 330 mls/hr IV Q24 [facility] Last Admin: 02/17/18 09:10 Dose: 330 mls/hr Ciprofloxacin (Cipro) 400 mg in 200 mls @ 200 mls/hr IV Q12 [facility] Last Admin: 02/17/18 11:28 Dose: 200 mls/hr Lactated Ringer's () 1,000 mls @ 40 mls/hr IV .Q25H [facility] Last Admin: 02/16/18 20:30 Dose: 40 mls/hr Metronidazole (Flagyl) 500 mg in 100 mls @ 100 mls/hr IV TID [facility] Last Admin: 02/17/18 10:16 Dose: 100 mls/hr Insulin Human Lispro (Humalog Kwikpen (Bkc)) 0 unit SQ Q6 [facility] PRN Reason: Protocol Last Admin: 02/17/18 11:22 Dose: Not Given Labetalol HCl (Trandate) 20 mg IV Q4H PRN PRN PRN Reason: SBP>170 mmhg Last Admin: 02/16/18 03:26 Dose: 20 mg Lisinopril (Zestril) 40 mg PO DAILY [facility] Last Admin: 02/17/18 08:54 Dose: 40 mg Magnesium Hydroxide (Milk Of Magnesia) 30 ml PO DAILY PRN PRN Reason: Constipation Morphine Sulfate () 2 - 4 mg IV Q3H PRN PRN PRN Reason: Severe Pain (pain scale 6-10) Last Admin: 02/17/18 04:44 Dose: 2 mg Morphine Sulfate () 2 - 4 mg IV Q3H PRN PRN PRN Reason: Severe Pain (pain scale 6-10) Last Admin: 02/16/18 15:49 Dose: 4 mg Ondansetron HCl (Zofran) 4 mg IV Q8H PRN PRN PRN Reason: Nausea Pravastatin Sodium (Pravachol) 40 mg PO QHS [facility] Last Admin: 02/16/18 21:43 Dose: 40 mg Sodium Chloride () 5 - 30 ml IV UD PRN PRN Reason: SALINE FLUSH Last Admin: 02/17/18 04:44 Dose: 10 ml Throat Lozenges (Cepacol Sore Throat Lozenge) 1 lozenge MUCOUS MEM Q2H PRN PRN PRN Reason: SORE THROAT Last Admin: 02/15/18 14:27 Dose: 1 lozenge Zolpidem Tartrate (Ambien (Generic)) 5 mg PO QHS PRN PRN PRN Reason: INSOMNIA Last Admin: 02/16/18 21:43 Dose: 5 mg Code Visit Inpatient E&M: 89714 Subs Hosp L2
[2018-02-18] MEDS: amLODIPine 10 MG Tablet PO (11:57)
[2018-02-18] MEDS: Enoxaparin 40 MG/0.4 ML Syringe SC (11:57)
[2018-02-18] MEDS: Lisinopril 40 MG Tablet PO (11:57)
[2018-02-18] MEDS: Ondansetron 4 MG/2 ML Vial IV (12:01)
[2018-02-18] MEDS: Ciprofloxacin 400 MG/200 ML BAG 200 MG IV ×2 (12:35→22:17)
--- NOTE | 2018-02-18 12:46 | NURSING ---
VS delayed d/t Pt being off floor for small bowel series.
[2018-02-18 12:50] LABS: Bedside Glucose 125 mg/dL (70-110)
[2018-02-18] MEDS: 0.9% NaCl Peripheral Flush Adult/Peds IV (14:03)
[2018-02-18] MEDS: Morphine 4 MG/ML Syringe IV (14:03)
[2018-02-18] MEDS: Ibuprofen 200 MG Tablet PO (18:12)
--- NOTE | 2018-02-18 19:43 | NURSING ---
the patient walked around the unit one big lap and one small lap at this time.
[2018-02-18 20:56] LABS: Bedside Glucose 152 mg/dL (70-110)
[2018-02-18] MEDS: Pravastatin 40 MG Tablet PO (21:15)
--- NOTE | 2018-02-18 21:15 | NURSING ---
the patient walked around the unit again tonight- one big lap and one small lap.
[2018-02-18] MEDS: Zolpidem Tartrate 5 MG Tablet PO (22:17)
[2018-02-18] MEDS: Insulin Lispro 100 UNIT/ML INSULN.PEN SQ (23:51)
[2018-02-19] VITALS (7 sets, daily range): BP systolic 108–129; BP diastolic 51–58; PULSE 78–110; RESP 16–18; TEMP 36.6–36.7; O2SAT 95–100
[2018-02-19] LABS: Bedside Glucose 153 mg/dL (70-110)
[2018-02-19] MEDS: Ibuprofen 200 MG Tablet PO (05:59)
[2018-02-19] MEDS: hydrALAZINE 25 MG Tablet PO (05:59)
[2018-02-19 06:11] LABS: Bedside Glucose 125 mg/dL (70-110)
[2018-02-19 06:23] LABS: Absolute Lymphocyte Count 0.61 X10^3/ul (0.83-4.51); Absolute Neutrophil Count 2.3 X10^3/uL (2.0-7.7); Basophil# 0.02 X10^3/uL; Basophil% 0.5 % (0-1); Eosinophil# 0.22 X10^3/uL; Eosinophils% 5.6 % (0-5); Hematocrit 32.7 % (37-47); Hemoglobin 10.8 g/dl (12.0-15.0); Lymphocyte # 0.61 X10^3/ul (4.0); Lymphocyte % 15.5 % (19-41); Mean Corpuscular Hgb 31.8 pg (27.0-32.0); Mean Corpuscular Volume 96.2 fL (81-99); Mean Platelet Vol. 9.1 fl (6.2-12.0); Monocyte# 0.76 X10^3/uL; Monocyte% 19.3 % (0-10); Neutrophil % 58.3 % (47-70); Platelet Count 309 K/mm3 (150-450); RBC Distribution Width CV 13.3 % (11.6-14.6); RBC Distribution Width SD 44.6 fl (35.1-43.9); White Blood Count 3.9 K/mm3 (4.4-11.0)
[2018-02-19 06:25] LABS: POSITIVE COUNT NO; POSITIVE DIFFERENTIAL NO; POSITIVE MORPHOLOGY NO
[2018-02-19 06:34] LABS: Anion Gap 13 (5-15); BUN 8 mg/dL (7-18); BUN/Creat Ratio 14.9 RATIO (10-20); Calcium,Total 8.7 mg/dL (8.5-10.1); Chloride 104 mmol/L (98-107); Creatinine, Serum 0.54 mg/dL (0.55-1.02); EST Glomerular Filtration Rate 119 mL/min (>60); Est Glom Filt Rate - Afr Amer 144 mL/min (>60); Estimated Creatinine Clearance 40.81 ml/min; Glucose 127 mg/dL (74-106); Potassium 3.2 mmol/L (3.5-5.1); Sodium Level 139 mmol/L (136-145)
--- NOTE | 2018-02-19 09:20 | PCM.PN.HOSP ---
Patient Problems: Active and Suspected Problems Syncope and collapse (Acute) Abdominal pain (Acute) Subjective: Patient seen having more formed bowel movement per nursing staff. Plan is for patient's drain to be discontinued by general surgery. Patient's pain is tolerable. Objective: GENERAL: cooperative HEENT: Clear conjunctiva, NECK; supple, normal thyroid, CHEST: Diminished to auscultation bilaterally, HEART: Regular S1 S2, no audible murmurs ABDOMEN: Mildly distended with hypoactive bowel sounds RECTAL: deferred EXTREMITIES: No edema, no clubbing, no cyanosis. DOUPER: Awake; no lateralizing signs. SKIN: No Rash Vitals/I&O's: Vital Signs Temp Pulse Resp BP Pulse Ox 98 F 78 18 120/51 L 100 02/19/18 05:57 02/19/18 06:58 02/19/18 05:57 02/19/18 05:57 02/19/18 05:57 Oxygen Flow Rate (L/min) 2 Oxygen Delivery Method Room Air Weight: 73.9 kg Body Mass Index (BMI) 29.7 Finger Stick Blood Glucose 164 Intake and Output for Last 24 Hours 02/17/18 02/18/18 02/19/18 23:59 23:59 23:59 Intake Total 1195 / 1195 2574 / 2574 364 / 364 Output Total 20 / 20 30 / 30 5 / 5 Balance 1175 / 1175 2544 / 2544 359 / 359 Microbiology Past 72 Hours 02/12/18 08:00 Incision/Surgical Site Gram Stain - Final 02/12/18 08:00 Incision/Surgical Site Wound Culture - Final Citrobacter youngae Enterobacter cloacae complex 02/12/18 08:00 Incision/Surgical Site Anaerobic Culture - Final No growth in 5 days. Laboratory Results 02/18/18 12:42: POC Glucose 125 H 02/18/18 18:15: POC Glucose 152 H 02/18/18 23:48: POC Glucose 153 H 02/19/18 05:50: WBC 3.9 L, RBC 3.40 L, Hgb 10.8 L, Hct 32.7 L, MCV 96.2, MCH 31.8, MCHC 33.0, RDW 13.3, RDW Differential 44.6 H, Plt Count 309, MPV 9.1, Immature Gran % (Auto) 0.800, Neut % (Auto) 58.3, Lymph % (Auto) 15.5 L, [place] % (Auto) 19.3 H, Eos % (Auto) 5.6 H, Baso % (Auto) 0.5, Absolute Neuts (auto) 2.3, Absolute Lymphs (auto) 0.61 L, Total Counted Not Reportable 02/19/18 05:50: Sodium 139, Potassium 3.2 L, Chloride 104, Carbon Dioxide 22.0, Anion Gap 13, BUN 8, Creatinine 0.54 L, Estim Creat Clear Calc 40.81, Est GFR (MDRD) Af Amer 144, Est GFR (MDRD) Non-Af 119, BUN/Creatinine Ratio 14.9, Glucose 127 H, Calcium 8.7 02/19/18 06:04: POC Glucose 125 H Current Medications Hydrocodone Bitart/Acetaminophen ([place] 5mg-325mg) 1 - 2 tablet PO Q4H PRN PRN PRN Reason: SEVERE PAIN (-03/19) Last Admin: 02/18/18 16:25 Dose: 2 tablet Amlodipine Besylate (Norvasc) 10 mg PO DAILY [facility] Last Admin: 02/18/18 11:57 Dose: 10 mg Dextrose (D50w Syringe) 0 gm IV X1 PRN; Protocol PRN Reason: Hypoglycemia Enalaprilat (Vasotec) 2.5 mg IV Q6H PRN PRN Reason: SBP>170 Last Admin: 02/15/18 09:52 Dose: 2.5 mg Enoxaparin Sodium (Lovenox) 40 mg SC DAILY@1000 [facility] Last Admin: 02/18/18 11:57 Dose: 40 mg Glucagon () 1 mg IM .X1 PRN PRN Reason: Hypoglycemia Hydralazine HCl (Apresoline) 25 mg PO TID [facility] Last Admin: 02/19/18 05:59 Dose: 25 mg Ciprofloxacin (Cipro) 400 mg in 200 mls @ 200 mls/hr IV Q12 [facility] Last Admin: 02/18/18 22:17 Dose: 200 mls/hr Lactated Ringer's () 1,000 mls @ 40 mls/hr IV .Q25H [facility] Last Admin: 02/18/18 03:21 Dose: 40 mls/hr Metronidazole (Flagyl) 500 mg in 100 mls @ 100 mls/hr IV TID [facility] Last Admin: 02/19/18 06:00 Dose: 100 mls/hr Ibuprofen (Motrin) 400 - 600 mg PO Q6H PRN PRN PRN Reason: MILD PAIN (-3) Last Admin: 02/19/18 05:59 Dose: 400 mg Insulin Human Lispro (Humalog Kwikpen (Bkc)) 0 unit SQ Q6 [facility] PRN Reason: Protocol Last Admin: 02/19/18 06:05 Dose: Not Given Labetalol HCl (Trandate) 20 mg IV Q4H PRN PRN PRN Reason: SBP>170 mmhg Last Admin: 02/16/18 03:26 Dose: 20 mg Lisinopril (Zestril) 40 mg PO DAILY [facility] Last Admin: 02/18/18 11:57 Dose: 40 mg Magnesium Hydroxide (Milk Of Magnesia) 30 ml PO DAILY PRN PRN Reason: Constipation Nutritional Formula (Lactose Free) (Ensure Clear) 120 ml PO 4X/DAY [facility] Last Admin: 02/18/18 21:13 Dose: 120 ml Ondansetron HCl (Zofran) 4 mg IV Q8H PRN PRN PRN Reason: Nausea Last Admin: 02/18/18 12:01 Dose: 4 mg Pravastatin Sodium (Pravachol) 40 mg PO QHS [facility] Last Admin: 02/18/18 21:15 Dose: 40 mg Sodium Chloride () 5 - 30 ml IV UD PRN PRN Reason: SALINE FLUSH Last Admin: 02/18/18 14:03 Dose: 10 ml Throat Lozenges (Cepacol Sore Throat Lozenge) 1 lozenge MUCOUS MEM Q2H PRN PRN PRN Reason: SORE THROAT Last Admin: 02/15/18 14:27 Dose: 1 lozenge Zolpidem Tartrate (Ambien (Generic)) 5 mg PO QHS PRN PRN PRN Reason: INSOMNIA Last Admin: 02/18/18 22:17 Dose: 5 mg Medical Necessity - Tobacco Use Smoking Status: Former smoker Tobacco Use: Cigarettes Assessment/Plan All Active Problems Syncope and collapse (Acute) Abdominal pain (Acute) Patient is a 72-year-old lady who presented with significant abdominal pain imaging studies demonstrated mild mesenteric stranding with the possibility of mild enteritis. In view of persistence of her pain general surgery was consulted patient underwent laparoscopic Exploratory laparoscopy converted to exploratory laparotomy, abdominal washout on 02/12/2018 findings included purulent peritonitis 1. Purulent peritonitis and inflammation involving the small bowel with questionable mesenteric stranding. patient underwent laparoscopic Exploratory laparoscopy converted to exploratory laparotomy, abdominal washout on 02/12/[address] Olivarez; etiology not clear cultures obtained came back positive for Citrobacter and enterococcus with sensitivities to Cipro. Patient was initially management Zosyn this was switched to Cipro and Flagyl 2. Syncopal episode thought to be vasovagal from his severe pain monitored continuously on telemetry. Echo demonstrated EF of 65% 3. Hypertension-blood pressure controlled, home medications continued with dose adjustment as needed 4. Lactic acidosis attributed to patient mesenteric ischemia 5. Diabetes mellitus type 2 with labile control currently on Accu-Cheks every 6 hours with sliding scale coverage 6. Dyslipidemia 7 alcohol dependence patient placed on DT precautions 8. Anxiety disorder 9. DVT prophylaxis Lovenox Active Medications Hydrocodone Bitart/Acetaminophen ([place] 5mg-325mg) 1 - 2 tablet PO Q4H PRN PRN PRN Reason: SEVERE PAIN (6-03/19) Last Admin: 02/18/18 16:25 Dose: 2 tablet Amlodipine Besylate (Norvasc) 10 mg PO DAILY [facility] Last Admin: 02/18/18 11:57 Dose: 10 mg Dextrose (D50w Syringe) 0 gm IV X1 PRN; Protocol PRN Reason: Hypoglycemia Enalaprilat (Vasotec) 2.5 mg IV Q6H PRN PRN Reason: SBP>170 Last Admin: 02/15/18 09:52 Dose: 2.5 mg Enoxaparin Sodium (Lovenox) 40 mg SC DAILY@1000 [facility] Last Admin: 02/18/18 11:57 Dose: 40 mg Glucagon () 1 mg IM .X1 PRN PRN Reason: Hypoglycemia Hydralazine HCl (Apresoline) 25 mg PO TID [facility] Last Admin: 02/19/18 05:59 Dose: 25 mg Ciprofloxacin (Cipro) 400 mg in 200 mls @ 200 mls/hr IV Q12 [facility] Last Admin: 02/18/18 22:17 Dose: 200 mls/hr Lactated Ringer's () 1,000 mls @ 40 mls/hr IV .Q25H [facility] Last Admin: 02/18/18 03:21 Dose: 40 mls/hr Metronidazole (Flagyl) 500 mg in 100 mls @ 100 mls/hr IV TID [facility] Last Admin: 02/19/18 06:00 Dose: 100 mls/hr Ibuprofen (Motrin) 400 - 600 mg PO Q6H PRN PRN PRN Reason: MILD PAIN (-08/17) Last Admin: 02/19/18 05:59 Dose: 400 mg Insulin Human Lispro (Humalog Kwikpen (Bkc)) 0 unit SQ Q6 [facility] PRN Reason: Protocol Last Admin: 02/19/18 06:05 Dose: Not Given Labetalol HCl (Trandate) 20 mg IV Q4H PRN PRN PRN Reason: SBP>170 mmhg Last Admin: 02/16/18 03:26 Dose: 20 mg Lisinopril (Zestril) 40 mg PO DAILY [facility] Last Admin: 02/18/18 11:57 Dose: 40 mg Magnesium Hydroxide (Milk Of Magnesia) 30 ml PO DAILY PRN PRN Reason: Constipation Nutritional Formula (Lactose Free) (Ensure Clear) 120 ml PO 4X/DAY [facility] Last Admin: 02/18/18 21:13 Dose: 120 ml Ondansetron HCl (Zofran) 4 mg IV Q8H PRN PRN PRN Reason: Nausea Last Admin: 02/18/18 12:01 Dose: 4 mg Pravastatin Sodium (Pravachol) 40 mg PO QHS [facility] Last Admin: 02/18/18 21:15 Dose: 40 mg Sodium Chloride () 5 - 30 ml IV UD PRN PRN Reason: SALINE FLUSH Last Admin: 02/18/18 14:03 Dose: 10 ml Throat Lozenges (Cepacol Sore Throat Lozenge) 1 lozenge MUCOUS MEM Q2H PRN PRN PRN Reason: SORE THROAT Last Admin: 02/15/18 14:27 Dose: 1 lozenge Zolpidem Tartrate (Ambien (Generic)) 5 mg PO QHS PRN PRN PRN Reason: INSOMNIA Last Admin: 02/18/18 22:17 Dose: 5 mg Code Visit Inpatient E&M: 69938 Subs Hosp L2
[2018-02-19] MEDS: HYDROcodone Bitartrate/Apap 5/325 Tablet PO (09:32)
[2018-02-19] MEDS: amLODIPine 10 MG Tablet PO (09:43)
[2018-02-19] MEDS: Enoxaparin 40 MG/0.4 ML Syringe SC (09:43)
[2018-02-19] MEDS: Lisinopril 40 MG Tablet PO (09:43)
--- NOTE | 2018-02-19 09:48 | PN.SURG_ITS ---
Patient Problems: Active and Suspected Problems Syncope and collapse (Acute) Abdominal pain (Acute) Subjective: Patient's doing well, having bowel function, pain controlled with pain meds and ambulating childs, ROSE still serous and patient tolerating clears - Physical Exam General: Alert, Oriented x3, Cooperative, No apparent distress Abdomen: Soft, Non-Distended, Tender - Her incision clean dry and intact. ROSE serous-- ROSE removed at bedside Extremities: No clubbing, No cyanosis, No edema Vital Signs Temp Pulse Resp BP Pulse Ox 98 F 78 18 120/51 L 100 02/19/18 05:57 02/19/18 06:58 02/19/18 05:57 02/19/18 05:57 02/19/18 05:57 Oxygen Flow Rate (L/min) 2 Oxygen Delivery Method Room Air Weight: 162 lb 14.746 oz Body Mass Index (BMI) 29.7 Finger Stick Blood Glucose 164 Intake and Output for Last 24 Hours 02/17/18 02/18/18 02/19/18 23:59 23:59 23:59 Intake Total 1195 / 1195 2574 / 2574 364 / 364 Output Total 30 / 30 5 / 5 Balance 1175 / 1175 2544 / 2544 359 / 359 Microbiology Past 72 Hours 02/12/18 08:00 Gram Stain - Final Incision/Surgical Site Wound Culture - Final Citrobacter youngae Enterobacter cloacae complex Anaerobic Culture - Final No growth in 5 days. Laboratory Tests Past 24 Hrs 02/19/18 02/19/18 05:50 05:50 WBC 3.9 L RBC 3.40 L Hgb 10.8 L Hct 32.7 L MCV 96.2 MCH 31.8 MCHC 33.0 RDW 13.3 RDW Differential 44.6 H Plt Count 309 MPV 9.1 Immature Gran % (Auto) 0.800 Neut % (Auto) 58.3 Lymph % (Auto) 15.5 L [place] % (Auto) 19.3 H Eos % (Auto) 5.6 H Baso % (Auto) 0.5 Absolute Neuts (auto) 2.3 Absolute Lymphs (auto) 0.61 L Total Counted Not Reportable Sodium 139 Potassium 3.2 L Chloride 104 Carbon Dioxide 22.0 Anion Gap 13 BUN 8 Creatinine 0.54 L Estim Creat Clear Calc 40.81 Est GFR (MDRD) Af Amer 144 Est GFR (MDRD) Non-Af 119 BUN/Creatinine Ratio 14.9 Glucose 127 H Calcium 8.7 POC Glucose 02/19/18 02/18/18 02/18/18 06:04 23:48 18:15 POC Glucose 125 H 153 H 152 H 02/18/18 12:42 POC Glucose 125 H Medical Necessity - Tobacco Use Smoking Status: Former smoker Tobacco Use: Cigarettes Assessment/Plan All Active Problems Syncope and collapse (Acute) Abdominal pain (Acute) 72 y/o F s/p fall from standing (CT head/spine neg), abd pain (CT shows some ? mesenteric stranding and mildly dilated SB loops), s/p ex lap and abd washout POD #7, elevated lactic acid-resolved 1. Start low fiber diet since patient tolerated clears. Patient will continue low fiber diet at home for a few weeks. ROSE was removed at bedside still serous patient tolerated well. Located DC home if patient tolerates low fiber diet as her pain is controlled with p.o. pain meds will give patient a total of 10 days of antibiotics so she will need another 2 and half to 3 days of Augmentin upon DC. Patient has lifting restriction of no greater than 20 pounds for 4 weeks she can change her ROSE site dressing daily. Ginette Domingo M.D. Pager: [phone] [facility] [address] [place] [address], [facility], [address] [place] [address] Office: [phone]
--- NOTE | 2018-02-19 09:51 | PCM.DC.GS ---
Discharge Diet: - - low fiber diet for 2-3 weeks Discharge Activity: May not drive while taking narcotic pain medications. May shower in (days): 0 - ok to shower today Lifting Restrictions: no lifting >20 lbs for 4 weeks Call your doctor if your incision/area has: Continuous Slow Oozing, Sudden Increased Bleeding, Increased Pain/ Swelling, Increased Redness, Foul Smelling Discharge, Swelling at the incision site Call your doctor if you observe: Fever of 101 or Higher Change Dressing in (Days):: 1 - Changed drain site dressing daily until completely healed Additional Instructions: Okay to take ibuprofen 400-600 mg p.o. every 6 hours as needed pain in between doses of [place]. Allergies/Adverse Reactions: Allergies aspirin [From Percodan] Allergy (Verified 03/02/16 10:17) Unknown oxycodone HCl [From Percodan] Allergy (Verified 03/02/16 10:17) Unknown oxycodone terephthalate [From Percodan] Allergy (Verified 03/02/16 10:17) Unknown Medications to take at Discharge Lisinopril [Zestril] 20 mg PO DAILY 03/02/16 Pravastatin [Pravachol] 40 mg PO QHS 03/02/16 Amoxicillin/Potassium Clav [Augmentin 875-125 Tablet] 1 ea PO BID #5 tab 02/19/18 Hydrocodone Bitart/Apap 5-325 [[place] 5MG-325MG] 1 - 2 tablet PO Q6H PRN PRN 4 Days #25 tablet 02/19/18 The following prescriptions were given: Hydrocodone Bitart/Apap 5-325 [[place] 5MG-325MG] 1 - 2 tablet PO Q6H PRN PRN 4 Days #25 tablet PRN Reason: Pain Amoxicillin/Potassium Clav [Augmentin 875-125 Tablet] 1 ea PO BID #5 tab Primary Care Physician: Woody Monzon MD [Primary Care Provider] - Test Results: Test results from this visit will be discussed in further detail at your follow-up appointment, if applicable. Please Follow Up With: Ginette Domingo MD - After 5:00 on the weekends call [phone] with any concerns When: Call the office at [phone] for a follow-up appointment in 2 weeks
--- NOTE | 2018-02-19 09:54 | DCINST_ITS ---
Discharge Diet: - - low fiber diet for 2-3 weeks Discharge Activity: May not drive while taking narcotic pain medications. May shower in (days): 0 - ok to shower today Lifting Restrictions: no lifting >20 lbs for 4 weeks Call your doctor if your incision/area has: Continuous Slow Oozing, Sudden Increased Bleeding, Increased Pain/ Swelling, Increased Redness, Foul Smelling Discharge, Swelling at the incision site Call your doctor if you observe: Fever of 101 or Higher Change Dressing in (Days):: 1 - Changed drain site dressing daily until completely healed Additional Instructions: Okay to take ibuprofen 400-600 mg p.o. every 6 hours as needed pain in between doses of [place]. Allergies/Adverse Reactions: Allergies aspirin [From Percodan] Allergy (Verified 03/02/16 10:17) Unknown oxycodone HCl [From Percodan] Allergy (Verified 03/02/16 10:17) Unknown oxycodone terephthalate [From [place]] Allergy (Verified 03/02/16 10:17) Unknown Medications to take at Discharge Lisinopril [Zestril] 20 mg PO DAILY 03/02/16 Pravastatin [Pravachol] 40 mg PO QHS 03/02/16 Amoxicillin/Potassium Clav [Augmentin 875-125 Tablet] 1 ea PO BID #5 tab Hydrocodone Bitart/Apap 5-325 [[place] 5MG-325MG] 1 - 2 tablet PO Q6H PRN PRN 4 Days #25 tablet 02/19/18 The following prescriptions were given: Hydrocodone Bitart/Apap 5-325 [[place] 5MG-325MG] 1 - 2 tablet PO Q6H PRN PRN 4 Days #25 tablet PRN Reason: Pain Amoxicillin/Potassium Clav [Augmentin 875-125 Tablet] 1 ea PO BID #5 tab Primary Care Physician: Woody Monzon MD [Primary Care Provider] - Test Results: Test results from this visit will be discussed in further detail at your follow- up appointment, if applicable. Please Follow Up With: Ginette Domingo MD - After 5:00 on the weekends call with any concerns When: Call the office at [phone] for a follow-up appointment in 2 weeks
--- NOTE | 2018-02-19 09:54 | CASEMGMT ---
This RN CM to room to speak with pt regarding therapy recommendation for further skilled therapy at this time. Per pt, she is not homebound at this time and would prefer outpt therapy be set up at this time. Pt is aware that if she gets home and feels the need for HHC that she can notify her PCP, voices understanding. Order faxed to [facility] and then to pt at this time. Pt voices no further questions/concerns/needs at this time. Awaiting dispo. [place]
--- NOTE | 2018-02-19 09:58 | PCM.DC ---
- Discharge Diagnoses Current Active Problems: Current Active and Chronic Problems Syncope and collapse (Acute) Abdominal pain (Acute) Alcohol dependence (Chronic) Diabetes (Chronic) Discharge Activity: May not drive while taking narcotic pain medications. May shower in (days): 0 - ok to shower today Call your doctor if your incision/area has: Continuous Slow Oozing, Sudden Increased Bleeding, Increased Pain/ Swelling, Increased Redness, Foul Smelling Discharge, Swelling at the incision site Call your doctor if you observe: Fever of 101 or Higher Change Dressing in (Days):: 1 - Changed drain site dressing daily until completely healed Allergies/Adverse Reactions: Allergies aspirin [From Percodan] Allergy (Verified 03/02/16 10:17) Unknown oxycodone HCl [From Percodan] Allergy (Verified 03/02/16 10:17) Unknown oxycodone terephthalate [From Percodan] Allergy (Verified 03/02/16 10:17) Unknown Medications to take at Discharge Lisinopril [Zestril] 20 mg PO DAILY 03/02/16 Pravastatin [Pravachol] 40 mg PO QHS 03/02/16 Amlodipine [Norvasc] 10 mg PO DAILY #60 tab 02/19/18 Amoxicillin/Potassium Clav [Augmentin 875-125 Tablet] 1 ea PO BID #5 tab 02/19/18 Hydrocodone Bitart/Apap 5-325 [[place] 5MG-325MG] 1 - 2 tablet PO Q6H PRN PRN 4 Days #25 tablet 02/19/18 The following prescriptions were given: Amlodipine [Norvasc] 10 mg PO DAILY #60 tab Amoxicillin/Potassium Clav [Augmentin 875-125 Tablet] 1 ea PO BID #5 tab Hydrocodone Bitart/Apap 5-325 [[place] 5MG-325MG] 1 - 2 tablet PO Q6H PRN PRN 4 Days #25 tablet PRN Reason: Pain Primary Care Physician: Woody Monzon MD [Primary Care Provider] - Test Results: Test results from this visit will be discussed in further detail at your follow-up appointment, if applicable. Please Follow Up With: Ginette Domingo MD - After 5:00 on the weekends call [phone] with any concerns When: Call the office at [phone] for a follow-up appointment in 2 weeks Proposed Discharge Date: 02/19/18
--- NOTE | 2018-02-19 10:07 | PCM.DC.SUM ---
Discharge Date and Diagnosis - Problem List Patient Problems: Active and Suspected Problems Peritonitis (Acute) Syncope and collapse (Acute) Abdominal pain (Acute) Date of Admission: 02/11/18 Date of Discharge: 02/19/18 - Primary Discharge Diagnosis Active and Suspected Problems Peritonitis (Acute) Syncope and collapse (Acute) Abdominal pain (Acute) - Secondary Discharge Diagnosis Chronic Problems Alcohol dependence (Chronic) Diabetes (Chronic) Hospital Course and Treatment Imaging Results: Clinical Impression(s) from Imaging Studies Brain CT 02/11/18 13:08 IMPRESSION: Chronic involutional changes of the brain. Electronically Signed: Mike Matta MD at 13:44 EDT Tel [phone], Service support , Abdomen/Pelvis CT 02/11/18 13:09 IMPRESSION: Findings suggest mild degree of bibasilar atelectasis. Small amount of free fluid is seen in the cul-de-sac. Stable large duodenal diverticula as described. Electronically Signed: Mike Matta MD at 13:43 EDT Tel [phone], Service support , Cervical Spine CT 02/11/18 13:10 IMPRESSION: Multilevel degenerative changes, as described above. Electronically Signed: Mike Matta MD at 13:47 EDT Tel [phone], Service support , Chest X-Ray 02/11/18 13:55 IMPRESSION: Mild degree of increased markings at the lung bases suggesting bibasilar atelectasis. Electronically Signed: Mike Matta MD at 14:17 EDT Tel [phone], Service support , Abdomen/Pelvis CT 02/11/18 16:35 IMPRESSION: 1. Mildly distended fluid-filled loops of small bowel without wall thickening. There is mild mesenteric stranding the possibility of mild enteritis is suggested. 2. Large duodenal diverticulum. 3. Fatty infiltration of the liver. 4. Colonic diverticulosis without acute inflammatory change. 5. Mild ascites. 6. Bibasilar atelectasis. Electronically Signed: Sean Fung at 18:34 EDT Tel [phone], Service support , KUB X-Ray 02/11/18 19:40 IMPRESSION: NG tube as described Electronically Signed: Sean FungDO at 20:21 EDT Tel [phone], Service support , KUB X-Ray 02/13/18 01:50 IMPRESSION: Nonspecific bowel gas pattern without evidence of obstruction. Nasogastric tube tip now overlies the gastric fundus. Electronically Signed: Subhash Echevarria MD at 4:01 EDT , Service support , KUB X-Ray 02/16/18 09:55 IMPRESSION: NG tube in the stomach. Continued gaseous distended loops of colon without evidence of small bowel obstruction. Surgical drain. Electronically Signed: Garrett Teresa DO at 10:31 EDT Tel , Service support , Small Bowel X-Ray 02/18/18 07:05 IMPRESSION: There is no evidence of obstruction or leak at this time. Large duodenal diverticula as described. Electronically Signed: Mike Matta MD at 13:11 EDT Tel [phone], Service support , Summary of Care Provided: Patient is a 72-year-old lady who presented with significant abdominal pain imaging studies demonstrated mild mesenteric stranding with the possibility of mild enteritis. In view of persistence of her pain general surgery was consulted patient underwent laparoscopic Exploratory laparoscopy converted to exploratory laparotomy, abdominal washout on 02/12/2018 findings included purulent peritonitis 1. Purulent peritonitis and inflammation involving the small bowel with questionable mesenteric stranding. patient underwent laparoscopic Exploratory laparoscopy converted to exploratory laparotomy, abdominal washout on 02/12/[address] Olivarez; etiology not clear cultures obtained came back positive for Citrobacter and enterococcus with sensitivities to Cipro. Patient was initially management Zosyn this was switched to Cipro and Flagyl discharged home on Augmentin 2. Syncopal episode thought to be vasovagal from his severe pain monitored continuously on telemetry. Echo demonstrated EF of 65% 3. Hypertension-blood pressure controlled, home medications continued with dose adjustment as needed 4. Lactic acidosis attributed to patient mesenteric ischemia 5. Diabetes mellitus type 2 with labile control currently on Accu-Cheks every 6 hours with sliding scale coverage 6. Dyslipidemia 7. Alcohol dependence patient placed on DT precautions 8. Anxiety disorder 9. DVT prophylaxis Lovenox Discharge Diet: - - low fiber diet for 2-3 weeks Discharge Activity: May not drive while taking narcotic pain medications. May shower in (days): 0 - ok to shower today Call your doctor if your incision/area has: Continuous Slow Oozing, Sudden Increased Bleeding, Increased Pain/ Swelling, Increased Redness, Foul Smelling Discharge, Swelling at the incision site Call your doctor if you observe: Fever of 101 or Higher Change Dressing in (Days):: 1 - Changed drain site dressing daily until completely healed Home Medications: Medications to take at Discharge Lisinopril [Zestril] 20 mg PO DAILY 03/02/16 Pravastatin [Pravachol] 40 mg PO QHS 03/02/16 Amlodipine [Norvasc] 10 mg PO DAILY #60 tab 02/19/18 Amoxicillin/Potassium Clav [Augmentin 875-125 Tablet] 1 ea PO BID #5 tab 02/19/18 Hydrocodone Bitart/Apap 5-325 [[place] 5MG-325MG] 1 - 2 tablet PO Q6H PRN PRN 4 Days #25 tablet 02/19/18 Following Prescrptions Were Given to Patient: Amlodipine [Norvasc] 10 mg PO DAILY #60 tab Amoxicillin/Potassium Clav [Augmentin 875-125 Tablet] 1 ea PO BID #5 tab Hydrocodone Bitart/Apap 5-325 [[place] 5MG-325MG] 1 - 2 tablet PO Q6H PRN PRN 4 Days #25 tablet PRN Reason: Pain Primary Care Physician: Woody Monzon MD [Primary Care Provider] - Please Follow Up With: Ginette Domingo MD - After 5:00 on the weekends call [phone] with any concerns When: Call the office at [phone] for a follow-up appointment in 2 weeks Additional Instructions: Okay to take ibuprofen 400-600 mg p.o. every 6 hours as needed pain in between doses of [place]. Disposition: Home Minutes spent on discharge:: 45 Patient Condition:: Stable Medical Necessity - Tobacco Use Smoking Status: Former smoker Tobacco Use: Cigarettes Meaningful Use Info Meaningful Use Diagnoses (Choose all that apply): None applicable Code Visit Inpatient E&M: 61076 Disch Hosp
--- NOTE | 2018-02-19 10:18 | DS.PCM_ITS ---
Discharge Date and Diagnosis - Problem List Patient Problems: Active and Suspected Problems Peritonitis (Acute) Syncope and collapse (Acute) Abdominal pain (Acute) Date of Admission: 02/11/18 Date of Discharge: 02/19/18 - Primary Discharge Diagnosis Active and Suspected Problems Peritonitis (Acute) Syncope and collapse (Acute) Abdominal pain (Acute) - Secondary Discharge Diagnosis Chronic Problems Alcohol dependence (Chronic) Diabetes (Chronic) Hospital Course and Treatment Imaging Results: Clinical Impression(s) from Imaging Studies Brain CT 02/11/18 13:08 IMPRESSION: Chronic involutional changes of the brain. Electronically Signed: Mike Matta MD at 13:44 EDT Tel [phone], Service support , Abdomen/Pelvis CT 02/11/18 13:09 IMPRESSION: Findings suggest mild degree of bibasilar atelectasis. Small amount of free fluid is seen in the cul-de-sac. Stable large duodenal diverticula as described. Electronically Signed: Mike Matta MD at 13:43 EDT Tel [phone], Service support , Cervical Spine CT 02/11/18 13:10 IMPRESSION: Multilevel degenerative changes, as described above. Electronically Signed: Mike Matta MD at 13:47 EDT Tel [phone], Service support , Chest X-Ray 02/11/18 13:55 IMPRESSION: Mild degree of increased markings at the lung bases suggesting bibasilar atelectasis. Electronically Signed: Mike Matta MD at 14:17 EDT Tel [phone], Service support , Abdomen/Pelvis CT 02/11/18 16:35 IMPRESSION: 1. Mildly distended fluid-filled loops of small bowel without wall thickening. There is mild mesenteric stranding the possibility of mild enteritis is suggested. 2. Large duodenal diverticulum. 3. Fatty infiltration of the liver. 4. Colonic diverticulosis without acute inflammatory change. 5. Mild ascites. 6. Bibasilar atelectasis. Electronically Signed: Sean Fung at 18:34 EDT Tel [phone], Service support , KUB X-Ray 02/11/18 19:40 IMPRESSION: NG tube as described Electronically Signed: Sean FungDO at 20:21 EDT Tel [phone], Service support , KUB X-Ray 02/13/18 01:50 IMPRESSION: Nonspecific bowel gas pattern without evidence of obstruction. Nasogastric tube tip now overlies the gastric fundus. Electronically Signed: Subhash Echevarria MD at 4:01 EDT , Service support , KUB X-Ray 02/16/18 09:55 IMPRESSION: NG tube in the stomach. Continued gaseous distended loops of colon without evidence of small bowel obstruction. Surgical drain. Electronically Signed: Garrett Teresa DO at 10:31 EDT Tel , Service support , Small Bowel X-Ray 02/18/18 07:05 IMPRESSION: There is no evidence of obstruction or leak at this time. Large duodenal diverticula as described. Electronically Signed: Mike Matta MD at 13:11 EDT Tel [phone], Service support , Summary of Care Provided: Patient is a 72-year-old lady who presented with significant abdominal pain imaging studies demonstrated mild mesenteric stranding with the possibility of mild enteritis. In view of persistence of her pain general surgery was consulted patient underwent laparoscopic Exploratory laparoscopy converted to exploratory laparotomy, abdominal washout on 02/12/2018 findings included purulent peritonitis 1. Purulent peritonitis and inflammation involving the small bowel with questionable mesenteric stranding. patient underwent laparoscopic Exploratory laparoscopy converted to exploratory laparotomy, abdominal washout on 02/12/[address] Olivarez; etiology not clear cultures obtained came back positive for Citrobacter and enterococcus with sensitivities to Cipro. Patient was initially management Zosyn this was switched to Cipro and Flagyl discharged home on Augmentin 2. Syncopal episode thought to be vasovagal from his severe pain monitored continuously on telemetry. Echo demonstrated EF of 65% 3. Hypertension-blood pressure controlled, home medications continued with dose adjustment as needed 4. Lactic acidosis attributed to patient mesenteric ischemia 5. Diabetes mellitus type 2 with labile control currently on Accu-Cheks every 6 hours with sliding scale coverage 6. Dyslipidemia 7. Alcohol dependence patient placed on DT precautions 8. Anxiety disorder 9. DVT prophylaxis Lovenox Discharge Diet: - - low fiber diet for 2-3 weeks Discharge Activity: May not drive while taking narcotic pain medications. May shower in (days): 0 - ok to shower today Call your doctor if your incision/area has: Continuous Slow Oozing, Sudden Increased Bleeding, Increased Pain/ Swelling, Increased Redness, Foul Smelling Discharge, Swelling at the incision site Call your doctor if you observe: Fever of 101 or Higher Change Dressing in (Days):: 1 - Changed drain site dressing daily until completely healed Home Medications: Medications to take at Discharge Lisinopril [Zestril] 20 mg PO DAILY 03/02/16 Pravastatin [Pravachol] 40 mg PO QHS 03/02/16 Amlodipine [Norvasc] 10 mg PO DAILY #60 tab 02/19/18 Amoxicillin/Potassium Clav [Augmentin 875-125 Tablet] 1 ea PO BID #5 tab Hydrocodone Bitart/Apap 5-325 [[place] 5MG-325MG] 1 - 2 tablet PO Q6H PRN PRN 4 Days #25 tablet 02/19/18 Following Prescrptions Were Given to Patient: Amlodipine [Norvasc] 10 mg PO DAILY #60 tab Amoxicillin/Potassium Clav [Augmentin 875-125 Tablet] 1 ea PO BID #5 tab Hydrocodone Bitart/Apap 5-325 [[place] 5MG-325MG] 1 - 2 tablet PO Q6H PRN PRN 4 Days #25 tablet PRN Reason: Pain Primary Care Physician: Woody Monzon MD [Primary Care Provider] - Please Follow Up With: Ginette Domingo MD - After 5:00 on the weekends call [phone] with any concerns When: Call the office at [phone] for a follow-up appointment in 2 weeks Additional Instructions: Okay to take ibuprofen 400-600 mg p.o. every 6 hours as needed pain in between doses of [place]. Disposition: Home Minutes spent on discharge:: 45 Patient Condition:: Stable Medical Necessity - Tobacco Use Smoking Status: Former smoker Tobacco Use: Cigarettes Meaningful Use Info Meaningful Use Diagnoses (Choose all that apply): None applicable Code Visit Inpatient E&M: 81549 Disch Hosp
[2018-02-19] MEDS: Amox/Clavulanate 875 MG Tablet PO (10:43)
[2018-02-19] MEDS: Insulin Lispro 100 UNIT/ML INSULN.PEN SQ (12:37)
[2018-02-19 12:45] LABS: Bedside Glucose 171 mg/dL (70-110)
--- NOTE | 2018-02-19 15:07 | NURSING ---
1444 ONE staple removed from left side of head. Area dry and intact and no drainage noted.
--- NOTE | 2018-02-20 15:25 | CASEMGMT ---
X[facility] Discharge F/U Phone Call LACE: Krystle Strata: 3 Discharge date: 02/19/18 Call date: 02/20/18 Call time: 1532 Duration: 4 minutes Admission dx: Syncope and abdominal pain Pt states she is 'doing great' since discharge except for some difficulty sleeping and state surgeon called this am and told her to take benadryl at bedtime. Pt puts on the phone at this time and he states no questions regarding discharge instructions or medications at this time. states that he has 'been having a hard time keeping her down today.' Pt/ voice no further questions/concerns/needs at this time. [place]
== END 2018-02-19 14:44 | disposition home or self-care (01) | DRG 357 ==
LOC: ED 20:32 → PCU 21:01
PROVIDERS: Emergency Medicine; Internal Medicine; Surgery; Admitting Provider Hospitalist; Emergency Provider Emergency Medicine; Family Provider Family Medicine; PCP Family Medicine; Visit Provider Internal Medicine
PROC: 0WJG0ZZ Inspection of Peritoneal Cavity, Open Approach (ICD-10-PCS; CPT 49320; principal; 2018-02-12 07:15)
DX: K65.0 Generalized (acute) peritonitis (principal); S06.0X9A Concussion with loss of consciousness of unspecified duration, initial encounter; E87.2 Acidosis; B95.2 Enterococcus as the cause of diseases classified elsewhere; B96.89 Other specified bacterial agents as the cause of diseases classified elsewhere; S01.01XA Laceration without foreign body of scalp, initial encounter; W18.30XA Fall on same level, unspecified, initial encounter; Y93.01 Activity, walking, marching and hiking; Y92.012 Bathroom of single-family (private) house as the place of occurrence of the external cause; Z53.31 Laparoscopic surgical procedure converted to open procedure; R55 Syncope and collapse; F10.20 Alcohol dependence, uncomplicated; E11.649 Type 2 diabetes mellitus with hypoglycemia without coma; I10 Essential (primary) hypertension; E78.5 Hyperlipidemia, unspecified; K57.10 Diverticulosis of small intestine without perforation or abscess without bleeding; Z87.891 Personal history of nicotine dependence
CPT/HCPCS: 36415; 51702; 70450; 71045; 72125; 74018; 74176; 74177; 74250; 80048; 80053; 80320; 81001; 82607; 82746; 82962; 83605; 83690; 83735; 84100; 84132; 84484; 85025; 85610; 87015; 87070; 87075; 87077; 87102; 87116; 87186; 87205; 87206; 93005; 93306; 97116; 97162; 97166; 97530; 97535; 99285; J7030; J7040; J7120; Q9957; Q9967; A4216; C8929; G0480; J0744; J2405

== ENCOUNTER → 2018-09-01 06:56 | Outpatient (CLI) | payer MEDICARE, BC, SELFPAY ==
[2018-06-11 13:44] VITALS: BMI 29.7
--- NOTE | 2018-09-01 07:30 | PET_ITS ---
EXAMINATION: FDG PET BRAIN INDICATIONS: A 72-year-old female with reported history of memory loss. COMPARISON EXAMINATION: None available. TECHNIQUE: Following the intravenous administration of 10.83 mCi of F-18 deoxyglucose via the right antecubital fossa, multiplanar image acquisitions of the brain obtained at 60 minutes post radiopharmaceutical administration reveal: HEIGHT: 62 inches. WEIGHT: 150 lbs FINDINGS: 1. Qualitative, visual analysis demonstrates decreased glucose metabolism defined in the left temporal and bilateral parietal cerebral cortex. There is relative preservation of glucose metabolism defined in the bilateral frontal, right temporal and right-left occipital cortex, as well as cerebellar hemispheres and basal ganglia. 2. Quantitative analysis utilizing Oration software demonstrates decreased glucose metabolism defined in the left superior, mid and inferior temporal cortex with Z-scores of -3.01, -2.74 and -2.92 respectively, as well as bilateral superior parietal cortex with Z-scores of -2.34 and -2.57 for the left and right hemispheres respectively. PET/PET Brain Metabolic Eval IMPRESSION: 1. Altered glucose metabolism defined in the left temporal and bilateral parietal cerebral cortex is commensurate with cholinergic dysfunction attributed to dementia, Alzheimer type. (Sugey, Molecular Imaging and Biology 4:239, 2004). Electronic Signature Isreal Hopkins D.O. Electronically Signed: Isreal Hopkins DO at 10:00 EDT Tel , Service support ,
== END ==
PROVIDERS: Family Provider Family Medicine; PCP Family Medicine; Referring Provider Psychiatry & Neurology Neurology; Visit Provider Psychiatry & Neurology Neurology
DX: F03.90 Unspecified dementia, unspecified severity, without behavioral disturbance, psychotic disturbance, mood disturbance, and anxiety (principal)
CPT/HCPCS: 78608; A9552

== ENCOUNTER → 2019-12-24 15:06 | Outpatient (CLI) | payer MEDICARE, BC, SELFPAY ==
[2019-12-24 15:06] VITALS: BMI 29.5
[2019-12-24 15:56] LABS: BUN 9 mg/dL (7-18); CPK Total, Creatine Kinase 75 U/L (26-192); Thyroid Stim Hormone (TSH) 1.65 uIU/mL (0.358-3.74)
== END ==
PROVIDERS: PCP Family Medicine; Referring Provider Psychiatry & Neurology Neurology; Visit Provider Psychiatry & Neurology Neurology
DX: F03.90 Unspecified dementia, unspecified severity, without behavioral disturbance, psychotic disturbance, mood disturbance, and anxiety (principal); E11.9 Type 2 diabetes mellitus without complications
CPT/HCPCS: 36415; 82550; 84443; 84520

== ENCOUNTER → 2019-12-31 12:18 | Outpatient (CLI) | payer MEDICARE, BC, SELFPAY ==
[2019-12-24 15:08] VITALS: BMI 29.7
--- NOTE | 2019-12-31 12:19 | MRI_ITS ---
STUDY: MRI BRAIN WITH AND WITHOUT CONTRAST REASON FOR EXAM: Female, 74 years old. DEMENTIA, MEMORY LOSS TECHNIQUE: Standardized multiplanar fat and water weighted pulse sequences were obtained. IV 14CC DOTAREM was administered for the contrast portion of the examination. COMPARISON: None. FINDINGS: There is mild cerebral atrophy with widening of the extra-axial spaces and ventricular dilatation. There are a limited number of small white matter hyperintensities, distributed throughout the deep white matter tracts of the cerebral hemispheres, consistent with mild chronic white matter ischemic changes. There is no evidence for recent intracranial ischemia or other cause of cytotoxic edema on diffusion weighted imaging (DWI). Normal T2* images of the brain without demonstrated susceptibility artifact. There is no demonstrated hemosiderin stain. Normal bilateral basal ganglia. Normal thalami. There is no extra-axial fluid accumulation. Normal flow voids within the major intracranial circulation suggesting patency by spin echo criteria. Normal venous enhancement. There is no enhancing intra-axial or extra-axial abnormality. Normal sella turcica, pituitary gland, infundibular stalk, optic chiasm and hypothalamus. Normal tectal plate and pineal gland. Normal midbrain, ludivina and medulla. Normal cerebellum. Normal basal cisterns. Normal bilateral temporal bones. Normal bilateral internal auditory canals. No demonstrated orbital abnormality, within the constraints of a routine brain study. Normal visualized paranasal sinuses. Normal calvarium and skull base. Normal visualized soft tissue structures. Normal visualized upper cervical spine. MRI/Brain W/WO Contrast IMPRESSION: Involutional changes of the brain, as described above. Electronically Signed: Isreal Mcmillan MD at 17:17 EDT Tel , Service support ,
[2019-12-31 12:45] LABS: CREATININE FINGERSTICK 0.8 mg/dL (0.55-1.02); EGFR FINGERSTICK > 60.0000 mL/min (>60)
== END ==
PROVIDERS: PCP Family Medicine; Referring Provider Psychiatry & Neurology Neurology; Visit Provider Psychiatry & Neurology Neurology
DX: F03.90 Unspecified dementia, unspecified severity, without behavioral disturbance, psychotic disturbance, mood disturbance, and anxiety (principal)
CPT/HCPCS: 70553; A9575

== ENCOUNTER → 2020-01-21 13:52 | Outpatient (CLI) | payer MEDICARE, BC, SELFPAY ==
[2020-01-21 13:25] VITALS: BMI 29.7
[2020-01-25 05:00] LABS: Vitamin B1, Thiamine 84.6 nmol/L (66.5-200.0)
== END ==
PROVIDERS: PCP Family Medicine; Referring Provider Psychiatry & Neurology Neurology; Visit Provider Psychiatry & Neurology Neurology
DX: F03.90 Unspecified dementia, unspecified severity, without behavioral disturbance, psychotic disturbance, mood disturbance, and anxiety (principal)
CPT/HCPCS: 36415; 84425

== ENCOUNTER 2020-07-21 21:28 | Emergency (ER) | payer MEDICARE, BC, SELFPAY ==
[2020-01-21 13:25] VITALS: BMI 29.7
[2020-07-21 21:33] VITALS: BP 133/104; BP 133/114; PULSE 84; PULSE 85; RESP 17; RESP 18; TEMP 35.6; O2SAT 96; BMI 28.3
--- NOTE | 2020-07-21 21:53 | ED.VIS.GEN ---
History of Present Illness Chief Complaint: Confusion Informant: Patient Narrative: 74-year-old female with history of EtOH use and dementia presenting for evaluation. It was reported by EMS that her stated she was drunk and belligerent. - Past Medical History (1) Alcohol dependence Status: Chronic (2) Diabetes Status: Chronic Past Medical History - Allergies and Home Meds Allergies/Adverse Reactions: Allergies aspirin [From Percodan] Allergy (Verified 05/17/20 15:08) Unknown oxycodone HCl [From Percodan] Allergy (Verified 05/17/20 15:08) Unknown oxycodone terephthalate [From [place]erc[place]] Allergy (Verified 05/17/20 15:08) Unknown Primary Care Physician: Woody Monzon MD [Primary Care Provider] - Past Medical History: - - Alzheimer's disease, GERD Surgical History: noncontributory, - Lives: Spouse/ Significant Other Smoking Status: Former smoker Alcohol: Heavy Drugs: None - Family History Maternal Family History: Family History (Last Reviewed 05/17/20 @ 15:08 by Sujey Melissa) Father Skin cancer Sister Breast cancer Thyroid disorder Alzheimers disease Aunt Breast cancer Grandmother Breast cancer Sister Schizophrenia Family History: Reports: No pertinent history Review of Systems ROS: Unable to Obtain Physical Exam Vital Signs/Narrative: Vital Signs Temp Pulse Resp BP Pulse Ox 07/21/20 21:33 96.0 F L 85 18 133/104 H 96 General: Well nourished, No Acute Distress Head: Normocephalic, Atraumatic Eyes: Perrl, EOMI Skin: Normal color, No rash. Negative for: Cyanosis, Diaphoresis Neurological: Alert, Cranial nerves II-XII grossly intact Psychological: Agitated Diagnostic/Tx/Re-eval Patient is alert but agitated. She states she has not been drinking. She has no signs of injury. She is mad because her called EMS to pick her up. I did talk to the patient's and he was very angry and stated that he keeps asking for help with her. Because she drinks and does have dementia. I asked him kind of help he needs. At this point he started are you still there I cannot hear you. I said can you hear me now and he said nope of the phone. Police Department was able to get a hold of him but he states that he is not going to pick her up because he has bad vision. We did obtain a ride for her I do not believe she is a work-up or imaging of any sort. She has gone down a great deal. She will be transported home in stable condition. Impression: 1. Agitation 2. History of dementia ED Disposition - Plan for ED Patient: Referrals: Woody Monzon MD [Primary Care Provider] -
--- NOTE | 2020-07-21 22:18 | ED.RN ---
phone call to to come filler picker patient. is refusing stating he can't handle her drinking. dr brennan explained to that patient is medically cleared to return home and hung up on dr brennan.
--- NOTE | 2020-07-21 23:24 | ED.DCSUM_ITS ---
- ER Visit Summary Date of Service: 07/21/20 Chief Complaint: [] History of Present Illness: The patient is a 74 F [] Physical Examination: [] Test Results: [] Emergency Department Course and Treatment: [] Treatment Plan: [] Disposition: [] Impression: [] This note was generated with [employer] dictation software. It may contain incorrect words, spelling, and punctuation that were not noted in review of the chart prior to signing ED Disposition - Plan for ED Patient: Disposition: Home or Assisted Living Instructions: ED DEMENTIA Alzheimer's Referrals: Woody Monzon MD [Primary Care Provider] -
[2020-07-21 23:35] VITALS: RESP 16
[2020-07-22 00:45] VITALS: RESP 16
[2020-07-22 01:27] VITALS: RESP 16
[2020-07-22 01:52] VITALS: RESP 16
== END 2020-07-22 01:53 | disposition home or self-care (01) ==
PROVIDERS: Emergency Provider Student in an Organized Health Care Education/Training Program; PCP Family Medicine
DX: R45.1 Restlessness and agitation (principal); G30.9 Alzheimer's disease, unspecified; F02.80 Dementia in other diseases classified elsewhere, unspecified severity, without behavioral disturbance, psychotic disturbance, mood disturbance, and anxiety; E11.9 Type 2 diabetes mellitus without complications; K21.9 Gastro-esophageal reflux disease without esophagitis; Z80.3 Family history of malignant neoplasm of breast; Z83.49 Family history of other endocrine, nutritional and metabolic diseases; Z87.891 Personal history of nicotine dependence; Z88.5 Allergy status to narcotic agent; Z88.6 Allergy status to analgesic agent
CPT/HCPCS: 99284

== ENCOUNTER 2021-08-16 11:30 | Observation (INO) | payer MEDICARE, BC, SELFPAY ==
[2021-08-16] VITALS (8 sets, daily range): BP systolic 106–223; BP diastolic 49–93; PULSE 64–78; RESP 16–18; TEMP 36.3–36.9; O2SAT 97–99; BMI 22.4; BMI 24.1
--- NOTE | 2021-08-16 12:28 | CT_ITS ---
STUDY: CT CHEST WITHOUT CONTRAST REASON FOR EXAM: Female, 75 years old. Patient fell down the steps. RADIATION DOSAGE (If Supplied By Facility): CTDIvol = ( 14.34 ) mGy, DLP = ( 508.89 ) mGycm TECHNIQUE: Transaxial imaging was performed without the administration of intravenous contrast material. Multiplanar coronal and sagittal images were reformatted. Individualized dose optimization techniques were used for this CT. COMPARISON: None. FINDINGS: Small benign appearing bilateral axillary nodes. Mild degree of increased markings in the right upper lobe with areas of confluence. This may represent an early infiltrate. Mild linear atelectasis and/or scarring at the lung bases. There is no demonstrated pleural abnormality. There are calcifications of the coronary arteries. There are multiple small lymph nodes within the mediastinum, which are normal in size and morphology most compatible with reactive lymph hyperplasia. Normal hilar regions. Normal unenhanced pulmonary arteries. There is atherosclerotic calcification of the aortic arch with tortuosity and elongation of the aortic arch and descending thoracic aorta. There are multi-level degenerative changes of the thoracic spine. There is no demonstrated abnormality of the visualized upper abdomen. CT/Chest without Contrast IMPRESSION: Questionable early infiltrate in the right upper lobe. Electronically Signed: Mike Matta MD at 13:48 EST ,
--- NOTE | 2021-08-16 12:28 | CT_ITS ---
STUDY: CT THORACIC SPINE WITHOUT CONTRAST REASON FOR EXAM: Female, 75 years old. Trauma, pain RADIATION DOSAGE (If Supplied By Facility): CTDIvol = ( 22.84 ) mGy, DLP = ( 777.78 ) mGycm TECHNIQUE: The patient was scanned in a multi detector CT scanner. High resolution imaging was performed. Images were obtained from T1 to T12 vertebral level. Sagittal and coronal images were reconstructed. Individualized dose optimization techniques were used for this CT. COMPARISON: None. FINDINGS: Normal visualized cervical spine. Normal kyphosis of the thoracic spine. There is no substantial scoliosis. There is multilevel endplate spondylosis of the thoracic spine. There is multilevel degenerative disc disease with loss of the disc space heights. Atherosclerotic plaque formation of the thoracic aorta. CT/Spine Thoracic without Contras IMPRESSION: Multilevel degenerative disc disease. No fracture is seen. Electronically Signed: Mike Matta MD at 13:51 EST ,
--- NOTE | 2021-08-16 12:28 | RAD_ITS ---
STUDY: X-RAY - RIGHT SHOULDER REASON FOR EXAM: Female, 75 years old. Shoulder pain following a fall. TECHNIQUE: 4 view(s) of the shoulder. COMPARISON: None. FINDINGS: There is moderate degenerative arthrosis of the glenohumeral articulation. There is hypertrophic osteoarthrosis of the acromioclavicular joint with inferior osseous spur formation. Normal acromion. Normal humeral head and visualized proximal humerus. The soft tissue structures are unremarkable. There is no demonstrated fracture. Normal visualized pulmonary apex. RAD/Shoulder min 2 Views IMPRESSION: Degenerative changes. Electronically Signed: Mike Matta MD at 13:21 EST ,
--- NOTE | 2021-08-16 12:28 | CT_ITS ---
STUDY: CT LUMBAR SPINE WITHOUT CONTRAST REASON FOR EXAM: Female, 75 years old. Injury due to a fall. RADIATION DOSAGE (If Supplied By Facility): CTDIvol = ( 25.51 ) mGy, DLP = ( 734.99 ) mGycm TECHNIQUE: The patient was scanned in a multi detector CT scanner. High resolution transaxial imaging was performed. Images were obtained from L1 to S1. Sagittal and coronal images were reconstructed. Individualized dose optimization techniques were used for this CT. COMPARISON: None FINDINGS: Normal lumbar lordosis. There is no substantial scoliosis. Mild loss of height of the superior endplate of the L1 vertebrae. This may indicate a compression fracture. L1-2: Mild degree of disc space narrowing. Anterior spondylosis. No significant stenosis seen. L2-3: Facet joint osteoarthropathy. Mild degree of diffuse posterior disc bulge. L3-4: The disc spaces well-maintained. Facet joint osteoarthritis and hypertrophy. Mild degree of bilateral neural foraminal stenosis worse on the left side. Mild degree of diffuse posterior disc bulge. L4-5: Mild degree of anterolisthesis of L4 on L5. Facet joint osteoarthritis and hypertrophy. Mild degree of diffuse posterior disc bulge. There is a moderate degree of bilateral neural foraminal stenosis as well as central canal stenosis. L5-S1: Normal endplates. Normal disc height and morphology. Normal bilateral facet joints. Normal central canal and bilateral lateral recesses. Normal bilateral intervertebral neural foramina. Atherosclerotic calcification of the abdominal aorta. CT/Spine Lumbar without Contrast IMPRESSION: Multilevel degenerative changes, as described above. Loss of height of the superior endplate of the L1 vertebra suggestive of possible compression. Electronically Signed: Mike Matta MD at 13:41 EST ,
--- NOTE | 2021-08-16 12:29 | CT_ITS ---
STUDY: CT BRAIN WITHOUT CONTRAST REASON FOR EXAM: Female, 75 years old. Head injury due to a fall. RADIATION DOSAGE (If Supplied By Facility): CTDIvol = ( 44.99 ) mGy, DLP = ( 779.24 ) mGycm TECHNIQUE: Transaxial CT imaging of the brain was performed without administration of intravenous contrast material. Individualized dose optimization techniques were used for this CT. COMPARISON: Comparison is made with prior examination dated 02/11/2018 and 04/13/2014. FINDINGS: Normal soft tissue structures. Normal calvarium. There is mild cerebral atrophy with widening of the extra-axial spaces and ventricular dilatation. There are areas of decreased attenuation within the white matter tracts of the supratentorial brain, consistent with microvascular disease changes. Normal basal ganglia and thalami. Normal brainstem. Normal cerebellum. There is no intracranial hemorrhage. There are no findings of an acute ischemic infarction. Normal visualized paranasal sinuses. CT/Brain/Head without Contrast IMPRESSION: Chronic involutional changes of the brain. Electronically Signed: Mike Matta MD at 13:55 EST ,
--- NOTE | 2021-08-16 12:29 | CT_ITS ---
STUDY: CT CERVICAL SPINE WITHOUT CONTRAST REASON FOR EXAM: Female, 75 years old. Injury due to a fall. RADIATION DOSAGE (If Supplied By Facility): CTDIvol = ( 23.18 ) mGy, DLP = ( 476.10 ) mGycm TECHNIQUE: High resolution transaxial imaging was performed without contrast material. Sagittal and coronal images were reconstructed. Individualized dose optimization techniques were used for this CT. COMPARISON: Comparison is made with prior study dated 02/11/2018. FINDINGS: Normal craniovertebral junction. There are degenerative changes of the anterior atlantoaxial articulation. Normal odontoid process. There is straightening of the normal cervical lordosis. Normal vertebral bodies and posterior osseous elements. C2-3: Facet joint osteoarthritis and hypertrophy worse on the right side. Uncovertebral arthrosis. Marked degree of the right neural foraminal stenosis. C3-4: Marked degree of disc space narrowing. Posterior spondylosis causing central canal stenosis. Uncovertebral arthrosis as well as facet joint osteoarthropathy with bilateral neural foraminal stenosis worse on the left side. C4-5: Minimal anterior listhesis of C4 on C5 due to facet joint osteoarthropathy and hypertrophy. Uncovertebral arthrosis. Marked degree of bilateral neural foraminal stenosis. C5-6: Marked degree of disc space narrowing. Spondylosis. Bilateral neural foraminal stenosis. C6-7: Moderate degree of disc space narrowing. Facet joint osteoarthritis and hypertrophy. Atherosclerotic plaque formation of the carotid bifurcations. CT/Spine Cervical without Contras IMPRESSION: Multilevel degenerative changes, as described above. Electronically Signed: Mike Matta MD at 13:37 EST ,
--- NOTE | 2021-08-16 12:29 | RAD_ITS ---
STUDY: X-RAY - PELVIS REASON FOR EXAM: Female, 75 years old. Injury/Pain TECHNIQUE: One view of the pelvis was obtained. COMPARISON: None. FINDINGS: There is a non-specific bowel gas pattern. There are multiple calcified phleboliths. Normal bilateral iliac wings, sacroiliac joints and visualized sacrum. Normal visualized bilateral superior and inferior pubic rami. There is narrowing with sclerosis of the pubic symphysis. Normal ischial tuberosities. Normal visualized right femoral head. Normal right acetabulum. There is moderate articular joint space narrowing of the right hip. Normal visualized left femoral head. Normal left acetabulum. There is moderate articular joint space narrowing of the left hip. RAD/Pelvis 1 or 2 Views IMPRESSION: Degenerative changes. No fracture seen. Electronically Signed: Mike Matta MD at 13:23 EST ,
[2021-08-16] MEDS: Acetaminophen 325 MG Tablet 650 MG PO ×2 (12:43→18:21)
--- NOTE | 2021-08-16 13:58 | ED.VIS.FALL ---
HPI HPI - Fall History of Present Illness Chief Complaint: Fall Informant: patient and spouse/S.O. Narrative Narrative: Patient is a 75-year-old female with history of dementia and hypertension presenting for pain after fall. Patient slipped and fell in the mud yesterday. She landed on her right side. Not clear if she hit her head. Today she has been having difficulty getting up and down and complaining of pain in her right shoulder, her back and her neck. She had to Naprosyn prior to arrival. Patient was at home with her . No other complaints at this time. She is not on any anticoagulation. [facility] Medical History (Updated 08/16/21 @ 15:[address] 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 History of sigmoidoscopy IBS (irritable bowel syndrome) Mixed hyperlipidemia Osteoarthritis Peritonitis SK (seborrheic keratosis) Spastic bladder Syncope and collapse Home Medications lisinopril 5 mg PO DAILY 03/02/16 [History Last Taken 02/11/18] acetaminophen 325 mg capsule 325 mg PO ONCE PRN 12/24/19 [History Last Taken Unknown] escitalopram oxalate 10 mg PO DAILY 08/16/21 [History Last Taken Unknown] Allergy/AdvReac Type Severity Reaction Status Date / Time aspirin [From Percodan] Allergy Unknown Verified 08/16/21 11:40 oxycodone HCl [From Percodan] Allergy Unknown Verified 08/16/21 11:40 oxycodone terephthalate Allergy Unknown Verified 08/16/21 11:40 [From Percodan] Family History Father Skin cancer Sister Breast cancer Thyroid disorder Alzheimers disease Aunt Breast cancer Grandmother Breast cancer Sister Schizophrenia Social History Smoking Status: Former smoker quit date: 03/10/12 Tobacco: How many years used: 40 how long ago did patient quit smokin alcohol intake: current alcohol intake frequency: 3 or more drinks per day Alcohol type: wine and hard liquor substance use type: does not use ROS ROS ED Constitutional Constitutional ED: Denies chills or fever(s) Eyes Eyes: Denies change in vision Cardiovascular Cardiovascular: Denies chest pain or palpitations Respiratory/Chest Respiratory/Chest: Denies dyspnea Gastrointestinal Gastrointestinal: Denies abdominal pain, diarrhea or vomiting Musculoskeletal Musculoskeletal: Reports arthralgias, back pain and neck pain Integumentary Denies rash Neurologic Neurologic: Denies headache(s), paresthesias or weakness EXAM Physical Exam Const Vital Signs: 08/16/21 11:31 08/16/21 11:36 08/16/21 14:04 Temperature 97.3 F L Temperature Source Temporal Pulse Rate 71 64 Respiratory Rate 18 18 Respiratory Effort Normal Non-Labored Respiratory Depth Normal Respiratory Pattern Normal Blood Pressure 156/71 H 170/92 H Blood Pressure Mean 99 118 Pulse Ox 98 98 Oxygen Delivery Method Room Air Room Air Room Air 08/16/21 14:43 Temperature 98.4 F Temperature Source Oral Pulse Rate 75 Respiratory Rate 18 Respiratory Effort Respiratory Depth Respiratory Pattern Blood Pressure 218/93 H Blood Pressure Mean 134 Pulse Ox 99 Oxygen Delivery Method Room Air Positive well nourished and well developed General Appearance ED: well developed HEENT Reports normocephalic atraumatic Eyes PERRL and EOMs intact bilaterally Neck full ROM and supple General: Negative for tenderness Chest Wall inspection of chest normal Resp normal respiratory effort and clear to auscultation bilaterally Cardio regular rate, regular rhythm and no murmurs GI non-tender and non-distended Palpation: soft Back/Spine no CVA tenderness Back/Spine Narrative: Difficulty evaluates the back secondary to patient's cooperation and discomfort however she does seem to have pain around the thoracolumbar junction Extremity normal to inspection Extremity Narrative: Decreased range of motion of the right shoulder secondary to pain. No obvious deformity. Pelvis is stable. Mild tenderness of the right hip region with range of motion however at other times patient is able to actively roll up into a ball without any difficulty. MDM MDM MDM Narrative Medical decision making narrative: Patient evaluated for difficulty ambulating in her house and getting up and down. She had a fall yesterday. Additional physical exam is difficult secondary to patient's decreased mobility and her dementia. She does seem to have tenderness over her right shoulder and in her back. CT looking for traumatic process shows concerns for L1 compression fracture. There is a questionable early infiltrate of the right upper lobe however patient does not have a leukocytosis, cough, hypoxia or other signs consistent with pneumonia. Will defer treatment at this time. Patient is not able to get out of the bed in the ER and is quite demented. is agreeable with admission for pain control and evaluation for PT/OT. Patient is given Tylenol in the ER she is only having minimal pain when she is laying still. She is hypertensive in the ER and does have a history of hypertension. She not have her lisinopril today. She is given 1 dose of labetalol. Lab Data Attestation: I reviewed the patient's lab results. Radiography Diagnostic Testing: Clinical Impression(s) from Imaging Studies Chest CT 08/16/21 12:28 IMPRESSION: Questionable early infiltrate in the right upper lobe. Electronically Signed: Mike Matta MD at 13:48 EST , Lumbar Spine CT 08/16/21 12:28 IMPRESSION: Multilevel degenerative changes, as described above. Loss of height of the superior endplate of the L1 vertebra suggestive of possible compression. Electronically Signed: Mike Matta MD at 13:41 EST , Shoulder X-Ray 08/16/21 12:28 IMPRESSION: Degenerative changes. Electronically Signed: Mike Matta MD at 13:21 EST , Thoracic Spine CT 08/16/21 12:28 IMPRESSION: Multilevel degenerative disc disease. No fracture is seen. Electronically Signed: Mike Matta MD at 13:51 EST , Brain CT 08/16/21 12:29 IMPRESSION: Chronic involutional changes of the brain. Electronically Signed: Mike Matta MD at 13:55 EST , Cervical Spine CT 08/16/21 12:29 IMPRESSION: Multilevel degenerative changes, as described above. Electronically Signed: Mike Matta MD at 13:37 EST , Pelvis X-Ray 08/16/21 12:29 IMPRESSION: Degenerative changes. No fracture seen. Electronically Signed: Mike Matta MD at 13:23 EST , Discharge Plan Triage Chief Complaint: Fall ED Provider: Sera Flowers Dx/Rx/DC Orders Clinical Impression: Accident due to mechanical fall without injury, Debility, Closed compression fracture of L1 vertebra Primary Care Provider: Woody Monzon Disposition Disposition: Acute Care Hospital [facility]
--- NOTE | 2021-08-16 15:00 | HP.PCM.HOS_ITS ---
HPI - General HPI Narrative TORSTEN QUACH, is a 75 F with an extensive PMh as outlined who presents via the ED on 08/17/2019 with a complaint of debility and back pain. According to patient on aspirin, patient slipped and fell and landed on her back while was walking outside her house yesterday. Has been is not sure if she hit her head. She was able to get up yesterday but started having back pain. Back pain persisted until today when it became very severe. She was unable to ambulate and also complained of pain in her right shoulder and neck. Has an therefore brought her into the ED due to concerns about her intractable pain. She denied any fever, chills, nausea vomiting, urinary or fecal incontinence or any paresthesia or w eakness in her lower extremities. Review of systems was otherwise negative. Vitals in the ED were blood pressure of 223/90 with pulse rate of 78 and respiratory rate of 16 as well as temperature of 98.4 Fahrenheit. She was saturating at 99% on room air. She did not have any labs done in the ED. CT of the chest showed questionable early infiltrate in the right upper lobe. Lumbar spine CT showed loss of height in the superior endplate of the L1 vertebra suggestive of possible compression fracture and multilevel degenerative changes. CT of the thoracic spine and cervical spine show multilevel degenerative disc disease with no fracture seen. Right Shoulder x-ray showed degenerative ya ges and no fracture pelvis x-ray also showed degenerative changes and no fracture seen. She has been admitted to be managed for debility due to mechanical fall as well as compression fracture of L1 [facility] Medical History (Updated 08/16/21 @ 15:[address] 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 History of sigmoidoscopy IBS (irritable bowel syndrome) Mixed hyperlipidemia Osteoarthritis Peritonitis SK (seborrheic keratosis) Spastic bladder Syncope and collapse Home Medications lisinopril 5 mg PO DAILY 03/02/16 [History Last Taken 02/11/18] acetaminophen 325 mg capsule 325 mg PO ONCE PRN 12/24/19 [History Last Taken Unknown] escitalopram oxalate 10 mg PO DAILY 08/16/21 [History Last Taken Unknown] Allergy/AdvReac Type Severity Reaction Status Date / Time aspirin [From Percodan] Allergy Unknown Verified 08/16/21 11:40 oxycodone HCl [From Percodan] Allergy Unknown Verified 08/16/21 11:40 oxycodone terephthalate Allergy Unknown Verified 08/16/21 11:40 [From Percodan] Family History Father Skin cancer Sister Breast cancer Thyroid disorder Alzheimers disease Aunt Breast cancer Grandmother Breast cancer Sister Schizophrenia Social History Smoking Status: Former smoker quit date: 03/10/12 Tobacco: How many years used: 40 how long ago did patient quit smokin alcohol intake: current alcohol intake frequency: 3 or more drinks per day Alcohol type: wine and hard liquor substance use type: does not use ROS Constitutional Constitutional: Reports weakness; Denies anorexia, chills, fatigue, fever(s) or malaise Eyes Eyes: Denies change in vision ENT HEENT: Denies dysphagia, headache(s), nasal congestion or nasal discharge Cardiovascular Cardiovascular: Denies chest pain, dyspnea on exertion, edema, lightheadedness, orthopnea, palpitations, paroxysmal nocturnal dyspnea or rapid heart rate Respiratory/Chest Respiratory/Chest: Denies cough, dyspnea, productive cough, shortness of breath at rest or shortness of breath with exertion Gastrointestinal Gastrointestinal: Denies abdominal pain, coffee ground emesis, constipation, diarrhea, nausea or vomiting Genitourinary Genitourinary: Denies burning urination, dysuria or urinary frequency Musculoskeletal Musculoskeletal: Reports back pain and myalgias; Denies arthralgias, joint pain, joint stiffness, joint swelling or neck pain Neurologic Neurologic: Denies abnormal gait, confusion, dizziness, focal weakness, headache(s), numbness, paresthesias, seizure-like activity, seizures, syncope or tremor(s) Psychiatric Psychiatric: Denies anxiety Endocrine Endocrinology: Denies change in body appearance Hematologic/Lymphatic Hematologic/Lymphatic: Denies anemia Vital Signs Vital Signs Vital Signs: 08/16/21 11:31 08/16/21 11:36 08/16/21 14:04 Temperature 97.3 F L Temperature Source Temporal Pulse Rate 71 64 Respiratory Rate 18 18 Respiratory Effort Normal Non-Labored Respiratory Depth Normal Respiratory Pattern Normal Blood Pressure 156/71 H 170/92 H Blood Pressure Mean 99 118 Pulse Ox 98 98 Oxygen Delivery Method Room Air Room Air Room Air 08/16/21 14:43 08/16/21 14:57 Temperature 98.4 F 98.4 F Temperature Source Oral Oral Pulse Rate 75 78 Respiratory Rate 18 16 Respiratory Effort Respiratory Depth Respiratory Pattern Blood Pressure 218/93 H 223/90 H Blood Pressure Mean 134 134 Pulse Ox 99 99 Oxygen Delivery Method Room Air Room Air Weight Weight: 126 lb 5.198 oz Body Mass Index (BMI) 22.4 Physical Exam Const alert, oriented x3 and no apparent distress General Appearance: cooperative HEENT normocephalic, head/scalp atraumatic and hearing grossly normal bilaterally HEENT Narrative: dry oral mucosa Eyes PERRL, EOMs intact bilaterally and conjunctivae normal Neck no lymphadenopathy, supple and no JVD Resp normal respiratory effort, no retractions, no use of accessory muscles and clear to auscultation bilaterally Cardio regular rate, regular rhythm, S1 normal heart sound, S2 normal heart sound and no murmurs GI normal to inspection, nondistended, normoactive bowel sounds Extremity normal to inspection and full ROM Extremity Narrative: has mild right paraspinal tenderness in lower back Peripheral Pulses: Yes pulses 2+ throughout Skin no rashes or lesions noted Neuro oriented x3, CN's II-XII intact bilaterally and moves all extremities Sensorium / Orientation: awake and alert Psych Psych Narrative: flat affect Results Lab / Micro Data Result Diagrams: 08/16/21 15:00 08/16/21 15:[address] 08/16/21 12:28 IMPRESSION: Questionable early infiltrate in the right upper lobe. Electronically Signed: Mike Matta MD at 13:48 EST , Lumbar Spine CT 08/16/21 12:28 IMPRESSION: Multilevel degenerative changes, as described above. Loss of height of the superior endplate of the L1 vertebra suggestive of possible compression. Electronically Signed: Mike Matta MD at 13:41 EST , Shoulder X-Ray 08/16/21 12:28 IMPRESSION: Degenerative changes. Electronically Signed: Mike Matta MD at 13:21 EST Reading Location ID and State: [facility] / [place] , Service support , Thoracic Spine CT 08/16/21 12:28 IMPRESSION: Multilevel degenerative disc disease. No fracture is seen. Electronically Signed: Mike Matta MD at 13:51 EST , Brain CT 08/16/21 12:29 IMPRESSION: Chronic involutional changes of the brain. Electronically Signed: Mike Matta MD at 13:55 EST , Cervical Spine CT 08/16/21 12:29 IMPRESSION: Multilevel degenerative changes, as described above. Electronically Signed: Mike Matta MD at 13:37 EST , Pelvis X-Ray 08/16/21 12:29 IMPRESSION: Degenerative changes. No fracture seen. Electronically Signed: Mike Matta MD at 13:23 EST , Assessment & Plan Assessment/Plan (1) Debility: (2) Accident due to mechanical fall without injury: PLAN: #Debility due to mechanical fall and probable L1 compression fra cture * admit to med surg * PT/OT consult * had [facility] imaging done which was only significant for L1 compression fracture * PO tylenol, PO oxycodone and IV morphine prn for pain * fall precautions * #Hypertensive urgency * BP was 223/90 * she takes lisinopril at home, but patient's says he hadnt given it to her yet today * IV hydralazine 10mg every 6 hours as needed for BP >160/110 * resume lisinopril * give PO clonidine 0.2mg x 1 * #Depression; on escitalopram #Alzheimer's dementia: * patient not on any meds now. * ALert and able to communicate and answer questions. * Follow up with PCP on outpatient basis. * DVT prophylaxis: lovenox Code status: full code * Patient and counseled extensively about different types of CODE STATUS including full code, DNR CCA and DNR CCA. Patient elects to be full code. * Total [id number] time 16 minutes. Charges/Coding Visit Charges OBSV E&M: 38761 Initial observation care L2 Procedures Hospitalists Procedures: 59088 Advncd Care Plan 30 Min
--- NOTE | 2021-08-16 15:02 | NURSING ---
MED SURG KORAM LUMBAR COMPRESSION FX
[2021-08-16 15:11] LABS: Absolute Lymphocyte Count 1.19 X10^3/uL (0.83-4.51); Absolute Neutrophil Count 4.3 X10^3/uL (2.0-7.7); Basophil# 0.02 X10^3/uL; Basophil% 0.3 % (0-1); Eosinophil# 0.08 X10^3/uL; Eosinophils% 1.3 % (0-5); Hematocrit 37.7 % (37-47); Hemoglobin 12.6 g/dL (12.0-15.0); Lymphocyte # 1.19 X10^3/ul (0.83-4.51); Lymphocyte % 19.5 % (19-41); Mean Corp Hgb Conc 33.4 g/dL (32-36); Mean Corpuscular Hgb 31.3 pg (27.0-32.0); Mean Corpuscular Volume 93.5 fL (81-99); Mean Platelet Vol. 9.8 fl (6.2-12.0); Monocyte# 0.48 X10^3/uL; Monocyte% 7.9 % (0-10); NRBC Flagged by Analyzer 0 % (0-5); Neutrophil # 4.31 X10^3/uL (2.7-7.7); Neutrophil % 70.8 % (47-70); Platelet Count 291 K/mm3 (150-450); RBC Distribution Width CV 14.4 % (11.6-14.6); RBC Distribution Width SD 49.6 fl (35.1-43.9); Red Blood Count 4.03 M/mm3 (4.2-5.4); White Blood Count 6.1 K/mm3 (4.4-11.0)
[2021-08-16] MEDS: Labetalol (Prefilled) 20 MG/4 ML 10 MG IV (15:17)
[2021-08-16 15:28] LABS: Anion Gap 4 (5-15); BUN 10 mg/dL (7-18); Calcium,Total 9.8 mg/dL (8.5-10.1); Chloride 106 mmol/L (98-107); Creatinine, Serum 0.63 mg/dL (0.55-1.02); EST Glomerular Filtration Rate 99 mL/min (>60); Est Glom Filt Rate - Afr Amer 119 mL/min (>60); Estimated Creatinine Clearance 40.83 ml/min; Glucose 110 mg/dL (74-106); Sodium Level 139 mmol/L (136-145)
[2021-08-16] MEDS: cloNIDine HCl 0.2 MG Tablet PO ×2 (16:57→18:20)
--- NOTE | 2021-08-16 17:28 | ECHOD_ITS ---
Reason For Study: HYPERTENSION Procedure This was a 2D Doppler, Color Flow transthoracic echocardiogram. Exam performed portable in patient room. Left Ventricle Normal left ventricle. The estimated ejection fraction is 55-60 %. Right Ventricle Normal right ventricle. Normal systolic function. Atria Normal left atrium. Normal right atrium. Mitral Valve The mitral valve is structurally normal. No prolapse or stenosis seen. No mitral valve insufficiency. Tricuspid Valve Normal tricuspid valve. No tricuspid valve insufficiency. Aortic Valve Mild diffuse aortic valve thickening. No aortic valve insufficiency. Pulmonic Valve The pulmonic valve is not well visualized. Great Vessels Normal aortic root. Pericardium/Pleural No pericardial effusion. MMode/2D Measurements & Calculations LVIDd: 4.5 cm IVSd: 1.1 cm Ao root diam: 3.8 cm LVIDs: 3.2 cm LVPWd: 1.1 cm RVDd: 3.2 cm FS: 28.7 % LAV(MOD-bp): 67.4 ml LVAd ap4: 33.9 cm2 LVAd ap2: 28.3 cm2 LAV(MOD-bp) Indexed: 41.1 ml/m2 LVLd ap4: 8.4 cm LVLd ap2: 8.4 cm LAV(MOD-sp2): 65.3 ml EDV(MOD-sp4): 115.6 ml EDV(MOD-sp2): 84.0 ml LAV(MOD-sp4): 65.4 ml EDV(sp4-el): 116.1 ml EDV(sp2-el): 80.6 ml LVAs ap4: 17.7 cm2 LVAs ap2: 14.3 cm2 LVLs ap4: 6.6 cm LVLs ap2: 6.7 cm ESV(MOD-sp4): 42.8 ml ESV(MOD-sp2): 29.6 ml ESV(sp4-el): 40.2 ml ESV(sp2-el): 25.8 ml EF(MOD-sp4): 63.0 % EF(MOD-sp2): 64.8 % EF(sp4-el): 65.4 % SV(MOD-sp4): 72.8 ml SV(MOD-sp2): 54.4 ml SV(sp4-el): 75.9 ml LA dimension(2D): 3.2 cm LA A4 area: 21.4 cm2 RA A4 area: 16.7 cm2 Time Measurements MV dec time: 0.23 sec Doppler Measurements & Calculations MV E max darian: 53.9 cm/sec Lat Peak E' Darian: 8.9 cm/sec Med Peak E' Darian: 6.9 cm/sec MV A max darian: 91.1 cm/sec E/E' lat: 6.1 E/E' med: 7.8 MV E/A: 0.59 Ao V2 max: 105.6 cm/sec LV V1 max: 85.5 cm/sec PA V2 max: 68.6 cm/sec Ao max P.5 mmHg LV V1 max P.9 mmHg ECHO/Echo Complete Interpretation Summary The estimated ejection fraction is 55-60 %. Normal LV systolic function No significant changes from prior cho 01/2018 Ordering Physician: Apurva Nova Referring Physician: Ehsan Monzon Performed By: Micki Cox, SAMINA, RVT
[2021-08-16] MEDS: 0.9% Normal Saline 1,000 ML 75 ML IV (18:20)
[2021-08-16] MEDS: Lisinopril 5 MG Tablet PO (18:21)
[2021-08-17 02:43] VITALS: BP 125/65; PULSE 52; RESP 18; TEMP 36.8; O2SAT 98
[2021-08-17 06:13] LABS: Absolute Lymphocyte Count 1.11 X10^3/uL (0.83-4.51); Absolute Neutrophil Count 2.4 X10^3/uL (2.0-7.7); Basophil# 0.02 X10^3/uL; Basophil% 0.5 % (0-1); Eosinophil# 0.17 X10^3/uL; Eosinophils% 4.1 % (0-5); Hematocrit 31.1 % (37-47); Lymphocyte # 1.11 X10^3/ul (0.83-4.51); Lymphocyte % 26.5 % (19-41); Mean Corp Hgb Conc 32.2 g/dL (32-36); Mean Corpuscular Hgb 30.3 pg (27.0-32.0); Mean Corpuscular Volume 94.2 fL (81-99); Mean Platelet Vol. 9.9 fl (6.2-12.0); Monocyte# 0.49 X10^3/uL; Monocyte% 11.7 % (0-10); NRBC Flagged by Analyzer 0 % (0-5); Neutrophil # 2.39 X10^3/uL (2.7-7.7); Platelet Count 236 K/mm3 (150-450); RBC Distribution Width CV 14.8 % (11.6-14.6); RBC Distribution Width SD 51.5 fl (35.1-43.9); White Blood Count 4.2 K/mm3 (4.4-11.0)
[2021-08-17] MEDS: Acetaminophen 325 MG Tablet 650 MG PO ×2 (06:14→14:46)
[2021-08-17 06:43] LABS: Anion Gap 6 (5-15); BUN 12 mg/dL (7-18); Calcium,Total 8.8 mg/dL (8.5-10.1); Chloride 107 mmol/L (98-107); Creatinine, Serum 0.75 mg/dL (0.55-1.02); EST Glomerular Filtration Rate 80 mL/min (>60); Est Glom Filt Rate - Afr Amer 97 mL/min (>60); Estimated Creatinine Clearance 40.83 ml/min; Glucose 116 mg/dL (74-106); Potassium 3.8 mmol/L (3.5-5.1); Sodium Level 137 mmol/L (136-145)
[2021-08-17 08:43] VITALS: BP 117/60; PULSE 67; RESP 16; TEMP 36.8; O2SAT 95
[2021-08-17] MEDS: oxyCODONE 5 MG Tablet PO ×2 (08:57→14:45)
[2021-08-17] MEDS: Enoxaparin 40 MG/0.4 ML Syringe SC (09:59)
[2021-08-17] MEDS: Lisinopril 5 MG Tablet PO (09:59)
[2021-08-17] MEDS: Escitalopram Oxalate 10 MG Tablet PO (09:59)
[2021-08-17] MEDS: Lidocaine 5% Patch 1 PATCH TOPICAL (10:44)
--- NOTE | 2021-08-17 10:53 | CASEMGMT ---
XAVI MILES in to pt room to perform assessment. Pt was A&O x3 but did ask this RN CM to call her to complete assessment as he handles everything. XAVI MILES Assessment: TC to pt Noel, assessment completed. TC to for initial transition planning/care coordination assessment. RN CM introduced self and role at [facility], pt voices understanding and consents to assessment. Care providers, pharmacy, and demographics verified/updated. Admitting Dx: debility d/t mechanical fall PCP: Na Specialists: Pt denies. Preferred Pharmacy: [facility] for this hospital stay. Insurance: [facility], [place] Prescription Benefit: no LW/HPOA: Pt reports pt has a LW/DPOA and her DPOA is him, Noel De Guzman. LNOK: Noel De Guzman, Living Arrangements: Pt lives with in a 3 story house with 15 steps to enter with a rail. He reports that they have a spiral staircase that pt has to use from the main level to the upstairs. He states there is a bathroom on the main level but not a bedroom. States pt has not been having any issue with these steps until this fall. Pt is I in ADL's. She cooks and does the dishes. Pt does cleaning and laundry. Transportation: Pt transports pt to medical appts. Pt does not drive. DME/HHC/SNF: Pt has a FWW but does not use. Pt has no hx of HHC or SNF stays. Pt states no concerns with going home at time of dc as long as pt can trf self to go to the bathroom. Discussed HHC to evaluate pt and to make recommendations in the home. He is reluctant to this. Made aware that at least PT could do a safety assessment in the home. He states he will be in in the next 30 minutes to visit pt. XAVI MILES will discuss again at that time. He states pt did have palliative care services but he has cancelled as he states it did not help. He states pt does not smoke, quit 12 years ago. States pt does drink a couple of drinks per day but states this will stop. He did not feel this fall was related to alcohol consumption and states it was an isolated event. Pt states no further concerns/needs. CM to follow. Advised pt to ask CM if any further question/concerns/needs arise, voices understanding. Pt Goal: To go home. Pt goal is the same as well. Plan: Home, will discuss HHC.
--- NOTE | 2021-08-17 12:36 | CASEMGMT ---
XAVI MILES in to discuss LOBO form with patient/ . XAVI MILES explained LOBO form, patient/ voiced understanding. Pt signed form and filed in chart. Pt/ provided with a copy of signed LOBO form. Pt stated pt is in pain. Notified pt nurse regarding this. Pt states he does not know if pt now can come home. Noted pt very painful with therapy this date. Patient was provided a list of HHC/SNF providers including quality and resource use data and consistent with the patient?s preferred geographic region, medical needs, and insurance network. Pt and will see how pt does with therapy then decide on dc plan. Patient/ had no further questions or concerns at this time.
[2021-08-17 13:58] VITALS: BP 132/68; PULSE 66; RESP 18; TEMP 36.9; O2SAT 97
--- NOTE | 2021-08-17 14:39 | PCM.PN.HOSP ---
Subjective Subjective Patient states she is currently having good pain control, however any movement increases her pain. She seems somewhat skeptical of how she will do with therapy. She has no recollection of falling or how she got to the hospital. She is oriented to self and location. She is unable to come up with the month and tells me it is 2020 in the Dominic Brown is the president of the [facility]. Objective Data Objective Data Vital Signs: Vital Signs Temp Pulse Resp BP Pulse Ox 98.4 F 66 18 132/68 H 97 08/17/21 13:58 08/17/21 13:58 08/17/21 13:58 08/17/21 13:58 08/17/21 13:58 Oxygen Delivery Method Room Air Weight: 61.8 kg Body Mass Index (BMI) 24.1 Intake & Output: Intake and Output for Last 24 Hours 08/15/21 08/16/21 08/17/21 23:59 23:59 23:59 Intake Total 1088.75 / 1088.75 Output Total 300 / 300 Balance 788.75 / 788.75 Lab / Micro Data Result Diagrams: 08/17/21 05:00 08/17/21 05:00 Labs: Laboratory Results - last 24 hr 08/16/21 15:00: WBC 6.1, RBC 4.03 L, Hgb 12.6, Hct 37.7, MCV 93.5, MCH 31.3, MCHC 33.4, RDW Std Deviation 49.6 H, RDW Coeff of Marii 14.4, Plt Count 291, MPV 9.8, Immature Gran % (Auto) 0.200, Neut % (Auto) 70.8 H, Lymph % (Auto) 19.5, [place] % (Auto) 7.9, Eos % (Auto) 1.3, Baso % (Auto) 0.3, Absolute Neuts (auto) 4.3, Absolute Lymphs (auto) 1.19, Nucleated RBC % 0 08/16/21 15:00: Sodium 139, Potassium 4.0, Chloride 106, Carbon Dioxide 29.0, Anion Gap 4 L, BUN 10, Creatinine 0.63, Estim Creat Clear Calc 40.83, Est GFR (MDRD) Af Amer 119, Est GFR (MDRD) Non-Af 99, BUN/Creatinine Ratio 16.0, Glucose 110 H, Calcium 9.8 08/17/21 05:00: WBC 4.2 L, RBC 3.30 L, Hgb 10.0 L, Hct 31.1 L, MCV 94.2, MCH 30.3, MCHC 32.2, RDW Std Deviation 51.5 H, RDW Coeff of Marii 14.8 H, Plt Count 236, MPV 9.9, Immature Gran % (Auto) 0.200, Neut % (Auto) 57.0, Lymph % (Auto) 26.5, [place] % (Auto) 11.7 H, Eos % (Auto) 4.1, Baso % (Auto) 0.5, Absolute Neuts (auto) 2.4, Absolute Lymphs (auto) 1.11, Nucleated RBC % 0 08/17/21 05:00: Sodium 137, Potassium 3.8, Chloride 107, Carbon Dioxide 24.0, Anion Gap 6, BUN 12, Creatinine 0.75, Estim Creat Clear Calc 40.83, Est GFR (MDRD) Af Amer 97, Est GFR (MDRD) Non-Af 80, BUN/Creatinine Ratio 16.0, Glucose 116 H, Calcium 8.8 Physical Exam Const alert Constitutional Narrative: Elderly white female sitting up in bed eating breakfast, oriented to self and location, appears comfortable and nontoxic at this time Exam Limitations: other limitations HEENT head/scalp atraumatic, moist oral mucous membranes and oropharynx normal Head and Scalp: normocephalic Resp normal respiratory effort, no retractions, no use of accessory muscles and clear to auscultation bilaterally Cardio regular rate, regular rhythm, S1 normal heart sound, S2 normal heart sound, no murmurs, no rub, no gallops, no clicks and no JVD GI normal to inspection, nondistended, normoactive bowel sounds, soft to palpation, non-tender and non-distended Extremity no clubbing, cyanosis or edema Peripheral Pulses: Yes pulses 2+ throughout Neuro CN's II-XII intact bilaterally, moves all extremities and no focal motor deficits Neuro Narrative: Generalized weakness noted proximal greater than distal however exam was limited by pain Sensorium / Orientation: awake and alert Speech: speech normal Assessment & Plan Assessment/Plan (1) Closed compression fracture of L1 vertebra: (2) Accident due to mechanical fall without injury: (3) Debility: PLAN: L1 compression fracture secondary to mechanical fall -PT and OT consulted -Vitamin D level -Continue pain medications as ordered -We will trial lidocaine patch and gabapentin as well as patient has been limited by pain with movement -Suspect patient will need placement at discharge -May need to consider consultation to pain management (Basali) Hypertensive urgency -Home regimen was reinitiated -Pressures are overall improved -Suspect that some of the acute elevations may have been related to pain as well -Echocardiogram is pending -As needed hydralazine available if needed Debility -Therapy consultations as above -Fall precautions Depression -Continue Lexapro Alzheimer's type dementia -Patient is any medications at baseline -Question of history of alcoholism has contributed to her dementia as well -Patient is alert and oriented to self and location however is confused with time -Restart home Seroquel DVT prophylaxis -Continue Lovenox CODE STATUS -Full code Charges/Coding Visit Charges Inpatient E&M: 59175 Subs Hosp L2
--- NOTE | 2021-08-17 15:15 | CASEMGMT ---
Social Work Note ALICE updated that pt's is requesting TCU. ALICE placed a call to Kathe with TCU, no beds available. SW in to speak with pt and pt's Noel. ALICE spoke with Noel about SNF and explained that TCU has no beds available. ALICE explained pt will need to go to SNF in the community. Noel states next choice for SNF is [facility]. Noel states pt is vaccinated for COVID but has not had the Booster. Noel states that pt has never been in counseling and denied any psych history. ALICE placed a call to Mallory at [facility] and provided referral. Mallory states she will review referral. 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
--- NOTE | 2021-08-17 15:23 | CHAPLAIN ---
Type of Pastoral Visit _x__ Initial Visit ___ Follow-up Visit ___ On-call Visit ___ General Patient Visit ___ Spiritual Assessment ___ Family Conference ___ Bereavement ___ Rapid Response ___ Code Blue ___ Other (describe below) Pastoral Care Referral From _x__ Patient xFamily ___ Nurse ___ Physician ___ Soap Tender ___ Founder And Ceo ___ Other (describe below) Sacrament/Intervention _x__ Active listening ___ Anointing ___ Mormon ___ Bereavement ___ Communion ___ Carmen exploration ___ ___ Life review _x__ Prayer ___ Reconciliation ___ Sacrament of Sick _x_ Supportive presence ___ Wedding ___ Other (describe below) Pastoral Comments patient is hard of hearing but good attempts for conversation; pt does repeat herself during visit; pt had some pain and meds were administered during visit so left patient so she could sleep; spouse of patient is at bedside and is also offered support; pt did welcome visit and a prayer saying I've never had a academic dean visit me in any of the hospitals I have been
[2021-08-17 16:21] LABS: Vitamin D,25 Hydroxy 15.2 ng/mL
[2021-08-17] MEDS: Gabapentin 100 MG Capsule 200 MG PO (18:12)
[2021-08-17 19:58] VITALS: BP 133/74; PULSE 72; RESP 17; TEMP 36.9; O2SAT 97
[2021-08-17] MEDS: QUEtiapine 25 MG Tablet PO (19:59)
[2021-08-18 01:52] VITALS: BP 154/72; PULSE 69; RESP 15; TEMP 36; O2SAT 96
[2021-08-18 06:23] LABS: Absolute Lymphocyte Count 1.11 X10^3/uL (0.83-4.51); Basophil# 0.03 X10^3/uL; Basophil% 0.8 % (0-1); Eosinophil# 0.18 X10^3/uL; Eosinophils% 4.7 % (0-5); Hemoglobin 10.7 g/dL (12.0-15.0); Lymphocyte # 1.11 X10^3/ul (0.83-4.51); Lymphocyte % 28.8 % (19-41); Mean Corp Hgb Conc 33.4 g/dL (32-36); Mean Corpuscular Hgb 31.3 pg (27.0-32.0); Mean Corpuscular Volume 93.6 fL (81-99); Mean Platelet Vol. 9.9 fl (6.2-12.0); Monocyte# 0.54 X10^3/uL; NRBC Flagged by Analyzer 0 % (0-5); Neutrophil # 1.98 X10^3/uL (2.7-7.7); Neutrophil % 51.4 % (47-70); Platelet Count 240 K/mm3 (150-450); RBC Distribution Width CV 14.7 % (11.6-14.6); RBC Distribution Width SD 51.4 fl (35.1-43.9); Red Blood Count 3.42 M/mm3 (4.2-5.4); White Blood Count 3.9 K/mm3 (4.4-11.0)
[2021-08-18 08:00] VITALS: BP 168/77; PULSE 65; RESP 16; TEMP 37.4; O2SAT 95
[2021-08-18] MEDS: Lidocaine 5% Patch 1 PATCH TOPICAL (08:19)
[2021-08-18] MEDS: Enoxaparin 40 MG/0.4 ML Syringe SC (08:20)
[2021-08-18] MEDS: QUEtiapine 25 MG Tablet PO (08:20)
[2021-08-18] MEDS: Escitalopram Oxalate 10 MG Tablet PO (08:21)
[2021-08-18] MEDS: Lisinopril 5 MG Tablet PO (08:21)
[2021-08-18] MEDS: Gabapentin 100 MG Capsule 200 MG PO ×2 (08:21→11:23)
--- NOTE | 2021-08-18 10:04 | CASEMGMT ---
Addendum entered by Reyna Diaz 08/18/21 10:48: SW attempted to call pt's to update, no answer, SW left message for Noel to call this worker back. Original Note: Social Work Note SW received call from Mallory at [facility] stating they can accept pt today. Plan: [facility] skilled Reyna DON, MANAGER MOTOR
[2021-08-18] MEDS: Ergocalciferol 1.25 MG (50, 000 UNIT) Capsule PO (11:21)
--- NOTE | 2021-08-18 11:51 | PCM.TXEXTCAR ---
Diet 08/16/21 17:28 Diet: Cardiac - Heart Healthy Food consistency:: Regular Liquid Consistency:: Regular/Thin Routine Orders/Code Status Suppository Frequency: Daily PRN O2 Frequency: PRN Keep PO Greater than or Equal to (%): 92 Routine Lab Work: CBC and BMP Code Status: Full Code Suggestions for Active Care Change Position every (hours): 2 Therapies Weight Bearing: Full weight bearing Physical Therapy: Eval and Treat Occupational Therapy: Eval and Treat Problem/Diagnosis (1) Closed compression fracture of L1 vertebra: Status: Acute (2) Accident due to mechanical fall without injury: Status: Acute (3) Debility: Status: Acute Allergies/Procedures Done in Hospital Allergies aspirin [From Percodan] Allergy (Verified 08/16/21 11:40) Unknown oxycodone HCl [From Percodan] Allergy (Verified 08/16/21 11:40) Unknown oxycodone terephthalate [From Percodan] Allergy (Verified 08/16/21 11:40) Unknown Procedures: None Type of Care/Length of Stay Estimated LOS: Convalescent Care Less Than 30 days Type of Care Needed: Skilled Rehab Potential: Good Prognosis: Good Additional Orders/Day of Discharge Day of Discharge: 08/18/21 Discharge Plan Admission Admit Date/Time: 08/16/21 14:44 Attending Provider: Cassie Castanon Primary Care Provider: Woody Monzon Discharge Orders/Prescriptions Prescriptions: No Action acetaminophen [Tylenol] 325 mg capsule 325 mg PO TID PRN PRN (Reason: pain/fever) RF: 0 lisinopril 10 MG tablet 5 mg PO DAILY RF: 0 Seroquel 25 mg PO/SL BID RF: 0
--- NOTE | 2021-08-18 11:52 | DS.PCM_ITS ---
Providers Date of Admission: 08/16/21 Date of Discharge: 08/18/21 Primary Care Physician: Dr. Woody Monzon MD Reason For Visit: DEBILITYY DUE TO MECHANICAL FALL Diagnosis Discharge Diagnosis (1) Closed compression fracture of L1 vertebra: Status: Acute Code(s): S32.010A - Wedge compression fracture of first lumbar vertebra, initial encou nter for closed fracture (2) Accident due to mechanical fall without injury: Status: Acute Code(s): W19.XXXA - Unspecified fall, initial encounter (3) Debility: Status: Acute Code(s): R53.81 - Other malaise Medications at Discharge Home Medications lisinopril 5 mg PO DAILY 03/02/16 acetaminophen 325 mg capsule 325 mg PO TID PRN PRN 12/24/19 Seroquel 25 mg PO/SL BID 08/16/21 acetaminophen [Tylenol] 650 mg PO Q6H PRN PRN #0 tab 08/18/21 enoxaparin 40 mg SUBCUT DAILY #0 ml 08/18/21 ergocalciferol (vitamin D2) [Vitamin D2] 1.25 mg PO Q7D #0 cap 08/18/21 escitalopram oxalate 10 mg PO DAILY #0 tab 08/18/21 gabapentin 200 mg PO TIDCM #0 cap 08/18/21 lidocaine 1 patch TOPICAL DAILY #0 ea 08/18/21 oxycodone 5 mg PO Q6H PRN 1 Days #4 tab 08/18/21 Hospital Course Operations None Procedures None Summary of Care Provided Minutes Spent on Discharge: 38 Hospital Course: Mrs. De Guzman is a 75-year-old white female who presented to the emergency department was to [facility] [place] [facility] on 08/16/2021 with a chief complaint of debility and back pain. She evidently slipped and fell and landed on her back while she was walking outside of her house the day prior to admission. She was able to get up following but started having low back pain. The pain persisted until she presented to the emergency department at which time it became more severe. She was unable to ambulate secondary to the pain and also complained of pain in her right shoulder and neck. She had denied any other associated symptoms including fecal or urinary incontinence/retention, paresthesias, or focalized weakness. Her vital signs emergency department were stable other than elevated blood pressure at 223/90 which was felt related to her pain complaints. A CT of her chest was performed and showed and questionable early infiltrate in the right upper lobe however she had no infectious signs and remained stable from a pulmonary standpoint without any intervention throughout her entire hospitalization. A lumbar spine CT revealed loss of height at the superior endplate of L1 vertebrae that was suggestive of possible compression fracture a nd multilevel degenerative disease. A CT of the thoracic spine and cervical spine showed multilevel degenerative disc disease but no acute fractures or other abnormalities were noted. An x-ray of her right shoulder show degenerative changes and no fractures. Pelvic x-ray also showed degenerative changes without any acute fractures. She was admitted to the medical floor secondary to her debility and weakness with a mechanical fall salting in a compression fracture of L1. She was treated with pain medications to include oxycodone, lidocaine patch, gabapentin, Tylenol, and muscle relaxants. Her pain did improve however her mobility remained an issue and it was felt most appropriate that she be admitted to a skilled facility for continued rehab prior to return home. Given her marked blood pressure on presentation echocardiogram was ordered and showed an EF of 55 to 60% with normal LV wall motion with no changes from her previous echocardiogram which was done in 2018. She was able t o be discharged to a skilled facility in stable condition on 08/18/2021. Discharge diagnoses: L1 compression fracture Mechanical fall Debility Hypertensive urgency-resolved Debility Depression Alzheimer's type dementia History of alcohol abuse History of GERD Physical Exam Const alert, oriented x3 and no apparent distress Constitutional Narrative: Elderly white female lying in bed, oriented to self and location, appears comfortable and nontoxic at this time, nursing at bedside General Appearance: cooperative, comfortable, well kempt and well developed Orientation / Consciousness: awake Exam Limitations: other limitations HEENT normocephalic, head/scalp atraumatic, hearing grossly normal bilaterally, moist oral mucous membranes and oropharynx normal Eyes PERRL, EOMs intact bilaterally and conjunctivae normal Eyes Narrative: No scleral icterus Neck no lymphadenopathy, supple and no JVD Neck Narrative: Trachea midline, no thyroid enlargement Resp normal respiratory effort, no retractions, no use of accessory muscles and clear to auscultation bilaterally Cardio regular rate, regular rhythm, S1 normal heart sound, S2 normal heart sound, no murmurs, no rub, no gallops, no clicks and no JVD GI normal to inspection, nondistended, normoactive bowel sounds, soft to palpation, non-tender and non-distended Extremity normal to inspection and no clubbing, cyanosis or edema Skin no rashes or lesions noted, no wounds, skin turgor normal and no jaundice Neuro oriented x3, CN's II-XII intact bilaterally, moves all extremities, no focal motor deficits and no sensory deficits noted Neuro Narrative: Generalized weakness noted proximal greater than distal however exam was limited by pain Sensorium / Orientation: awake and alert Speech: speech normal Psych affect normal Psych Narrative: Patient appropriately interactive but does appear to have some memory loss with regards to recent details relating to her hospitalization Weight / BMI Weight Weight: 61.8 kg Body Mass Index (BMI) 24.1 ABG / Lab / Microbiology Data Result Diagrams: 08/18/21 05:28 08/17/21 05:00 Laboratory: Laboratory Results - last 24 hr 08/17/21 15:39: Vitamin D 25-Hydroxy 15.2 08/18/21 05:28: WBC 3.9 L, RBC 3.42 L, Hgb 10.7 L, Hct 32.0 L, MCV 93.6, MCH 31.3, MCHC 33.4, RDW Std Deviation 51.4 H, RDW Coeff of Marii 14.7 H, Plt Count 240, MPV 9.9, Immature Gran % (Auto) 0.300, Neut % (Auto) 51.4, Lymph % (Auto) 28.8, [place] % (Auto) 14.0 H, Eos % (Auto) 4.7, Baso % (Auto) 0.8, Absolute Neuts (auto) 2.0, Absolute Lymphs (auto) 1.11, Nucleated RBC % 0 Radiography Diagnostic Testing: Radiology Impression Echocardiogram 08/16/21 17:28 Interpretation Summary The estimated ejection fraction is 55-60 %. Normal LV systolic function No significant changes from prior cho 01/2018 Ordering Physician: Apurva Nova Referring Physician: Ehsan Monzon Performed By: Micki Cox, SAMINA, RVT D/C Instructions Discharge Diet: Low fat / Low cholesterol Discharge Activity: Return to Normal Activity Meaningful Use Info Meaningful Use Diagnoses (Choose all that apply): None applicable Discharge Plan Admission Admit Date/Time: 08/16/21 14:44 Primary Reason for Your Visit: fall/debility Attending Provider: Cassie Castanon Primary Care Provider: Woody Monzon Discharge Orders/Prescriptions Prescriptions: New lidocaine 5 % Adhesive Patch,Medicated 1 patch topical DAILY Qty: 0 RF: 0 gabapentin 100 mg Capsule 200 mg PO TIDCM Qty: 0 RF: 0 ergocalciferol (vitamin D2) [Vitamin D2] 1,250 mcg (50,000 unit) Capsule 1.25 mg PO Q7D Qty: 0 RF: 0 oxycodone 5 mg Tablet 5 mg PO Q6H PRN (Reason: pain) 1 Days Qty: 4 RF: 0 escitalopram oxalate 10 mg Tablet 10 mg PO DAILY Qty: 0 RF: 0 acetaminophen [Tylenol] 325 mg Tablet 650 mg PO Q6H PRN PRN (Reason: Pain Score 1-10/Temp > 100.7 F) Qty: 0 RF: 0 enoxaparin 40 mg/0.4 mL Syringe 40 mg subcut DAILY Qty: 0 RF: 0 Continued lisinopril 10 MG tablet 5 mg PO DAILY RF: 0 Seroquel 25 mg PO/SL BID RF: 0 No Action acetaminophen [Tylenol] 325 mg capsule 325 mg PO TID PRN PRN (Reason: pain/fever) RF: 0 Referrals / Follow Up: Woody Monzon MD [Primary Care Provider] - Within 2 Weeks Disposition Disposition (needs filled in before D/C Order can be placed): [facility] Facility Charges/Coding Visit Charges Inpatient E&M: 91470 SNF Disch >30 Min
--- NOTE | 2021-08-18 14:51 | CASEMGMT ---
Addendum entered by Reyna Diaz 08/18/21 14:56: Correction SW completed PAS/RR in [facility]. PAS/RR faxed to [facility] and copy on pt's chart. Original Note: Social Work Note SW completed [facility] in [facility]. SW faxed completed discharge paperwork to [facility] including transfer to extended care facility, signed medication list, any scripts, COVID test/tool, and [facility]. Original in SNF folder and copy on pt's chart. ALICE spoke with RN, pt to transport via cot. SW accessed trip assist and arranged transportation via cot for 3:30pm. Transportation form completed and placed on SNF folder and copy on pt's chart. RN updated on transportation time. ALICE placed a call to Mallory at [facility] and updated her on transportation time. ALICE placed a call to pt's Noel and updated him on discharge and transportation time to [facility] today. Noel states understanding. Plan: [facility] skilled today with Physician's transporting pt via cot at 3:30pm Reyna Diaz INCINERATOR OPERATOR, [employer]
[2021-08-18] MEDS: Acetaminophen 325 MG Tablet 650 MG PO (15:30)
[2021-08-18 16:14] VITALS: BP 119/93; PULSE 89; RESP 16; TEMP 36.6; O2SAT 96
--- NOTE | 2021-08-18 16:15 | NURSING ---
[facility] care transferred to [facility] at this time, patient being taken to [facility].
== END 2021-08-18 16:15 ==
LOC: ED 12:29 → MS3 15:14
PROVIDERS: Admitting Provider Student in an Organized Health Care Education/Training Program; Emergency Provider Emergency Medicine; PCP Family Medicine; Visit Provider Internal Medicine
DX: S32.010A Wedge compression fracture of first lumbar vertebra, initial encounter for closed fracture (principal); F02.80 Dementia in other diseases classified elsewhere, unspecified severity, without behavioral disturbance, psychotic disturbance, mood disturbance, and anxiety; G30.9 Alzheimer's disease, unspecified; J44.9 Chronic obstructive pulmonary disease, unspecified; F10.20 Alcohol dependence, uncomplicated; E11.9 Type 2 diabetes mellitus without complications; M19.011 Primary osteoarthritis, right shoulder; I10 Essential (primary) hypertension; R53.1 Weakness; E78.2 Mixed hyperlipidemia; R53.81 Other malaise; W01.0XXA Fall on same level from slipping, tripping and stumbling without subsequent striking against object, initial encounter; F32.A Depression, unspecified; Z87.891 Personal history of nicotine dependence; Z79.899 Other long term (current) drug therapy; Y93.01 Activity, walking, marching and hiking; Y92.007 Garden or yard of unspecified non-institutional (private) residence as the place of occurrence of the external cause; K21.00 Gastro-esophageal reflux disease with esophagitis, without bleeding; K58.9 Irritable bowel syndrome, unspecified; F41.9 Anxiety disorder, unspecified; I16.0 Hypertensive urgency
CPT/HCPCS: 36415; 70450; 71250; 72125; 72128; 72131; 72170; 73030; 80048; 82306; 85025; 87426; 93306; 96361; 96372; 96374; 97110; 97162; 97166; 97530; 97535; 99218; 99285; J7030; Q9957; A4216; G0378

== ENCOUNTER 2021-11-22 19:04 | Observation (INO) | payer MEDICARE, BC, SELFPAY ==
[2021-11-22 19:05] VITALS: BP 149/87; PULSE 90; RESP 16; TEMP 36.9; O2SAT 94; BMI 23.4
--- NOTE | 2021-11-22 19:58 | CM.ED ---
Social Work Dr. Aaron request for this administrator social welfare to call patient spouse as patient is A&Ox1. Telephone call to patient spouse, no answer. Per message on phone this caller is unable to be reached right now. This administrator social welfare updated Dr. Aaron on above. Per EMS report patient spouse is POA and would like patient placed to [facility]. Medical team aware of EMS report. Kade DON, HEATHER
--- NOTE | 2021-11-22 20:00 | EKG12_ITS ---
Test Reason : DYSRHYTHMIA Blood Pressure : / mmHG Vent. Rate : 080 BPM Atrial Rate : 080 BPM P-R Int : 172 ms QRS Dur : 066 ms QT Int : 354 ms P-R-T Axes : 022 018 077 degrees QTc Int : 408 ms Normal sinus rhythm Septal infarct , age undetermined Abnormal ECG Confirmed by RU JUARES, ANAHI ([id number]), market editor GIUSEPPE VICTOR ([id number]) on 11/24/2021 9:14:02 AM Referred By: WILLIAMS Confirmed By:ANAHI VENCES MD
--- NOTE | 2021-11-22 20:02 | EX.ED.DYSGE1 ---
HPI History of Present Illness Chief Complaint: Mental Status Change Narrative Narrative: 76-year-old female presenting for evaluation of altered mental status. Patient reports that she was in her yard working and for some reason EMS came and picked her up. She does not recall any events prior to that. She denies any pain anywhere. She states she feels well. She is alert to self only. It was reported by EMS that the wants her placed for dementia because she is too confused and is unable to care for her. He did not show up to the emergency room with her. 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 History of sigmoidoscopy IBS (irritable bowel syndrome) Mixed hyperlipidemia Osteoarthritis SK (seborrheic keratosis) Spastic bladder Home Medications lisinopril 10 mg tablet 5 mg PO DAILY BLOOD PRESSURE 03/02/16 [History Last Taken 02/11/18] acetaminophen 325 mg capsule (Tylenol) 325 mg PO TID PRN PRN pain/fever 12/24/19 [History Last Taken Unknown] Seroquel 25 mg PO/SL BID 08/16/21 [History Last Taken 08/15/21 22:00 25 mg] acetaminophen 325 mg tablet (Tylenol) 650 mg PO Q6H PRN PRN Pain Score 1-10/Temp > 100.7 F #0 tabs 08/18/21 [Rx Last Taken Unknown] enoxaparin 40 mg/0.4 mL subcutaneous syringe 40 mg (0.4 mL) subcut DAILY #0 mL 08/18/21 [Rx Last Taken Unknown] ergocalciferol (vitamin D2) 1,250 mcg (50,000 unit) capsule (Vitamin D2) 1.25 mg PO Q7D #0 caps 08/18/21 [Rx Last Taken Unknown] escitalopram oxalate 10 mg tablet 10 mg PO DAILY #0 tabs 08/18/21 [Rx Last Taken Unknown] gabapentin 100 mg capsule 200 mg PO TIDCM #0 caps 08/18/21 [Rx Last Taken Unknown] lidocaine 5 % topical patch 1 patch topical DAILY #0 ea 08/18/21 [Rx Last Taken Unknown] oxycodone 5 mg tablet 5 mg PO Q6H PRN pain 1 day #4 tabs 08/18/21 [Rx Last Taken Unknown] Allergy/AdvReac Type Severity Reaction Status Date / Time aspirin [From Percodan] Allergy Unknown Verified 08/16/21 11:40 oxycodone HCl [From Percodan] Allergy Unknown Verified 08/16/21 11:40 oxycodone terephthalate Allergy Unknown Verified 08/16/21 11:40 [From Percodan] Family History Father Skin cancer Sister Breast cancer Thyroid disorder Alzheimers disease Aunt Breast cancer Grandmother Breast cancer Sister Schizophrenia Social History Smoking Status: Former smoker quit date: 03/10/12 Tobacco: How many years used: 40 how long ago did patient quit smokin alcohol intake: current alcohol intake frequency: 3 or more drinks per day Alcohol type: wine and hard liquor substance use type: does not use ROS ROS ED Review of Systems ROS Unobtainable: due to mental status EXAM Physical Exam Const Vital Signs: 11/22/21 19:05 11/22/21 21:05 Temperature 98.4 F Temperature Source Oral Pulse Rate 90 66 Respiratory Rate 16 14 Blood Pressure 149/87 H 125/78 H Blood Pressure Mean 107 93 Pulse Ox 94 99 Oxygen Delivery Method Room Air Room Air Positive well nourished General Appearance ED: Negative for pallor HEENT Reports moist mucous membranes Eyes PERRL and EOMs intact bilaterally Chest Wall inspection of chest normal Resp normal respiratory effort and clear to auscultation bilaterally Cardio regular rate and regular rhythm Back/Spine Cervical Spine: Negative for cervical spine tenderness Thoracic Spine / Upper Back: Negative for thoracic spinal tenderness Lumbar Spine / Lower Back: Negative for lumbar spinal tenderness Neuro CN's II-XII intact bilaterally and no sensory deficits noted Sensorium / Orientation: alert and orientation impaired Motor Exam: strength 5/5 throughout Psych Psych Narrative: Alert to self. She is not alert and oriented to day, month, year, president, situation Attitude: No agitated Skin Skin Narrative: Very small bruise to right cheek. General Skin Exam: Negative for jaundice or pallor MDM MDM MDM Narrative Medical decision making narrative: 76-year-old female with dementia presenting for placement. I am unable to reach her who apparently told EMS that he wanted a place. She is alert to self. She is pleasant. She does not appear agitated. I obtained basic work-up and her CBC and BMP are normal. High-sensitivity troponin is also normal. EKG on my interpretation shows normal sinus rhythm with ventricular of 80 bpm without sign of ischemic change or dysrhythmia. Chest x-ray on my interpretation is no acute cardiopulmonary process and the radiologist does agree. CT the brain is negative for acute intracranial findings. Urinalysis negative for infection. Discussed with hospitalist for admission and placement. Patient transferred to the floor in stable condition. Impression: 1. History of dementia Lab Data Attestation: I reviewed the patient's lab results. Labs: Laboratory Results - last 24 hr 11/22/21 11/22/21 11/22/21 20:20 20:20 20:55 WBC 6.0 RBC 4.16 L Hgb 12.7 Hct 39.3 MCV 94.5 MCH 30.5 MCHC 32.3 RDW Std Deviation 52.9 H RDW Coeff of Marii 15.1 H Plt Count 294 MPV 9.9 Immature Gran % (Auto) 0.200 Neut % (Auto) 58.9 Lymph % (Auto) 25.4 [place] % (Auto) 12.6 H Eos % (Auto) 2.2 Baso % (Auto) 0.7 Absolute Neuts (auto) 3.5 Absolute Lymphs (auto) 1.51 Nucleated RBC % 0 Sodium 143 Potassium 4.0 Chloride 108 H Carbon Dioxide 27.0 Anion Gap 8 BUN 17 Creatinine 0.88 Estim Creat Clear Calc 45.69 Est GFR (MDRD) Af Amer 81 Est GFR (MDRD) Non-Af 67 BUN/Creatinine Ratio 19.4 Glucose 112 H Calcium 9.5 Troponin I High Sens 4 Urine Color Yellow Urine Clarity Sl. Cloudy Urine pH 8.0 Ur Specific [place] 1.015 Urine Protein Negative Urine Glucose (UA) Normal Urine Ketones Negative Urine Occult Blood Negative Urine Nitrite Negative Urine Bilirubin Negative Urine Urobilinogen Normal Ur Leukocyte Esterase Negative Urine RBC 0 SEEN Urine WBC 0 SEEN Ur Squamous Epith Cells 0 SEEN Amorphous Sediment 1+ Urine Bacteria RARE Urine Mucus 0 SEEN Radiography Diagnostic Testing: Clinical Impression(s) from Imaging Studies Brain CT 11/22/21 20:34 IMPRESSION: Mild atrophy and moderate periventricular white matter ischemic change. No acute bleed. If concern for acute infarct MRI recommended. Electronically Signed: Woody Leonardo MD at 20:51 EDT , Chest X-Ray 11/22/21 20:37 IMPRESSION: No acute cardiopulmonary pathology Electronically Signed: Woody Leonardo MD at 20:59 EDT , Discharge Plan Disposition Disposition: Acute Care Hospital [facility] Discharge Date/Time: 11/22/21 22:36
--- NOTE | 2021-11-22 20:34 | CT_ITS ---
STUDY: CT BRAIN WITHOUT CONTRAST REASON FOR EXAM: Female, 76 years old. mental status change RADIATION DOSAGE (If Supplied By Facility): CTDIvol = ( 44.99 ) mGy, DLP = ( 779.24 ) mGycm TECHNIQUE: Transaxial CT imaging of the brain was performed without administration of intravenous contrast material. Individualized dose optimization techniques were used for this CT. COMPARISON: 08/16/2021 FINDINGS: Normal soft tissue structures. Normal calvarium. Calcification of cavernous carotids. Mild atrophy and moderate periventricular white matter ischemic changes.. Normal basal ganglia and thalami. Normal brainstem. Normal cerebellum. There is no intracranial hemorrhage. There are no findings of an acute ischemic infarction. Normal visualized paranasal sinuses. No significant change since prior exam CT/Brain/Head without Contrast IMPRESSION: Mild atrophy and moderate periventricular white matter ischemic change. No acute bleed. If concern for acute infarct MRI recommended. Electronically Signed: Woody Leonardo MD at 20:51 EDT ,
--- NOTE | 2021-11-22 20:37 | RAD_ITS ---
STUDY: X-RAY CHEST REASON FOR EXAM: Female, 76 years old. altered mental status TECHNIQUE: AP portable COMPARISON: None. FINDINGS: The lungs are clear and expanded. There is no demonstrated pleural abnormality. Normal size heart. Normal mediastinum and anabell. Normal visualized pulmonary arteries. Mildly calcified aortic arch and descending thoracic aorta. Dorsal spine and shoulders demonstrate degenerative change. Normal visualized ribs, and clavicles. There is no demonstrated abnormality of the visualized soft tissue structures of the upper abdomen. RAD/Chest 1 View (Portable) IMPRESSION: No acute cardiopulmonary pathology Electronically Signed: Woody Leonardo MD at 20:59 EDT ,
[2021-11-22 20:41] LABS: Absolute Lymphocyte Count 1.51 X10^3/uL (0.83-4.51); Absolute Neutrophil Count 3.5 X10^3/uL (2.0-7.7); Basophil# 0.04 X10^3/uL; Basophil% 0.7 % (0-1); Eosinophil# 0.13 X10^3/uL; Eosinophils% 2.2 % (0-5); Hematocrit 39.3 % (37-47); Hemoglobin 12.7 g/dL (12.0-15.0); Lymphocyte # 1.51 X10^3/ul (0.83-4.51); Lymphocyte % 25.4 % (19-41); Mean Corp Hgb Conc 32.3 g/dL (32-36); Mean Corpuscular Hgb 30.5 pg (27.0-32.0); Mean Corpuscular Volume 94.5 fL (81-99); Mean Platelet Vol. 9.9 fl (6.2-12.0); Monocyte# 0.75 X10^3/uL; Monocyte% 12.6 % (0-10); NRBC Flagged by Analyzer 0 % (0-5); Neutrophil # 3.51 X10^3/uL (2.7-7.7); Neutrophil % 58.9 % (47-70); Platelet Count 294 K/mm3 (150-450); RBC Distribution Width CV 15.1 % (11.6-14.6); RBC Distribution Width SD 52.9 fl (35.1-43.9); Red Blood Count 4.16 M/mm3 (4.2-5.4)
[2021-11-22 21:05] VITALS: BP 125/78; PULSE 66; RESP 14; O2SAT 99
[2021-11-22 21:07] LABS: Mucous, Urine 0 SEEN /hpf (<or=2+); Red Blood Cells-Urine 0 SEEN /hpf (0-5); Squamous Epithelial Cells - UA 0 SEEN /hpf (5-10); White Blood Cells 0 SEEN /hpf (0-5)
[2021-11-22 21:11] LABS: Anion Gap 8 (5-15); BUN 17 mg/dL (7-18); BUN/Creat Ratio 19.4 RATIO (10-20); Calcium,Total 9.5 mg/dL (8.5-10.1); Chloride 108 mmol/L (98-107); Creatinine, Serum 0.88 mg/dL (0.55-1.02); EST Glomerular Filtration Rate 67 mL/min (>60); Est Glom Filt Rate - Afr Amer 81 mL/min (>60); Estimated Creatinine Clearance 45.69 ml/min; Glucose 112 mg/dL (74-106); Sodium Level 143 mmol/L (136-145); Troponin-I HS 4 pg/mL (3.0-54.0)
[2021-11-22 21:17] LABS: Color, Urine Yellow (Yellow); Glucose, Dipstick Normal (Normal); Ketone-Dipstick Negative (Negative); Leukocyte Esterase-Dipstick Negative /ul (Negative); Nitrite-Dipstick Negative (Negative); Occult Blood-Urine Negative /ul (Negative); Protein-Dipstick Negative (Negative); Specific Gravity, Urine 1.015 (1.002-1.030); Urine Bilirubin Dipstick Negative (Negative); Urine Clarity Sl. Cloudy (Clear); Urine Urobilinogen Normal (Normal)
[2021-11-22 21:31] LABS: Bacteria RARE /hpf (None Seen)
[2021-11-22 21:32] LABS: Amorphous Sediment 1+
--- NOTE | 2021-11-22 21:34 | HP.PCM.HOS_ITS ---
HPI - General General Date of Admission: 11/22/21 Date of Service: 11/22/21 Chief Complaint: Altered mental status HPI Narrative TORSTEN QUACH, is a 76 F who presented to the emergency department at [facility] [place] on 11/22/2021 with altered mental status. The patient reported that she was working in her yard and for some reason the EMS came and picked her up. She does not recall any events prior to that. She is familiar to me and she has baseline Alzheimer's dementia. I took care of her back in August at which time we placed her at the [facility]. The patient is only complaining of right-sided low back pain which is a chronic issue for her but has no other complaints. She is alert to herself and birthdate and knows she is in the hospital but is unable to tell me which one. She knows it summer but unable to tell me which month. 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 She repeats herself throughout my exam. She has no other significant complaints. She presented with EMS alone and the EMS was told by her that they want her placed for dementia because she is too confused at home on a regular basis to take care of her and she is unable to take care of herself. Calls were placed by the social sciences chair to the spouse but no answer was made. There is documentation that he did want her replaced back at the [facility] [place]. The patient is an extremely poor historian. Upon presentation her vital signs were unremarkable with a temperature of 98.4, pulse of 90, blood pressure of 149/87 which was 125/78 on recheck, respiratory rate of 16, and oxygen saturations of 94 to 99% on room air. Her CBC was unremarkable. Her BMP was unremarkable. Her urine was unremarkable. A CT of her head was performed and showed mild atrophy with moderate periventricular white matter ischemic changes and no acute bleed. She had an MRI performed in 2019 which showed chronic changes as well. Her chest x-ray showed no acute cardiopulmonary pathology. 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 History of sigmoidoscopy IBS (irritable bowel syndrome) Mixed hyperlipidemia Osteoarthritis SK (seborrheic keratosis) Spastic bladder Home Medications lisinopril 10 mg tablet 5 mg PO DAILY BLOOD PRESSURE 03/02/16 [History Last Taken 02/11/18] acetaminophen 325 mg capsule (Tylenol) 325 mg PO TID PRN PRN pain/fever 12/24/19 [History Last Taken Unknown] Seroquel 25 mg PO/SL BID 08/16/21 [History Last Taken 08/15/21 22:00 25 mg] acetaminophen 325 mg tablet (Tylenol) 650 mg PO Q6H PRN PRN Pain Score 1-10/Temp > 100.7 F #0 tabs 08/18/21 [Rx Last Taken Unknown] enoxaparin 40 mg/0.4 mL subcutaneous syringe 40 mg (0.4 mL) subcut DAILY #0 mL 08/18/21 [Rx Last Taken Unknown] ergocalciferol (vitamin D2) 1,250 mcg (50,000 unit) capsule (Vitamin D2) 1.25 mg PO Q7D #0 caps 08/18/21 [Rx Last Taken Unknown] escitalopram oxalate 10 mg tablet 10 mg PO DAILY #0 tabs 08/18/21 [Rx Last Taken Unknown] gabapentin 100 mg capsule 200 mg PO TIDCM #0 caps 08/18/21 [Rx Last Taken Unknown] lidocaine 5 % topical patch 1 patch topical DAILY #0 ea 08/18/21 [Rx Last Taken Unknown] oxycodone 5 mg tablet 5 mg PO Q6H PRN pain 1 day #4 tabs 08/18/21 [Rx Last Taken Unknown] Allergy/AdvReac Type Severity Reaction Status Date / Time aspirin [From Percodan] Allergy Unknown Verified 08/16/21 11:40 oxycodone HCl [From Percodan] Allergy Unknown Verified 08/16/21 11:40 oxycodone terephthalate Allergy Unknown Verified 08/16/21 11:40 [From Percodan] Family History Father Skin cancer Sister Breast cancer Thyroid disorder Alzheimers disease Aunt Breast cancer Grandmother Breast cancer Sister Schizophrenia unable to obtain (Patient does appear to have history of abdominal surgery of un known type) Social History Smoking Status: Former smoker quit date: 03/10/12 Tobacco: How many years used: 40 how long ago did patient quit smokin alcohol intake: current alcohol intake frequency: 3 or more drinks per day Alcohol type: wine and hard liquor substance use type: does not use ROS ROS Narrative Patient is extremely poor historian and review of systems is difficult however her only subjective complaint is right-sided low back pain. Review of Systems ROS Unobtainable: due to mental status and other Vital Signs Vital Signs Vital Signs: 11/22/21 19:05 11/22/21 21:05 Temperature 98.4 F Temperature Source Oral Pulse Rate 90 66 Respiratory Rate 16 14 Blood Pressure 149/87 H 125/78 H Blood Pressure Mean 107 93 Pulse Ox 94 99 Oxygen Delivery Method Room Air Room Air Weight Weight: 60.1 kg Body Mass Index (BMI) 23.4 Physical Exam Const alert, no apparent distress, average body habitus and well nourished Constitutional Narrative: Oriented to self and birthdate, appears comfortable nontoxic, sitting on the edge of the bed, nursing at bedside General Appearance: cooperative Orientation / Consciousness: confused and disoriented HEENT normocephalic and hearing grossly normal bilaterally HEENT Narrative: Patient with ecchymotic area on right zygomatic process that appears to be fairly new-patient unable to tell me anything about how this occurred, dentures in place, Mallampati is 2, no thrush Mouth: oral and palatal mucosa normal Eyes PERRL, EOMs intact bilaterally and conjunctivae normal Neck no lymphadenopathy, supple, no JVD and no carotid bruits Resp normal respiratory effort, no retractions, no use of accessory muscles and clear to auscultation bilaterally Resp Narrative: Slightly diminished diffusely but clear Auscultation: Negative for crackles, rales, rhonchi or wheezes Cardio regular rate, regular rhythm, S1 normal heart sound, S2 normal heart sound, no murmurs, no rub, no gallops, no clicks and no JVD GI normal to inspection, nondistended, normoactive bowel sounds, soft to palpation, non-tender and non-distended; Negative for hepatosplenomegaly Extremity no clubbing, cyanosis or edema Extremity Narrative: Small erythematous area on right knee Neuro CN's II-XII intact bilaterally, moves all extremities and no focal motor deficits Neuro Narrative: Mild generalized weakness Sensorium / Orientation: awake, alert and oriented to person; Negative for oriented to place or oriented to time Speech: speech normal Psych affect normal Psych Narrative: Pleasantly confused Results Lab / Micro Data Attestation: I reviewed the patient's lab results. Result Diagrams: 11/22/21 20:20 11/22/21 20:20 Labs: Laboratory Results - last 24 hr 11/22/21 20:20: WBC 6.0, RBC 4.16 L, Hgb 12.7, Hct 39.3, MCV 94.5, MCH 30.5, MCHC 32.3, RDW Std Deviation 52.9 H, RDW Coeff of Marii 15.1 H, Plt Count 294, MPV 9.9, Immature Gran % (Auto) 0.200, Neut % (Auto) 58.9, Lymph % (Auto) 25.4, Gordon % (Auto) 12.6 H, Eos % (Auto) 2.2, Baso % (Auto) 0.7, Absolute Neuts (auto) 3.5, Absolute Lymphs (auto) 1.51, Nucleated RBC % 0 11/22/21 20:20: Sodium 143, Potassium 4.0, Chloride 108 H, Carbon Dioxide 27.0, Anion Gap 8, BUN 17, Creatinine 0.88, Estim Creat Clear Calc 45.69, Est GFR (MDRD) Af Amer 81, Est GFR (MDRD) Non-Af 67, BUN/Creatinine Ratio 19.4, Glucose 112 H, Calcium 9.5, Troponin I High Sens 4 11/22/21 20:55: Urine Color Yellow, Urine Clarity Sl. Cloudy, Urine pH 8.0, Ur Specific [place] 1.015, Urine Protein Negative, Urine Glucose (UA) Normal, Urine Ketones Negative, Urine Occult Blood Negative, Urine Nitrite Negative, Urine Bilirubin Negative, Urine Urobilinogen Normal, Ur Leukocyte Esterase Negative, Urine RBC 0 SEEN, Urine WBC 0 SEEN, Ur Squamous Epith Cells 0 SEEN, Amorphous Sediment 1+, Urine Bacteria RARE, Urine Mucus 0 SEEN Radiology Impression Brain CT 11/22/21 20:34 IMPRESSION: Mild atrophy and moderate periventricular white matter ischemic change. No acute bleed. If concern for acute infarct MRI recommended. Electronically Signed: Woody Leonardo MD at 20:51 EDT , Chest X-Ray 11/22/21 20:37 IMPRESSION: No acute cardiopulmonary pathology Electronically Signed: Woody Leonardo MD at 20:59 EDT , Assessment & Plan Assessment/Plan (1) Debility: PLAN: Plan Debility/decreased ability to care for self -Patient with what appears to be progressively worsening dementia -Organic work-up in the emergency department is unremarkable -Therapy services ordered -Per documentation from EMS would like the patient admitted to the [facility] in [place] as he is no longer able to care for her at home and she is unable to care for herself -Admitted as observation and case management consulted Recent L1 compression fracture secondary to mechanical fall -PT and OT consulted -Mobility does not appear to be all that effective at this time -Occurred in August 2021 -We will use hot pack as patient has some paraspinal tenderness on the right side of her low back Vitamin D deficiency -Vitamin D level was 15 when patient was admitted in August -Was discharged on ergocalciferol -Recommended follow-up vitamin D level in 6 weeks however it does not appear that this was followed up on -We will check vitamin D level here Depression -Continue Lexapro Alzheimer's type dementia -Patient is any medications at baseline -Suspect patient's history of alcoholism has contributed to her dementia -Patient is alert and oriented to self and location however is confused with time -Restart home Seroquel History of alcohol abuse -Unclear how much patient is drinking at this time -Difficult to ascertain from the patient DVT prophylaxis -Subcu Lovenox -SCDs CODE STATUS -Full code unverified however as patient is not decisional and we were unable to get a hold of the patient's Charges/Coding Visit Charges Inpatient E&M: 06931 Init Hosp L2
[2021-11-22 21:45] VITALS: BP 124/78; PULSE 88; RESP 14; TEMP 37.2; O2SAT 97
[2021-11-22] MEDS: Acetaminophen 500 MG Tablet 1000 MG PO (22:17)
[2021-11-22 22:36] VITALS: BP 192/99; PULSE 73; RESP 18; TEMP 36.5; O2SAT 99
[2021-11-22 22:48] VITALS: BMI 23.4
[2021-11-22] MEDS: QUEtiapine 25 MG Tablet PO (23:13)
[2021-11-22 23:30] VITALS: O2SAT 96
[2021-11-23 00:28] VITALS: BP 194/72; PULSE 71; RESP 18; TEMP 36.5; O2SAT 97
[2021-11-23 01:03] VITALS: BP 194/72; PULSE 71
[2021-11-23] MEDS: hydrALAZINE 20 MG/ML Vial 10 MG IV (01:03)
[2021-11-23] MEDS: Ketorolac 30 MG/ML Syringe IV (01:03)
[2021-11-23] MEDS: 0.9% Saline Lock 10 ML Syringe IV ×2 (01:06→02:44)
--- NOTE | 2021-11-23 02:42 | NURSING ---
Pt came to floor and was completely confused. I tried to complete the admission process as well as I could but it was difficult due to her confusion and no family member here to answer any questions. The Pt has a history of dementia and Alzheimer's. DR. Castanon the admitting physician has prior experience in pt's baseline cognition and medical history so I just used her medical history on admission. The medicine reconciliation is not complete and will require follow up because the nobody could get in touch with to verify medications. I also could not confirm if patient has ever had a blood transfusion.
[2021-11-23] MEDS: Morphine 4 MG/ML Syringe IV (02:44)
[2021-11-23 02:51] VITALS: BP 140/76; PULSE 78; RESP 16; TEMP 36.5; O2SAT 95
[2021-11-23 07:18] LABS: Thyroid Stim Hormone (TSH) 2.09 uIU/mL (0.358-3.74)
[2021-11-23 08:18] LABS: Vitamin D,25 Hydroxy 31.9 ng/mL
[2021-11-23 09:00] VITALS: BP 129/60; PULSE 81; RESP 16; TEMP 36.7; O2SAT 95
--- NOTE | 2021-11-23 09:08 | PCM.PN.HOSP ---
Documented by User: VIPUL Bowman 11/23/21 09:21 Subjective Subjective Patient seen and examined. Patient lying in bed eyes closed resting comfortably. Sitter at bedside. Objective Data Objective Data Vital Signs: Vital Signs Temp Pulse Resp BP Pulse Ox 97.7 F L 78 16 140/76 H 95 11/23/21 02:51 11/23/21 02:51 11/23/21 02:51 11/23/21 02:51 11/23/21 02:51 Oxygen Delivery Method Room Air Weight: 132 lb 7.965 oz Body Mass Index (BMI) 23.4 Lab / Micro Data Result Diagrams: 11/22/21 20:20 11/22/21 20:20 Labs: Laboratory Results - last 24 hr 11/22/21 20:20: WBC 6.0, RBC 4.16 L, Hgb 12.7, Hct 39.3, MCV 94.5, MCH 30.5, MCHC 32.3, RDW Std Deviation 52.9 H, RDW Coeff of Marii 15.1 H, Plt Count 294, MPV 9.9, Immature Gran % (Auto) 0.200, Neut % (Auto) 58.9, Lymph % (Auto) 25.4, [place] % (Auto) 12.6 H, Eos % (Auto) 2.2, Baso % (Auto) 0.7, Absolute Neuts (auto) 3.5, Absolute Lymphs (auto) 1.51, Nucleated RBC % 0 11/22/21 20:20: Sodium 143, Potassium 4.0, Chloride 108 H, Carbon Dioxide 27.0, Anion Gap 8, BUN 17, Creatinine 0.88, Estim Creat Clear Calc 45.69, Est GFR (MDRD) Af Amer 81, Est GFR (MDRD) Non-Af 67, BUN/Creatinine Ratio 19.4, Glucose 112 H, Calcium 9.5, Troponin I High Sens 4 11/22/21 20:55: Urine Color Yellow, Urine Clarity Sl. Cloudy, Urine pH 8.0, Ur Specific [place] 1.015, Urine Protein Negative, Urine Glucose (UA) Normal, Urine Ketones Negative, Urine Occult Blood Negative, Urine Nitrite Negative, Urine Bilirubin Negative, Urine Urobilinogen Normal, Ur Leukocyte Esterase Negative, Urine RBC 0 SEEN, Urine WBC 0 SEEN, Ur Squamous Epith Cells 0 SEEN, Amorphous Sediment 1+, Urine Bacteria RARE, Urine Mucus 0 SEEN 11/23/21 06:29: Vitamin D 25-Hydroxy 31.9 11/23/21 06:29: TSH 2.09 Radiography Diagnostic Testing: Radiology Impression Brain CT 11/22/21 20:34 IMPRESSION: Mild atrophy and moderate periventricular white matter ischemic change. No acute bleed. If concern for acute infarct MRI recommended. Electronically Signed: Woody Leonardo MD at 20:51 EDT , Chest X-Ray 11/22/21 20:37 IMPRESSION: No acute cardiopulmonary pathology Electronically Signed: Woody Leonardo MD at 20:59 EDT , Physical Exam Const Orientation / Consciousness: confused HEENT head/scalp atraumatic and moist oral mucous membranes HEENT Narrative: Ecchymotic area to left zygomatic process. Head and Scalp: normocephalic Eyes conjunctivae normal and no scleral icterus Neck full ROM and supple General: trachea midline Resp normal respiratory effort, normal air movement and clear to auscultation bilaterally Effort and Inspection: symmetric chest movement Cardio regular rate, regular rhythm, S1 normal heart sound and S2 normal heart sound GI normal to inspection, nondistended, normoactive bowel sounds and soft to palpation Extremity normal to inspection, full ROM and no clubbing, cyanosis or edema Neuro no focal motor deficits and no sensory deficits noted Psych Thought Process: confused Assessment & Plan Assessment/Plan (1) Debility: (2) Alzheimer's dementia without behavioral disturbance: PLAN: Plan 1. Debility -PT and OT following -EMS reported that would like patient admitted back to the [facility] as he is no longer able to care for her at home however is unable to be reached at this time. Multiple phone calls made an attempt to contact him. -Case management and social work following 2. Hypertension -Vital signs per protocol, currently stable -Continue lisinopril 3. Recent L1 compression fracture secondary to mechanical fall -PT and OT following -Continue K pad to right side of lower back -Continue lidocaine patch 4. Vitamin D deficiency -Vitamin D31.9 -Continue ergocalciferol 5. Depression -Continue Lexapro 6. Alzheimer's type dementia -Continue Seroquel -Patient has a history of alcoholism which likely contributes to her dementia -Patient currently has a sitter at bedside due to confusion and disorientation 7. History of alcohol abuse -Unable to determine from patient whether patient is still drinking at this time -We will discuss when able to discuss with her DVT prophylaxis-subcu Lovenox and SCDs This patient was seen by Suri Grewal, CARYN-C under the supervision of Dr. Mitchell. 14 minutes spent in clinical coordination of patient's plan of care. Documented by User: Dr. Umair Mitchell, 11/23/21 20:00 Subjective Subjective Patient seen and examined. Patient lying in bed eyes closed resting comfortably. Sitter at bedside. Objective Data Lab / Micro Data Result Diagrams: 11/22/21 20:20 11/22/21 20:20 Assessment & Plan Assessment/Plan (1) Debility: (2) Alzheimer's dementia without behavioral disturbance: Charges/Coding Addendum Addendum: Patient was seen and examined independently of Paige Grewal today, she is resting quietly and responds to painful stimuli but does not speak to this examiner. She does not appear to be in any distress. On examination she appeared somnolent, she does not appear to be in any distress. Vital signs as documented. Skin warm and dry and without overt rashes. Neck without JVD, thyroid appears normal, trachea is midline, neck is supple. Lungs clear, normal air movement was noted. Heart exam notable for regular rhythm, normal sounds and absence of murmurs, rubs or gallops. Abdomen unremarkable and without evidence of organomegaly, masses, or abdominal aortic enlargement, bowel sounds are present in all 4 quadrants, no abdominal tenderness was noted. Extremities nonedematous, no cyanosis was noted, no clubbing was noted. Neuro: Cranial nerves II through XII are grossly intact, no focal motor deficits were noted, sensation to light touch and pinprick is intact, motor exam 5/5 throughout. Psych: Patient is somnolent, she reacts to painful stimuli and some verbal stimuli by opening her eyes, she is confused Impression: #1 acute debility-secondary to Alzheimer's dementia-patient will be seen by PT and OT, arrangements will be made for the patient to be placed in a senior living facility for at least short-term rehab services. #2 Alzheimer's dementia-without behavioral disturbances-patient will remain on her present medications #3 type 2 diabetes-patient is currently diet controlled, blood sugar on admission 112 I have reviewed Paige Grewal's progress note including her medical assessment and plan of care and with the above additions endorse it. Total clinical time spent by myself addressing the patient's issues, reviewing the patient's data, and collaborating with patient's care team: 15-minute Visit Charges OBSV E&M: 67189 Subsequent observation care L2
[2021-11-23] MEDS: Gabapentin 100 MG Capsule 200 MG PO ×3 (10:20→18:18)
[2021-11-23] MEDS: Lidocaine 5% Patch 1 PATCH TOPICAL (10:21)
[2021-11-23] MEDS: Lisinopril 5 MG Tablet PO (10:24)
[2021-11-23] MEDS: Enoxaparin 40 MG/0.4 ML Syringe SC (10:24)
[2021-11-23] MEDS: QUEtiapine 25 MG Tablet PO ×2 (10:24→21:03)
[2021-11-23] MEDS: Escitalopram Oxalate 10 MG Tablet PO (10:24)
--- NOTE | 2021-11-23 10:27 | CASEMGMT ---
Social Work SW met with pt and introduced self and role of SW. Pt moving with CROZER OPERATOR from chair to bed. Pt is alert and attentive to SW. Willing to converse openly. SW asking questions and pt is aware she is in the hospital and that she is in [place] but does not know how long she has been here nor why she came. Pt is pleasant and relaxed in bed but unable to answer SW questions about home situation or discharge plan. Multiple phone calls to pt's to discuss discharge plan. Phone does not ring, but goes directly to message stating cannot accept calls at this time. SW called pts phone but no answer and voicemail picks up. Pt was admitted in August 2021 and assessment states pt lives in 3 story home with 15 steps inside and a flight of stairs on a spiral staircase to bedroom. Per H&P, pt does not feel he can care for pt and pt needs placed at [facility]. SW will arrange for SNF placement however, SW does need to speak to pt prior to referral. Plan: SW will continue to try to contact pt spouse to discuss SNF placement. ELIZABETH Doan
[2021-11-23] MEDS: Acetaminophen 325 MG Tablet PO (10:31)
--- NOTE | 2021-11-23 11:15 | NURSING ---
Patient was assessed at 1100 and determined that pt is stable and that sitter is no longer necessary at this point. Sitter removed.
--- NOTE | 2021-11-23 14:18 | CASEMGMT ---
Addendum entered by Juanita Borden 11/23/21 15:31: Pt called in to Kristi JENKINS. Discussed LOBO form with him and explained form, he verbalized understanding. He gave verbal consent for signature on form. Verified by witness Kristi JENKINS. He denied further questions or concerns at this time. Made copy of form and placed in pt room. Addendum entered by Juanita Borden 11/23/21 14:22: TC to 's office to verify any other contact information for pt . Waiter had same information as on file at [facility]. Original Note: XAVI MILES attempted to reach pt to review LOBO form. Received message that the person is unable to be reached and is not accepting calls.
[2021-11-23 15:00] VITALS: BP 159/70; PULSE 62; RESP 16; TEMP 36.6; O2SAT 99
--- NOTE | 2021-11-23 16:25 | CASEMGMT ---
Social Work SW received call from pt spouse Noel De Guzman. Noel states that pt has Alzheimer disease and it is worsening. Pt is more confused and becomes aggitated with her . Noel states they live in a home that has many steps into home and a flight of stairs to bedroom. Noel states pt has been having no trouble completing stairs, but does fall frequently when she is walking. Per Noel, pt tripped over the cat's food dish and fell yesterday requiring trip to hospital. Per Noel, pt is able to complete ADLs independently. Noel states that pt was to the [facility] in August for 2 weeks and pt did very well. Noel would like pt to return to the [place] and states alf placement may be necessary as pt's Alzheimers progresses. SW inquired about mental health and Noel states pt has depression and anxiety and is on medication but never hospitalized or received services for this. SW also inquired about alcohol use. Noel initially states she is not drinking then states he hides his alcohol but she is able to find it and drinks anything she can find. Referral to Mallory at the [place] and they do have beds available. Referral faxed and SW will await return call with determination of acceptance. Plan: [facility], pending acceptance ELIZABETH Doan
[2021-11-23 21:00] VITALS: BP 134/75; PULSE 61; RESP 16; TEMP 36.6; O2SAT 96
[2021-11-24 02:30] VITALS: BP 142/70; PULSE 72; RESP 16; TEMP 36.8; O2SAT 96
[2021-11-24] MEDS: Escitalopram Oxalate 10 MG Tablet PO ×2 (07:57)
[2021-11-24] MEDS: Lidocaine 5% Patch 1 PATCH TOPICAL (07:57)
[2021-11-24] MEDS: Enoxaparin 40 MG/0.4 ML Syringe SC (07:58)
[2021-11-24] MEDS: QUEtiapine 25 MG Tablet PO (07:58)
[2021-11-24] MEDS: Lisinopril 5 MG Tablet PO (07:58)
[2021-11-24 08:00] VITALS: BP 141/78; PULSE 62; RESP 18; TEMP 36.8; O2SAT 96
--- NOTE | 2021-11-24 09:15 | CASEMGMT ---
Addendum entered by Kristi Garcia 11/24/21 12:14: Social Work Per physician, pt ready for discharge to the [facility] today. PASRR completed in [facility] and faxed along with orders to the [facility]. Transportation arranged with [facility] for 2:00 seed cone picker via cot. Phone call to pt to update on discharge plan and he is agreeable. Phone call to Mallory at [facility] and updated on discharge time. Nursing notified. Plan: [facility], skilled level of care ELIZABETH Doan Original Note: Social Work Call placed to Mallory at the [facility] and they are able to accept pt today. Physician to be notified. Plan: [facility], when medically ready ELIZABETH Doan
--- NOTE | 2021-11-24 09:54 | PCM.TXEXTCAR ---
Diet 11/22/21 22:46 Diet: Regular - General Food consistency:: Regular Liquid Consistency:: Regular/Thin Routine Orders/Code Status Enema Type: Fleetz Enema Frequency: Daily PRN Suppository Type: Dulcolax 10mg Suppository Frequency: Daily PRN Code Status: Full Code Suggestions for Active Care Change Position every (hours): 2 Times a day to sit in chair: 3 Therapies Physical Therapy: Eval and Treat Occupational Therapy: Eval and Treat Problem/Diagnosis (1) Debility: Status: Acute (2) Alzheimer's dementia without behavioral disturbance: Status: Acute Allergies/Procedures Done in Hospital Allergies aspirin [From Percodan] Allergy (Verified 08/16/21 11:40) Unknown oxycodone HCl [From Percodan] Allergy (Verified 08/16/21 11:40) Unknown oxycodone terephthalate [From Percodan] Allergy (Verified 08/16/21 11:40) Unknown Procedures: None Type of Care/Length of Stay Estimated LOS: More Than 30 Days Type of Care Needed: Intermediate Rehab Potential: Fair Prognosis: Fair Additional Orders/Day of Discharge Day of Discharge: 11/24/21 Discharge Plan Admission Admit Date/Time: 11/22/21 21:24 Primary Reason for Your Visit: Debility, Alzheimers Attending Provider: Louis Villegas Primary Care Provider: Woody Monzon Consulting Providers: Cassie Castanon ; Umair Mitchell Discharge Orders/Prescriptions Prescriptions: Continued acetaminophen [Tylenol] 325 mg capsule 325 mg PO TID PRN PRN (Reason: pain/fever) lisinopril 10 MG tablet 5 mg PO DAILY Seroquel 25 mg PO/SL BID lidocaine 5 % Adhesive Patch,Medicated 1 patch topical DAILY Qty: 0 0RF Protocol: *Topical Application Instructions APPLICATION INSTRUCTIONS: to back, L1 area gabapentin 100 mg Capsule 200 mg PO TIDCM Qty: 0 0RF ergocalciferol (vitamin D2) [Vitamin D2] 1,250 mcg (50,000 unit) Capsule 1.25 mg PO Q7D Qty: 0 0RF Rx Instructions: x 6 weeks oxycodone 5 mg Tablet 5 mg PO Q6H PRN (Reason: pain) 1 Days Qty: 4 0RF escitalopram oxalate 10 mg Tablet 10 mg PO DAILY Qty: 0 0RF Discontinued acetaminophen [Tylenol] 325 mg Tablet 650 mg PO Q6H PRN PRN (Reason: Pain Score 1-10/Temp > 100.7 F) Qty: 0 0RF enoxaparin 40 mg/0.4 mL Syringe 40 mg subcut DAILY Qty: 0 0RF Referrals / Follow Up: Woody Monzon MD [Primary Care Provider] - Disposition Disposition (needs filled in before D/C Order can be placed): NonSkilled NH/Intermed Care
--- NOTE | 2021-11-24 10:01 | PCM.DC.SUM ---
Documented by User: VIPUL Bowman 11/24/21 10:06 Providers Date of Admission: 11/22/21 Date of Discharge: 11/24/21 Primary Care Physician: Dr. Woody Monzon MD Reason For Visit: DEBILITY/DEMENTIA Diagnosis Discharge Diagnosis (1) Debility: Status: Acute Code(s): R53.81 - Other malaise (2) Alzheimer's dementia without behavioral disturbance: Status: Acute Code(s): G30.9 - Alzheimer's disease, unspecified; F02.80 - Dementia in other diseases classified elsewhere without behavioral disturbance Medications at Discharge Home Medications lisinopril 10 mg tablet 5 mg PO DAILY BLOOD PRESSURE 03/02/16 acetaminophen 325 mg capsule (Tylenol) 325 mg PO TID PRN PRN pain/fever 12/24/19 Seroquel 25 mg PO/SL BID 08/16/21 ergocalciferol (vitamin D2) 1,250 mcg (50,000 unit) capsule (Vitamin D2) 1.25 mg PO Q7D #0 caps 08/18/21 escitalopram oxalate 10 mg tablet 10 mg PO DAILY #0 tabs 08/18/21 gabapentin 100 mg capsule 200 mg PO TIDCM #0 caps 08/18/21 lidocaine 5 % topical patch 1 patch topical DAILY #0 ea 08/18/21 oxycodone 5 mg tablet 5 mg PO Q6H PRN pain 1 day #4 tabs 08/18/21 Hospital Course Operations None Procedures None Summary of Care Provided Minutes Spent on Discharge: 35 Hospital Course: Patient is a 76-year-old female who was initially brought to the ER secondary to a fall at home and combative behavior towards her . Patient has a known diagnosis of Alzheimer's and her 's reports has been increasingly getting more combative and her behaviors have been weak worsening. Patient had a sitter for first 24 hours of hospitalization but has been without a sitter for greater than 24 hours and has been doing well. Patient has been pleasant and cooperative but confused. Physical Exam Const alert General Appearance: cooperative and comfortable Orientation / Consciousness: oriented to person, oriented to place and confused HEENT head/scalp atraumatic and moist oral mucous membranes HEENT Narrative: Ecchymotic area to left zygomatic process. Head and Scalp: normocephalic Eyes conjunctivae normal and no scleral icterus Neck full ROM and supple General: trachea midline Resp normal respiratory effort, normal air movement and clear to auscultation bilaterally Effort and Inspection: symmetric chest movement Cardio regular rate, regular rhythm, S1 normal heart sound and S2 normal heart sound GI normal to inspection, nondistended, normoactive bowel sounds and soft to palpation Extremity normal to inspection, full ROM and no clubbing, cyanosis or edema Skin skin turgor normal Neuro no focal motor deficits and no sensory deficits noted Psych affect normal Thought Process: confused Weight / BMI Weight Weight: 132 lb 7.965 oz Body Mass Index (BMI) 23.4 ABG / Lab / Microbiology Data Result Diagrams: 11/22/21 20:20 11/22/21 20:20 D/C Instructions Discharge Diet: Low fat / Low cholesterol Discharge Activity: Return to Normal Activity Call your doctor if you observe: Dizziness and Fainting spells Meaningful Use Info Meaningful Use Diagnoses (Choose all that apply): None applicable Discharge Plan Admission Admit Date/Time: 11/22/21 21:24 Primary Reason for Your Visit: Debility, Alzheimers Attending Provider: Louis Villegas Primary Care Provider: Woody Monzon Consulting Providers: Cassie Castanon ; Umair Mitchell Discharge Orders/Prescriptions Prescriptions: Continued acetaminophen [Tylenol] 325 mg capsule 325 mg PO TID PRN PRN (Reason: pain/fever) lisinopril 10 MG tablet 5 mg PO DAILY Seroquel 25 mg PO/SL BID lidocaine 5 % Adhesive Patch,Medicated 1 patch topical DAILY Qty: 0 0RF Protocol: *Topical Application Instructions APPLICATION INSTRUCTIONS: to back, L1 area gabapentin 100 mg Capsule 200 mg PO TIDCM Qty: 0 0RF ergocalciferol (vitamin D2) [Vitamin D2] 1,250 mcg (50,000 unit) Capsule 1.25 mg PO Q7D Qty: 0 0RF Rx Instructions: x 6 weeks oxycodone 5 mg Tablet 5 mg PO Q6H PRN (Reason: pain) 1 Days Qty: 4 0RF escitalopram oxalate 10 mg Tablet 10 mg PO DAILY Qty: 0 0RF Discontinued acetaminophen [Tylenol] 325 mg Tablet 650 mg PO Q6H PRN PRN (Reason: Pain Score 1-10/Temp > 100.7 F) Qty: 0 0RF enoxaparin 40 mg/0.4 mL Syringe 40 mg subcut DAILY Qty: 0 0RF Referrals / Follow Up: Woody Monzon MD [Primary Care Provider] - Disposition Disposition (needs filled in before D/C Order can be placed): NonSkilled NH/Intermed Care Documented by User: Dr. Louis Villegas MD 11/24/21 10:25 Providers Date of Admission: 11/22/21 Reason For Visit: DEBILITY/DEMENTIA Diagnosis Discharge Diagnosis (1) Debility: Status: Acute Code(s): R53.81 - Other malaise (2) Alzheimer's dementia without behavioral disturbance: Status: Acute Code(s): G30.9 - Alzheimer's disease, unspecified; F02.80 - Dementia in other diseases classified elsewhere without behavioral disturbance Medications at Discharge Home Medications lisinopril 10 mg tablet 5 mg PO DAILY BLOOD PRESSURE 03/02/16 acetaminophen 325 mg capsule (Tylenol) 325 mg PO TID PRN PRN pain/fever 12/24/19 Seroquel 25 mg PO/SL BID 08/16/21 ergocalciferol (vitamin D2) 1,250 mcg (50,000 unit) capsule (Vitamin D2) 1.25 mg PO Q7D #0 caps 08/18/21 escitalopram oxalate 10 mg tablet 10 mg PO DAILY #0 tabs 08/18/21 gabapentin 100 mg capsule 200 mg PO TIDCM #0 caps 08/18/21 lidocaine 5 % topical patch 1 patch topical DAILY #0 ea 08/18/21 oxycodone 5 mg tablet 5 mg PO Q6H PRN pain 1 day #4 tabs 08/18/21 ABG / Lab / Microbiology Data Result Diagrams: 11/22/21 20:20 11/22/21 20:20 Discharge Plan Admission Admit Date/Time: 11/22/21 21:24 Primary Reason for Your Visit: Debility, Alzheimers Attending Provider: Louis Villegas Primary Care Provider: Woody Monzon Consulting Providers: Cassie Castanon ; Umair Mitchell Discharge Orders/Prescriptions Prescriptions: Continued acetaminophen [Tylenol] 325 mg capsule 325 mg PO TID PRN PRN (Reason: pain/fever) lisinopril 10 MG tablet 5 mg PO DAILY Seroquel 25 mg PO/SL BID lidocaine 5 % Adhesive Patch,Medicated 1 patch topical DAILY Qty: 0 0RF Protocol: *Topical Application Instructions APPLICATION INSTRUCTIONS: to back, L1 area gabapentin 100 mg Capsule 200 mg PO TIDCM Qty: 0 0RF ergocalciferol (vitamin D2) [Vitamin D2] 1,250 mcg (50,000 unit) Capsule 1.25 mg PO Q7D Qty: 0 0RF Rx Instructions: x 6 weeks oxycodone 5 mg Tablet 5 mg PO Q6H PRN (Reason: pain) 1 Days Qty: 4 0RF escitalopram oxalate 10 mg Tablet 10 mg PO DAILY Qty: 0 0RF Discontinued acetaminophen [Tylenol] 325 mg Tablet 650 mg PO Q6H PRN PRN (Reason: Pain Score 1-10/Temp > 100.7 F) Qty: 0 0RF enoxaparin 40 mg/0.4 mL Syringe 40 mg subcut DAILY Qty: 0 0RF Referrals / Follow Up: Woody Monzon MD [Primary Care Provider] - Disposition Disposition (needs filled in before D/C Order can be placed): NonSkilled NH/Intermed Care Charges/Coding Addendum Addendum: Addendum: Dr. Villegas I personally examined the patient and reviewed the chart. I agree with the above.76-year-old female presented from home secondary to debility and weakness as well as falls. The dropped her off to the hospital because she had fallen multiple times and he was unable to take care of her. She was evaluated by PT/OT which recommended ongoing therapy. She does also have signs of significant Alzheimer's dementia. We had a conversation as to why she was here and she knew she was in the hospital and that it was 2021 however she asked 2 or 3 times during my evaluation with her as to why she was here in the hospital. There is no other signs in terms of infectious work-up to indicate a reason for the confusion and the weakness, Urine and chest x-ray was unremarkable. We did discuss the situation with her and he expressed understanding of the risk and benefits of discharge to a residential facility and he feels at this time that that is the best place for her to undergo rehab and strengthening. Plan will be for discharge today. Clinical time spent in all aspects of patient care: 38 minutes Visit Charges OBSV E&M: 12400 Observation care discharge
[2021-11-24 11:51] VITALS: BP 137/66; PULSE 77; RESP 18; TEMP 36.7; O2SAT 95
--- NOTE | 2021-11-24 12:37 | NURSING ---
report called to the [facility] nurse Fernandez-pt departure plan 1400
== END 2021-11-24 13:52 | disposition intermediate care facility (04) ==
LOC: ED 21:42 → MS3 22:31
PROVIDERS: Admitting Provider Internal Medicine; Emergency Provider Student in an Organized Health Care Education/Training Program; PCP Family Medicine; Visit Provider Family Medicine
DX: R53.81 Other malaise (principal); F02.81 Dementia in other diseases classified elsewhere, unspecified severity, with behavioral disturbance; G30.9 Alzheimer's disease, unspecified; J44.9 Chronic obstructive pulmonary disease, unspecified; E11.9 Type 2 diabetes mellitus without complications; G89.29 Other chronic pain; S00.83XA Contusion of other part of head, initial encounter; E78.2 Mixed hyperlipidemia; R53.1 Weakness; I10 Essential (primary) hypertension; Z87.891 Personal history of nicotine dependence; Z79.01 Long term (current) use of anticoagulants; Z79.82 Long term (current) use of aspirin; Z79.899 Other long term (current) drug therapy; K21.9 Gastro-esophageal reflux disease without esophagitis; M19.90 Unspecified osteoarthritis, unspecified site; W19.XXXA Unspecified fall, initial encounter; Y93.9 Activity, unspecified; Y99.9 Unspecified external cause status; E55.9 Vitamin D deficiency, unspecified; Y92.009 Unspecified place in unspecified non-institutional (private) residence as the place of occurrence of the external cause; F32.A Depression, unspecified
CPT/HCPCS: 36415; 70450; 71045; 80048; 81001; 82306; 84443; 84484; 85025; 87426; 93005; 96372; 96374; 96375; 97162; 97166; 99218; 99251; 99285; A4216; G0378; G0463

== ENCOUNTER 2022-04-28 20:13 | Emergency (ER) | payer MEDICARE, BC, SELFPAY ==
[2022-04-28 20:14] VITALS: BP 173/92; PULSE 75; RESP 18; TEMP 36.5; O2SAT 97; BMI 27.8
--- NOTE | 2022-04-28 20:30 | EKG12_ITS ---
Test Reason : HTN Blood Pressure : / mmHG Vent. Rate : 075 BPM Atrial Rate : 075 BPM P-R Int : 176 ms QRS Dur : 068 ms QT Int : 376 ms P-R-T Axes : 002 -23 070 degrees QTc Int : 419 ms Normal sinus rhythm Septal infarct , age undetermined Abnormal ECG Confirmed by MARIANO JUARES, MAYNOR ([id number]), school photograph editor GI[employer] VICTOR ([id number]) on 05/01/2022 8:07:39 AM Referred By: SHAYNE Confirmed By:MAYNOR QUINTANA MD
--- NOTE | 2022-04-28 20:30 | CT_ITS ---
STUDY: CT BRAIN WITHOUT CONTRAST REASON FOR EXAM: Female, 76 years old. confusion RADIATION DOSAGE (If Supplied By Facility): CTDIvol = ( 44.99 ) mGy, DLP = ( 779.24 ) mGycm TECHNIQUE: Transaxial CT imaging of the brain was performed without administration of intravenous contrast material. Individualized dose optimization techniques were used for this CT. COMPARISON: CT of the brain 11/22/2021. FINDINGS: Normal soft tissue structures. Normal calvarium. Mild calcific plaquing of cavernous carotids. Atrophy and moderate periventricular white matter ischemic change.. Normal basal ganglia and thalami. Normal brainstem. Normal cerebellum. There is no intracranial hemorrhage. There are no findings of an acute ischemic infarction. Normal visualized paranasal sinuses. No significant change since prior study CT/Brain/Head without Contrast IMPRESSION: Atrophy and moderate periventricular white matter ischemic change. No acute bleed. If concern for acute infarct MRI recommended. Electronically Signed: Woody Leonardo MD at 21:38 EST ,
--- NOTE | 2022-04-28 20:34 | EX.ED.DYSGE1 ---
HPI History of Present Illness Chief Complaint: Hypertension Informant: patient Narrative Narrative: Patient states she is not sure why she is here. She states she woke up she was in an ambulance and she is here. And single breath she will both deny and admit to symptoms. It seems like she may have had a bit of a headache earlier but it is gone now. She may have had a little bit of nausea but denies having it now and states that she never vomited. She feels normal now. She evidently lives alone. Her recently . She has a known history of dementia. She has her daughter staying with her. When her daughter gets here I will try to get more information. The patient does request that I talked to her daughter. But at this point she is really not having any complaints. 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 History of sigmoidoscopy IBS (irritable bowel syndrome) Mixed hyperlipidemia Osteoarthritis SK (seborrheic keratosis) Spastic bladder Home Medications lisinopril 10 mg tablet 5 mg PO DAILY BLOOD PRESSURE 03/02/16 [History Last Taken 02/11/18] acetaminophen 325 mg capsule (Tylenol) 325 mg PO TID PRN PRN pain/fever 12/24/19 [History Last Taken Unknown] Seroquel 25 mg PO/SL BID 08/16/21 [History Last Taken 08/15/21 22:00 25 mg] ergocalciferol (vitamin D2) 1,250 mcg (50,000 unit) capsule (Vitamin D2) 1.25 mg PO Q7D #0 caps 08/18/21 [Rx Last Taken Unknown] escitalopram oxalate 10 mg tablet 10 mg PO DAILY #0 tabs 08/18/21 [Rx Last Taken Unknown] gabapentin 100 mg capsule 200 mg PO TIDCM #0 caps 08/18/21 [Rx Last Taken Unknown] lidocaine 5 % topical patch 1 patch topical DAILY #0 ea 08/18/21 [Rx Last Taken Unknown] oxycodone 5 mg tablet 5 mg PO Q6H PRN pain 1 day #4 tabs 08/18/21 [Rx Last Taken Unknown] Allergy/AdvReac Type Severity Reaction Status Date / Time aspirin [From Percodan] Allergy Unknown Verified 04/28/22 20:29 oxycodone HCl [From Percodan] Allergy Unknown Verified 04/28/22 20:29 oxycodone terephthalate Allergy Unknown Verified 04/28/22 20:29 [From Percodan] Family History Father Skin cancer Sister Breast cancer Thyroid disorder Alzheimers disease Aunt Breast cancer Grandmother Breast cancer Sister Schizophrenia Social History Smoking Status: Former smoker quit date: 03/10/12 Tobacco: How many years used: 40 how long ago did patient quit smokin alcohol intake: current alcohol intake frequency: 3 or more drinks per day Alcohol type: wine and hard liquor substance use type: does not use ROS ROS ED ROS Narrative Somewhat limited due to dementia. But patient denies symptoms at this time. Please see history of present illness. Constitutional Constitutional ED: Denies fever(s) Eyes Eyes: Denies change in vision ENT ENT ED: Denies sore throat Cardiovascular Cardiovascular: Denies chest pain Respiratory/Chest Respiratory/Chest: Denies cough or dyspnea Gastrointestinal Gastrointestinal: Reports nausea; Denies abdominal pain or vomiting Genitourinary Genitourinary ED: Denies dysuria or urinary frequency Musculoskeletal Musculoskeletal: Denies myalgias Integumentary Denies rash Neurologic Neurologic: Reports headache(s); Denies paresthesias or weakness Endocrine Endocrinology: Denies polydipsia or polyuria Hematologic/Lymphatic Hematologic/Lymphatic: Denies anemia Allergic/Immunologic Allergic/Immunologic ED: Denies urticaria EXAM Physical Exam Const Vital Signs: 04/28/22 20:14 04/28/22 20:29 04/28/22 22:15 Temperature 97.7 F L Temperature Source Temporal Pulse Rate 75 72 Respiratory Rate 18 10 L Respiratory Pattern Normal Blood Pressure 173/92 H 140/98 H Blood Pressure Mean 119 112 Pulse Ox 97 98 Oxygen Delivery Method Room Air Room Air Positive well nourished and well developed General Appearance ED: well developed HEENT Reports moist mucous membranes; Denies dry mucous membranes HEENT Narrative: No sign of trauma. Mouth ED: No dry mucous membranes Mouth: No dry mucous membranes Eyes EOMs intact bilaterally General Eye ED: Negative for scleral icterus Neck no JVD Chest Wall inspection of chest normal Resp normal respiratory effort and clear to auscultation bilaterally Cardio regular rate and regular rhythm GI normal to inspection, nondistended, normoactive bowel sounds and non-tender Back/Spine no CVA tenderness Extremity normal to inspection Neuro Neuro Narrative: Patient is oriented to person, hospital. She stated it was 2019. She could not tell me the president but she could pick out Biden from a list for recent presidents. Psych mental status grossly normal Skin no rashes or lesions noted MDM MDM MDM Narrative Medical decision making narrative: Imaging shows no acute process. CBC is normal. Electrolytes are normal other than mild elevation of glucose. Urinalysis is normal. COVID and influenza are negative. I talked with the patient's daughter, Rebecca. The patient had complained of some mild nausea at home but there is no vomiting. The daughter checked her blood pressure and was getting readings anywhere from 140-180. Sometimes the diastolic was at 80 and sometimes it went up to as high as 100. Heart rate was always in the 70s or 80s. Blood sugars ranged anywhere from about 140 up to us 1 test that was 227. The daughter was concerned with these variable vitals and blood sugars. The daughter just lost her father, this patient's recently and was concerned and wanted to make sure her mom was okay. I explained the patient's blood pressure is actually doing well here. It is mildly elevated but does not need acute treatment. It sounds like she has meds at home but has not been taking them. She can follow-up for the elevated blood glucose. However I see glucose levels that are elevated back to 2014. But generally they are only mild elevations. This can be managed as an outpatient and may not even need treatment. The daughter is more than happy to come get her mother to bring her home at this time. Lab Data Attestation: I reviewed the patient's lab results. Labs: Laboratory Results - last 24 hr 04/28/22 04/28/22 04/28/22 20:42 20:42 20:42 WBC 4.9 RBC 4.06 L Hgb 12.3 Hct 38.5 MCV 94.8 MCH 30.3 MCHC 31.9 L RDW Std Deviation 46.5 H RDW Coeff of Marii 13.4 Plt Count 251 MPV 9.4 Immature Gran % (Auto) 0.200 Neut % (Auto) 58.6 Lymph % (Auto) 24.1 Rogers % (Auto) 14.0 H Eos % (Auto) 2.5 Baso % (Auto) 0.6 Absolute Neuts (auto) 2.9 Absolute Lymphs (auto) 1.17 Nucleated RBC % 0 Sodium 139 Potassium 3.9 Chloride 106 Carbon Dioxide 27.0 Anion Gap 6 BUN 10 Creatinine 0.60 Estim Creat Clear Calc 38.44 Est GFR (MDRD) Af Amer 124 Est GFR (MDRD) Non-Af 103 BUN/Creatinine Ratio 16.6 Glucose 145 H Calcium 9.3 Urine Color Straw Urine Clarity Clear Urine pH 8.0 Ur Specific [place] 1.010 Urine Protein Negative Urine Glucose (UA) Normal Urine Ketones Negative Urine Occult Blood Negative Urine Nitrite Negative Urine Bilirubin Negative Urine Urobilinogen Normal Ur Leukocyte Esterase Negative Urine RBC 0 SEEN Urine WBC 0 SEEN Ur Squamous Epith Cells 0 SEEN Urine Bacteria 0 SEEN Urine Mucus 0 SEEN Radiography Diagnostic Testing: Clinical Impression(s) from Imaging Studies Brain CT 04/28/22 20:30 IMPRESSION: Atrophy and moderate periventricular white matter ischemic change. No acute bleed. If concern for acute infarct MRI recommended. Electronically Signed: Woody Leonardo MD at 21:38 EST , Chest X-Ray 04/28/22 21:10 IMPRESSION: No acute cardiopulmonary pathology Electronically Signed: Woody Leonardo MD at 21:40 EST , Chest x-ray and CT are not showing acute processes. Discharge Plan Triage Chief Complaint: Hypertension ED Provider: Wilmar Bess Dx/Rx/DC Orders Clinical Impression: Elevated blood pressure reading, History of nausea Instructions: Alzheimer Disease, ED High Blood Pressure Hypertension Prescriptions: No Action acetaminophen [Tylenol] 325 mg capsule 325 mg PO TID PRN PRN (Reason: pain/fever) lisinopril 10 MG tablet 5 mg PO DAILY Seroquel 25 mg PO/SL BID lidocaine 5 % Adhesive Patch,Medicated 1 patch topical DAILY Qty: 0 0RF Protocol: *Topical Application Instructions APPLICATION INSTRUCTIONS: to back, L1 area gabapentin 100 mg Capsule 200 mg PO TIDCM Qty: 0 0RF ergocalciferol (vitamin D2) [Vitamin D2] 1,250 mcg (50,000 unit) Capsule 1.25 mg PO Q7D Qty: 0 0RF Rx Instructions: x 6 weeks oxycodone 5 mg Tablet 5 mg PO Q6H PRN (Reason: pain) 1 Days Qty: 4 0RF escitalopram oxalate 10 mg Tablet 10 mg PO DAILY Qty: 0 0RF Primary Care Provider: Woody Monzon Referrals: Woody Monzon MD [Primary Care Provider] - 3-5 Days Disposition Disposition: Home, Self Care
[2022-04-28 20:46] LABS: Bacteria 0 SEEN /hpf (None Seen); Mucous, Urine 0 SEEN /hpf (<or=2+); Red Blood Cells-Urine 0 SEEN /hpf (0-5); Squamous Epithelial Cells - UA 0 SEEN /hpf (5-10); White Blood Cells 0 SEEN /hpf (0-5)
[2022-04-28 20:49] LABS: Absolute Lymphocyte Count 1.17 X10^3/uL (0.83-4.51); Absolute Neutrophil Count 2.9 X10^3/uL (2.0-7.7); Basophil# 0.03 X10^3/uL; Basophil% 0.6 % (0-1); Color, Urine Straw (Yellow); Eosinophil# 0.12 X10^3/uL; Eosinophils% 2.5 % (0-5); Glucose, Dipstick Normal (Normal); Hematocrit 38.5 % (37-47); Hemoglobin 12.3 g/dL (12.0-15.0); Ketone-Dipstick Negative (Negative); Leukocyte Esterase-Dipstick Negative /ul (Negative); Lymphocyte # 1.17 X10^3/ul (0.83-4.51); Lymphocyte % 24.1 % (19-41); Mean Corp Hgb Conc 31.9 g/dL (32-36); Mean Corpuscular Hgb 30.3 pg (27.0-32.0); Mean Corpuscular Volume 94.8 fL (81-99); Mean Platelet Vol. 9.4 fl (6.2-12.0); Monocyte# 0.68 X10^3/uL; NRBC Flagged by Analyzer 0 % (0-5); Neutrophil # 2.85 X10^3/uL (2.7-7.7); Neutrophil % 58.6 % (47-70); Nitrite-Dipstick Negative (Negative); Occult Blood-Urine Negative /ul (Negative); Platelet Count 251 K/mm3 (150-450); Protein-Dipstick Negative (Negative); RBC Distribution Width CV 13.4 % (11.6-14.6); RBC Distribution Width SD 46.5 fl (35.1-43.9); Red Blood Count 4.06 M/mm3 (4.2-5.4); Urine Bilirubin Dipstick Negative (Negative); Urine Clarity Clear (Clear); Urine Urobilinogen Normal (Normal); White Blood Count 4.9 K/mm3 (4.4-11.0)
[2022-04-28 21:03] LABS: Anion Gap 6 (5-15); BUN 10 mg/dL (7-18); BUN/Creat Ratio 16.6 RATIO (10-20); Calcium,Total 9.3 mg/dL (8.5-10.1); Chloride 106 mmol/L (98-107); EST Glomerular Filtration Rate 103 mL/min (>60); Est Glom Filt Rate - Afr Amer 124 mL/min (>60); Estimated Creatinine Clearance 38.44 ml/min; Glucose 145 mg/dL (74-106); Potassium 3.9 mmol/L (3.5-5.1); Sodium Level 139 mmol/L (136-145)
--- NOTE | 2022-04-28 21:10 | RAD_ITS ---
STUDY: X-RAY CHEST REASON FOR EXAM: Female, 76 years old. cough TECHNIQUE: AP portable COMPARISON: 11/20/2021 FINDINGS: The lungs are clear and expanded. There is no demonstrated pleural abnormality. Normal size heart. Normal mediastinum and anabell. Normal visualized pulmonary arteries. Mildly calcified aortic arch and descending thoracic aorta. Dorsal spine demonstrates degenerative change. Normal visualized ribs, clavicles, and shoulders. There is no demonstrated abnormality of the visualized soft tissue structures of the upper abdomen. RAD/Chest 1 View (Portable) IMPRESSION: No acute cardiopulmonary pathology Electronically Signed: Woody Leonardo MD at 21:40 EST ,
[2022-04-28 22:15] VITALS: BP 140/98; PULSE 72; RESP 10; O2SAT 98
[2022-04-29 00:08] VITALS: PULSE 76; RESP 21; O2SAT 97
== END 2022-04-29 00:43 | disposition home or self-care (01) ==
PROVIDERS: Emergency Provider Emergency Medicine; PCP Family Medicine; Visit Provider Emergency Medicine
DX: R03.0 Elevated blood-pressure reading, without diagnosis of hypertension (principal); J44.9 Chronic obstructive pulmonary disease, unspecified; E11.65 Type 2 diabetes mellitus with hyperglycemia; E78.2 Mixed hyperlipidemia; Z87.891 Personal history of nicotine dependence; Z60.2 Problems related to living alone
CPT/HCPCS: 70450; 71045; 80048; 81001; 85025; 87428; 93005; 99285; A4216

== ENCOUNTER 2022-06-25 09:18 | Inpatient (IN) | payer MEDICARE, BC, SELFPAY ==
[2022-06-25] VITALS (10 sets, daily range): BP systolic 146–166; BP diastolic 82–107; PULSE 68–110; RESP 15–19; TEMP 36–36.7; O2SAT 95–98; BMI 29.2; BMI 25.6
--- NOTE | 2022-06-25 09:39 | CT_ITS ---
STUDY: CT BRAIN WITHOUT CONTRAST REASON FOR EXAM: Female, 76 years old. Mental status change RADIATION DOSAGE (If Supplied By Facility): CTDIvol = ( 44.99 ) mGy, DLP = ( 796.11 ) mGycm TECHNIQUE: Transaxial CT imaging of the brain was performed without administration of intravenous contrast material. Individualized dose optimization techniques were used for this CT. COMPARISON: Comparison is made with prior study 04/28/2022. FINDINGS: Normal soft tissue structures. Normal calvarium. There is mild cerebral atrophy with widening of the extra-axial spaces and ventricular dilatation. There are areas of decreased attenuation within the white matter tracts of the supratentorial brain, consistent with microvascular disease changes. Stable focal encephalomalacia in the undersurface of the frontal lobes bilaterally. Normal basal ganglia and thalami. Normal brainstem. Normal cerebellum. There is no intracranial hemorrhage. There are no findings of an acute ischemic infarction. Atherosclerotic calcific plaques of the vertebral arteries and cavernous portions of the internal carotid arteries bilaterally. Normal visualized paranasal sinuses. CT/Brain/Head without Contrast IMPRESSION: Chronic involutional changes of the brain. Electronically Signed: Mike Matta MD at 10:44 EST ,
--- NOTE | 2022-06-25 09:40 | EKG12_ITS ---
Test Reason : COMPLAINT Blood Pressure : / mmHG Vent. Rate : 094 BPM Atrial Rate : 094 BPM P-R Int : 172 ms QRS Dur : 076 ms QT Int : 366 ms P-R-T Axes : 035 -22 055 degrees QTc Int : 457 ms Normal sinus rhythm Septal infarct , age undetermined Abnormal ECG Confirmed by RU JUARES, ANAHI ([id number]), make up editor GIUSEPPE VICTOR ([id number]) on 06/26/2022 9:38:39 AM Referred By: RU Confirmed By:ANAHI VENCES MD
--- NOTE | 2022-06-25 09:41 | EX.ED.DYSGE1 ---
HPI History of Present Illness Chief Complaint: Complaint Detail of Chief Complaint: Increased confusion/mental status change Informant: patient and family Narrative Narrative: Patient presents to the emergency department with her daughter. Patient is really without complaints other than feeling upset and angry at her daughter because she feels like her daughter is trying to get rid of her so that the daughter can steal her stuff and take it to [place]. Daughter states that patient last night was leaving the house and going to the neighbors. The neighbors did bring the patient back to the home. Patient has history of dementia and has had dementia for over 12 years. Daughter has medical power of deputy prosecuting attorney. Patient's several months ago and the daughter has been here from [place] staying with the patient. In the past when patient has acted this way she has had urinary tract infection. Patient apparently last night was very restless and was screaming and attempting to flee the home which the daughter attempted to keep patient in the home given the cold temperatures. Patient does have history of COPD as well as diabetes and hypertension and high cholesterol. Daughter also states that patient had a fall last evening down a few steps in the home but did not appear to be injured and has been ambulatory and walking without difficulty since that time. 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 History of sigmoidoscopy IBS (irritable bowel syndrome) Mixed hyperlipidemia Osteoarthritis SK (seborrheic keratosis) Spastic bladder Home Medications acetaminophen 325 mg capsule (Tylenol) 325 mg PO TID PRN PRN pain/fever 12/24/19 [History Last Taken 1 Week Ago ~06/18/22] escitalopram oxalate 10 mg tablet 10 mg PO DAILY #0 tabs 08/18/21 [Rx Last Taken Unknown] gabapentin 100 mg capsule 100 mg PO BID 06/25/22 [History Last Taken Unknown] ibuprofen 800 mg tablet 800 mg PO Q6H PRN Pain 06/25/22 [History Last Taken Unknown] lisinopril 5 mg tablet 5 mg PO DAILY BLOOD PRESSURE 06/25/22 [History Last Taken Unknown] omeprazole 20 mg tablet,delayed release 20 mg PO DAILY GERD 06/25/22 [History Last Taken Unknown] quetiapine 25 mg tablet (Seroquel) 25 mg PO BID MOOD 06/25/22 [History Last Taken Unknown] Allergy/AdvReac Type Severity Reaction Status Date / Time aspirin [From Percodan] Allergy Unknown Verified 06/25/22 09:18 oxycodone HCl [From Percodan] Allergy Unknown Verified 06/25/22 09:18 oxycodone terephthalate Allergy Unknown Verified 06/25/22 09:18 [From Percodan] Family History Father Skin cancer Sister Breast cancer Thyroid disorder Alzheimers disease Aunt Breast cancer Grandmother Breast cancer Sister Schizophrenia Social History Smoking Status: Former smoker quit date: 03/10/12 Tobacco: How many years used: 40 how long ago did patient quit smokin alcohol intake: current alcohol intake frequency: 3 or more drinks per day Alcohol type: wine and hard liquor substance use type: does not use ROS ROS ED Review of Systems ROS Unobtainable: other Constitutional Constitutional ED: Reports lethargy; Denies chills, fever(s), sweats or weight loss Eyes Eyes: Denies blurry vision, change in vision or diplopia ENT ENT ED: Denies rhinorrhea or sore throat Cardiovascular Cardiovascular: Denies chest pain, orthopnea or racing heartbeat Respiratory/Chest Respiratory/Chest: Denies cough, dyspnea, dyspnea on exertion, orthopnea or sputum Gastrointestinal Gastrointestinal: Denies abdominal pain, diarrhea, nausea or vomiting Genitourinary Genitourinary ED: Denies dysuria, hematuria or urinary frequency Musculoskeletal Musculoskeletal: Denies arthralgias, back pain, myalgias or neck pain Integumentary Denies abscess, Abrasions or rash Neurologic Neurologic: Reports headache(s); Denies weakness Psychiatric Psychiatric: Denies anxiety, depression or suicidal thoughts Endocrine Endocrinology: Denies polydipsia, polyphagia or polyuria Hematologic/Lymphatic Hematologic/Lymphatic: Denies easy bleeding, easy bruising or lymphadenopathy Allergic/Immunologic Allergic/Immunologic ED: Denies mouth swelling, tongue swelling or urticaria EXAM Physical Exam Const Vital Signs: 06/25/22 09:19 06/25/22 09:20 06/25/22 10:20 Temperature 96.8 F L 97.0 F L 97.1 F L Temperature Source Temporal Temporal Temporal Pulse Rate 110 H 88 89 Respiratory Rate 18 15 16 Blood Pressure 153/107 H 163/96 H 159/86 H Blood Pressure Mean 122 118 110 Pulse Ox 98 96 97 Oxygen Delivery Method Room Air Room Air Room Air 06/25/22 11:00 Temperature 97.3 F L Temperature Source Temporal Pulse Rate 89 Respiratory Rate 19 H Blood Pressure 162/92 H Blood Pressure Mean 115 Pulse Ox 96 Oxygen Delivery Method Room Air Positive well nourished and well developed General Appearance ED: well developed and NAD HEENT Reports TM's clear and moist mucous membranes normocephalic and atraumatic; Negative for trauma or tenderness Tympanic Membrane ED: Yes TM's clear Eyes PERRL and EOMs intact bilaterally General Eye ED: Negative for pale conjunctiva or scleral icterus Neck no lymphadenopathy, supple and no JVD General: Negative for tenderness Chest Wall inspection of chest normal and palpation of chest normal Chest: Negative for tenderness Resp normal respiratory effort and clear to auscultation bilaterally Effort and Inspection: Negative for respiratory distress or pain with movement Auscultation: Negative for rhonchi, wheezes or diminished lung sounds Cardio regular rate, regular rhythm, S1 normal heart sound, S2 normal heart sound and no murmurs Peripheral Pulses: pulses 2+ throughout GI normal to inspection, nondistended, normoactive bowel sounds, soft to palpation, non-tender, non-distended and no masses Back/Spine no CVA tenderness and no thoracic nor lumbar tenderness Extremity normal to inspection General Extremety ED: Negative for edema General Extremity: Negative for edema Neuro CN's II-XII intact bilaterally, no sensory deficits noted and gait normal Neuro Narrative: Alert to person and place but not time. Sensorium / Orientation: awake, alert, oriented to person, oriented to place and oriented to time Motor Exam: strength 5/5 throughout and strength abnormal Psych mental status grossly normal Skin no rashes or lesions noted and no wounds MDM MDM MDM Narrative Medical decision making narrative: IV line established on arrival. Patient placed on a gambling monitor. Telemetry strip showed sinus rhythm with tachycardic rate in the low 100s. CT scan of the brain without contrast was obtained given her recent fall and mental status change and agitation and this was unremarkable for acute disease process but did show chronic involutional changes of the brain. Patient had an EKG that showed a sinus rhythm with a rate of 94 bpm with old septal infarct noted and when compared with prior EKG no changes noted. Patient urinalysis was normal. CBC with differential was unremarkable. Chemistries were unremarkable. Troponin was elevated 248. Patient was given aspirin p.o. She is denying chest pain. Patient did have a troponin in November 2021 that was normal. At this point I will discuss case with cardiology and hospitalist evaluate patient for admission. I do not feel patient is safe to be discharged to home given her mental status and potentially worsening dementia with patient being flight risk and danger to self. Daughter in agreement with admission. Daughter apparently has power of deputy prosecuting attorney. Mental status change may be related to progressive dementia. Patient has risk factors for coronary artery disease including diabetes, hypertension, high cholesterol. Discussing case with diver's tender I was asked to give patient a dose of Lovenox and patient will be admitted and evaluated by cardiology. Also discussed case with hospitalist will evaluate patient for admission. Lab Data Attestation: I reviewed the patient's lab results. Labs: Laboratory Results - last 24 hr 06/25/22 06/25/22 06/25/22 09:53 09:53 10:50 WBC 5.0 RBC 4.27 Hgb 12.5 Hct 39.2 MCV 91.8 MCH 29.3 MCHC 31.9 L RDW Std Deviation 45.8 H RDW Coeff of Marii 13.4 Plt Count 268 MPV 9.8 Immature Gran % (Auto) 0.400 Neut % (Auto) 71.6 H Lymph % (Auto) 16.2 L White % (Auto) 10.2 H Eos % (Auto) 1.2 Baso % (Auto) 0.4 Absolute Neuts (auto) 3.6 Absolute Lymphs (auto) 0.81 L Nucleated RBC % 0 Sodium 139 Potassium 3.6 Chloride 107 Carbon Dioxide 25.0 Anion Gap 7 BUN 9 Creatinine 0.70 Estim Creat Clear Calc 38.44 Est GFR (MDRD) Af Amer 104 Est GFR (MDRD) Non-Af 86 BUN/Creatinine Ratio 12.8 Glucose 147 H Calcium 9.9 Troponin I High Sens 248 H* Urine Color Yellow Urine Clarity Sl. Cloudy Urine pH 6.5 Ur Specific [place] 1.015 Urine Protein Negative Urine Glucose (UA) Normal Urine Ketones Negative Urine Occult Blood Negative Urine Nitrite Negative Urine Bilirubin Negative Urine Urobilinogen Normal Ur Leukocyte Esterase Negative Urine RBC 0 SEEN Urine WBC 0 SEEN Ur Squamous Epith Cells 0-5 SEEN Urine Bacteria 0 SEEN Urine Mucus 0 SEEN Radiography Diagnostic Testing: Clinical Impression(s) from Imaging Studies Brain CT 06/25/22 09:39 IMPRESSION: Chronic involutional changes of the brain. Electronically Signed: Mike Matta MD at 10:44 EST , EKG Initial EKG: Attestation: I personally reviewed and interpreted this EKG as follows: Comments: Sinus rhythm with a rate of 94 bpm with old septal infarct Prior EKG tracings: available for review Prior: Unchanged Discharge Plan Triage Chief Complaint: Complaint ED Provider: Lisa Gilbert Dx/Rx/DC Orders Clinical Impression: Alzheimer's dementia, Non-ST elevated myocardial infarction, History of hypertension, Hx of hypercholesterolemia Prescriptions: No Action acetaminophen [Tylenol] 325 mg capsule 325 mg PO TID PRN PRN (Reason: pain/fever) escitalopram oxalate 10 mg Tablet 10 mg PO DAILY Qty: 0 0RF quetiapine [Seroquel] 25 mg Tablet 25 mg PO BID ibuprofen 800 mg Tablet 800 mg PO Q6H PRN (Reason: Pain) lisinopril 5 mg Tablet 5 mg PO DAILY omeprazole 20 mg Tablet,Delayed Release (Dr/Ec) 20 mg PO DAILY gabapentin 100 mg capsule 100 mg PO BID Primary Care Provider: Woody Monzon Referrals: Woody Monzon MD [Primary Care Provider] - Disposition Disposition: Acute Care [facility]
[2022-06-25] MEDS: 0.9% Normal Saline 1,000 ML 150 ML IV (10:01)
[2022-06-25 10:07] LABS: Absolute Lymphocyte Count 0.81 X10^3/uL (0.83-4.51); Absolute Neutrophil Count 3.6 X10^3/uL (2.0-7.7); Basophil# 0.02 X10^3/uL; Basophil% 0.4 % (0-1); Eosinophil# 0.06 X10^3/uL; Eosinophils% 1.2 % (0-5); Hematocrit 39.2 % (37-47); Hemoglobin 12.5 g/dL (12.0-15.0); Lymphocyte # 0.81 X10^3/ul (0.83-4.51); Lymphocyte % 16.2 % (19-41); Mean Corp Hgb Conc 31.9 g/dL (32-36); Mean Corpuscular Hgb 29.3 pg (27.0-32.0); Mean Corpuscular Volume 91.8 fL (81-99); Mean Platelet Vol. 9.8 fl (6.2-12.0); Monocyte# 0.51 X10^3/uL; Monocyte% 10.2 % (0-10); NRBC Flagged by Analyzer 0 % (0-5); Neutrophil # 3.57 X10^3/uL (2.7-7.7); Neutrophil % 71.6 % (47-70); Platelet Count 268 K/mm3 (150-450); RBC Distribution Width CV 13.4 % (11.6-14.6); RBC Distribution Width SD 45.8 fl (35.1-43.9); Red Blood Count 4.27 M/mm3 (4.2-5.4)
[2022-06-25 10:36] LABS: Anion Gap 7 (5-15); BUN 9 mg/dL (7-18); BUN/Creat Ratio 12.8 RATIO (10-20); Calcium,Total 9.9 mg/dL (8.5-10.1); Chloride 107 mmol/L (98-107); EST Glomerular Filtration Rate 86 mL/min (>60); Est Glom Filt Rate - Afr Amer 104 mL/min (>60); Estimated Creatinine Clearance 38.44 ml/min; Glucose 147 mg/dL (74-106); Potassium 3.6 mmol/L (3.5-5.1); Sodium Level 139 mmol/L (136-145); Troponin-I HS (w/2H Reflex) 248 pg/mL (3.0-54.0)
[2022-06-25 10:59] LABS: Bacteria 0 SEEN /hpf (None Seen); Mucous, Urine 0 SEEN /hpf (<or=2+); Red Blood Cells-Urine 0 SEEN /hpf (0-5); White Blood Cells 0 SEEN /hpf (0-5)
[2022-06-25 11:03] LABS: Color, Urine Yellow (Yellow); Glucose, Dipstick Normal (Normal); Ketone-Dipstick Negative (Negative); Leukocyte Esterase-Dipstick Negative /ul (Negative); Nitrite-Dipstick Negative (Negative); Occult Blood-Urine Negative /ul (Negative); Protein-Dipstick Negative (Negative); Specific Gravity, Urine 1.015 (1.002-1.030); Urine Bilirubin Dipstick Negative (Negative); Urine Clarity Sl. Cloudy (Clear); Urine Urobilinogen Normal (Normal); Urine pH 6.5 (5.0 - 8.0)
[2022-06-25 11:11] LABS: Squamous Epithelial Cells - UA 0-5 SEEN /hpf (5-10)
[2022-06-25] MEDS: Clopidogrel Bisulfate 75 MG Tablet PO (11:30)
[2022-06-25 11:59] LABS: Reflex Troponin-HS? (from REC) Y
[2022-06-25] MEDS: Enoxaparin 80 MG/0.8 ML Syringe 70 MG SC (12:38)
[2022-06-25 12:58] LABS: Troponin-I HS 325 pg/mL (3.0-54.0)
--- NOTE | 2022-06-25 14:45 | HP.PCM.HOS_ITS ---
HPI - General General Date of Admission: 06/25/22 Date of Service: 06/25/22 Chief Complaint: cofusion HPI Narrative TORSTEN QUACH, is a 76 F who presents with just increasing confusion. Concern from the patient's daughter, who brought the patient in, is that the patient may have a urinary tract infection. Patient had previously fallen and was leaving home. Patient was evaluated and had relatively normal lab work and no UTI on her urinalysis. Patient was never complaining of chest pain but a troponin was ordered which was elevated at 248. Patient had a troponin in November of this last year that was normal before. The ER contacted cardiology and patient did receive enoxaparin in the emergency room as well as clopidogrel given patient having an history of aspirin allergy. Patient tells me that she feels fine and denies any complaints but does not know why she is here. 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 History of sigmoidoscopy IBS (irritable bowel syndrome) Mixed hyperlipidemia Osteoarthritis SK (seborrheic keratosis) Spastic bladder Home Medications escitalopram oxalate 10 mg tablet (Lexapro) 10 mg PO DAILY mood 06/25/22 [History Last Taken Unknown] gabapentin 100 mg tablet 100 mg PO BID pain 06/25/22 [History Last Taken Unknown] omeprazole magnesium 20 mg capsule,delayed release 20 mg PO DAILY heartburn 06/25/22 [History Last Taken 06/24/22] quetiapine 25 mg tablet (Seroquel) 25 mg PO BID MOOD 06/25/22 [History Last Taken Unknown] Allergy/AdvReac Type Severity Reaction Status Date / Time aspirin [From Percodan] Allergy Unknown Verified 06/25/22 09:18 oxycodone HCl [From Percodan] Allergy Unknown Verified 06/25/22 09:18 oxycodone terephthalate Allergy Unknown Verified 06/25/22 09:18 [From Percodan] Family History Father Skin cancer Sister Breast cancer Thyroid disorder Alzheimers disease Aunt Breast cancer Grandmother Breast cancer Sister Schizophrenia Social History Smoking Status: Former smoker quit date: 03/10/12 Tobacco: How many years used: 40 how long ago did patient quit smokin alcohol intake: current alcohol intake frequency: 3 or more drinks per day Alcohol type: wine and hard liquor substance use type: does not use ROS ROS Narrative All review of systems were negative except as mentioned above in the history of present illness and the other review of systems. Vital Signs Vital Signs Vital Signs: 06/25/22 09:19 06/25/22 09:20 06/25/22 10:20 Temperature 36.0 C L 36.1 C L 36.2 C L Temperature Source Temporal Temporal Temporal Pulse Rate 110 H 88 89 Respiratory Rate 18 15 16 Blood Pressure 153/107 H 163/96 H 159/86 H Blood Pressure Mean 122 118 110 Blood Pressure Source Blood Pressure Position Blood Pressure Location Pulse Ox 98 96 97 Oxygen Delivery Method Room Air Room Air Room Air 06/25/22 11:00 06/25/22 12:39 06/25/22 12:00 Temperature 36.3 C L 36.7 C 36.7 C Temperature Source Temporal Temporal Temporal Pulse Rate 89 74 74 Respiratory Rate 19 H 18 18 Blood Pressure 162/92 H 166/86 H 166/86 H Blood Pressure Mean 115 112 112 Blood Pressure Source Blood Pressure Position Blood Pressure Location Pulse Ox 96 96 96 Oxygen Delivery Method Room Air Room Air Room Air 06/25/22 13:14 06/25/22 13:30 Temperature 36.6 C Temperature Source Oral Pulse Rate 68 Respiratory Rate 18 Blood Pressure 159/84 H Blood Pressure Mean 109 Blood Pressure Source Monitor Blood Pressure Position Semi-Fowlers Blood Pressure Location Right Arm Pulse Ox 97 Oxygen Delivery Method Room Air Room Air Weight Weight: 64.6 kg Body Mass Index (BMI) 25.6 Physical Exam Const Constitutional Narrative: Alert to self and place. Does not know the date. Pleasantly confused. HEENT normocephalic and head/scalp atraumatic Resp normal respiratory effort, no retractions, no use of accessory muscles and clear to auscultation bilaterally Cardio regular rate, regular rhythm, S1 normal heart sound and S2 normal heart sound GI normal to inspection, nondistended, normoactive bowel sounds, soft to palpation, non-tender and non-distended Neuro oriented x3 and CN's II-XII intact bilaterally Results Lab / Micro Data Result Diagrams: 06/25/22 09:53 06/25/22 09:53 Labs: Laboratory Results - last 24 hr 06/25/22 09:53: WBC 5.0, RBC 4.27, Hgb 12.5, Hct 39.2, MCV 91.8, MCH 29.3, MCHC 31.9 L, RDW Std Deviation 45.8 H, RDW Coeff of Marii 13.4, Plt Count 268, MPV 9.8, Immature Gran % (Auto) 0.400, Neut % (Auto) 71.6 H, Lymph % (Auto) 16.2 L, [place] % (Auto) 10.2 H, Eos % (Auto) 1.2, Baso % (Auto) 0.4, Absolute Neuts (auto) 3.6, Absolute Lymphs (auto) 0.81 L, Nucleated RBC % 0 06/25/22 09:53: Sodium 139, Potassium 3.6, Chloride 107, Carbon Dioxide 25.0, Anion Gap 7, BUN 9, Creatinine 0.70, Estim Creat Clear Calc 38.44, Est GFR (MDRD) Af Amer 104, Est GFR (MDRD) Non-Af 86, BUN/Creatinine Ratio 12.8, Glucose 147 H, Calcium 9.9, Troponin I High Sens 248 H* 06/25/22 10:50: Urine Color Yellow, Urine Clarity Sl. Cloudy, Urine pH 6.5, Ur Specific [place] 1.015, Urine Protein Negative, Urine Glucose (UA) Normal, Urine Ketones Negative, Urine Occult Blood Negative, Urine Nitrite Negative, Urine Bilirubin Negative, Urine Urobilinogen Normal, Ur Leukocyte Esterase Negative, Urine RBC 0 SEEN, Urine WBC 0 SEEN, Ur Squamous Epith Cells 0-5 SEEN, Urine Bacteria 0 SEEN, Urine Mucus 0 SEEN 06/25/22 12:26: Troponin I High Sens 325 H* Radiology Impression Brain CT 06/25/22 09:39 IMPRESSION: Chronic involutional changes of the brain. Electronically Signed: Mike Matta MD at 10:44 EST , Assessment & Plan Assessment/Plan (1) Dementia: PLAN: Patient is leaving the house and a daughter is not able to manage her home at home and patient is unable to manage herself independently. PT OT evaluate and treat Measure of the patient will have any skilled needs. If patient cannot have someone stay with her then she may need to go to a facility long-term. (2) Elevated troponin: PLAN: Denies any complaints Unclear why troponin was checked in the first place though the EKG did show inferior Q waves. Cardiology was contacted by the emergency room Continue with anticoagulation and clopidogrel Consult cardiology PLAN: Plan VTE prophylaxis: Not indicated as patient will be anticoagulated. Charges/Coding Visit Charges Inpatient E&M: 99123 Init Hosp L2
--- NOTE | 2022-06-25 15:00 | ECHOD_ITS ---
Reason For Study: ABN EKG Procedure This was a 2D Doppler, Color Flow transthoracic echocardiogram. Exam performed portable in patient room. Left Ventricle Normal LV size. Left ventricular systolic function is normal. The estimated ejection fraction is 60 %. No regional wall motion abnormalities noted. Right Ventricle Normal RV size. Normal systolic function. Atria Normal left atrium. Normal right atrium. Mitral Valve There is mild mitral annular calcification. Tricuspid Valve Normal tricuspid valve. Mild tricuspid valve insufficiency. Pulmonary artery systolic pressure is 24 mmHg. Aortic Valve Trisinus/trileaflet aortic valve. Mild focal aortic valve calcification. Pulmonic Valve Normal pulmonic valve. Great Vessels Normal aortic root. The pulmonary artery is normal size. Normal inferior vena cava. Pericardium/Pleural No pericardial effusion. MMode/2D Measurements & Calculations LVIDd: 4.5 cm IVSd: 1.00 cm Ao root diam: 3.1 cm LVIDs: 2.8 cm LVPWd: 0.78 cm FS: 38.0 % LAV(MOD-bp): 42.7 ml LVAd ap4: 20.5 cm2 SV(MOD-sp4): 26.8 ml LAV(MOD-bp) Indexed: 25.8 ml/m2 LVLd ap4: 7.1 cm LAV(MOD-sp2): 39.3 ml EDV(MOD-sp4): 48.7 ml LAV(MOD-sp4): 39.3 ml EDV(sp4-el): 49.9 ml LVAs ap4: 12.5 cm2 LVLs ap4: 6.5 cm ESV(MOD-sp4): 21.9 ml ESV(sp4-el): 20.5 ml EF(MOD-sp4): 55.0 % EF(sp4-el): 58.9 % SV(sp4-el): 29.4 ml LA A4 area: 16.4 cm2 LA dimension(2D): 3.4 cm Time Measurements MV dec time: 0.13 sec Doppler Measurements & Calculations MV E max darian: 60.0 cm/sec Lat Peak E' Darian: 8.6 cm/sec Med Peak E' Darian: 6.5 cm/sec MV A max darian: 96.1 cm/sec E/E' lat: 7.0 E/E' med: 9.2 MV E/A: 0.62 MV V2 max: 93.0 cm/sec Ao V2 max: 101.6 cm/sec MV max P.5 mmHg MV dec slope: 451.0 cm/sec2 Ao max P.1 mmHg MV V2 mean: 54.8 cm/sec Ao V2 mean: 71.4 cm/sec MV mean P.3 mmHg Ao mean P.3 mmHg MV V2 VTI: 22.4 cm Ao V2 VTI: 22.4 cm AV (velocity ratio): 0.87 LV V1 max: 92.8 cm/sec PA V2 max: 81.3 cm/sec TR max darian: 230.9 cm/sec LV V1 max P.4 mmHg PA V2 mean: 56.9 cm/sec TR max P.3 mmHg LV V1 mean P.6 mmHg LV V1 mean: 59.3 cm/sec LV V1 VTI: 19.5 cm ECHO/Echo Complete Interpretation Summary Normal LV size. Left ventricular systolic function is normal. The estimated ejection fraction is 60 %. There is mild mitral annular calcification. Pulmonary artery systolic pressure is 24 mmHg. Ordering Physician: Rick Kaufman Referring Physician: LORIE THURMAN Performed By: Dayna Sam RCS
--- NOTE | 2022-06-25 15:00 | EKG12_ITS ---
Test Reason : Blood Pressure : / mmHG Vent. Rate : 075 BPM Atrial Rate : 075 BPM P-R Int : 184 ms QRS Dur : 068 ms QT Int : 388 ms P-R-T Axes : 002 -26 083 degrees QTc Int : 433 ms Normal sinus rhythm Septal infarct (cited on or before 22-NOV-2021) Abnormal ECG When compared with ECG of 25-JUN-2022 09:48, No significant change was found Confirmed by MARIANO JUARES, MAYNOR ([id number]), editor in chief newspaper [employer] ([id number]) on 07/03/2022 11:35:42 AM Referred By: Umm Confirmed By:MAYNOR QUINTANA MD
--- NOTE | 2022-06-25 15:40 | EKG12_ITS ---
Test Reason : Blood Pressure : / mmHG Vent. Rate : 081 BPM Atrial Rate : 081 BPM P-R Int : 180 ms QRS Dur : 082 ms QT Int : 396 ms P-R-T Axes : 024 -17 057 degrees QTc Int : 460 ms Sinus rhythm with Premature atrial complexes Otherwise normal ECG When compared with ECG of 25-JUN-2022 09:48, Premature atrial complexes are now Present Confirmed by AMILCAR JUARES, MICHAEL ([id number]), book or script editor [employer] ([id number]) on 07/16/2022 12:47:36 PM Referred By: NATALIA Confirmed By:ANOOP FITZGERALD MD
[2022-06-25 17:11] LABS: Troponin-I HS 338 pg/mL (3.0-54.0)
--- NOTE | 2022-06-25 18:23 | CASEMGMT ---
DC Planning Assessment: Phone call received from patient's daughter Rebecca Silverio/[facility]. Completed initial transition planning/care coordination with Rebecca via phone. Introduced Rebecca to availability of RN CM and social work at [facility]. Daughter Rebecca voiced understanding. Care providers, pharmacy, and demographics verified. Attempted [id number] with patient, to include patient in the initial transition planning/care coordination. Pt sitting up in chair, alert, though presenting as disoriented and confused. Admission dx: Dementia; elevated troponins PCP: Dr. Monzon Specialists: No current specialists. Daughter reports history of neuropsychiatry evaluation and palliative care involvement in 2020 when patient was living with daughter for about a year. Preferred Pharmacy: First choice [facility] retail pharmacy. Second choice drug [facility] in [place]. Insurance: Medicare part A AND B with secondary of [place]. Prescription benefit reported to be in place. Living Will/HPOA: Daughter brought in power of litigation attorney associate for healthcare, which appears to have been completed while living in [place] along with a DNRCC form also completed and for [place]. Copy on chart. No living will completed. LNOK: Patient is as of April 2021. Has been was Noel De Guzman. Patient's daughter is reported as Rebecca Silverio ([phone]). Rebecca reports the patient has a son, a half-brother to Rebecca, named Ernesto De Guzman. Recent reports after Noel's , Ernesto came and took quite a few things. Ernesto has reportedly not been back around in months. Note, when talking with the patient, the patient identified having 2 sons and 1 daughter. Living arrangements: Patient lives in a two-story home with a basement. Rebecca reports are approximately 8-9 shallow steps into the home. Rebecca reports to be working on making a first-floor set up for the patient. Rebecca has been living with the patient in [place] (Rebecca's residence is [place]) since Noel . Rebecca states patient lives with Rebecca for approximately a year in [place] in the year 2020. The patient's granddaughter Rema is reportedly moving from [facility] to [place] to live with the patient, and will be arriving on 06/27/2022. Rema will also be bringing her and 1-1/2-year-old child. Plan is for Rema and Rema's to provide 24-hour caregiving to the patient at home, with Rebecca traveling back and forth between [place] and [place]. It is reported that patient is typically independent with ADLs, and resistive to accepting help from Rebecca. Rebecca assist with IADLs such as transportation, groceries, meals, and bill paying. Transportation: Rebecca has been providing transportation. DME: Patient has access to a wheeled walker and grab bars but reportedly refuses to use any equipment. SNF: Patient has a history of the [facility]. HHC: Rebecca is not aware of any prior home health services. Additional information: Rebecca reports patient has a history of depression and anxiety treated with Lexapro and Seroquel in the past. Rebecca describes patient's personality as narcissistic though not officially diagnosed with this personality disorder. It is reported that patient and patient's would sometimes drink a big bottle of vodka every day. Since Rebecca has returned to [place], and also during the time patient lived with Rebecca in [place], alcohol is and has not been provided to the patient by Rebecca. Rebecca reports patient has done fine without any significant withdrawal when ceasing alcohol both times. No reports of any inpatient mental health hospitalizations. Rebecca describes a significant change in the patient's mental status over the last week or so, with Rebecca reporting the last significant change such as this being when the patient had a urinary tract infection, which prompted Rebecca to bring patient to the hospital. Rebecca reports patient's short-term memory is becoming worse, with increasing irritability. Rebecca describes patient being moodier and mad, and at times wandering outside. Rebecca reports this week the patient was fine and asked for coffee and then threw the hot coffee at [facility]. Rebecca reports this level of behavior is not the norm for patient. Rebceca expresses desire to have the patient back home, voicing realization that less change would be much better for somebody with dementia. Rebecca does report to feel some hesitancy currently, due to the granddaughter and granddaughter's 1-1/2-year-old moving into the home, should patient continue being unpredictable. First choice would be to take patient home, though Rebecca does report if Medicare would cover short-term nursing facility stay may support this to allow family some additional time to further prep the home to accommodate patient's increasing symptoms of dementia. This ghost writer explored with Rebecca whether palliative care services have ever been looked at for this patient, to provide support for increasing symptom management related to the dementia. Patient reportedly had this service while living in [place], but upon moving back to [place] the patient's was reportedly resistive and stated this area does not provide palliative services. Educated Rebecca there is indeed palliative care services available. Met with patient to assess firsthand patient's current cognitive status. Patient sitting in bed alert, smiling, though fixated on being able to speak to her . Patient repeatedly expressed that her Noel is away on a business trip and will be worried about patient when he comes home to find the patient not at home. Patient reported belief was brought to the hospital in handcuffs by the police, though this ghost writer noted the triage reports the patient walked into the emergency department with family. Patient alert and oriented to person, aware she in the hospital but unable to say which hospital, despite later in conversation reporting to live in [place]; aware of adapted physical education teacher. Patient believed it was August 2021, that her is still alive, and that her daughter Rebecca lives in [place] so would not be able to even come to the hospital to help the patient out. Plan: 1. First choice return home with family, with a desire to secure a bedside commode for first floor set up, and referral to palliative care services if eligible. 2. Second choice would be a short-term usp facility if if eligible for skilled services under Medicare. -HEATHER Flores, SCALE ADJUSTER
[2022-06-25] MEDS: Enoxaparin 60 MG/0.6 ML Syringe SC (21:36)
[2022-06-26] VITALS (8 sets, daily range): BP systolic 144–154; BP diastolic 83–88; PULSE 78–88; RESP 16–18; TEMP 36.3–36.8; O2SAT 95–99
[2022-06-26] MEDS: 0.9% Saline Lock 10 ML Syringe IV ×2 (04:14→21:01)
[2022-06-26 07:50] LABS: Thyroid Stim Hormone (TSH) 1.79 uIU/mL (0.358-3.74)
--- NOTE | 2022-06-26 08:33 | CON.PCM.CA_ITS ---
Assessment & Plan Assessment/Plan (1) Elevated troponin: PLAN: She does have evidence of elevated troponin. It is not clear whether this is due to demand ischemia. There does not appear to have been any precipitating factor. Echocardiogram appears to demonstrate overall preserved left ventricular systolic function. I would recommend a pharmacologic myocardial perfusion stress test and depending on the findings further recommendations will be made. * My suspicion is that unless there is a significant amount of ischemia noted we will pursue conservative management. (2) History of hypertension: PLAN: She does have a history of hypertension. I will start her on an CARLYN inhibitor or beta-alexia at this time. Thank you for allowing me to participate in the care of your patient. Please don't hesitate to call if any issues arise. HPI Consult Data Date of Consult: 06/26/22 HPI Narrative HPI Narrative: TORSTEN QUCAH, is a 76 F who presents to the emergency room brought in by her daughters who says that she has been confused over the last few days. She denies any chest pain or shortness of breath or paroxysmal nocturnal dyspnea or pedal edema she does have a history of dementia which does not appear to be getting better. She has been compliant with her medications. In the emergency room she had troponins drawn which were noted to be abnormal and cardiology was called for an opinion regarding care. She has no obvious cardiac complaints. 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 History of sigmoidoscopy IBS (irritable bowel syndrome) Mixed hyperlipidemia Osteoarthritis SK (seborrheic keratosis) Spastic bladder Home Medications escitalopram oxalate 10 mg tablet (Lexapro) 10 mg PO DAILY mood 06/25/22 [History Last Taken Unknown] gabapentin 100 mg tablet 100 mg PO BID pain 06/25/22 [History Last Taken Unknown] omeprazole magnesium 20 mg capsule,delayed release 20 mg PO DAILY heartburn [History Last Taken 06/24/22] quetiapine 25 mg tablet (Seroquel) 25 mg PO BID MOOD 06/25/22 [History Last Taken Unknown] Allergy/AdvReac Type Severity Reaction Status Date / Time aspirin [From Percodan] Allergy Unknown Verified 06/25/22 09:18 oxycodone HCl [From Percodan] Allergy Unknown Verified 06/25/22 09:18 oxycodone terephthalate Allergy Unknown Verified 06/25/22 09:18 [From Percodan] Family History Father Skin cancer Sister Breast cancer Thyroid disorder Alzheimers disease Aunt Breast cancer Grandmother Breast cancer Sister Schizophrenia Social History Smoking Status: Former smoker quit date: 03/10/12 Tobacco: How many years used: 40 how long ago did patient quit smokin alcohol intake: current alcohol intake frequency: 3 or more drinks per day Alcohol type: wine and hard liquor substance use type: does not use ROS ROS Narrative She appears to be mildly confused Constitutional Constitutional: Denies fever(s) or weight loss Eyes Eyes: Reports systems reviewed and no addt'l complaints, except as documented ENT HEENT: Reports systems reviewed and no addt'l complaints, except as documented Cardiovascular Cardiovascular: Denies chest pain at rest, chest pain with activity, dyspnea at rest, dyspnea on exertion, edema, palpitations or paroxysmal nocturnal dyspnea Respiratory/Chest Respiratory/Chest: Denies dyspnea on exertion, productive cough, shortness of breath at rest or shortness of breath with exertion Gastrointestinal Gastrointestinal: Denies change in bowel habits, nausea, vomiting or weight changes Genitourinary Genitourinary: Denies difficulty urinating Musculoskeletal Musculoskeletal: Denies joint stiffness or muscle weakness Integumentary Integumentary: Denies lesions Neurologic Neurologic: Denies dizziness or syncope Psychiatric Psychiatric: Denies anxiety Endocrine Endocrinology: Denies excessive sweating or fatigue Hematologic/Lymphatic Hematologic/Lymphatic: Denies anemia Allergic/Immunologic Allergic/Immunologic: Denies seasonal rhinorrhea Physical Exam Const alert, oriented x3 and no apparent distress General Appearance: cooperative HEENT hearing grossly normal bilaterally Head and Scalp: atraumatic Eyes EOMs intact bilaterally Neck General: normal visual inspection Chest inspection of chest normal and palpation of chest normal Resp normal respiratory effort Auscultation: clear to auscultation bilaterally Cardio regular rate, regular rhythm, S1 normal heart sound and S2 normal heart sound Jugular Venous Distention: JVD GI normal to inspection, nondistended, normoactive bowel sounds Extremity normal capillary refill and no pedal edema Peripheral Pulses: Yes pulses 2+ throughout and femoral pulses present Skin no rashes or lesions noted Neuro oriented x3 and CN's II-XII intact bilaterally Psych Appearance: grossly normal and appropriate Risk Stratification Risk Stratification Applicable: Yes Age >/= 65: Yes >/= 3 CAD Risk Factors (HTN, HLD, DM, family hx of CAD, or current smoker): No Aspirin Use in the Past 7 Days: No Severe Angina (>/= episodes in 24 hours): No EKG ST Changes >/= 0.5mm: No Positive Cardiac Marker: Yes EDDIE Risk Stratification Score: 2 EDDIE % Risk: 8% Risk Objective Data Vital Signs: Vital Signs Temp Pulse Resp BP Pulse Ox O2 Del Method 98.2 F 88 16 145/83 H 95 Room Air 06/26/22 04:12 06/26/22 04:12 06/26/22 04:12 06/26/22 04:12 06/26/22 04:12 06/26/22 07:40 Oxygen Delivery Method Room Air Weight: 142 lb 6.698 oz Body Mass Index (BMI) 25.6 Intake & Output: Intake and Output for Last 24 Hours 06/24/22 06/25/22 06/26/22 23:59 23:59 23:59 Intake Total 747.5 / 747.5 Balance 747.5 / 747.5 Lab / Micro Data Result Diagrams: 06/25/22 09:53 06/25/22 09:53 Labs: Laboratory Results - last 24 hr 06/25/22 09:53: WBC 5.0, RBC 4.27, Hgb 12.5, Hct 39.2, MCV 91.8, MCH 29.3, MCHC 31.9 L, RDW Std Deviation 45.8 H, RDW Coeff of Marii 13.4, Plt Count 268, MPV 9.8, Immature Gran % (Auto) 0.400, Neut % (Auto) 71.6 H, Lymph % (Auto) 16.2 L, Wolfe % (Auto) 10.2 H, Eos % (Auto) 1.2, Baso % (Auto) 0.4, Absolute Neuts (auto) 3.6, Absolute Lymphs (auto) 0.81 L, Nucleated RBC % 0 06/25/22 09:53: Sodium 139, Potassium 3.6, Chloride 107, Carbon Dioxide 25.0, Anion Gap 7, BUN 9, Creatinine 0.70, Estim Creat Clear Calc 38.44, Est GFR (MDRD) Af Amer 104, Est GFR (MDRD) Non-Af 86, BUN/Creatinine Ratio 12.8, Glucose 147 H, Calcium 9.9, Troponin I High Sens 248 H* 06/25/22 10:50: Urine Color Yellow, Urine Clarity Sl. Cloudy, Urine pH 6.5, Ur Specific [place] 1.015, Urine Protein Negative, Urine Glucose (UA) Normal, Urine Ketones Negative, Urine Occult Blood Negative, Urine Nitrite Negative, Urine Bilirubin Negative, Urine Urobilinogen Normal, Ur Leukocyte Esterase Negative, Urine RBC 0 SEEN, Urine WBC 0 SEEN, Ur Squamous Epith Cells 0-5 SEEN, Urine Bacteria 0 SEEN, Urine Mucus 0 SEEN 06/25/22 12:26: Troponin I High Sens 325 H* 06/25/22 16:23: Troponin I High Sens 338 H* 06/26/22 06:50: TSH 1.79 Cardiology Labs/Tests 06/25/22 09:53: WBC 5.0, RBC 4.27, Hgb 12.5, Hct 39.2, MCV 91.8, MCH 29.3, MCHC 31.9 L, Plt Count 268, MPV 9.8, Immature Gran % (Auto) 0.400, Neut % (Auto) 71.6 H, Lymph % (Auto) 16.2 L, Wolfe % (Auto) 10.2 H, Eos % (Auto) 1.2, Baso % (Auto) 0.4, Absolute Neuts (auto) 3.6, Nucleated RBC % 0 06/25/22 09:53: Sodium 139, Potassium 3.6, Chloride 107, Carbon Dioxide 25.0, Anion Gap 7, BUN 9, Creatinine 0.70, Est GFR (MDRD) Af Amer 104, Est GFR (MDRD) Non-Af 86, BUN/Creatinine Ratio 12.8, Glucose 147 H, Calcium 9.9 06/25/22 10:50: Urine Color Yellow, Urine Clarity Sl. Cloudy, Urine pH 6.5, Ur Specific [place] 1.015, Urine Protein Negative, Urine Glucose (UA) Normal, Urine Ketones Negative, Urine Occult Blood Negative, Urine Nitrite Negative, Urine Bilirubin Negative, Urine Urobilinogen Normal, Ur Leukocyte Esterase Negative, Urine RBC 0 SEEN, Urine WBC 0 SEEN Rhythm: EKG: ECHO: Stress Test: Cardiac Cath: PCI: CT Surgery: Holter monitor: EPS: PPM: CXR: Chest CT Scan: Radiography Diagnostic Testing: Radiology Impression Brain CT 06/25/22 09:39 IMPRESSION: Chronic involutional changes of the brain. Electronically Signed: Mike Matta MD at 10:44 EST , Echocardiogram 06/25/22 15:00 Interpretation Summary Normal LV size. Left ventricular systolic function is normal. The estimated ejection fraction is 60 %. There is mild mitral annular calcification. Pulmonary artery systolic pressure is 24 mmHg. Ordering Physician: Rick Kaufman Referring Physician: LORIE THURMAN Performed By: Dayna Sam RCS
--- NOTE | 2022-06-26 09:14 | PN.HOSP_ITS ---
Subjective Subjective Denies complaints but does not know where she is Objective Data Objective Data Vital Signs: Vital Signs Temp Pulse Resp BP Pulse Ox O2 Del Method 36.5 C L 78 18 146/84 H 96 Room Air 06/26/22 08:42 06/26/22 08:50 06/26/22 08:50 06/26/22 08:42 06/26/22 08:51 06/26/22 08:51 Oxygen Delivery Method Room Air Weight: 64.6 kg Body Mass Index (BMI) 25.6 Intake & Output: Intake and Output for Last 24 Hours 06/24/22 06/25/22 06/26/22 23:59 23:59 23:59 Intake Total 747.5 / 747.5 Balance 747.5 / 747.5 Lab / Micro Data Result Diagrams: 06/25/22 09:53 06/25/22 09:53 Labs: Laboratory Results - last 24 hr 06/25/22 09:53: WBC 5.0, RBC 4.27, Hgb 12.5, Hct 39.2, MCV 91.8, MCH 29.3, MCHC 31.9 L, RDW Std Deviation 45.8 H, RDW Coeff of Marii 13.4, Plt Count 268, MPV 9.8, Immature Gran % (Auto) 0.400, Neut % (Auto) 71.6 H, Lymph % (Auto) 16.2 L, [place] % (Auto) 10.2 H, Eos % (Auto) 1.2, Baso % (Auto) 0.4, Absolute Neuts (auto) 3.6, Absolute Lymphs (auto) 0.81 L, Nucleated RBC % 0 06/25/22 09:53: Sodium 139, Potassium 3.6, Chloride 107, Carbon Dioxide 25.0, Anion Gap 7, BUN 9, Creatinine 0.70, Estim Creat Clear Calc 38.44, Est GFR (MDRD) Af Amer 104, Est GFR (MDRD) Non-Af 86, BUN/Creatinine Ratio 12.8, Glucose 147 H, Calcium 9.9, Troponin I High Sens 248 H* 06/25/22 10:50: Urine Color Yellow, Urine Clarity Sl. Cloudy, Urine pH 6.5, Ur Specific [place] 1.015, Urine Protein Negative, Urine Glucose (UA) Normal, Urine Ketones Negative, Urine Occult Blood Negative, Urine Nitrite Negative, Urine Bilirubin Negative, Urine Urobilinogen Normal, Ur Leukocyte Esterase Negative, Urine RBC 0 SEEN, Urine WBC 0 SEEN, Ur Squamous Epith Cells 0-5 SEEN, Urine Bacteria 0 SEEN, Urine Mucus 0 SEEN 06/25/22 12:26: Troponin I High Sens 325 H* 06/25/22 16:23: Troponin I High Sens 338 H* 06/26/22 06:50: TSH 1.79 Radiography Diagnostic Testing: Radiology Impression Brain CT 06/25/22 09:39 IMPRESSION: Chronic involutional changes of the brain. Electronically Signed: Mike Matta MD at 10:44 EST , Echocardiogram 06/25/22 15:00 Interpretation Summary Normal LV size. Left ventricular systolic function is normal. The estimated ejection fraction is 60 %. There is mild mitral annular calcification. Pulmonary artery systolic pressure is 24 mmHg. Ordering Physician: Rick Kaufman Referring Physician: LORIE THURMAN Performed By: Dayna Sam RCS Physical Exam Const alert Constitutional Narrative: Pleasantly confused. Oriented only to self. Knows that she is in hospital but not which 1. Resp normal respiratory effort, no retractions, no use of accessory muscles and clear to auscultation bilaterally Cardio regular rate, regular rhythm, S1 normal heart sound and S2 normal heart sound GI normal to inspection, nondistended, normoactive bowel sounds, soft to palpation, non-tender and non-distended Extremity normal to inspection Assessment & Plan Assessment/Plan (1) Dementia: PLAN: Patient is leaving the house and a daughter is not able to manage her home at home and patient is unable to manage herself independently. PT OT evaluate and treat Measure of the patient will have any skilled needs. If patient cannot have someone stay with her then she may need to go to a facility long-term. (2) Elevated troponin: PLAN: Denies any complaints Unclear why troponin was checked in the first place though the EKG did show inferior Q waves. Continue with anticoagulation and clopidogrel Seen by cardiology Echo shows an EF of 60% Stress test ordered PLAN: Plan VTE prophylaxis: Not indicated as patient will be anticoagulated. Charges/Coding Visit Charges Inpatient E&M: 82808 Subs Hosp L2
[2022-06-26] MEDS: Clopidogrel Bisulfate 75 MG Tablet PO (11:46)
[2022-06-26] MEDS: Metoprolol Tartrate 25 MG Tablet PO ×2 (11:47→21:00)
[2022-06-26] MEDS: FLU VACC QS2022-23(6MOS UP)/PF 60 MCG/0.5 ML SYRINGE IM (11:50)
--- NOTE | 2022-06-26 13:41 | CASEMGMT ---
Therapy notified ALICE that patient does not need any therapy at discharge. ALICE called patient's daughter Rebecca. ALICE let Rebecca know that therapy said patient does not need therapy therefore insurance will not pay for a nursing home facility. ALICE asked if patient has funds for assisted living. Rebecca said patient has some money, but she really wants her mom at home until they get to the point where they absolutely cannot take care of her at home. Rebecca was setting up a room on the first level that would be just for patient. She is making it so there are no safety hazards for patient. Rebecca really feels this will help. Rebecca is also going to be moving patient's bed to the first floor. Rebecca was tearful and said she feels embarrassed regarding the incident with patient where she and patient fell. Rebecca really feels home is where patient should be. Patient's granddaughter will be coming in town tomorrow to help care for patient. ALICE communicated with physician and patient will be discharged tomorrow. ALICE called Rebecca and let her know. ALICE also let Rebecca know ALICE has some information on [employer] that would possibly help in caring for patient. Plan: Home tomorrow with family. Destiney Hargrove MSW REGINA
--- NOTE | 2022-06-26 14:18 | CHAPLAIN ---
Type of Pastoral Visit _x__ Initial Visit ___ Follow-up Visit ___ On-call Visit ___ General Patient Visit ___ Spiritual Assessment ___ Family Conference ___ Bereavement ___ Rapid Response ___ Code Blue ___ Other (describe below) Pastoral Care Referral From ___ Patient _x__ Family ___ Nurse ___ Physician ___ Furnace Reliner ___ Prime Minister ___ Other (describe below) Sacrament/Intervention _x__ Active listening ___ Anointing ___ Restorationism ___ Bereavement ___ Communion _x__ Carmen exploration ___ _x__ Life review _x__ Prayer ___ Reconciliation ___ Sacrament of Sick _x__ Supportive presence ___ Wedding ___ Other (describe below) Pastoral Comments patient is sitting in bed watching TV; pt has a sitter at bedside; pt is pleasant and welcoming even asking questions about what this elementary ell teacher does and how he works; open ended questions given to patient who then responds with answers and talks easily; however some questions do not match her reality as she speaks of her spouse in the present tense and of her [id number] as if he is alive; pt relates some stories from her past years ago; pt gives some carmen background but admits she doesn't to to christianity now; pt reports that she is feeling fine and just waiting to be released; pt does repeat herself some during her stories and comments; pt welcomes presence and prayer; pt states her need is only to go home soon as she does not worry about anything
--- NOTE | 2022-06-26 16:31 | STRESSREP ---
Stress Test Report Pharmacologic myocardial perfusion stress test. 76-year-old lady with a history of abnormal troponin Resting EKG demonstrates sinus rhythm with a rate of 71 bpm. Resting blood pressure is 142/80 mmHg. 0.4 mg of regadenoson was infused per usual protocol followed by rapid intravenous saline flush injection. Continuous EKG monitoring was performed. The maximum heart rate was 104 bpm which was 71% of max impacted heart rate the maximum workload was 1 metabolic equivalent. At rest there were no ST or T wave changes noted to suggest ischemia and at peak infusion nonspecific ST changes were noted which did not meet the criteria for ischemia. No clinical angina is noted. The final blood pressure was 150/82 mmHg. Myocardial perfusion protocol. 11 mCi of technetium 99m sestamibi was injected at rest. 0.4 mg of regadenoson was infused per usual protocol. At peak infusion 32.8 mCi of technetium 99m sestamibi was injected stress images were obtained stress and rest images were reconstructed and compared in the short axis vertical long and horizontal long axis. Gated images were also obtained. Perfusion SPECT analysis: Review of the stress images demonstrate normal uptake of tracer noted in all areas of the myocardium. The resting images similar demonstrated normal uptake of tracer noted in all areas of the myocardium. No areas of reversibility are noted to suggest ischemia and no previous infarct is noted. Gated SPECT analysis: The gated ejection fraction is 71%. Conclusion: Normal pharmacologic myocardial perfusion stress test. Preserved ejection fraction.
--- NOTE | 2022-06-26 16:43 | CASEMGMT ---
Palliative screening tool completed at this time. Patient meets criteria for palliative consult. Hospitalist updated and order for referral received. XAVI MILES sent referral to [facility] Pall[facility].
[2022-06-26] MEDS: Atorvastatin Calcium 20 MG Tablet PO (21:00)
[2022-06-26] MEDS: MELATONIN 3 MG TABLET PO (21:01)
[2022-06-27] VITALS (10 sets, daily range): BP systolic 117–161; BP diastolic 64–103; PULSE 76–100; RESP 18–20; TEMP 36.4–37.4; O2SAT 94–98
[2022-06-27] MEDS: Acetaminophen 325 MG Tablet 650 MG PO (02:22)
--- NOTE | 2022-06-27 06:12 | NURSING ---
called daughter Rebecca to give her update about pt's wanting to go home today and that pt insist to leave at this time. Rebecca asked about palliative care, told her that per CM note referral has been sent yesterday. Will pass to next shift to call Rebecca for any other updates.
--- NOTE | 2022-06-27 09:15 | CASEMGMT ---
ALICE received a call from patient's daughter Rebecca. Rebecca is now asking if ALICE can call [facility] about patient going somewhere for respite to give her time to make the home safer. ALICE told her SW will try and see what ALICE can do. ALICE called [facility] and left a voice mail for admissions. Patient is becoming more and more aggressive and unwilling to stay in her room. She doesn't want people around her. Patient wants the police called. Patient is refusing to take her medications this am. ALICE called patient's daughter Rebecca and told her patient is escalating and becoming more and more agitated. ALICE told Rebecca that at this point patient may need a Geriatric Psychiatric Unit to stabilize her on medications. Rebecca was in agreement with this as she is concerned patient is going to act this way at home and patient's granddaughter and family are coming in town. ALICE told her SW will work on this and get back with her. ALICE spoke with physician and he agreed. ALICE spoke with Reyna at [facility] and asked if this is something they could do right away as this cannot wait until later. Reyna said they could get to it now. ALICE explained situation and that patient is currently agitated and roaming the halls. Reyna will call patient's daughter to get some information and then get back in touch with ALICE. ALICE faxed over information to [facility]. Destiney TAPIA
--- NOTE | 2022-06-27 09:25 | NURSING ---
Wandering halls insisting on going home. Angry demeanor, stating quit following me to sitter. Requests the police to be notified. Resource officer notified to come speak to patient.
[2022-06-27] MEDS: Haloperidol Lactate 5 MG/ML Vial 2 MG IM (09:42)
--- NOTE | 2022-06-27 09:51 | NURSING ---
Sitter at bedside. Pt is becoming more impulsive and agitated and refusing to stay in room. She is in the hallways and pacing. Unable to redirect and calm down. Refusing to return to room. precision layout worker called pt daughter and updated her. New order for haldol and medication given with some resistance. Pt has not been cooperative with care and medication compliance. Haldol given right deltoid. Sitter remains with pt.
--- NOTE | 2022-06-27 10:42 | NURSING ---
Pt daughter called and express she is working on making her home safe for her mother. She also states she is talking to hospice and wants to know if she needs to call the facilities that machine worker is sending referrals to. She is updated on Pt having a dose of haldol IM due to her agitation and restlessness.
[2022-06-27] MEDS: Metoprolol Tartrate 25 MG Tablet PO ×2 (10:50→21:09)
[2022-06-27] MEDS: Clopidogrel Bisulfate 75 MG Tablet PO (10:51)
--- NOTE | 2022-06-27 11:25 | CASEMGMT ---
ALICE called Reyna at [facility] and she asked ALICE for patient's daughter's phone number. ALICE told her it is on the demographics sheet which is the second paper after the fax face sheet. ALICE read patient's daughter's Rebecca's phone number. Reyna was going to call Rebecca now. Destiney TAPIA
--- NOTE | 2022-06-27 12:17 | CASEMGMT ---
ALICE received a call from Reyna at [facility] and she spoke with patient's daughter at length and feels she has enough information from talking with her and ALICE to send referrals. Await accepting facility. Destiney TAPIA
--- NOTE | 2022-06-27 14:32 | CASEMGMT ---
ALICE called Reyna at [facility] and she spoke with [facility], but they will not have a bed today. Reyna also sent a referral to [facility], they do have a bed today. Awaiting acceptance. Destiney TAPIA
--- NOTE | 2022-06-27 14:36 | PCM.PN.HOSP ---
Subjective Subjective Up in the hallways and was refusing to go into a room. Was not combative but was very paranoid and requesting to speak with police. did arrive to help console the patient and was able to get the patient back into her room. Patient was verbally abusive and cursing towards myself and other staff members. Objective Data Objective Data Vital Signs: Vital Signs Temp Pulse Resp BP Pulse Ox O2 Del Method 36.6 C 100 18 117/72 98 Room Air 06/27/22 11:08 06/27/22 11:08 06/27/22 11:08 06/27/22 11:08 06/27/22 11:08 06/27/22 11:08 Oxygen Delivery Method Room Air Weight: 64.6 kg Body Mass Index (BMI) 25.6 Intake & Output: Intake and Output for Last 24 Hours 06/25/22 06/26/22 06/27/22 23:59 23:59 23:59 Intake Total 747.5 / 747.5 Balance 747.5 / 747.5 Lab / Micro Data Result Diagrams: 06/25/22 09:53 06/25/22 09:53 Physical Exam Narrative Physical exam declined by patient due to paranoia and it was concerning that the patient may try to attack myself and other staff if attempting to physically examine her. Const Constitutional Narrative: Confused. No acute distress. Paranoid. Assessment & Plan Assessment/Plan (1) Dementia: PLAN: Patient is leaving the house and a daughter is not able to manage her home at home and patient is unable to manage herself independently. PT OT evaluate and treat Measure of the patient will have any skilled needs. If patient cannot have someone stay with her then she may need to go to a facility long-term. Given the ongoing confusion, patient did receive a dose of IM haloperidol. Evaluating for [facility] placement Will initiate Seroquel this evening (2) Elevated troponin: PLAN: Denies any complaints Unclear why troponin was checked in the first place though the EKG did show inferior Q waves. Continue with anticoagulation and clopidogrel Seen by cardiology Echo shows an EF of 60% Stress test negative Unclear reasoning for the elevated troponin. No additional work-up. PLAN: Plan VTE prophylaxis: Not indicated Charges/Coding Visit Charges Inpatient E&M: 48141 Subs Hosp L2
--- NOTE | 2022-06-27 15:16 | NURSING ---
Nurse from [facility] called and questions pt troponin levels. She requested that a repeat be done to see trending down. Labs ordered.
[2022-06-27 16:11] LABS: Troponin-I HS 72 pg/mL (3.0-54.0)
--- NOTE | 2022-06-27 16:12 | CASEMGMT ---
XAVI MILES NOTE: Spoke w/Vanessa @ [facility] re: referral for Palliative care sent yesterday. She states she has spoken w/pt's daughter, Rebecca, about scheduling an appt w/the liaison. Per Vanessa, pt may be appropriate for Hospice referral and states Rebecca is agreeable. Vanessa made aware anticipate pt will discharge from [facility] to [facility]. She states she will f/u with pt's daughter after pt has been evaluated @ [facility]. Adam BIRD RN CM
--- NOTE | 2022-06-27 16:26 | DCINST_ITS ---
Discharge Instructions Diet Discharge Diet: No restrictions Follow Up Care Test Results: Test results from this visit will be discussed in further detail at your follow- up appointment, if applicable. Discharge Plan Admission Admit Date/Time: 06/25/22 14:35 Primary Reason for Your Visit: Dementia. Attending Provider: Rick Kaufman Primary Care Provider: Woody Monzon Consulting Providers: Allen Maddox Discharge Orders/Prescriptions Prescriptions: New quetiapine 25 mg Tablet 25 mg PO QHS Qty: 0 0RF metoprolol tartrate 25 mg Tablet 25 mg PO BID Qty: 0 0RF Discontinued quetiapine [Seroquel] 25 mg Tablet 25 mg PO BID omeprazole magnesium 20 mg Capsule,Delayed Release(Dr/Ec) 20 mg PO DAILY escitalopram oxalate [Lexapro] 10 mg Tablet 10 mg PO DAILY gabapentin 100 mg Tablet 100 mg PO BID Referrals / Follow Up: Woody Monzon MD [Primary Care Provider] - Within 2 Weeks Disposition Disposition (needs filled in before D/C Order can be placed): Psychiatric Hospital or Unit
--- NOTE | 2022-06-27 17:11 | NURSING ---
Paul nurse from [facility] for psychiatry return phone call to state they are going to accept this Pt. Admitting physician is Dr. Machuca. Pt daughter is called. and given information.
--- NOTE | 2022-06-27 17:14 | NURSING ---
Attempt phone call to Pt daughter and he cell phone mail box is full unable to leave voice mail on Pt transfer to [facility].
--- NOTE | 2022-06-27 18:42 | NURSING ---
PER CRISIS OK TO ARRANGE FOR TRANSPORTATION TO [facility].
[2022-06-27] MEDS: Atorvastatin Calcium 20 MG Tablet PO (21:09)
[2022-06-27] MEDS: QUEtiapine 25 MG Tablet PO (21:09)
--- NOTE | 2022-06-28 07:07 | DS.PCM_ITS ---
Providers Date of Admission: 06/25/22 Primary Care Physician: Dr. Wodoy Monzon MD Consultations 06/25/22 15:00 Consult: Cardiology Routine Consulting Provider: Allen Maddox Reason for Consult: Chest Pain EMERGENT Consult: No MD Notified: Yes Date Notified: 06/25/22 Time Notified: 14:39 Method of Notification: ED Physician Initiated Reason For Visit: ELEVATED TROPONIN Diagnosis Discharge Diagnosis (1) Dementia: Status: Acute Code(s): F03.90 - Unspecified dementia, unspecified severity, without behavioral distu rbance, psychotic disturbance, mood disturbance, and anxiety Plan: Patient is leaving the house and a daughter is not able to manage her home at home and patient is unable to manage herself independently. PT OT evaluate and treat Measure of the patient will have any skilled needs. If patient cannot have someone stay with her then she may need to go to a facility long-term. Given the ongoing confusion, patient did receive a dose of IM haloperidol. Evaluating for [facility] placement Will initiate Seroquel this evening (2) Elevated troponin: Status: Acute Code(s): R77.8 - Other specified abnormalities of plasma proteins Plan: Denies any complaints Unclear why troponin was checked in the first place though the EKG did show inferior Q waves. Continue with anticoagulation and clopidogrel Seen by cardiology Echo shows an EF of 60% Stress test negative Unclear reasoning for the elevated troponin. No additional work-up. Plan VTE prophylaxis: Not indicated Medications at Discharge Home Medications metoprolol tartrate 25 mg tablet 25 mg PO BID #0 tabs 06/27/22 quetiapine 25 mg tablet 25 mg PO QHS #0 tabs 06/27/22 Hospital Course Operations None Procedures 2-D Echocardiogram and Stress test Summary of Care Provided Minutes Spent on Discharge: 40 Hospital Course: 76-year-old female brought in by family as she was wandering and concern for urinary tract infection. Patient was not found to have urinary tract infection but was found to have elevated troponin but her patient was not having any chest pain. Cardiology was consulted patient underwent stress test that was unremarkable. Elevated troponins are unclear but does not appear to be any cardiac component to that. Family was interested in [facility] evaluation. Patient while in the hospital, would be wandering the halls and required a sitter. Patient did become verbally abusive though not physically abusive to staff during her stay. Patient was accepted and discharged to a geriatric psychiatric unit on the . Patient was calling 911 saying that she is being held prisoner. actually did show up not because of her 911 call to try to reassure her. He provide history that she has a extensive history of alcoholism and has had dementia for many years while her was still alive. The do that her , the patient ran to her neighbors to alert them and then when she came back into the house forgot that he had and then repeated the cycle several times. Patient currently thinks that her is still alive and in [place]. Weight / BMI Weight Weight: 64.6 kg Body Mass Index (BMI) 25.6 ABG / Lab / Microbiology Data Result Diagrams: 06/25/22 09:53 06/25/22 09:53 Laboratory: Laboratory Results - last 24 hr 06/27/22 15:30: Troponin I High Sens 72 H Microbiology: Microbiology 06/27/22 17:20 Nasal Secretion SARS-CoV-2 Antigen (Rapid) - Final D/C Instructions Discharge Diet: No restrictions Meaningful Use Info Meaningful Use Diagnoses (Choose all that apply): None applicable Discharge Plan Admission Admit Date/Time: 06/25/22 14:35 Primary Reason for Your Visit: Dementia. Attending Provider: Rick Kaufman Primary Care Provider: Woody Monzon Consulting Providers: Allen Maddox Discharge Orders/Prescriptions Prescriptions: New quetiapine 25 mg Tablet 25 mg PO QHS Qty: 0 0RF metoprolol tartrate 25 mg Tablet 25 mg PO BID Qty: 0 0RF Discontinued quetiapine [Seroquel] 25 mg Tablet 25 mg PO BID omeprazole magnesium 20 mg Capsule,Delayed Release(Dr/Ec) 20 mg PO DAILY escitalopram oxalate [Lexapro] 10 mg Tablet 10 mg PO DAILY gabapentin 100 mg Tablet 100 mg PO BID Referrals / Follow Up: Woody Monzon MD [Primary Care Provider] - Within 2 Weeks Disposition Disposition (needs filled in before D/C Order can be placed): Psychiatric Hospital or Unit Charges/Coding Visit Charges Inpatient E&M: 82095 Disch Hosp >30min
== END 2022-06-28 00:45 | DRG 884 ==
LOC: ED 11:49 → PCU 12:18
PROVIDERS: Emergency Provider Emergency Medicine; PCP Family Medicine
DX: F03.90 Unspecified dementia, unspecified severity, without behavioral disturbance, psychotic disturbance, mood disturbance, and anxiety (principal); E11.9 Type 2 diabetes mellitus without complications; J44.9 Chronic obstructive pulmonary disease, unspecified; E78.2 Mixed hyperlipidemia; I10 Essential (primary) hypertension; R77.8 Other specified abnormalities of plasma proteins; Z81.8 Family history of other mental and behavioral disorders; Z79.01 Long term (current) use of anticoagulants; Z87.891 Personal history of nicotine dependence; Z79.02 Long term (current) use of antithrombotics/antiplatelets; Z23 Encounter for immunization
CPT/HCPCS: 36415; 70450; 78452; 80048; 81001; 84443; 84484; 85025; 87040; 87811; 93005; 93017; 93306; 97162; 97166; 99285; A9500; G0008; J7030; 90686; A4216; J2785

== ENCOUNTER 2022-08-01 13:47 | Emergency (ER) | payer MEDICARE, BC, SELFPAY ==
[2022-08-01 13:48] VITALS: TEMP 36.9
--- NOTE | 2022-08-01 14:10 | CT_ITS ---
STUDY: CT CERVICAL SPINE WITHOUT CONTRAST REASON FOR EXAM: Female, 76 years old. Neck pain due to injury. RADIATION DOSAGE (If Supplied By Facility): CTDIvol = ( 17.40 ) mGy, DLP = ( 357.48 ) mGycm TECHNIQUE: High resolution transaxial imaging was performed without contrast material. Sagittal and coronal images were reconstructed. Individualized dose optimization techniques were used for this CT. COMPARISON: Comparison is made with prior study dated 08/16/2021. FINDINGS: Normal craniovertebral junction. There are degenerative changes of the anterior atlantoaxial articulation. Normal odontoid process. There is reversal of the normal cervical lordosis. Normal vertebral bodies and posterior osseous elements. C2-3: Facet joint osteoarthritis hypertrophy worse on the right side. Uncovertebral arthrosis. Marked degree right neural foraminal stenosis. C3-4: Marked degree of disc space narrowing. Spondylosis. Minimal anterior listhesis of C3 on C4. Facet joint osteoarthritis and hypertrophy. Uncovertebral arthrosis. Marked degree of right neural foraminal stenosis. C4-5: Mild degree of anterior listhesis of C4 on C5. Facet joint osteoarthritis and hypertrophy. Uncovertebral arthrosis. Marked degree of bilateral neural foraminal stenosis. C5-6: Marked degree of disc space narrowing. Spondylosis. Bilateral neural foraminal stenosis. C6-7: Moderate degree of disc space narrowing. Spondylosis. Lateral no foraminal stenosis. Atherosclerotic plaque formation of the carotid bifurcations. CT/Spine Cervical without Contras IMPRESSION: Multilevel degenerative changes, as described above. Electronically Signed: Mike Matta MD at 15:01 EST ,
--- NOTE | 2022-08-01 14:10 | CT_ITS ---
STUDY: CT BRAIN WITHOUT CONTRAST REASON FOR EXAM: Female, 76 years old. Trauma RADIATION DOSAGE (If Supplied By Facility): CTDIvol = ( 44.99 ) mGy, DLP = ( 779.24 ) mGycm TECHNIQUE: Transaxial CT imaging of the brain was performed without administration of intravenous contrast material. Individualized dose optimization techniques were used for this CT. COMPARISON: Comparison is made with prior study dated 12/23/2022. FINDINGS: Normal soft tissue structures. There is hyperostosis frontalis internus. There is mild cerebral atrophy with widening of the extra-axial spaces and ventricular dilatation. There are areas of decreased attenuation within the white matter tracts of the supratentorial brain, consistent with microvascular disease changes. Stable mild focal evidence of malacia at the base of the frontal lobes bilaterally. Normal basal ganglia and thalami. Normal brainstem. Normal cerebellum. There is no intracranial hemorrhage. There are no findings of an acute ischemic infarction. Normal visualized paranasal sinuses. CT/Brain/Head without Contrast IMPRESSION: Chronic involutional changes of the brain. Electronically Signed: Mkie Matta MD at 14:58 EST ,
--- NOTE | 2022-08-01 14:12 | EDS_ITS ---
HPI History of Present Illness Chief Complaint: Fall Informant: patient and family Narrative Narrative: Patient presents with granddaughter secondary to fall. She is a history of Alzheimer's dementia. She was recently placed in a psychiatric facility. Family is still unable to care for her. Last evening the patient was standing on a sofa trying to close curtains when she lost her balance and fell backwards striking her head on the floor. Family states they gave her aspirin and put her to bed. Today she is been complaining of her head being sore as well as some slight left hip pain. 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 History of hypertension History of sigmoidoscopy Hx of hypercholesterolemia IBS (irritable bowel syndrome) Mixed hyperlipidemia Osteoarthritis SK (seborrheic keratosis) Spastic bladder Home Medications docusate sodium 100 mg capsule 100 mg PO DAILY 08/01/22 [History Last Taken Unknown] doxepin 10 mg capsule 10 mg PO DAILY 08/01/22 [History Last Taken Unknown] escitalopram oxalate 10 mg tablet 10 mg PO DAILY 08/01/22 [History Last Taken Unknown] galantamine 12 mg tablet 12 mg PO DAILY 08/01/22 [History Last Taken Unknown] memantine 5 mg tablet 5 mg PO DAILY 08/01/22 [History Last Taken Unknown] Allergy/AdvReac Type Severity Reaction Status Date / Time aspirin [From Percodan] Allergy Unknown Verified 08/01/22 13:47 oxycodone HCl [From Percodan] Allergy Unknown Verified 08/01/22 13:47 oxycodone terephthalate Allergy Unknown Verified 08/01/22 13:47 [From Percodan] Family History Father Skin cancer Sister Breast cancer Thyroid disorder Alzheimers disease Aunt Breast cancer Grandmother Breast cancer Sister Schizophrenia Social History Smoking Status: Former smoker quit date: 03/10/12 Tobacco: How many years used: 40 how long ago did patient quit smokin alcohol intake: current alcohol intake frequency: 3 or more drinks per day Alcohol type: wine and hard liquor substance use type: does not use ROS ROS ED Constitutional Constitutional ED: Denies chills or fever(s) Eyes Eyes: Denies change in vision or discharge from eye(s) ENT ENT ED: Denies discharge from eye(s), rhinorrhea or sore throat Cardiovascular Cardiovascular: Denies chest pain or palpitations Respiratory/Chest Respiratory/Chest: Denies cough or dyspnea Gastrointestinal Gastrointestinal: Denies abdominal pain, nausea or vomiting Genitourinary Genitourinary ED: Denies difficulty urinating or dysuria Musculoskeletal Musculoskeletal: Reports extremity pain; Denies back pain Integumentary Denies Abrasions or rash Neurologic Neurologic: Reports headache(s); Denies weakness Allergic/Immunologic Allergic/Immunologic ED: Denies lip swelling or urticaria EXAM Physical Exam Const Vital Signs: 08/01/22 13:48 Temperature 98.4 F Temperature Source Temporal Positive well nourished and well developed General Appearance ED: well developed HEENT Reports normocephalic and head/scalp atraumatic Eyes PERRL and EOMs intact bilaterally Neck supple Chest Wall inspection of chest normal and palpation of chest normal Resp normal respiratory effort and clear to auscultation bilaterally Cardio regular rate and regular rhythm GI normal to inspection, nondistended, normoactive bowel sounds Palpation: soft Extremity Extremity Narrative: Mild tenderness to the lateral left hip. Equal leg lengths. Good range of motion. Neuro no sensory deficits noted Neuro Narrative: Patient is alert but intermittently confused. History of Alzheimer's dementia and at baseline per family. Sensorium / Orientation: alert Motor Exam: strength 5/5 throughout Psych mental status grossly normal Skin no rashes or lesions noted MDM MDM MDM Narrative Medical decision making narrative: CBC and chemistry studies obtained to evaluate for leukocytosis, anemia, electrolyte derangement. CT scan of the head and C-spine obtained given her fall with head injury. Pelvis and left hip x-rays obtained given her left hip pain after fall. I spoke with social work to evaluate the patient for placement. Lab Data Attestation: I reviewed the patient's lab results. Labs: Laboratory Results - last 24 hr 08/01/22 08/01/22 14:34 14:34 WBC 6.2 RBC 4.30 Hgb 12.5 Hct 40.4 MCV 94.0 MCH 29.1 MCHC 30.9 L RDW Std Deviation 49.3 H RDW Coeff of Marii 14.3 Plt Count 276 MPV 10.2 Immature Gran % (Auto) 0.200 Neut % (Auto) 61.0 Lymph % (Auto) 24.2 Vermillion % (Auto) 10.7 H Eos % (Auto) 3.1 Baso % (Auto) 0.8 Absolute Neuts (auto) 3.8 Absolute Lymphs (auto) 1.49 Nucleated RBC % 0 Sodium 138 Potassium 4.1 Chloride 107 Carbon Dioxide 24.0 Anion Gap 7 BUN 9 Creatinine 0.64 Est GFR (MDRD) Af Amer 116 Est GFR (MDRD) Non-Af 96 BUN/Creatinine Ratio 14.0 Glucose 127 H Calcium 9.6 Radiography Diagnostic Testing: Clinical Impression(s) from Imaging Studies Brain CT 08/01/22 14:10 IMPRESSION: Chronic involutional changes of the brain. Electronically Signed: Mike Matta MD at 14:58 EST , Cervical Spine CT 08/01/22 14:10 IMPRESSION: Multilevel degenerative changes, as described above. Electronically Signed: Mike Matta MD at 15:01 EST , Hip/Pelvis X-Ray 08/01/22 14:50 IMPRESSION: No fracture is seen. Marked degree of joint space narrowing of the left hip joint with acetabular spurring. Electronically Signed: Mike Matta MD at 15:15 EST , EKG Initial EKG: Attestation: I personally reviewed and interpreted this EKG as follows: Interpretation: Sinus Bradycardia (Sinus bradycardia 59 bpm. No acute ischemia.) Treatment and Re-Evaluation Narrative: CBC and chemistry studies are unremarkable. CT scan of the head shows chronic involutional changes. CT of the C-spine reveals multilevel degenerative changes. Pelvis and left hip x-rays per my interpretation reveal arthritic changes with no acute fracture. Radiology interpretation is reviewed and agrees. Social work spoke with the patient's daughter. She would like the patient placed in a psychiatric facility for treatment as opposed to a dementia unit at a local penitentiary. In light of this EKG, UA, urine tox, alcohol level have been obtained along with a COVID test for psychiatric clearance. Patient will be signed out to oncoming physician for further observation while awaiting placement. Discharge Plan Triage Chief Complaint: Fall ED Provider: Roseanne Bernstein Dx/Rx/DC Orders Clinical Impression: Alzheimer's dementia, Fall Prescriptions: No Action galantamine 12 mg tablet 12 mg PO DAILY Label Comments: TAKE 1 TABLET BY MOUTH TWICE DAILY for dementia. doxepin 10 mg capsule 10 mg PO DAILY Label Comments: TAKE 1 CAPSULE BY MOUTH EVERY DAY AT BEDTIME for insomnia. docusate sodium 100 mg capsule 100 mg PO DAILY Label Comments: TAKE 1 CAPSULE BY MOUTH EVERY DAY escitalopram oxalate 10 mg tablet 10 mg PO DAILY Label Comments: TAKE 1 TABLET BY MOUTH EVERY DAY AT BEDTIME for mood and depression. memantine 5 mg tablet 5 mg PO DAILY Label Comments: TAKE 1 TABLET BY MOUTH EVERY DAY AT BEDTIME for dementia. Primary Care Provider: Woody Monzon Referrals: Woody Monzon MD [Primary Care Provider] - Disposition Disposition: Psychiatric Hospital or Unit
[2022-08-01 14:44] LABS: Absolute Lymphocyte Count 1.49 X10^3/uL (0.83-4.51); Absolute Neutrophil Count 3.8 X10^3/uL (2.0-7.7); Basophil# 0.05 X10^3/uL; Basophil% 0.8 % (0-1); Eosinophil# 0.19 X10^3/uL; Eosinophils% 3.1 % (0-5); Hematocrit 40.4 % (37-47); Hemoglobin 12.5 g/dL (12.0-15.0); Lymphocyte # 1.49 X10^3/ul (0.83-4.51); Lymphocyte % 24.2 % (19-41); Mean Corp Hgb Conc 30.9 g/dL (32-36); Mean Corpuscular Hgb 29.1 pg (27.0-32.0); Mean Platelet Vol. 10.2 fl (6.2-12.0); Monocyte# 0.66 X10^3/uL; Monocyte% 10.7 % (0-10); NRBC Flagged by Analyzer 0 % (0-5); Neutrophil # 3.76 X10^3/uL (2.7-7.7); Platelet Count 276 K/mm3 (150-450); RBC Distribution Width CV 14.3 % (11.6-14.6); RBC Distribution Width SD 49.3 fl (35.1-43.9); White Blood Count 6.2 K/mm3 (4.4-11.0)
--- NOTE | 2022-08-01 14:50 | RAD_ITS ---
STUDY: X-RAY - PELVIS AND LEFT HIP REASON FOR EXAM: Female, 76 years old. Pain following a fall. TECHNIQUE: 3 views of the pelvis and hip. COMPARISON: Comparison is made with prior study of 08/16/2021. FINDINGS: There is a non-specific bowel gas pattern. Normal visualized soft tissue structures. There is narrowing with cortical sclerosis and osteophyte formation of the sacroiliac joint consistent with degenerative osteoarthritic changes. Normal bilateral superior and inferior pubic rami. There is narrowing with sclerosis of the pubic symphysis. Normal bilateral ischial tuberosities. Normal visualized femoral head. There is osteoarthritic spur formation of the acetabular rim. There is severe articular joint space narrowing of the hip. RAD/HIP, UNI W/ Pelvis 2-3 Views IMPRESSION: No fracture is seen. Marked degree of joint space narrowing of the left hip joint with acetabular spurring. Electronically Signed: Mike Matta MD at 15:15 EST ,
[2022-08-01 15:02] LABS: Anion Gap 7 (5-15); BUN 9 mg/dL (7-18); Calcium,Total 9.6 mg/dL (8.5-10.1); Chloride 107 mmol/L (98-107); Creatinine, Serum 0.64 mg/dL (0.55-1.02); EST Glomerular Filtration Rate 96 mL/min (>60); Est Glom Filt Rate - Afr Amer 116 mL/min (>60); Glucose 127 mg/dL (74-106); Potassium 4.1 mmol/L (3.5-5.1); Sodium Level 138 mmol/L (136-145)
--- NOTE | 2022-08-01 15:34 | EKG12_ITS ---
Test Reason : FALL Blood Pressure : / mmHG Vent. Rate : 059 BPM Atrial Rate : 059 BPM P-R Int : 190 ms QRS Dur : 078 ms QT Int : 428 ms P-R-T Axes : 022 014 081 degrees QTc Int : 423 ms Sinus bradycardia Septal infarct , age undetermined Abnormal ECG Confirmed by MARIANO JUARES, MAYNOR ([id number]), visual effects editor GIUSEPPE VICTOR ([id number]) on 08/03/2022 1:03:58 PM Referred By: Confirmed By:MAYNOR QUINTANA MD
[2022-08-01 15:47] VITALS: RESP 16
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
[2022-08-01 16:51] LABS: Alcohol, Blood (Medical)-Serum < 3.0 mg/dL
[2022-08-01 17:42] LABS: Mucous, Urine 0 SEEN /hpf (<or=2+)
[2022-08-01 17:47] VITALS: RESP 16
[2022-08-01 17:57] LABS: Color, Urine Yellow (Yellow); Glucose, Dipstick Normal (Normal); Ketone-Dipstick Negative (Negative); Leukocyte Esterase-Dipstick 500 /ul (Negative); Nitrite-Dipstick Negative (Negative); Occult Blood-Urine 150 /ul (Negative); Protein-Dipstick 30 mg/dl (Negative); Specific Gravity, Urine 1.015 (1.002-1.030); Urine Bilirubin Dipstick Negative (Negative); Urine Clarity Cloudy (Clear); Urine Urobilinogen Normal (Normal)
[2022-08-01 18:10] LABS: Red Blood Cells-Urine 10-25 SEEN /hpf (0-5)
[2022-08-01 18:11] LABS: Bacteria 2+ /hpf (None Seen); Squamous Epithelial Cells - UA 0-5 SEEN /hpf (5-10)
[2022-08-01 18:12] LABS: White Blood Cells 50-100 SEEN /hpf (0-5)
[2022-08-01 18:16] VITALS: BMI 25.9
[2022-08-01 18:44] LABS: Amphetamine Urine VISTA NEGATIVE (<1000 ng/mL); Barbiturate Urine VISTA NEGATIVE (< 200 ng/mL); Benzodiazepine Urine VISTA NEGATIVE (< 200 ng/mL); Cocaine Urine VISTA NEGATIVE (< 300 ng/mL); Ecstacy Urine VISTA NEGATIVE (< 500 ng/mL); Methadone Urine VISTA NEGATIVE (< 300 ng/mL); PCP Urine VISTA NEGATIVE (< 25 ng/mL); THC Urine VISTA NEGATIVE (< 50 ng/mL); Vista UDS pH Range 5
[2022-08-01 19:00] VITALS: RESP 16
--- NOTE | 2022-08-01 19:18 | CM.ED ---
Addendum entered by Leticia Bustos 08/01/22 21:29: Patient accepted to [facility] with transportation set up for tomorrow at 12pm. SW contacted patient's daughter to inform her of patient's acceptance to [facility]. Patient's daughter reports understanding and will inform patient's granddaughter Rema. Patient's daughter inquired about results from patient's scan as well possible UTI. SW informed her patient's RN or MD will contact her to discuss medical questions. No other needs voiced. SW informed RN Martha. RN to follow up with MD working with patient and contact patient's daughter to discuss. Plan: [facility] tomorrow afternoon REGINA Rivera Original Note: SW Note SW contacted [facility] to inquire about referral for patient. Adriana, admissions staff reported they still needed toxicology and POA documents and spoke with [facility] staff earlier to request documents. SW to follow up. ALICE met with oil well service unit operator to inquire about the request from [facility]; oil well service unit operator reports requested documents were faxed roughly 30 minutes ago. SW contacted [facility] to inform her documents were already sent. Adriana was able to acknowledge that they did receive the fax and would be reviewing the referral with their doctor at the [place] location. Plan: Patient is pending acceptance to [facility] REGINA Rivera
[2022-08-01 21:00] VITALS: RESP 16
[2022-08-01] MEDS: Cephalexin 250 MG Capsule 500 MG PO (22:25)
[2022-08-02 02:35] VITALS: PULSE 66; RESP 14; O2SAT 97
[2022-08-02 04:08] VITALS: O2SAT 97
[2022-08-02 06:07] VITALS: BP 118/70; PULSE 74; RESP 15; O2SAT 98
[2022-08-02] MEDS: Cephalexin 250 MG Capsule 500 MG PO (06:50)
--- NOTE | 2022-08-02 07:16 | NURSING ---
Sarina, in [place], will call pharmacy to process payment for meds to bed and lmom for the inpatient pharmacy to let the know of need for meds to beds by [phone] for dc at noon. [place] nurse aware of situation.
[2022-08-02 10:13] VITALS: BP 115/68; PULSE 81; RESP 12; O2SAT 98
--- NOTE | 2022-08-02 10:26 | CM.ED ---
Addendum entered by Mai Bruce 08/02/22 11:01: ALICE received call from Karlo at [facility]. Transport will be at [place] at 1:15pm. ALICE updated power washerXAVI Mendoza. ALICE called [facility] and spoke to staff. Accepting BEAM HOUSE INSPECTOR is Megan Degroot NP and accepting MD is Dr. Segundo Moses. Patient is going to [facility] with the phone number being [phone]. ALICE completed transfer sheet and MD Yung signed the transfer sheet. ALICE updated power washerXAVI Mendoza. Plan: [facility]. Mai GUTIERREZ Original Note: ALICE received call from [facility]. They asked about patient's code status. ALICE reviewed chart and noted that patient is a full code. ALICE updated [facility] staff. No further issues or concerns identified. Mai GUTIERREZ
[2022-08-02 11:39] VITALS: BP 118/74; PULSE 79; RESP 12; O2SAT 98
[2022-08-02] MEDS: Galantamine Hydrobromide 4 MG Tablet 12 MG PO (12:27)
[2022-08-02 12:28] VITALS: BP 138/98; PULSE 98; RESP 14; O2SAT 98
== END 2022-08-02 13:35 ==
PROVIDERS: Emergency Provider Emergency Medicine; PCP Family Medicine; Visit Provider Emergency Medicine
DX: S09.90XA Unspecified injury of head, initial encounter (principal); G30.9 Alzheimer's disease, unspecified; F02.80 Dementia in other diseases classified elsewhere, unspecified severity, without behavioral disturbance, psychotic disturbance, mood disturbance, and anxiety; J44.9 Chronic obstructive pulmonary disease, unspecified; E11.9 Type 2 diabetes mellitus without complications; I10 Essential (primary) hypertension; M25.552 Pain in left hip; Z87.891 Personal history of nicotine dependence; E78.2 Mixed hyperlipidemia; W08.XXXA Fall from other furniture, initial encounter; R94.31 Abnormal electrocardiogram [ECG] [EKG]; M54.2 Cervicalgia
CPT/HCPCS: 70450; 72125; 73502; 80048; 80307; 81001; 82077; 85025; 87426; 93005; 99283; A4216